=== PATIENT | female | born 1950 | race Caucasian/White ===

== ENCOUNTER 2017-05-19 05:49 | Inpatient (IN) ==
[2017-05-13 14:08] LABS: Basophils # 0.1 10*3/uL (0.0-0.2); Basophils % 0.6 % (0.0-0.8); Eosinophils % 0.3 % (0.00-10.9); Hematocrit 33.2 VOL% (35.7-47.0); Hemoglobin 11.3 GM/DL (12.0-16.0); Immature Granulocytes % 1.4 %; Immature Granulocytes Absolute 0.14 #; Lymphocytes # 1.4 10*3/uL (1.4-4.0); Lymphocytes % 14.1 % (21.3-54.2); Mean Corpuscular Hemoglobin 32 PG (27-34); Mean Corpuscular Volume 93.5 FL (87-102); Mean Platelet Volume 10.7 FL (9.6-12.0); Monocytes % 9.4 % (1.7-12.7); Neutrophils # 7.6 10*3/uL (1.4-7.4); Neutrophils % 74.2 % (38.7-73.9); Platelet Count 357 T/CUMM (130-400); Red Blood Count 3.55 MC/CUMM (3.8-5.5); Red Cell Distribution Width 13.3 % (9.3-17.3); White Blood Count 10.2 T/CUMM (4-12)
--- NOTE | 2017-05-13 14:16 | EKG Report ---
Stationary ECG Study [facility] Test Date: 05/13/2017 2:17:10 PM Pat Name: MARLENY ZUNIGA Department: Room: Gender: F Manager Clinical Informatics: ROCKY CRUZ : 1950 Requested by: Jorge Luis Cruz Order Number: [id number] Reading MD: UCHE JAIME Intervals [place] Rate: 73 P: 48 NC: 163 QRS: 17 QRSD: 94 T: 69 QT: 380 QTc: 405 Interpretive Statements SINUS RHYTHM Electronically Signed On 05-13-17 18:26:05 CDT by UCHE JAIME [email or web address]
[2017-05-13 14:31] LABS: Calcium 9.1 MG/DL (8.5-10.1); Potassium 4.6 MMOL/L (3.5-5.1)
[~2017-05-19 05:49] MED LIST: ceFAZolin 1,000 MG VIAL ONE
[2017-05-19] MEDS ORDERED: BUPIVACAINE MPF 0.25% /EPI 30 ML VIAL ONE (06:25)
[2017-05-19] MEDS ORDERED: LIDOCAINE 1%/EPI INJ 20 ML VIAL ONE (06:25)
[2017-05-19] MEDS ORDERED: TISSUE ADHESIVE 1 EACH APPLICATOR TOP ONE (06:25)
[2017-05-19] MEDS: SODIUM CHLORIDE 0.9% 250 ML IV SCH ×2 (06:40→19:04)
[2017-05-19] MEDS ORDERED: FAMOTIDINE 20 MG/2 ML VIAL IV STA (06:46)
[2017-05-19] MEDS ORDERED: FAMOTIDINE 20 MG/2 ML VIAL IV ONE (06:49)
[2017-05-19] MEDS ORDERED: PANTOPRAZOLE 40 MG VIAL IV STA (06:50)
[2017-05-19] MEDS ORDERED: ONDANSETRON 4 MG/2 ML VIAL IV STA (06:50)
[2017-05-19] MEDS ORDERED: ONDANSETRON 4 MG/2 ML VIAL ONE ×2 (06:56→07:23)
[2017-05-19] MEDS ORDERED: PANTOPRAZOLE 40 MG VIAL IV ONE (06:56)
--- NOTE | 2017-05-19 07:10 | History and Physical Update ---
History and Physical Update - History and Physical H&P was reviewed, the patient examined and there: are no changes in the patients condition since last H&P was completed.
--- NOTE | 2017-05-19 07:21 | XRay Report ---
XR chest 1V Indication: Preop respiratory evaluation. Comparison: Chest x-ray February 02, 2016 Technique: Portable AP chest was performed. Findings: Heart size is normal. Pulmonary vasculature appears within normal limits. No significant abnormality of the mediastinal contours demonstrated. Lungs are clear. Bones and soft tissues demonstrate no significant abnormalities. Impression: 1. No evidence of acute pathology. 05/19/2017 7:17 AM PROCEDURE INTERPRETED AT [facility] DEPARTMENT OF RADIOLOGY Final Report Signed by: Dr. Reynold Castellanos
[2017-05-19] MEDS: SODIUM CHLORIDE 0.9% 1,000 ML IV SCH ×2 (07:23→08:46)
[2017-05-19] MEDS ORDERED: PHENYLEPHRINE 50 MG/5 ML VIAL ONE (07:23)
[2017-05-19] MEDS ORDERED: ROCURONIUM 100 MG/10 ML VIAL IV ONE (07:23)
[2017-05-19] MEDS ORDERED: GLYCOPYRROLATE 0.4 MG/2 ML VIAL ONE (07:23)
[2017-05-19] MEDS ORDERED: NEOSTIGMINE 10 MG/10 ML VIAL ONE (07:23)
[2017-05-19] MEDS ORDERED: LIDOCAINE 100 MG/5 ML SYRINGE ONE (07:23)
[2017-05-19] MEDS ORDERED: PHENYLEPHRINE 1 MG/10 ML SYRINGE IV ONE (07:23)
[2017-05-19] MEDS ORDERED: PROPOFOL 200 MG/20 ML VIAL IV ONE (07:23)
[2017-05-19] MEDS ORDERED: SUCCINYLCHOLINE 200 MG/10 ML VIAL ONE (07:23)
[2017-05-19] MEDS ORDERED: BISACODYL 5 MG TABLET PO PRN (10:10)
[2017-05-19] MEDS ORDERED: SUGAMMADEX 200 MG/2 ML VIAL IV ONE (10:10)
[2017-05-19] MEDS ORDERED: ACETAMINOPHEN 325 MG TABLET PO PRN (10:10)
[2017-05-19] MEDS ORDERED: HYDROmorphone 2 MG/1 ML VIAL IV PRN (10:10)
[2017-05-19] MEDS ORDERED: DEXTROSE 50% 25 GM/50 ML VIAL IV PRN (10:17)
[2017-05-19] MEDS ORDERED: GLUCAGON 1 MG VIAL IM PRN (10:17)
[2017-05-19] MEDS ORDERED: hydrALAZINE 20 MG/1 ML VIAL ONE (10:26)
[2017-05-19] MEDS ORDERED: hydrALAZINE 20 MG/1 ML VIAL IV ONE (10:27)
[2017-05-19] MEDS: HYDROmorphone 2 MG/1 ML VIAL IV PRN ×5 (10:30→18:20)
[2017-05-19] MEDS ORDERED: SEVOFLURANE 1 UNIT/15 MINUTE INH ONE (10:35)
[2017-05-19] MEDS ORDERED: MIDAZOLAM 2 MG/2 ML VIAL ONE (10:35)
[2017-05-19] MEDS ORDERED: ACETAMINOPHEN 1,000 MG/100 ML VIAL IV ONE (10:35)
[2017-05-19] MEDS ORDERED: fentaNYL 100 MCG/2 ML VIAL ONE (10:35)
[2017-05-19] MEDS ORDERED: MINERAL OIL/PETROLATUM OPH OINT 3.5 GM TUBE ONE (10:35)
[2017-05-19] MEDS ORDERED: SODIUM CHLORIDE 0.9% 1,000 ML IV ONE (10:36)
[2017-05-19] MEDS ORDERED: HYDROmorphone 2 MG/1 ML VIAL ONE (10:37)
--- NOTE | 2017-05-19 13:02 | Nephrology Consult Note ---
History of Present Illness Chief complaint: CRF History of present illness: Ms. Pedersen is a 67 year old female who is just undergone gastric pacer placement for gastroparesis. She is alert. She denies pain or shortness of breath. I have followed her for diabetic nephropathy. Her baseline creatinine in January of this year was 2.6. Home Medications Medication Instructions Recorded Confirmed Type Aspirin Tab 325 mg PO DAILY 05/13/17 05/19/17 History Atorvastatin [Lipitor] 20 mg PO DAILY 05/13/17 05/19/17 History Cholecalciferol (Vitamin D3) 2,000 unit PO DAILY 05/13/17 05/19/17 History [Vitamin D3] Colchicine 0.6 mg PO DAILY 05/13/17 05/19/17 History Insulin Aspart [NovoLOG FlexPen] 20 unit SUBCUT TID 05/13/17 05/19/17 History Insulin Glargine,Hum.rec.anlog 60 unit SUBCUT DAILY 05/13/17 05/19/17 History [Lantus SoloStar] Metoprolol Succinate Xl [Toprol Xl] 100 mg PO BID 05/13/17 05/19/17 History Nitroglycerin 0.4 mg/Hr Patch 1 patch TRANSDERM DAILY 05/13/17 05/19/17 History [Nitro-Dur 0.4 mg/hr Patch] Omeprazole 20 mg PO DAILY 05/13/17 05/19/17 History Ondansetron HCl 4 mg PO QID PRN 05/13/17 05/19/17 History Ranolazine [Ranexa] 500 mg PO BID 05/13/17 05/19/17 History amLODIPine [Norvasc] 2.5 mg PO DAILY 05/13/17 05/19/17 History buPROPion HCl [Bupropion Xl] 300 mg PO BID 05/13/17 05/19/17 History Allergies Allergy/AdvReac Type Severity Reaction Status Date / Time Penicillins Allergy Intermediate RASH Verified 05/19/17 06:12 sulfamethoxazole Allergy Mild RASH Verified 05/13/17 11:41 [From Bactrim] trimethoprim [From Bactrim] Allergy Mild RASH Verified 05/13/17 11:41 Medical,Surgical,& Family Hx - Medical History Cardio: History of: Hypertension Psychological: History of: Depression Neurology: History of: Migraine (PAST HX.) No history of: Seizures HEENT: History of: Eye Problem (GLASSES) Endocrine: History of: Diabetes Mellitus (IDDM), Dyslipidemia Respiratory: History of: Bronchitis (PAST HX.) No history of: Respiratory Problems (FLU VAC-YES; PNEU VAC- YES.) Renal: History of: Renal Failure (DR LAU) Gastrointestinal: History of: GERD, GI Problems (NAUSEA AND VOMITING. GASTROINTERITIS) Musculoskeletal: History of: Back/Neck Problems (LOWER BACK PAIN AND SHOULDERS) Hematology: History of: Anemia Reproductive: History of: Reproductive Problems (UTERINE CANCER) Other: History of: Anesthesia Reactions (VOMITING WITH ANESTHESIA), Cancer ( UTERINE CANCER.), MRSA (RT SHOULDER 2006) - Surgical History Abdominal Surgeries: Surgical HX of: Abdominal Surgery (gastric stimulator), Cholecystectomy, EGD (?) Reproductive Surgeries: Surgical HX of;: Breast Surgery (RT BREAST LUMPECTOMY), Gynecologic Surgery, Hysterectomy - Family History Family History: Reports;: Family Diabetes, Family Hypertension - Social History Smoking Status: Never smoker Frequency of Alcohol Use: None Type of Drug Use: None Review of Systems 12 point system: reviewed and no additional remarkable complaints except as stated Exam - Vital Signs Vital signs: Period Temp Pulse Resp BP Sys/Veliz Pulse Ox Last 24 Hr 97 F-97.6 F 59-66 16-20 118-218/56-86 95-100 Exam: Gen.: Alert and oriented x3. ENT: Pupils equal round reactive to light. EOMs intact. Mucous membranes moist. Neck: Supple. No JVD or bruit. Cardiovascular: Regular rate and rhythm. No murmur rub or gallop Lungs: Clear Abdomen: Soft. Nontender. Positive bowel sounds. No organomegaly Extremities: No edema Results - Labs CBC & BMP: 05/13/17 14:01 05/13/17 14:01 Assessment and Plan (1) Chronic kidney disease, stage III (moderate) Status: Acute Assessment and plan: 67-year-old woman admitted with: * Gastroparesis. Status post gastric pacer * Diabetes mellitus * CRF stage III. Baseline creatinine 2.6 in January 2017. Renal panel pending * Hypertension. Controlled * Osteoarthritis Current Visit: Yes (2) Diabetes mellitus Status: Acute Current Visit: Yes (3) Hypertension Status: Acute Current Visit: Yes (4) Gastroparesis Status: Acute Current Visit: Yes (5) Osteoarthritis Status: Acute Current Visit: Yes
[2017-05-19] MEDS: PANTOPRAZOLE 40 MG VIAL IV SCH (13:07)
[2017-05-19] MEDS: RANOLAZINE 500 MG TABLET PO SCH ×2 (13:10→20:53)
[2017-05-19] MEDS: amLODIPine 2.5 MG TABLET PO SCH (13:10)
[2017-05-19] MEDS: CHOLECALCIFEROL 1,000 UNIT TABLET PO SCH (13:11)
[2017-05-19] MEDS: COLCHICINE 0.6 MG TABLET PO SCH (13:11)
[2017-05-19] MEDS: ASPIRIN 325 MG TABLET PO SCH (13:11)
[2017-05-19] MEDS: LACTATED RINGERS 1,000 ML IV SCH ×2 (13:11→19:37)
[2017-05-19] MEDS: ATORVASTATIN 20 MG TABLET PO SCH (13:11)
[2017-05-19] MEDS: NITROGLYCERIN 0.4 MG/HR PATCH TRANSDERM SCH (13:12)
[2017-05-19] MEDS: METOPROLOL SUCCINATE XL 100 MG TABLET PO SCH ×2 (13:12→20:53)
--- NOTE | 2017-05-19 14:02 | Operative Note ---
Date of procedure: 05/19/17 Pre-op diagnosis: Diabetic gastroparesis refractory to medical management Post-op diagnosis: same Procedure: Procedure performed: #1 robotically assisted laparoscopic placement of gastric stimulator leads #2 implantation of gastric stimulator #3 EGD #4 interrogation and programming of gastric stimulator Procedure in detail: After informed consent was obtained, patient was taken operating suite placed upon the operating table. After general anesthesia was induced abdomen was prepped and draped in usual sterile fashion using Ioban drape. After procedural pause local anesthetic infiltrated in the skin and subcutaneous tissue to the right of the umbilicus. Incision was made and dissection carried down through skin and soft tissue. The anterior and posterior fascia was divided and the abdominal cavity was then entered bluntly. Finger sweep revealed no adjacent adhesions. Stimulator leads were inserted along with the Galindo trocar under direct visualization. Pneumoperitoneum achieved. The camera inserted. Bowel mesentery inspected found to be free of any violation. Next the patient was placed in slight reverse Trendelenburg position and 8 mm trochars were placed in the left upper quadrant as well as a 5 mm licensed physical therapy assistant port all under visualization. The robotic arms were docked not to control to consult. There is some adhesions in the right upper quadrant which were taken down to allow visualization of the pylorus. Then identified a 0.10 cm from the pylorus along the greater curvature of the stomach. The skin needles were placed in the blue Prolene dragged into the stomach submucosa. EGD performed. I was able to identify blue Prolene suture in the lumen of the stomach. The stomach was desufflated and the needles were removed. I then reinserted the skin needles and re-perform the EGD and they were in good position with no Prolene intraluminally. There was no trauma to the mucosa. The leads were pulled into the stomach wall and impedance was checked and was adequate. Next the discs were inserted in the blue Prolene sutures placed through the discs allowing for a snug fit of the leads in the stomach. Clips were applied and the excess Prolene sutures and skin needles were removed. The trumpets and disc were then secured using interrupted 2-0 Ethibond suture. The robotic arms were undocked and the abdomen desufflated. The fascia was closed using running 0 Prolene suture. Subcutaneous pocket was created inferior to the incision and the stimulator was placed in the pocket with the excess lead wrapped behind the stimulator. Stimulator was secured to the fascia using 2-0 Prolene suture. The impedance was rechecked and was 391. Stimulator was then interrogated and placed in the on position. Nominal settings were placed giving a voltage of 2.0 with a current of 5.0. Pulse width was 330 with a rate of 14 Hz. Cycling was on 0.1 seconds off 5 seconds. The wounds and pocket were thoroughly irrigated and suctioned. Soft tissue over the stimulator was reapproximated with 3-0 Vicryl suture. Deep dermal layer was closed with 3-0 Vicryl suture. Incisions were closed with 4-0 Monocryl. Sterile dressings applied. The patient was extubated and taken recovery room in stable condition. All lap and needle counts were correct at the end of the case. Anesthesia: BISIA Surgeon / Physician: Jorge Luis Cruz Estimated blood loss: other (Less than 10 cc) Specimens: none sent Condition: stable Disposition: PACU Results - Labs CBC & BMP: 05/13/17 14:01 05/13/17 14:01 Discharge Plan - Discharge Medications No Action Ranolazine [Ranexa] 500 mg PO BID Ondansetron HCl 4 mg PO QID PRN PRN Reason: Nausea Insulin Aspart [NovoLOG FlexPen] 20 unit SUBCUT TID amLODIPine [Norvasc] 2.5 mg PO DAILY Nitroglycerin 0.4 mg/Hr Patch [Nitro-Dur 0.4 mg/hr Patch] 1 patch TRANSDERM DAILY Insulin Glargine,Hum.rec.anlog [Lantus SoloStar] 60 unit SUBCUT DAILY Colchicine 0.6 mg PO DAILY Cholecalciferol (Vitamin D3) [Vitamin D3] 2,000 unit PO DAILY Atorvastatin [Lipitor] 20 mg PO DAILY Aspirin Tab 325 mg PO DAILY Metoprolol Succinate Xl [Toprol Xl] 100 mg PO BID Omeprazole 20 mg PO DAILY buPROPion HCl [Bupropion Xl] 300 mg PO BID - Follow Up or Referral - Forms/Instructions
[2017-05-19] MEDS: ONDANSETRON 4 MG/2 ML VIAL IV PRN (18:28)
[2017-05-19] MEDS: INSULIN LISPRO 100 UNIT/ML SUBCUT SCH (18:29)
[2017-05-20] MEDS: LACTATED RINGERS 1,000 ML IV SCH ×3 (00:20→11:51)
[2017-05-20 06:53] LABS: Basophils # 0.1 10*3/uL (0.0-0.2); Basophils % 0.4 % (0.0-0.8); Eosinophils # 0.1 10*3/uL (0.0-0.87); Eosinophils % 0.4 % (0.00-10.9); Hematocrit 28.7 VOL% (35.7-47.0); Hemoglobin 9.1 GM/DL (12.0-16.0); Immature Granulocytes Absolute 0.23 #; Lymphocytes # 2.2 10*3/uL (1.4-4.0); Lymphocytes % 19.4 % (21.3-54.2); Mean Corpuscular HGB Conc 31.7 GM/DL (32-36); Mean Corpuscular Hemoglobin 32 PG (27-34); Mean Corpuscular Volume 99.7 FL (87-102); Monocytes % 8.5 % (1.7-12.7); Neutrophils # 7.8 10*3/uL (1.4-7.4); Neutrophils % 69.3 % (38.7-73.9); Platelet Count 309 T/CUMM (130-400); Red Blood Count 2.88 MC/CUMM (3.8-5.5); Red Cell Distribution Width 13.3 % (9.3-17.3); White Blood Count 11.2 T/CUMM (4-12)
[2017-05-20 07:17] LABS: Calcium 8.1 MG/DL (8.5-10.1); Osmolality,Calculated 279.5 MOS/KG (273-304); Potassium 4.6 MMOL/L (3.5-5.1)
[2017-05-20] MEDS: SODIUM CHLORIDE 0.9% 250 ML IV SCH (08:33)
[2017-05-20] MEDS: INSULIN LISPRO 100 UNIT/ML SUBCUT SCH ×2 (08:34→17:20)
[2017-05-20] MEDS: CHOLECALCIFEROL 1,000 UNIT TABLET PO SCH (08:42)
[2017-05-20] MEDS: ATORVASTATIN 20 MG TABLET PO SCH (08:42)
[2017-05-20] MEDS: PANTOPRAZOLE 40 MG VIAL IV SCH (08:42)
[2017-05-20] MEDS: ASPIRIN 325 MG TABLET PO SCH (08:42)
[2017-05-20] MEDS: METOPROLOL SUCCINATE XL 100 MG TABLET PO SCH ×2 (08:43→21:12)
[2017-05-20] MEDS: COLCHICINE 0.6 MG TABLET PO SCH (08:43)
[2017-05-20] MEDS: RANOLAZINE 500 MG TABLET PO SCH ×2 (08:43→21:12)
[2017-05-20] MEDS: amLODIPine 2.5 MG TABLET PO SCH (08:43)
[2017-05-20] MEDS: SODIUM CHLORIDE 0.9% 1,000 ML IV SCH (08:46)
--- NOTE | 2017-05-20 11:13 | Event Note ---
67-year-old white female with history of hypertension, gout, diabetes, depression, and CKD admitted by Dr. Cruz on 05/19/2017 with a 2 year history of abdominal pain, nausea, vomiting, regurgitation and constipation due to gastroparesis. She was taken to the operating room for robotically assisted laparoscopic placement of gastric stimulator leads, implantation of gastric stimulator, EGD, interrogation and programming of gastric stimulator on [address] Jean-Baptiste is following her for her chronic kidney disease which is stable. 05/20/2017 patient is requiring assistance to get up to the bathroom. She states she has had no nausea or vomiting since surgery. She drank all of her liquid tray this morning and is tolerating water between meals. Her only complaints are postop pain which she is taking IV and p.o. meds for. She is afebrile and vital signs are stable. She did have a blood sugar drop to 50 last night that was symptomatic. Her home meds are being held and she is on sliding scale insulin. We will go ahead and decrease her IV fluids to 75 and switch her over to D5 and half-normal saline. Her white count is normal, H&H stable, creatinine is 2.7 which is her baseline. Her abdomen is soft and appropriately tender, her incisions look good. Continue on clear liquid diet for now and consult physical therapy to evaluate and treat. Dr. Cruz will see and examine patient and further recommendations to follow.
--- NOTE | 2017-05-20 11:35 | Physician Query Form ---
CLICK EDIT DOCUMENT TO SELECT QUERY ANSWER --> OK --> SIGN Ana Garcia RN Clinical Sql Report Writer W) [phone] (f) [phone] [email or web address] PROVIDERS: Make your selection(s) from the choices in EACH section by typing an "x" and enter comments in the comment section. Please use your independent medical judgment in providing your response. This request does not imply that any particular answer is desired or expected. CLINICAL INDICATORS: (Providers should not edit this section) Based on documentation of "Acute CKD stage 3" Creatinine from 4.10 to 2.70. GFR form 11 to 19. Treated with NS bolus, followed by and LR infusion. Clarify which of the following most accurately represents the patient's renal status: ( ) Acute kidney injury (non-traumatic) ( ) Acute renal failure ( ) Acute renal failure with underlying Chronic Kidney Disease (CKD) - please provide stage below ( ) Acute renal failure with pathological renal lesion ( ) Acute renal failure with necrosis ( ) tubular ( ) medullary ( ) cortical (x ) CKD - please provide stage below ( ) End Stage Renal Disease ( ) Acute interstitial nephritis ( ) Hepatorenal syndrome ( ) Other, please specify: ( ) Clinically unable to determine Chronic Kidney Disease Stages Source: National Kidney Disease Foundation ( ) Stage I (eGFR > or = 90) ( ) Stage II (eGFR 60 - 89) ( ) Stage III (eGFR 30 - 59) ( ) Stage IV (eGFR 15 - 29) ( ) Stage V (eGFR < 15 or dialysis) COMMENTS: 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 PLEASE ALSO DOCUMENT RESPONSE IN PROGRESS NOTES AND/OR DISCHARGE SUMMARY Use of terms such as suspected, likely, or probable (associated with a specific diagnosis that is being evaluated, monitored, or treated as if it exists) are acceptable and can be restated in the discharge summary if not ruled out. MTDD
[2017-05-20] MEDS: NITROGLYCERIN 0.4 MG/HR PATCH TRANSDERM SCH (11:46)
[2017-05-20] MEDS: DEXTROSE 5% NACL 0.45% 1,000 ML IV SCH (11:50)
--- NOTE | 2017-05-20 12:01 | Anesthesia Post-Op ---
Anesthesia Post OP - Post Ansesthetic Evaluation Patient seen in post op: Yes Resp: within normal limits CV: within normal limits Mental: within normal limits Temp: within normal limits Flrd-Dx-[place]: within normal limits Nausea and Vomiting: within normal limits Pain: within normal limits
--- NOTE | 2017-05-20 12:53 | Nephrology Progress Note ---
Nephrology - PN: Subj Interval history: She complains of soreness at her surgical site. She reports generalized weakness. No nausea Exam (PN)-Nephrology - Vital Signs Vital signs: Period Temp Pulse Resp BP Sys/Veliz Pulse Ox Last 24 Hr 96.1 F-97.6 F 57-69 16-20 147-199/70-94 94-100 Exam: ENT: Normal Cardiovascular: Regular rate and rhythm. No murmur rub or gallop Lungs: Clear Extremities: No edema - Lab 05/20/17 06:11 05/20/17 06:11 Most recent lab results Calcium 8.1 MG/DL (8.5-10.1) L 05/20/17 06:11 Assessment and Plan (1) Chronic kidney disease, stage III (moderate) Status: Acute Assessment and plan: 67-year-old woman admitted with: * Gastroparesis. Status post gastric stimulator. * Diabetes mellitus * CRF stage III. Renal function is at her baseline. * Hypertension. Controlled * Osteoarthritis Current Visit: Yes (2) Diabetes mellitus Status: Acute Current Visit: Yes (3) Hypertension Status: Acute Current Visit: Yes (4) Gastroparesis Status: Acute Current Visit: Yes (5) Osteoarthritis Status: Acute Current Visit: Yes
[2017-05-20] MEDS: HYDROmorphone 2 MG/1 ML VIAL IV PRN (21:13)
[2017-05-20] MEDS: ONDANSETRON 4 MG/2 ML VIAL IV PRN (21:40)
--- NOTE | 2017-05-21 09:52 | Nephrology Progress Note ---
Nephrology - PN: Subj Interval history: Patient complains of abdominal pain around her surgical site. Review of systems pulmonary she denies shortness of breath Physical exam general the patient is in no acute distress she has no pitting edema Assessment/plan 1. Chronic kidney disease stage III-patient's creatinine is 2.7 mg/dL 2. Gastroparesis-patient status post gastric pacemaker placement 3. Anemia 4. Hypertension we will continue present antihypertensives 5. Metabolic acidosis-I will add some sodium bicarbonate to her IV fluids. Exam (PN)-Nephrology - Vital Signs Vital signs: Period Temp Pulse Resp BP Sys/Veliz Pulse Ox Last 24 Hr 97.1 F-98.0 F 64-73 16-20 148-199/76-94 97-100 - Lab 05/20/17 06:11 05/20/17 06:11 Most recent lab results Calcium 8.1 MG/DL (8.5-10.1) L 05/20/17 06:11
[2017-05-21] MEDS: INSULIN LISPRO 100 UNIT/ML SUBCUT SCH ×2 (10:36→18:04)
[2017-05-21] MEDS: PANTOPRAZOLE 40 MG VIAL IV SCH (10:36)
[2017-05-21] MEDS: CHOLECALCIFEROL 1,000 UNIT TABLET PO SCH (10:36)
[2017-05-21] MEDS: COLCHICINE 0.6 MG TABLET PO SCH (10:36)
[2017-05-21] MEDS: ASPIRIN 325 MG TABLET PO SCH (10:36)
[2017-05-21] MEDS: amLODIPine 2.5 MG TABLET PO SCH (10:37)
[2017-05-21] MEDS: ATORVASTATIN 20 MG TABLET PO SCH (10:37)
[2017-05-21] MEDS: RANOLAZINE 500 MG TABLET PO SCH ×2 (10:37→20:51)
[2017-05-21] MEDS: METOPROLOL SUCCINATE XL 100 MG TABLET PO SCH ×2 (10:37→20:51)
--- NOTE | 2017-05-21 11:09 | Event Note ---
General Surgery Progress Note Chief complaint This patient is a 67-year-old woman who underwent robotic assisted laparoscopic gastric stimulator replacement on 05/19/2017 Interval history The patient had developed some renal issues with acidosis that is currently being treated by nephrology and and he has seen her today and added some bicarbonate to her IV fluids. She has some nausea and vomiting with supper last night. She has not tried anything yet today when I saw her. She is complaining of some right-sided abdominal pain but is slowly improving. Physical exam Afebrile with normal vital signs Abdominal exam is benign with expected tenderness. Normal bowel sounds. Labs None new today Imaging None Assessment and plan The patient's low bicarbonate levels being treated by nephrology with IV fluid bicarbonate and we will repeat her labs tomorrow. In addition, she had some nausea vomiting last night as we will watch this today and hopefully she will be ready for discharge in the morning.
[2017-05-21] MEDS: SODIUM ACETATE 100 MEQ in DEXTROSE 5% 1,000 ML IV SCH (11:36)
[2017-05-21] MEDS: NITROGLYCERIN 0.4 MG/HR PATCH TRANSDERM SCH (12:19)
[2017-05-21] MEDS: SODIUM CHLORIDE 0.9% 1,000 ML IV SCH (18:54)
[2017-05-21] MEDS: DEXTROSE 5% NACL 0.45% 1,000 ML IV SCH (18:54)
[2017-05-21] MEDS: SODIUM CHLORIDE 0.9% 250 ML IV SCH (18:54)
[2017-05-22] MEDS: SODIUM ACETATE 100 MEQ in DEXTROSE 5% 1,000 ML IV SCH (00:09)
[2017-05-22 06:11] LABS: Calcium 7.7 MG/DL (8.5-10.1); Magnesium 1.3 MG/DL (1.8-2.4); Osmolality,Calculated 287.7 MOS/KG (273-304); Potassium 3.7 MMOL/L (3.5-5.1)
[2017-05-22 08:22] VITALS: BP 156/77
[2017-05-22] MEDS: PANTOPRAZOLE 40 MG VIAL IV SCH (09:20)
[2017-05-22] MEDS: COLCHICINE 0.6 MG TABLET PO SCH (09:21)
[2017-05-22] MEDS: RANOLAZINE 500 MG TABLET PO SCH (09:21)
[2017-05-22] MEDS: INSULIN LISPRO 100 UNIT/ML SUBCUT SCH (09:21)
[2017-05-22] MEDS: CHOLECALCIFEROL 1,000 UNIT TABLET PO SCH (09:21)
[2017-05-22] MEDS: NITROGLYCERIN 0.4 MG/HR PATCH TRANSDERM SCH (09:21)
[2017-05-22] MEDS: METOPROLOL SUCCINATE XL 100 MG TABLET PO SCH (09:21)
--- NOTE | 2017-05-22 09:21 | Discharge Summary ---
Hospital Course - Hospital Course Hospital Course: This patient was admitted following robotic assisted laparoscopic gastric pacemaker placement. She had some nausea one night after surgery but this resolved on its own. She does have chronic renal failure and was followed by nephrology and her baseline creatinine in January of this year was reported to be 2.6 but was actually up to 4.1 before surgery. It fluctuated postoperatively and was up to about 3.4. Nephrology was following and was aware of this on discharge. Patient will be discharged home with follow-up with Dr. Cruz and Dr. Jean-Baptiste. She was tolerating liquids with no difficulty and she will be allowed to start regular feedback tomorrow. Discharge Plan - Discharge Data Disposition: Disch To Home/Self Care Condition at Discharge: Stable Discharge Diet: other (Continue liquids until tomorrow. Start reintroducing regular food tomorrow.) Activity: no lifting Hygiene: may shower, keep area(s) dry Weight Bearing at Discharge: weight bear as tolerated Driving: other (Do not drive or operate heavy machinery for at least 24 hours and after you are off of narcotic pain medications.) Contact your physician if you experience:: fever over 101, Difficulty voiding, Redness or swelling, Nausea/Vomiting, Shortness of breath, Bleeding, pain uncontrolled by pain medications Wound / Dressing Care Instructions: It is okay to shower. Do not scrub the incision aggressively or submerge it under water. - Discharge Medications New HYDROcodone/ACETAMIN 7.5-325 [[place] 7.5-325] 1 tablet PO Q4H PRN #30 tablet PRN Reason: Pain Moderate (4-7) Continue Ranolazine [Ranexa] 500 mg PO BID Ondansetron HCl 4 mg PO QID PRN PRN Reason: Nausea Insulin Aspart [NovoLOG FlexPen] 20 unit SUBCUT TID amLODIPine [Norvasc] 2.5 mg PO DAILY Nitroglycerin 0.4 mg/Hr Patch [Nitro-Dur 0.4 mg/hr Patch] 1 patch TRANSDERM DAILY Insulin Glargine,Hum.rec.anlog [Lantus SoloStar] 60 unit SUBCUT DAILY Colchicine 0.6 mg PO DAILY Cholecalciferol (Vitamin D3) [Vitamin D3] 2,000 unit PO DAILY Atorvastatin [Lipitor] 20 mg PO DAILY Aspirin Tab 325 mg PO DAILY Metoprolol Succinate Xl [Toprol Xl] 100 mg PO BID Omeprazole 20 mg PO DAILY buPROPion HCl [Bupropion Xl] 300 mg PO BID - Follow Up or Referral Follow Up: Michael Jean-Baptiste MD [Physician] - Jorge Luis Cruz MD [Physician] - 1 Week - Forms/Instructions Exam - Constitutional Vitals: Period Temp Pulse Resp BP Sys/Veliz Pulse Ox Last 24 Hr 96.9 F-98.0 F 62-67 18-20 156-186/74-84 96-100 General appearance: no acute distress, over weight - Head Head exam: Present: normal inspection, normocephalic - Eye Eye exam: Present: EOMI Pupils: Present: JOSH - ENT ENT exam: Present: normal exam - Neck Neck exam: Present: normal inspection - Respiratory Respiratory exam: Present: clear to auscultation bilaterally. Absent: accessory muscle use, chest wall tenderness - Cardiovascular Cardiovascular exam: Present: regular rate and rhythm. Absent: systolic murmur , tachycardia - GI/Abdominal GI/Abdominal exam: Present: normal bowel sounds, tenderness (Expected postoperative tenderness), soft - Extremities Exam Extremities exam: Present: normal inspection, normal capillary refill - Back Exam Back exam: Present: normal inspection - Neurological Exam Neurological exam: Present: alert, oriented X3 - Psychiatric Psychiatric exam: Present: normal affect, normal mood - Skin Skin exam: Present: normal color, warm Discharge Results Labs on day of discharge: Labs from last 24 hours 05/22/17 05/22/17 05/21/17 07:46 04:33 19:48 Sodium 138 Potassium 3.7 Chloride 103 Carbon Dioxide 23 Anion Gap 15.7 H BUN 28 H Creatinine 3.40 H GFR Calculation 14 BUN/Creatinine Ratio 8.00 Glucose 217 H POC Glucose 244 H 187 H Calculated Osmolality 287.7 Calcium 7.7 L Magnesium 1.3 L 05/21/17 15:58 Sodium Potassium Chloride Carbon Dioxide Anion Gap BUN Creatinine GFR Calculation BUN/Creatinine Ratio Glucose POC Glucose 147 H Calculated Osmolality Calcium Magnesium DS: Provider Date of admission: 05/19/17 10:10 Primary care physician: Juan Brennan DO Attending physician on admission: Jorge Luis Cruz MD Consults: 05/19/17 10:10 Consult to Physician [CONS] Routine Comment: pt of yours postop gastric stim, cri Consulting Provider: Michael Jean-Baptiste When should Consulting Provider be notified: Now Person Notified: [place] Date Notified: 05/19/17 Time Notified: 11:30 05/20/17 09:37 Consult to Case Mgmt/Social Srvs [CONS] Routine Reason for Case Mgmt/Social Srvs: Home Health Rehab Consult Comment: Set PT/OT Rehab at home 05/20/17 10:24 PT [Consult to Physical Therapy] [CONS] Routine Reason for Physical Therapy: Evaluate and Treat Consult Comment: please see this weekend Discharging clinician: Tano Menjivar MD Expected date of discharge: 05/22/17
[2017-05-22] MEDS: ATORVASTATIN 20 MG TABLET PO SCH (09:22)
[2017-05-22] MEDS: amLODIPine 2.5 MG TABLET PO SCH (09:22)
[2017-05-22] MEDS: ASPIRIN 325 MG TABLET PO SCH (09:22)
--- NOTE | 2017-05-22 09:57 | Nephrology Progress Note ---
Nephrology - PN: Subj Interval history: Patient complains of poor breath when she moves around. Review of systems GI she denies nausea or vomiting, she states her pain is improved Physical exam general the patient is in no acute distress Assessment/plan 1. Chronic kidney disease stage III-patient's creatinine is overall stable 2. Gastroparesis-patient status post gastric pacemaker 3. Hypertension this control Patient is okay for discharge from my standpoint. Exam (PN)-Nephrology - Vital Signs Vital signs: Period Temp Pulse Resp BP Sys/Veliz Pulse Ox Last 24 Hr 96.9 F-98.0 F 62-67 18-20 156-186/74-84 96-100 - Lab 05/20/17 06:11 05/22/17 04:33 Most recent lab results Calcium 7.7 MG/DL (8.5-10.1) L 05/22/17 04:33 Magnesium 1.3 MG/DL (1.8-2.4) L 05/22/17 04:33 Specialty Discharge - Follow Up or Referrals Follow up with: Jorge Luis Cruz MD [Physician] - 1 Week Michael Jean-Baptiste MD [Physician] -
--- NOTE | 2017-06-01 16:38 | Physician Query Form ---
CLICK EDIT DOCUMENT TO SELECT QUERY ANSWER --> OK --> SIGN Ana Garcia RN Clinical Ammonium Hydroxide Operator W) [phone] (f) [phone] [email or web address]: Make your selection(s) from the choices in EACH section by typing an "x" and enter comments in the comment section. Please use your independent medical judgment in providing your response. This request does not imply that any particular answer is desired or expected. CLINICAL INDICATORS: (Providers should not edit this section) Based on documentation of "Diabetic Gastroparesis" "Procedure performed: #1 robotically assisted laparoscopic placement of gastric stimulator leads #2 implantation of gastric stimulator #3 EGD #4 interrogation and programming of gastric stimulator" Please clarify all of the following concerning Implanted Gastric Stimulator in order to bill procedure Based on the above, could you clarify the appropriate diagnosis, if significant , that supports the above abnormalities and additional evaluation, monitoring, and/or treatment rendered: ( ) Single Array Device (x ) Multiple Array Device ( ) Other, please specify: ( ) Clinically unable to determine ( ) Rechargeable Device ( x) NON -Rechargeable Device ( ) Other, please specify: ( ) Clinically unable to determine COMMENTS: PLEASE ALSO DOCUMENT RESPONSE IN PROGRESS NOTES AND/OR DISCHARGE SUMMARY Use of terms such as suspected, likely, or probable (associated with a specific diagnosis that is being evaluated, monitored, or treated as if it exists) are acceptable and can be restated in the discharge summary if not ruled out. MTDD
== END 2017-05-22 12:50 | disposition home health service (06) | DRG 41 ==
LOC: N.OR 05:49 → N.SDSINP 05:51 → N.TELES 11:19 → N.3E 14:06
PROVIDERS: ADMIT Surgery; ATTEND Surgery

== ENCOUNTER 2017-06-16 09:26 | Inpatient (IN) ==
[2017-06-16] MEDS ORDERED: ASPIRIN 325 MG TABLET PO STA (09:57)
[2017-06-16] MEDS ORDERED: ONDANSETRON 4 MG/2 ML VIAL IV STA (09:57)
--- NOTE | 2017-06-16 10:02 | Emergency Department Note ---
Arrival - Arrival Chief Complaint: Non-Specific Stated Complaint: low blood sugar ED Nursing Triage Note: Brought in by EMS c/o low glucose, EMS reports accucheck was 37mg/dl upon their arrival. Accucheck 161mg/dl after D50 1amp IV. AOX4 now. Mode of Arrival: Stretcher Limitations: No Limitations Source: Patient Time Seen by Provider: 06/16/17 09:57 - History of Present Illness HPI Narrative: This 67-year-old white female presents approximately 1 hour post feeling extremely weak and near syncopal for which EMS was called and the patient was found to have a blood sugar of 37 in the field. She was given an amp of D50 and by arrival here, she had an Accu-Chek of 161. The patient states she did not eat her snack last night nor her breakfast this morning but had taken her normal nighttime Lantus dose yesterday evening. She states she has not had significant problems with hypoglycemia or labile sugars in recent times. The patient does state she has not been feeling well the last several weeks with marked upswing in dyspnea on exertion as well as intermittent central chest pain that is fleeting. The patient is followed by Dr. Collado at [facility] for cardiology problems but has never had any significant procedures because of significant chronic renal failure with a creatinine of around 4.[address] Jean-Baptiste. Most recently in the last month she has had a gastric pacemaker placed per Dr. Gibbs without difficulty. She likewise complains of chronic cold hands with intermittent blue nailbeds but has never been diagnosed with Reynaud's syndrome. Notable throughout the interview was a bizarre affect with responses to questioning again very slow and deliberate. In this regard the patient denies slurred speech, lily vomiting, recent headaches, or focal deficits. Currently she feels weak and nauseated but is otherwise in no acute medical distress. Onset (ago): hour(s) (Patient presents 1 hour post onset of symptoms) Date of Last Menstrual Period: hysterectomy Allergies/Adverse Reactions: Allergies Allergy/AdvReac Type Severity Reaction Status Date / Time Penicillins Allergy Intermediate RASH Verified 05/19/17 06:12 sulfamethoxazole Allergy Mild RASH Verified 05/13/17 11:41 [From Bactrim] trimethoprim [From Bactrim] Allergy Mild RASH Verified 05/13/17 11:41 Home Medications: Home Medications Medication Instructions Recorded Confirmed Type Aspirin Tab 325 mg PO DAILY 05/13/17 05/19/17 History Atorvastatin [Lipitor] 20 mg PO DAILY 05/13/17 05/19/17 History Cholecalciferol (Vitamin D3) 2,000 unit PO DAILY 05/13/17 05/19/17 History [Vitamin D3] Colchicine 0.6 mg PO DAILY 05/13/17 05/19/17 History Insulin Aspart [NovoLOG FlexPen] 20 unit SUBCUT TID 05/13/17 05/19/17 History Insulin Glargine,Hum.rec.anlog 60 unit SUBCUT DAILY 05/13/17 05/19/17 History [Lantus SoloStar] Metoprolol Succinate Xl [Toprol Xl] 100 mg PO BID 05/13/17 05/19/17 History Nitroglycerin 0.4 mg/Hr Patch 1 patch TRANSDERM DAILY 05/13/17 05/19/17 History [Nitro-Dur 0.4 mg/hr Patch] Omeprazole 20 mg PO DAILY 05/13/17 05/19/17 History Ondansetron HCl 4 mg PO QID PRN 05/13/17 05/19/17 History Ranolazine [Ranexa] 500 mg PO BID 05/13/17 05/19/17 History amLODIPine [Norvasc] 2.5 mg PO DAILY 05/13/17 05/19/17 History buPROPion HCl [Bupropion Xl] 300 mg PO BID 05/13/17 05/19/17 History HYDROcodone/ACETAMIN 7.5-325 1 tablet PO Q4H PRN #30 tablet 05/22/17 Rx [[place] 7.5-325] Review of System - Review of System 12 point system: reviewed and no additional remarkable complaints except as stated - Review of System Constitutional: Present: as per HPI Respiratory: Present: as per HPI Cardiovascular: Present: as per HPI Gastrointestinal: Present: as per HPI Endocrine: Present: as per HPI Medical,Surgical,& Family Hx - Medical History Cardio: History of: Hypertension Psychological: History of: Depression Neurology: History of: Migraine No history of: Seizures HEENT: History of: Eye Problem (GLASSES) Endocrine: History of: Diabetes Mellitus (IDDM), Dyslipidemia Respiratory: History of: Bronchitis No history of: Respiratory Problems (FLU VAC-YES; PNEU VAC- YES.) Renal: History of: Renal Failure Gastrointestinal: History of: GERD, GI Problems Musculoskeletal: History of: Back/Neck Problems (LOWER BACK PAIN AND SHOULDERS) Hematology: History of: Anemia Reproductive: History of: Reproductive Problems (UTERINE CANCER) Other: History of: Anesthesia Reactions (VOMITING WITH ANESTHESIA), Cancer ( UTERINE CANCER.), MRSA (RT SHOULDER 2007) - Surgical History Abdominal Surgeries: Surgical HX of: Abdominal Surgery (gastric stimulator), Cholecystectomy, EGD (?) Reproductive Surgeries: Surgical HX of;: Breast Surgery (RT BREAST LUMPECTOMY), Gynecologic Surgery, Hysterectomy - Family History Family History: Reports;: Family Diabetes, Family Hypertension - Social History Smoking Status: Never smoker Frequency of Alcohol Use: None Type of Drug Use: None Exam Physical Examination: GENERAL: Chronically ill-appearing white female with joshua pallor. HEENT: Normocephalic. No trauma. Moist mucous membranes. EOMI. PERRLA. ENT NML NECK: Supple. No adenopathy. CARDIAC: Regular. No murmurs. Heart rate 43 CHEST: Clear to auscultation. No respiratory distress. O2 sat 100% ABDOMEN: Soft. Nontender. Active bowel sounds. EXTREMITIES: No trauma. Normal ROM. No pedal edema. Cold hands with blue nail beds SKIN: No diaphoresis. No rash. NEURO: Alert. Oriented 3 but somewhat slow to respond although she does have a severe hearing deficit. Motor, sensory, vibratory intact. No focal deficits. Vital Signs: Vital Signs Temperature 96.9 F L 06/16/17 09:36 Pulse Rate 48 L 06/16/17 11:00 Respiratory Rate 14 06/16/17 11:00 Blood Pressure 194/67 06/16/17 11:00 O2 Sat by Pulse Oximetry 100 06/16/17 11:00 Course - Reevaluation(s) Reevaluation #1: Advised patient of need for hospitalization with her multiple medical anomalies. - Consultations Consultation #1: Discussed with hospitalist service who will admit for further evaluation treatment peer Results - Labs CBC & BMP: 06/16/17 09:55 06/16/17 09:55 Labs: I have reviewed the laboratory and noted the anemia, renal azotemia, elevated BMP, and infected urine. - Impressions EKG: Sinus bradycardia at 43 with normal AL interval and QRS duration. Diffuse nonspecific ST changes with no acute injury pattern noted. - Diagnostic Findings Procedure: Chest x-ray: image reviewed by me, report reviewed by me (No acute pathology), CT: image reviewed by me, report reviewed by me (Head: Microvascular ischemia with old lacunar infarcts noted no acute injury noted) Disposition Clinical Impression: Hypoglycemia, Renal azotemia, Congestive failure, Cystitis Time of Disposition: 11:39
[2017-06-16 10:05] LABS: Basophils # 0.1 10*3/uL (0.0-0.2); Basophils % 0.5 % (0.0-0.8); Eosinophils # 0.1 10*3/uL (0.0-0.87); Eosinophils % 1.1 % (0.00-10.9); Hematocrit 33.8 VOL% (35.7-47.0); Hemoglobin 11.3 GM/DL (12.0-16.0); Immature Granulocytes % 1.6 %; Immature Granulocytes Absolute 0.17 #; Lymphocytes # 1.8 10*3/uL (1.4-4.0); Lymphocytes % 16.5 % (21.3-54.2); Mean Corpuscular HGB Conc 33.4 GM/DL (32-36); Mean Corpuscular Hemoglobin 32 PG (27-34); Mean Corpuscular Volume 96.6 FL (87-102); Mean Platelet Volume 11.1 FL (9.6-12.0); Monocytes # 0.5 10*3/uL (0.11-0.8); Neutrophils # 8.1 10*3/uL (1.4-7.4); Neutrophils % 75.3 % (38.7-73.9); Platelet Count 322 T/CUMM (130-400); Red Cell Distribution Width 13.8 % (9.3-17.3); White Blood Count 10.8 T/CUMM (4-12)
[2017-06-16] MEDS ORDERED: ONDANSETRON 4 MG/2 ML VIAL ONE (10:05)
[2017-06-16] MEDS ORDERED: ASPIRIN 325 MG TABLET ONE (10:05)
--- NOTE | 2017-06-16 10:15 | XRay Report ---
XR chest 1V portable Indication: Chest pain Comparison: Chest x-ray dated May 19, 2017 Technique: Single frontal view of the chest. Findings: The cardiomediastinal silhouette is stable in configuration. Chronic change of the lungs without focal consolidation, pleural effusion, or pneumothorax. Visualized osseous and surrounding soft tissue structures appear grossly unchanged. IMPRESSION: Stable chest x-ray without acute cardiopulmonary process demonstrated. PROCEDURE INTERPRETED AT [facility] DEPARTMENT OF RADIOLOGY Final Report Signed by: Dr Jeancarlos Crane
[2017-06-16 10:32] LABS: Apearance,Urine Slightly Hazy (Clear); Bacteria,Urine Moderate /HPF (Few); Bilirubin,Urine Negative (Negative); Blood, Urine Small mg/dL (Negative); Glucose,Urine (UA) 50 mg/dL (Negative); Ketones,Urine Negative (Negative); Nitrite,Urine Negative (Negative); Protein,Urine 30 MG/DL; RBC,Urine 3 /HPF (0-4); Squamous Epithelial Cell,Urine Occasional /HPF (0-10); Urine Color Yellow (Yellow); Urine Specific Gravity 1.008 (1.001-1.035); Urine Urobilinogen < 2.0 EU/DL (0.2-1.0); WBC,Urine 47 /HPF (0-6)
[2017-06-16 10:35] LABS: Alanine Aminotransferase 17 U/L (13-56); Albumin 2.9 G/DL (3.4-5.0); Alkaline Phosphatase 179 U/L (45-117); Aspartate Amino Transferase 14 U/L (0-37); Blood Urea Nitrogen 50 MG/DL (7-18); Calcium 8.7 MG/DL (8.5-10.1); Glucose 122 MG/DL (74-106); Osmolality,Calculated 288.7 MOS/KG (273-304); Potassium 4.3 MMOL/L (3.5-5.1); Sodium 138 MMOL/L (136-145); Total Protein 6.7 G/DL (6.4-8.3); Troponin I Only 0.015 NG/ML (0.00-0.045)
--- NOTE | 2017-06-16 10:37 | CT Report ---
CT head/brain wo con Indication: Altered mental status Comparison: None Technique: Multiple axial tomographic images of the brain were obtained without the use of intravenous contrast. Findings: Midline structures are nondisplaced. There is no convincing evidence of acute intracranial hemorrhage . Mild periventricular and subcortical hypoattenuation noted which is nonspecific but consistent with chronic microvascular ischemic change. Demyelinating process and vasculitis less likely considerations. Mild global volume loss present. Old lacunar infarct of right basal ganglia. Atherosclerotic calcifications demonstrated. The visualized paranasal sinuses and bilateral mastoid air cells are essentially clear. IMPRESSION: No convincing CT evidence of acute intracranial abnormality. If clinically indicated, MRI may be beneficial for further evaluation. Probable chronic microvascular ischemic change, volume loss, and old lacunar infarct of right basal ganglia. The CT exam was performed using one or more of the following dose reduction techniques: Automated exposure control, adjustment of the mA and/or kV according to patient size, or use of iterative reconstruction technique. PROCEDURE INTERPRETED AT [facility] DEPARTMENT OF RADIOLOGY Final Report Signed by: Dr Jeancarlos Crane
[2017-06-16] MEDS: DEXTROSE 5% 250 ML IV SCH ×8 (10:39→17:55)
[2017-06-16] MEDS ORDERED: hydrALAZINE 20 MG/1 ML VIAL ONE (10:49)
[2017-06-16] MEDS ORDERED: hydrALAZINE 20 MG/1 ML VIAL IV STA (10:53)
[2017-06-16] MEDS ORDERED: LEVOFLOXACIN INJ 750 MG in PREMIX 1 EACH IV STA (11:09)
[2017-06-16] MEDS ORDERED: LEVOFLOXACIN INJ 150 ML IV ONE (11:14)
--- NOTE | 2017-06-16 13:48 | Hospitalist History & Physical ---
<Ayden Hdz - Last Filed: 06/16/17 13:31> Assessment and Plan - Time spent with patient Time spent with patient: Greater than 30 minutes (1) Diabetes mellitus Status: Acute Assessment and plan: Monitor blood sugars closely. Accu-Cheks every 4 hours. Sliding scale insulin as needed. Current Visit: No (2) Chronic kidney disease, stage III (moderate) Status: Acute Assessment and plan: Patient does have chronic kidney disease. She is followed by Dr. Jean-Baptiste. Creatinine today is 4.90. We will hydrate with gentle IV fluids. Consider consultation with Dr. Jean-Baptiste. Current Visit: No (3) Hypertension Status: Acute Assessment and plan: Continue home medications. And IV labetalol and hydralazine as needed. Current Visit: No (4) Gastroparesis Status: Acute Assessment and plan: Patient has a history of gastroparesis. She had a robotic gastric stimulator placed by Dr. Cruz on 05/19/2017. Patient reports no new issues with gastroparesis or the device. Current Visit: No (5) Urinary tract infection Status: Acute Assessment and plan: Continue empiric IV Levaquin. Current Visit: Yes History of Present Illness Chief complaint: hypoglycemia History of present illness: Ms. Pedersen is a 67 year old white female with a past medical history significant for chronic kidney disease, hypertension, insulin-dependent diabetes mellitus who presents to the ED today via EMS with complaints of hypoglycemia having onset this morning. The patient arrived to the hospital without any family present. She states that her son and grandchildren, who live with her, could not awaken her this morning and called EMS. The patient states that when she came to she was still lying in her bed with the paramedics standing around her. In the field, the patient's blood glucose was documented at 37. Have on arrival Accu-Chek 161. She was then transferred to the hospital for further evaluation. She reports that she is followed by Dr. Brennan at [facility] and has had some difficulty maintaining her blood glucose levels often having bouts of hypoglycemia with frequent falls. The patient could not tell me what type of insulin she takes nor the dosage. However she does remember taking insulin last night just before the unit. Consistent with her history of falls, the patient does have several bruises to her upper and lower extremities as well as her head including the eyebrow and forehead. On exam, the patient denies headache, blurry vision, slurred speech, chest pain or pressure, abdominal pain or change in appetite, numbness or tingling, focal deficits, edema. She does confirm weakness and nausea. Lab work on admission is remarkable for: Hemoglobin 11.3, hematocrit 33.8, BUN 50, creatinine 4.9, serum glucose 122, POC glucose 75. Urinalysis does show large leukocytes with moderate clumps and bacteria. Urine culture to follow. Case discussed with both Dr. Rivera, ER physician, and Dr. Bennett, admitting physician, and patient will be admitted to the hospital medicine service for further evaluation and treatment. Patient is a full code. Home meds have been reviewed and reconciled. Home Medications Medication Instructions Recorded Confirmed Type Aspirin Tab 325 mg PO QAM 05/13/17 06/16/17 History Atorvastatin [Lipitor] 20 mg PO QPM 05/13/17 06/16/17 History Colchicine 0.6 mg PO QAM 05/13/17 06/16/17 History Insulin Aspart [NovoLOG FlexPen] 20 unit SUBCUT TID 05/13/17 06/16/17 History Insulin Glargine,Hum.rec.anlog 60 unit SUBCUT BEDTIME 05/13/17 06/16/17 History [Lantus SoloStar] Metoprolol Succinate Xl [Toprol Xl] 100 mg PO QAM 05/13/17 06/16/17 History Nitroglycerin 0.4 mg/Hr Patch 1 patch TRANSDERM DAILY 05/13/17 06/16/17 History [Nitro-Dur 0.4 mg/hr Patch] Omeprazole 20 mg PO DAILY 05/13/17 06/16/17 History Ondansetron HCl 4 mg PO QID PRN 05/13/17 06/16/17 History Ranolazine [Ranexa] 500 mg PO BID 05/13/17 06/16/17 History amLODIPine [Norvasc] 2.5 mg PO QAM 05/13/17 06/16/17 History buPROPion HCl [Bupropion Xl] 300 mg PO BID 05/13/17 06/16/17 History HYDROcodone/ACETAMIN 7.5-325 1 tablet PO Q4H PRN #30 tablet 05/22/17 06/16/17 Rx [[place] 7.5-325] Benzonatate 200 mg PO DAILY PRN 06/16/17 06/16/17 History Cholecalciferol (Vitamin D3) 5,000 unit PO QPM 06/16/17 06/16/17 History [Vitamin D3] Erythromycin Base [Erythromycin DR 250 mg PO TID 06/16/17 06/16/17 History Cap] Loratadine Tab [Claritin Tab] 10 mg PO DAILY PRN 06/16/17 06/16/17 History Meloxicam [Mobic] 7.5 mg PO QOTHER DAY 06/16/17 06/16/17 History Metoprolol Succinate Xl [Toprol Xl] 50 mg PO QPM 06/16/17 06/16/17 History Allergies Allergy/AdvReac Type Severity Reaction Status Date / Time Penicillins Allergy Intermediate RASH Verified 05/19/17 06:12 sulfamethoxazole Allergy Mild RASH Verified 05/13/17 11:41 [From Bactrim] trimethoprim [From Bactrim] Allergy Mild RASH Verified 05/13/17 11:41 Medical,Surgical,& Family Hx - Medical History Cardio: History of: Hypertension Psychological: History of: Depression Neurology: History of: Migraine No history of: Seizures HEENT: History of: Eye Problem (GLASSES) Endocrine: History of: Diabetes Mellitus (IDDM), Dyslipidemia Respiratory: History of: Bronchitis No history of: Respiratory Problems (FLU VAC-YES; PNEU VAC- YES.) Renal: History of: Renal Failure Gastrointestinal: History of: GERD, GI Problems Musculoskeletal: History of: Back/Neck Problems (LOWER BACK PAIN AND SHOULDERS) Hematology: History of: Anemia Reproductive: History of: Reproductive Problems (UTERINE CANCER) Other: History of: Anesthesia Reactions (VOMITING WITH ANESTHESIA), Cancer ( UTERINE CANCER.), MRSA (RT SHOULDER 2006) - Surgical History Abdominal Surgeries: Surgical HX of: Abdominal Surgery (gastric stimulator), Cholecystectomy, EGD (?) Reproductive Surgeries: Surgical HX of;: Breast Surgery (RT BREAST LUMPECTOMY), Gynecologic Surgery, Hysterectomy - Family History Family History: Reports;: Family Diabetes, Family Hypertension - Social History Smoking Status: Never smoker Frequency of Alcohol Use: None Type of Drug Use: None Marital Status: Single Lives With:: Children Functional capacity: independent ambulation 12 point system: reviewed and no additional remarkable complaints except as stated Exam - Constitutional Vitals: Period Temp Pulse Resp BP Sys/Veliz Pulse Ox Last 24 Hr 96.8 F-96.9 F 43-48 14-19 192-240/67-90 100-100 Exam: General appearance: normal weight, no acute distress - Head Head exam: Present: normocephalic, recent laceration to the right eyebrow, ecchymosis to forehead - Eye Eye exam: Present: EOMI. Absent: conjunctival injection, nystagmus Pupils: Present: JOSH, normal accommodation - ENT ENT exam: Present: normal exam, normal external ear exam - Neck Neck exam: Present: normal inspection. Absent: lymphadenopathy, tenderness, thyromegaly - Respiratory Respiratory exam: Present: clear to auscultation bilaterally. Absent: rales, rhonchi, wheezes - Cardiovascular Cardiovascular exam: Present: regular rate and rhythm. Absent: carotid bruit, gallop, rubs - GI/Abdominal GI/Abdominal exam: Present: normal bowel sounds. Absent: ascites, distended, mass - Extremities Exam Extremities exam: Present: normal inspection, normal capillary refill. Absent: edema - Back Exam Back exam: Absent: CVA tenderness (L), CVA tenderness (R) - Neurological Exam Neurological exam: Present: alert, oriented X3, CN II-XII intact, reflexes normal - Psychiatric Psychiatric exam: Present: normal affect, normal mood - Skin Skin exam: Present: normal color, warm, dry Results - Labs CBC & BMP: 06/16/17 09:55 06/16/17 09:55 Lab Results: I have reviewed the past 24 hour labs - EKG EKG results: interpreted by ERMD - Diagnostic Findings Procedure: Chest x-ray: image reviewed by me, report reviewed by me ( Unremarkable), CT: image reviewed by me, report reviewed by me (Unremarkable) <Dilcia Bennett - Last Filed: 06/17/17 07:55> History of Present Illness History of present illness: Ms. Pedersen is a 67 year old female with multiple medical issues who was most likely hypoglycemic due to combination of having gastritis resulting to excessive nausea and vomiting, worsening renal status and then patient taking her lantus the night prior to symptom. patient was seen, examined and discussed with the STAFFING ASSOCIATE. I agree with the current management.I will reconcile home meds and hold home insulin for now. We will also control blood pressure. Exam - Constitutional Vitals: Period Temp Pulse Resp BP Sys/Veliz Pulse Ox Last 24 Hr 96.7 F-96.9 F 43-52 14-19 144-240/67-90 100-100 Results - Labs CBC & BMP: 06/17/17 05:41 06/17/17 05:41
[2017-06-16] MEDS ORDERED: DEXTROSE 50% 25 GM/50 ML SYRINGE IV PRN (13:59)
[2017-06-16] MEDS ORDERED: GLUCAGON 1 MG VIAL IM PRN (13:59)
[2017-06-16] MEDS ORDERED: BENZONATATE 100 MG CAPSULE PO PRN (15:00)
[2017-06-16] MEDS: SODIUM CHLORIDE 0.9% 1,000 ML IV SCH (15:04)
[2017-06-16] MEDS: ERYTHROMYCIN BASE 250 MG TABLET PO SCH ×2 (15:31→21:57)
[2017-06-16 15:36] LABS: Free T4 (Free Thyroxine) 1.52 NG/DL (0.76-1.46); Risk Ratio 4.2; Thyroid Stimulating Hormone 2.53 uIU/ml (0.358-3.74); VLDL CHOLESTEROL 19.8 MG/DL
[2017-06-16] MEDS: NITROGLYCERIN 0.4 MG/HR PATCH TRANSDERM SCH ×2 (16:56→18:03)
[2017-06-16] MEDS: ATORVASTATIN 20 MG TABLET PO SCH (20:18)
[2017-06-16] MEDS: METOPROLOL SUCCINATE XL 50 MG TABLET PO SCH (20:18)
[2017-06-16] MEDS: RANOLAZINE 500 MG TABLET PO SCH (21:57)
[2017-06-16] MEDS: CHOLECALCIFEROL 1,000 UNIT TABLET PO SCH (21:57)
[2017-06-17] MEDS: SODIUM CHLORIDE 0.9% 1,000 ML IV SCH ×2 (04:31→17:58)
--- NOTE | 2017-06-17 06:00 | EKG Report ---
Stationary ECG Study [facility] ER Test Date: 06/16/2017 10:12:54 AM Pat Name: MARLENY ZUNIGA Department: Room: 224 Gender: F Instructor Nurse: : 1950 Requested by: Austin Sebastian Order Number: [id number] Vladimir MD: JULIANNE ROTHMAN Intervals [place] Rate: 43 P: 93 PA: 204 QRS: 61 QRSD: 91 T: 61 QT: 481 QTc: 426 Interpretive Statements SINUS BRADYCARDIA MODERATE ST DEPRESSION Electronically Signed On 06-19-17 18:32:53 CDT by JULIANNE ROTHMAN [email or web address]
[2017-06-17 06:30] LABS: Basophils # 0.1 10*3/uL (0.0-0.2); Basophils % 0.5 % (0.0-0.8); Eosinophils # 0.3 10*3/uL (0.0-0.87); Eosinophils % 2.5 % (0.00-10.9); Hematocrit 30.2 VOL% (35.7-47.0); Hemoglobin 10.1 GM/DL (12.0-16.0); Immature Granulocytes % 1.3 %; Immature Granulocytes Absolute 0.18 #; Lymphocytes # 3.9 10*3/uL (1.4-4.0); Mean Corpuscular HGB Conc 33.4 GM/DL (32-36); Mean Corpuscular Hemoglobin 33 PG (27-34); Mean Corpuscular Volume 97.7 FL (87-102); Mean Platelet Volume 11.4 FL (9.6-12.0); Monocytes # 1.2 10*3/uL (0.11-0.8); Monocytes % 9.2 % (1.7-12.7); Neutrophils # 7.8 10*3/uL (1.4-7.4); Neutrophils % 57.5 % (38.7-73.9); Platelet Count 326 T/CUMM (130-400); Red Blood Count 3.09 MC/CUMM (3.8-5.5); Red Cell Distribution Width 14.2 % (9.3-17.3); White Blood Count 13.5 T/CUMM (4-12)
[2017-06-17] MEDS: ONDANSETRON 4 MG/2 ML VIAL IV PRN ×2 (06:47→17:55)
[2017-06-17 07:04] LABS: Calcium 8.2 MG/DL (8.5-10.1); Osmolality,Calculated 294.3 MOS/KG (273-304); Potassium 4.4 MMOL/L (3.5-5.1)
[2017-06-17] MEDS: amLODIPine 2.5 MG TABLET PO SCH (08:48)
[2017-06-17] MEDS: ACETAMINOPHEN 325 MG TABLET PO PRN (08:48)
[2017-06-17] MEDS: COLCHICINE 0.6 MG TABLET PO SCH (08:49)
[2017-06-17] MEDS: ERYTHROMYCIN BASE 250 MG TABLET PO SCH ×3 (08:50→21:23)
[2017-06-17] MEDS: PANTOPRAZOLE 40 MG TABLET PO SCH (08:50)
[2017-06-17] MEDS: RANOLAZINE 500 MG TABLET PO SCH ×2 (08:50→21:22)
[2017-06-17] MEDS: ASPIRIN 325 MG TABLET PO SCH (08:50)
[2017-06-17] MEDS: NITROGLYCERIN 0.4 MG/HR PATCH TRANSDERM SCH ×2 (08:52→18:47)
[2017-06-17] MEDS ORDERED: NON-FORMULARY MEDICATION (Omeprazole [Omeprazole] 20 MG) PO SCH (09:00)
--- NOTE | 2017-06-17 12:04 | Hospitalist Progress Note ---
Assessment and Plan (1) Chronic kidney disease, stage III (moderate) Status: Acute Assessment and plan: renal status is not improving on IVF Plan Nephrology consult Current Visit: No (2) Diabetes mellitus Status: Acute Assessment and plan: with Hypoglycemic episodes. Continue close monitoring [id number] Current Visit: No (3) Hypertension Status: Acute Assessment and plan: stable Current Visit: No (4) Urinary tract infection Status: Acute Assessment and plan: UC grew gram negative rods Plan continue IV Levaquin BC Current Visit: Yes (5) Gastroparesis Status: Acute Assessment and plan: Patient has a history of gastroparesis. She had a robotic gastric stimulator placed by Dr. Cruz on 05/19/2017. Patient reports no new issues with gastroparesis or the device. Current Visit: No (6) Osteoarthritis Status: Acute Assessment and plan: stable Current Visit: No (7) Dyslipidemia Status: Acute Assessment and plan: on Lipitor Current Visit: Yes Hospitalist: Subjective Interval history: Patient seen. Her blood sugar dropped to the 40s this am.Her renal status is not improving. Exam - Constitutional Vitals: Period Temp Pulse Resp BP Sys/Veliz Pulse Ox Last 24 Hr 96.7 F-98.5 F 52-75 18-22 121-160/58-82 97-100 General appearance: no acute distress - Head Head exam: Present: normal inspection - Respiratory Respiratory exam: Present: clear to auscultation bilaterally - Cardiovascular Cardiovascular exam: Present: regular rate and rhythm - GI/Abdominal GI/Abdominal exam: Present: normal bowel sounds - Extremities Exam Extremities exam: Present: normal inspection - Neurological Exam Neurological exam: Present: alert, oriented X3 Results - Labs CBC & BMP: 06/17/17 05:41 06/17/17 05:41 Lab Results: I have reviewed the past 24 hour labs
--- NOTE | 2017-06-17 13:45 | Physician Query Form ---
CLICK EDIT DOCUMENT TO SELECT QUERY ANSWER --> OK --> SIGN Velia Denney RN Clinical Balancing Machine Operator W) [phone] (f) [phone] [email or web address] PROVIDERS: Make your selection(s) from the choices in EACH section by typing an "x" and enter comments in the comment section. Please use your independent medical judgment in providing your response. This request does not imply that any particular answer is desired or expected. CLINICAL INDICATORS: (Providers should not edit this section) Based on lab results of creatinine on admission of 4.90 and increased to 5.30 with a GFR of 8. Pt. treated with IV fluids of Normal Saline. Pt. has chronic kidney disease stage 3. Clarify which of the following most accurately represents the patient's renal status: ( ) Acute kidney injury (non-traumatic) ( ) Acute renal failure (x ) Acute renal failure with underlying Chronic Kidney Disease (CKD) - please provide stage below ( ) CKD - please provide stage below ( ) Other, please specify: ( ) Clinically unable to determine Chronic Kidney Disease Stages Source: National Kidney Disease Foundation ( ) Stage I (eGFR > or = 90) ( ) Stage II (eGFR 60 - 89) ( ) Stage III (eGFR 30 - 59) ( ) Stage IV (eGFR 15 - 29) ( x) Stage V (eGFR < 15 or dialysis) COMMENTS: PLEASE ALSO DOCUMENT RESPONSE IN PROGRESS NOTES AND/OR DISCHARGE SUMMARY Use of terms such as suspected, likely, or probable (associated with a specific diagnosis that is being evaluated, monitored, or treated as if it exists) are acceptable and can be restated in the discharge summary if not ruled out. MTDD
--- NOTE | 2017-06-17 13:45 | Nephrology Consult Note ---
History of Present Illness Chief complaint: Renal failure History of present illness: Ms. Pedersen is a 67 year old female admitted with severe hypoglycemia. Shubham was in the 30s on admission. It dropped again last night. She has long-standing diabetes with gastroparesis and chronic renal failure. She had a gastric stimulator placed 1 month ago. Her nausea has improved since then but is still occasionally present. Home Medications Medication Instructions Recorded Confirmed Type Aspirin Tab 325 mg PO QAM 05/13/17 06/16/17 History Atorvastatin [Lipitor] 20 mg PO QPM 05/13/17 06/16/17 History Colchicine 0.6 mg PO QAM 05/13/17 06/16/17 History Insulin Aspart [NovoLOG FlexPen] 20 unit SUBCUT TID 05/13/17 06/16/17 History Insulin Glargine,Hum.rec.anlog 60 unit SUBCUT BEDTIME 05/13/17 06/16/17 History [Lantus SoloStar] Metoprolol Succinate Xl [Toprol Xl] 100 mg PO QAM 05/13/17 06/16/17 History Nitroglycerin 0.4 mg/Hr Patch 1 patch TRANSDERM DAILY 05/13/17 06/16/17 History [Nitro-Dur 0.4 mg/hr Patch] Omeprazole 20 mg PO DAILY 05/13/17 06/16/17 History Ondansetron HCl 4 mg PO QID PRN 05/13/17 06/16/17 History Ranolazine [Ranexa] 500 mg PO BID 05/13/17 06/16/17 History amLODIPine [Norvasc] 2.5 mg PO QAM 05/13/17 06/16/17 History buPROPion HCl [Bupropion Xl] 300 mg PO BID 05/13/17 06/16/17 History HYDROcodone/ACETAMIN 7.5-325 1 tablet PO Q4H PRN #30 tablet 05/22/17 06/16/17 Rx [[place] 7.5-325] Benzonatate 200 mg PO DAILY PRN 06/16/17 06/16/17 History Cholecalciferol (Vitamin D3) 5,000 unit PO QPM 06/16/17 06/16/17 History [Vitamin D3] Erythromycin Base [Erythromycin DR 250 mg PO TID 06/16/17 06/16/17 History Cap] Loratadine Tab [Claritin Tab] 10 mg PO DAILY PRN 06/16/17 06/16/17 History Meloxicam [Mobic] 7.5 mg PO QOTHER DAY 06/16/17 06/16/17 History Metoprolol Succinate Xl [Toprol Xl] 50 mg PO QPM 06/16/17 06/16/17 History Allergies Allergy/AdvReac Type Severity Reaction Status Date / Time Penicillins Allergy Intermediate RASH Verified 05/19/17 06:12 sulfamethoxazole Allergy Mild RASH Verified 05/13/17 11:41 [From Bactrim] trimethoprim [From Bactrim] Allergy Mild RASH Verified 05/13/17 11:41 Medical,Surgical,& Family Hx - Medical History Cardio: History of: Hypertension Psychological: History of: Depression Neurology: History of: Migraine No history of: Seizures HEENT: History of: Eye Problem (GLASSES) Endocrine: History of: Diabetes Mellitus (IDDM), Dyslipidemia Respiratory: History of: Bronchitis No history of: Respiratory Problems (FLU VAC-YES; PNEU VAC- YES.) Renal: History of: Renal Failure Gastrointestinal: History of: GERD, GI Problems Musculoskeletal: History of: Back/Neck Problems (LOWER BACK PAIN AND SHOULDERS) Hematology: History of: Anemia Reproductive: History of: Reproductive Problems (UTERINE CANCER) Other: History of: Anesthesia Reactions (VOMITING WITH ANESTHESIA), Cancer ( UTERINE CANCER.), MRSA (RT SHOULDER 2006) - Surgical History Abdominal Surgeries: Surgical HX of: Abdominal Surgery (gastric stimulator), Cholecystectomy, EGD (?) Reproductive Surgeries: Surgical HX of;: Breast Surgery (RT BREAST LUMPECTOMY), Gynecologic Surgery, Hysterectomy - Family History Family History: Reports;: Family Diabetes, Family Hypertension - Social History Smoking Status: Never smoker Frequency of Alcohol Use: None Type of Drug Use: None Review of Systems 12 point system: reviewed and no additional remarkable complaints except as stated Exam - Vital Signs Vital signs: Period Temp Pulse Resp BP Sys/Veliz Pulse Ox Last 24 Hr 96.7 F-98.5 F 52-76 18-22 121-221/58-102 97-100 Exam: Gen.: Alert and oriented x3. ENT: Pupils equal round reactive to light. EOMs intact. Mucous membranes moist. Neck: Supple. No JVD or bruit. Cardiovascular: Regular rate and rhythm. No murmur rub or gallop Lungs: Clear Abdomen: Soft. Nontender. Positive bowel sounds. No organomegaly Extremities: No edema Results - Labs CBC & BMP: 06/17/17 05:41 06/17/17 05:41 Assessment and Plan (1) Chronic kidney disease, stage IV (severe) Status: Acute Assessment and plan: 67-year-old woman admitted with: * Diabetes mellitus * Symptomatic hypoglycemia. Insulin is being held. Gastroparesis and worsened renal function are contributing factors * CRF stage IV. Baseline creatinine approximately 3. Agree with IV fluid. Mobic discontinued. * UTI * Hypertension * Gastroparesis. Recent gastric stimulator placement Current Visit: Yes (2) Hypoglycemia Status: Acute Current Visit: Yes (3) Urinary tract infection Status: Acute Current Visit: Yes (4) Diabetes mellitus Status: Acute Current Visit: No (5) Gastroparesis Status: Acute Current Visit: No (6) Hypertension Status: Acute Current Visit: No (7) Acute on chronic renal failure Status: Acute Current Visit: Yes
[2017-06-17] MEDS: LEVOFLOXACIN INJ 250 MG in PREMIX 1 EACH IV SCH (14:16)
[2017-06-17] MEDS: METOPROLOL SUCCINATE XL 50 MG TABLET PO SCH (18:47)
[2017-06-17] MEDS: ATORVASTATIN 20 MG TABLET PO SCH (18:47)
[2017-06-17] MEDS: CHOLECALCIFEROL 1,000 UNIT TABLET PO SCH (21:22)
[2017-06-18] MEDS: ONDANSETRON 4 MG/2 ML VIAL IV PRN ×2 (02:55→18:19)
[2017-06-18 04:08] LABS: Basophils % 0.4 % (0.0-0.8); Eosinophils # 0.3 10*3/uL (0.0-0.87); Eosinophils % 3.1 % (0.00-10.9); Hematocrit 26.8 VOL% (35.7-47.0); Hemoglobin 8.8 GM/DL (12.0-16.0); Immature Granulocytes % 1.4 %; Immature Granulocytes Absolute 0.13 #; Lymphocytes # 2.8 10*3/uL (1.4-4.0); Lymphocytes % 29.7 % (21.3-54.2); Mean Corpuscular HGB Conc 32.8 GM/DL (32-36); Mean Corpuscular Hemoglobin 32 PG (27-34); Mean Corpuscular Volume 97.1 FL (87-102); Mean Platelet Volume 11.2 FL (9.6-12.0); Neutrophils % 54.4 % (38.7-73.9); Platelet Count 236 T/CUMM (130-400); Red Blood Count 2.76 MC/CUMM (3.8-5.5); White Blood Count 9.3 T/CUMM (4-12)
[2017-06-18 04:38] LABS: Osmolality,Calculated 298.3 MOS/KG (273-304); Potassium 4.2 MMOL/L (3.5-5.1)
[2017-06-18] MEDS ORDERED: hydrALAZINE 25 MG TABLET PO ONE (05:16)
--- NOTE | 2017-06-18 06:03 | Event Note ---
Reported by the staff noted that patient's blood pressure is elevated with systolic blood pressure readings in 200. Patient is admitted with hypoglycemia and history of diabetes mellitus, gastroparesis chronic kidney disease and hypertension. Reported no symptoms except nausea vomiting from gastroparesis. I have reviewed the antihypertensive regimen and see still some room for adjustment which I will defer to his primary hospitalist in the morning he is also followed by nephrology and may assist with the blood pressure management. I had ordered a dose of hydralazine as last blood pressure was reported to be 208/93.
[2017-06-18] MEDS: RANOLAZINE 500 MG TABLET PO SCH ×2 (08:31→21:29)
[2017-06-18] MEDS: ASPIRIN 325 MG TABLET PO SCH (08:31)
[2017-06-18] MEDS: ACETAMINOPHEN 325 MG TABLET PO PRN ×2 (08:32→12:13)
[2017-06-18] MEDS: COLCHICINE 0.6 MG TABLET PO SCH (08:32)
[2017-06-18] MEDS: ONDANSETRON 4 MG TABLET PO PRN ×3 (08:32→21:30)
[2017-06-18] MEDS: amLODIPine 2.5 MG TABLET PO SCH ×3 (08:32→21:29)
[2017-06-18] MEDS: ERYTHROMYCIN BASE 250 MG TABLET PO SCH ×3 (08:32→21:35)
[2017-06-18] MEDS: PANTOPRAZOLE 40 MG TABLET PO SCH (08:32)
[2017-06-18] MEDS ORDERED: MELOXICAM 7.5 MG TABLET PO SCH (09:00)
--- NOTE | 2017-06-18 10:17 | Hospitalist Progress Note ---
Assessment and Plan (1) Chronic kidney disease, stage III (moderate) Status: Acute Assessment and plan: continue with IVF. Appreciates Nephrology's input Plan Agree to hold Mobic, continue current care BMP in am Current Visit: No (2) Diabetes mellitus Status: Acute Assessment and plan: with Hypoglycemic episodes and gastroparesis s/p recent gastric stimulator placement Continue close monitoring [id number] Current Visit: No (3) Hypertension Status: Acute Assessment and plan: will increase Norvasc to 2.5mg bid, follow response. Current Visit: No (4) Urinary tract infection Status: Acute Assessment and plan: UC grew E.Coli Plan continue IV Levaquin Follow BC Current Visit: Yes (5) Gastroparesis Status: Acute Assessment and plan: Patient has a history of gastroparesis. She had a robotic gastric stimulator placed by Dr. Cruz on 05/19/2017. Patient had an episode of nausea, vomiting overnight but feels better this am Plan Continue IVF, antiemetics Current Visit: No (6) Osteoarthritis Status: Acute Assessment and plan: stable Current Visit: No (7) Dyslipidemia Status: Acute Assessment and plan: on Lipitor Current Visit: Yes Hospitalist: Subjective Interval history: Patient had an episode of nausea and vomiting overnight but she tolerated her breakfast this am. Her blood pressure is also trending upwards. Exam - Constitutional Vitals: Period Temp Pulse Resp BP Sys/Veliz Pulse Ox Last 24 Hr 96.7 F-98.3 F 71-80 16-24 152-228/80-105 97-100 General appearance: no acute distress - Head Head exam: Present: normal inspection - Respiratory Respiratory exam: Present: clear to auscultation bilaterally - Cardiovascular Cardiovascular exam: Present: regular rate and rhythm - GI/Abdominal GI/Abdominal exam: Present: normal bowel sounds - Extremities Exam Extremities exam: Present: normal inspection - Neurological Exam Neurological exam: Present: alert, oriented X3 Results - Labs CBC & BMP: 06/18/17 03:29 06/18/17 03:29 Lab Results: I have reviewed the past 24 hour labs
--- NOTE | 2017-06-18 10:28 | Nephrology Progress Note ---
Nephrology - PN: Subj Interval history: Pt denies SOB/pain. Creatinine 5, eGFR 8cc/min. Exam (PN)-Nephrology - Vital Signs Vital signs: Period Temp Pulse Resp BP Sys/Veliz Pulse Ox Last 24 Hr 96.7 F-98.3 F 71-80 16-24 152-228/80-105 97-100 - General Appearance General appearance: well-developed, chronically ill EENT: ATNC, PERRL Neck: no JVD, no thyromegaly Respiratory: no kyphosis, clear Cardiology: no murmurs, no rub Gastrointestinal: normoactive bowel sounds, no tenderness Integumentary: no rash, warm and dry Neurologic: no focal deficit, no asterixis Musculoskeletal: no deformities, no cyanosis Psychiatric: mood/affect appropriate, cooperative - Lab 06/18/17 03:29 06/18/17 03:29 Most recent lab results Calcium 8.0 MG/DL (8.5-10.1) L 06/18/17 03:29 Assessment and Plan (1) CKD (chronic kidney disease) stage 5, GFR less than 15 ml/min Problem details: No indication for renal replacement therapy at this time. Status: Acute Current Visit: Yes
[2017-06-18] MEDS: LEVOFLOXACIN INJ 250 MG in PREMIX 1 EACH IV SCH (12:09)
[2017-06-18] MEDS: INSULIN LISPRO 100 UNIT/ML SUBCUT PRN (13:24)
[2017-06-18] MEDS: SODIUM CHLORIDE 0.9% 1,000 ML IV SCH (16:48)
[2017-06-18] MEDS: NITROGLYCERIN 0.4 MG/HR PATCH TRANSDERM SCH (17:32)
[2017-06-18] MEDS: ATORVASTATIN 20 MG TABLET PO SCH (18:01)
[2017-06-18] MEDS: METOPROLOL SUCCINATE XL 50 MG TABLET PO SCH (18:01)
[2017-06-18] MEDS: CHOLECALCIFEROL 1,000 UNIT TABLET PO SCH (21:29)
[2017-06-19] MEDS: ONDANSETRON 4 MG/2 ML VIAL IV PRN (04:38)
[2017-06-19 04:49] LABS: Basophils % 0.5 % (0.0-0.8); Eosinophils # 0.3 10*3/uL (0.0-0.87); Hematocrit 26.9 VOL% (35.7-47.0); Hemoglobin 8.8 GM/DL (12.0-16.0); Immature Granulocytes % 1.3 %; Lymphocytes % 25.7 % (21.3-54.2); Mean Corpuscular HGB Conc 32.7 GM/DL (32-36); Mean Corpuscular Hemoglobin 32 PG (27-34); Mean Corpuscular Volume 97.8 FL (87-102); Monocytes # 0.8 10*3/uL (0.11-0.8); Monocytes % 10.7 % (1.7-12.7); Neutrophils # 4.4 10*3/uL (1.4-7.4); Neutrophils % 57.8 % (38.7-73.9); Platelet Count 220 T/CUMM (130-400); Red Blood Count 2.75 MC/CUMM (3.8-5.5); Red Cell Distribution Width 14.3 % (9.3-17.3); White Blood Count 7.7 T/CUMM (4-12)
[2017-06-19 05:19] LABS: Calcium 7.9 MG/DL (8.5-10.1); Osmolality,Calculated 298.3 MOS/KG (273-304); Potassium 4.4 MMOL/L (3.5-5.1)
[2017-06-19] MEDS: SODIUM CHLORIDE 0.9% 1,000 ML IV SCH ×2 (05:48→21:21)
[2017-06-19] MEDS: LORATADINE 10 MG TABLET PO PRN (06:08)
[2017-06-19] MEDS: ONDANSETRON 4 MG TABLET PO PRN (07:33)
[2017-06-19] MEDS: PROMETHAZINE 25 MG/1 ML VIAL IM PRN (07:53)
[2017-06-19] MEDS: PANTOPRAZOLE 40 MG TABLET PO SCH (09:37)
[2017-06-19] MEDS: RANOLAZINE 500 MG TABLET PO SCH ×2 (09:37→21:22)
[2017-06-19] MEDS: COLCHICINE 0.6 MG TABLET PO SCH (09:37)
[2017-06-19] MEDS: ERYTHROMYCIN BASE 250 MG TABLET PO SCH ×3 (09:37→21:21)
[2017-06-19] MEDS: ASPIRIN 325 MG TABLET PO SCH (09:39)
[2017-06-19] MEDS: amLODIPine 2.5 MG TABLET PO SCH (09:39)
[2017-06-19] MEDS: ACETAMINOPHEN 325 MG TABLET PO PRN ×2 (09:40→18:34)
--- NOTE | 2017-06-19 10:47 | Hospitalist Progress Note ---
Assessment and Plan (1) Chronic kidney disease, stage III (moderate) Status: Acute Assessment and plan: continue with IVF. Appreciates Nephrology's input Plan Agree to hold Mobic, continue current care BMP in am Current Visit: No (2) Diabetes mellitus Status: Acute Assessment and plan: no longer having Hypoglycemic episodes but having symtoms of gastroparesis s/ p recent gastric stimulator placement Continue close monitoring of blood sugars [id number] Current Visit: No (3) Hypertension Status: Acute Assessment and plan: will increase Norvasc to 5mg bid, follow response. Current Visit: No (4) Urinary tract infection Status: Acute Assessment and plan: UC grew E.Coli.BC-negative Plan continue IV Levaquin Current Visit: Yes (5) Gastroparesis Status: Acute Assessment and plan: s/p robotic gastric stimulator placed by Dr. Cruz on 05/19/2017. Patient continue to have repeated nausea and vomiting Plan Continue IVF, antiemetics GI consult Current Visit: No (6) Osteoarthritis Status: Acute Assessment and plan: stable Current Visit: No (7) Dyslipidemia Status: Acute Assessment and plan: on Lipitor Current Visit: Yes Hospitalist: Subjective Interval history: Patient had multiple bouts of nausea and vomiting overnight. She seemed relieved with Phenergan. Exam - Constitutional Vitals: Period Temp Pulse Resp BP Sys/Veliz Pulse Ox Last 24 Hr 96.4 F-97.6 F 70-79 20-24 172-191/84-90 96-100 General appearance: no acute distress - Head Head exam: Present: normal inspection - Respiratory Respiratory exam: Present: clear to auscultation bilaterally - Cardiovascular Cardiovascular exam: Present: regular rate and rhythm - GI/Abdominal GI/Abdominal exam: Present: normal bowel sounds - Extremities Exam Extremities exam: Present: normal inspection - Neurological Exam Neurological exam: Present: alert, oriented X3 Results - Labs CBC & BMP: 06/19/17 04:11 06/19/17 04:11 Lab Results: I have reviewed the past 24 hour labs
[2017-06-19] MEDS: amLODIPine 5 MG TABLET PO SCH ×2 (11:57→21:22)
[2017-06-19] MEDS: LEVOFLOXACIN INJ 250 MG in PREMIX 1 EACH IV SCH (11:58)
[2017-06-19] MEDS: INSULIN LISPRO 100 UNIT/ML SUBCUT PRN (12:15)
--- NOTE | 2017-06-19 12:23 | Nephrology Progress Note ---
Nephrology - PN: Subj Interval history: PT states her breathing is about the same. Denies pain. Exam (PN)-Nephrology - Vital Signs Vital signs: Period Temp Pulse Resp BP Sys/Veliz Pulse Ox Last 24 Hr 96.4 F-97.6 F 73-79 20-24 175-191/84-90 96-100 - General Appearance General appearance: well-developed, chronically ill EENT: ATNC, PERRL Neck: no JVD, no thyromegaly Respiratory: no kyphosis, rales Cardiology: no murmurs, no rub Gastrointestinal: normoactive bowel sounds, no tenderness Integumentary: no rash, warm and dry Neurologic: no focal deficit, no asterixis Musculoskeletal: no deformities, no erythema Psychiatric: depressed, cooperative - Lab 06/19/17 04:11 06/19/17 04:11 Most recent lab results Calcium 7.9 MG/DL (8.5-10.1) L 06/19/17 04:11 Assessment and Plan (1) CKD (chronic kidney disease) stage 5, GFR less than 15 ml/min Problem details: No indication for renal replacement therapy at this time. Status: Acute Current Visit: Yes
[2017-06-19] MEDS: NITROGLYCERIN 0.4 MG/HR PATCH TRANSDERM SCH (14:50)
--- NOTE | 2017-06-19 14:51 | Gastrointestinal Consult Note ---
Assessment and Plan - Time spent with patient Time spent with patient: Greater than 30 minutes (1) Emesis Status: Acute Current Visit: Yes (2) Anemia Status: Acute Current Visit: Yes (3) Gastroparesis Status: Acute Current Visit: No (4) Urinary tract infection Status: Acute Current Visit: Yes (5) Hypoglycemia Status: Acute Assessment and plan: PLEASE NOTE -- automatic citation of patient information is unavoidable in this electronic note. I have made a reasonable effort to review the information cited , but it is not a part of my evaluation, impression, or recommendation unless specifically discussed in the dictated text that follows. As well, voice recognition software was used in the creation of this clinical note. Reasonable effort was made to identify and correct gross errors. Despite proofreading, errors in core dropper may be present, including nonsense verbiage at times. If you encounter such an error, please contact me at for discussion and correction. -- Dr. Quezada Chief complaint/Consult Question: Nausea and vomiting in the setting recently placed gastric pacemaker Consult requested by: Sabrina History of present illness: This is a new patient, a 67-year-old woman who was admitted for severe hypoglycemia with nausea and nonbloody emesis. She had a gastric pacemaker placed on May 19, [address] Gibbs. States since that time her overall nausea and vomiting from gastroparesis had improved, had and even gone 2 or 3 days at a stretch without emesis. Then starting 5 days ago she had worsened nausea, diaphoresis, chills, resulting in repeated emesis. Also had associated pain in the left lower abdomen, and since arrival to the hospital this radiated to the right abdomen and across the upper mid abdomen, worse even with pressure from her pants pressing on the area. She states this abdominal pain is now resolved. Gastric pacemaker implant is in the right side of the abdomen. States she has had some urinary frequency, but otherwise UTI symptoms were not presents like her last urinary tract infection which involved dysuria, painful pelvis. Patient states that her severe nausea and vomiting initially started 2 years ago, was found to have gastroparesis on nuclear medicine study. Thinks she has had 2 EGDs in the past, but that they were both prior to symptom onset. Last attempted colonoscopy was in 2011, at which time she said she had too much scar tissue unable to complete colonoscopy , had some sort of enema study. Also reports associated significant sinus drainage which she thinks may have led to her emesis, as now that she has been given a sinus medicine the nausea and emesis have resolved. She denies chest pain or difficulty breathing. Chest x-ray is without acute abnormality, pneumothorax or air under the hemidiaphragms bilaterally. She has lost a total of 100 pounds over the last 2 years. GI review of systems included: heartburn, regurgitation, early satiety, dysphagia, odynophagia, abdominal pain, nausea, vomiting, hematemesis, weight loss, weight gain, fever, chills, fatigue, decreased appetite, diarrhea, constipation, hematochezia, melena, bloating, malodorous flatus, anal pain, or NSAID use, and was negative except as noted above. REVIEW OF SYSTEMS: Complete other review of systems negative except as noted in the HPI: Significant history of multiple falls, reporting 12-20 falls in the last few months, including impact to the head, arms, legs. Also with significant memory changes, and tremor in the right arm. Outpatient medications: Personally reviewed Erythromycin 250 mg p.o. 3 times daily Meloxicam Aspirin 325 mg p.o. every morning -Omeprazole 20 mg daily -Zofran as needed -NovoLog 20 units 3 times daily, patient states she uses almost no NovoLog any longer because her blood sugars are running well with current dose of Lantus Lantus 60 units at bedtime Benzonatate, Claritin, colchicine, Lipitor, bupropion, Ranexa, Toprol-XL, nitro patch daily Inpatient medications: Personally reviewed GI meds significant for erythromycin 250 mg p.o. 3 times daily Aspirin 325 mg daily Tylenol as needed Holding Mobic Past Medical History: Personally reviewed Social history: Negative tobacco. No alcohol at all, no history of heavy drinking Family history: Patient with personal history of uterine cancer, status post complete hysterectomy 1978 Niece age 55, recent diagnosis of advanced rectal cancer Mother with breast cancer 7 siblings with no cancer PHYSICAL EXAMINATION: CONSTITUTIONAL: Vital signs reviewed as documented above. In no acute distress. Nontoxic-appearing. EYES: Anicteric conjunctiva. Extra-ocular movements are intact and symmetric. Previously well-healed trauma over the right eyebrowwith recent stitches removed per patient EARS: Able to hear speech at conversational volume level, no external trauma/ masses. MOUTH: No oral/mouth lesions or ulcers. NECK: No masses or crepitus. Thyroid is of normal size and symmetric. HEART: Regular rate, regular rhythm LUNGS: Clear to auscultation bilaterally. No increased work of breathing or accessory muscle use. GI/ABDOMEN: Previously obese abdomen with significant loose skin from significant weight loss, soft, nontender to palpation, no rebound tenderness, nondistended, no rigidity. No palpable mass. No appreciable hepatosplenomegaly. SKIN: Fresh and old skin wounds and bruises on bilateral arms, patient states is from falling MUSCULOSKELETAL: Patient lying in bed comfortably, right arm with persistent tremor at rest, not a pill-rolling tremor. PSYCH: Slightly flat affect. Alert and oriented to person, place, and time. Neuro. Patient clearly with some short and long-term memory deficits Laboratory: Personally reviewed Hemoglobin dropped from 11.3-8.8 since admission Normal platelets, normal WBC, normal liver associated enzymes except for mild elevation in alk phos Creatinine 4.5 Radiology: Personally reviewed reports and images Chest x-ray without acute findings, no pneumothorax, no gastric pacemaker lead seen, no air under the bilateral hemidiaphragms Head CT, chronic ischemic changes seen, prior lacunar infarct Assessments: #Nausea and vomiting: Resolved since this morning. Differential diagnosis includes severe hypoglycemia, urinary tract infection, malfunctioning gastric pacemaker, need to turn up the settings on the gastric pacemaker, other underlying GI disease that was not previously identified, such as celiac. #Gastroparesis status post gastric pacemaker by Dr. Gibbs. Appears improved and stable this afternoon. No clear postprocedural complications at this time, with other likely exacerbating factors of persistent nausea and vomiting, now improved with treatment of hypoglycemia, urinary tract infection, sinus drainage. #Anemia #Unintentional weight loss #Personal history of endometrial cancer with significant family history of colon cancer as well. Patient individually at risk for potential Edmondson syndrome with endometrial cancer. Prior colonoscopy limited by scar tissue per patient, barium study done approximately 5 years ago per patient. #Other specified counseling -- The patient was seen for greater than 30 minutes. The patient was counseled for greater than 50% of this time regarding differential diagnosis, likely diagnosis, diagnostic and therapeutic alternatives, risks/ benefits/alternatives of medications and procedures, and plan of care generally. The patient expressed understanding and wishes to proceed. #abnormal memory associated with significant falls and tremor. Movement disorder versus dementia versus significant nutritional deficiency Recommendations: -Upright abdominal x-ray to ensure gastric pacemaker leads do not appear misplaced or perforation -Team to check with Dr. Gibbs tomorrow morning regarding patient follow-up, consider device rep versus Dr. Cruz interrogation of gastric pacemaker -Celiac testing, as this could contribute to nutritional deficiencies, as well as multiple vitamin studies (A, E, D, copper, zinc, thiamine, B12, folate, B7, B6, iron, ferritin)-ordered -EGD: if patient continues with resolved symptoms, can be done as an outpatient , recommend including small bowel biopsies in setting of dramatic weight loss. -Recommend outpatient genetic testing for Edmondson syndrome as well as repeat colonoscopy -Recommend primary care follow-up for potential movement disorder or dementia -please follow-up vitamin and mineral studies and replace in my absence (as I am tier and detonator coverage only) Marisol Quezada MD, MPH STAFF PROCESS CONTROL OPERATOR Current Visit: Yes History of Present Illness History of present illness: Ms. Pedersen is a 67 year old female Home Medications Medication Instructions Recorded Confirmed Type Aspirin Tab 325 mg PO QAM 05/13/17 06/16/17 History Atorvastatin [Lipitor] 20 mg PO QPM 05/13/17 06/16/17 History Colchicine 0.6 mg PO QAM 05/13/17 06/16/17 History Insulin Aspart [NovoLOG FlexPen] 20 unit SUBCUT TID 05/13/17 06/16/17 History Insulin Glargine,Hum.rec.anlog 60 unit SUBCUT BEDTIME 05/13/17 06/16/17 History [Lantus SoloStar] Metoprolol Succinate Xl [Toprol Xl] 100 mg PO QAM 05/13/17 06/16/17 History Nitroglycerin 0.4 mg/Hr Patch 1 patch TRANSDERM DAILY 05/13/17 06/16/17 History [Nitro-Dur 0.4 mg/hr Patch] Omeprazole 20 mg PO DAILY 05/13/17 06/16/17 History Ondansetron HCl 4 mg PO QID PRN 05/13/17 06/16/17 History Ranolazine [Ranexa] 500 mg PO BID 05/13/17 06/16/17 History amLODIPine [Norvasc] 2.5 mg PO QAM 05/13/17 06/16/17 History buPROPion HCl [Bupropion Xl] 300 mg PO BID 05/13/17 06/16/17 History HYDROcodone/ACETAMIN 7.5-325 1 tablet PO Q4H PRN #30 tablet 05/22/17 06/16/17 Rx [[place] 7.5-325] Benzonatate 200 mg PO DAILY PRN 06/16/17 06/16/17 History Cholecalciferol (Vitamin D3) 5,000 unit PO QPM 06/16/17 06/16/17 History [Vitamin D3] Erythromycin Base [Erythromycin DR 250 mg PO TID 06/16/17 06/16/17 History Cap] Loratadine Tab [Claritin Tab] 10 mg PO DAILY PRN 06/16/17 06/16/17 History Meloxicam [Mobic] 7.5 mg PO QOTHER DAY 06/16/17 06/16/17 History Metoprolol Succinate Xl [Toprol Xl] 50 mg PO QPM 06/16/17 06/16/17 History Allergies Allergy/AdvReac Type Severity Reaction Status Date / Time Penicillins Allergy Intermediate RASH Verified 05/19/17 06:12 sulfamethoxazole Allergy Mild RASH Verified 05/13/17 11:41 [From Bactrim] trimethoprim [From Bactrim] Allergy Mild RASH Verified 05/13/17 11:41 Medical,Surgical,& Family Hx - Medical History Cardio: History of: Hypertension Psychological: History of: Depression Neurology: History of: Migraine No history of: Seizures HEENT: History of: Eye Problem (GLASSES) Endocrine: History of: Diabetes Mellitus (IDDM), Dyslipidemia Respiratory: History of: Bronchitis No history of: Respiratory Problems (FLU VAC-YES; PNEU VAC- YES.) Renal: History of: Renal Failure Gastrointestinal: History of: GERD, GI Problems Musculoskeletal: History of: Back/Neck Problems (LOWER BACK PAIN AND SHOULDERS) Hematology: History of: Anemia Reproductive: History of: Reproductive Problems (UTERINE CANCER) Other: History of: Anesthesia Reactions (VOMITING WITH ANESTHESIA), Cancer ( UTERINE CANCER.), MRSA (RT SHOULDER 2006) - Surgical History Abdominal Surgeries: Surgical HX of: Abdominal Surgery (gastric stimulator), Cholecystectomy, EGD (?) Reproductive Surgeries: Surgical HX of;: Breast Surgery (RT BREAST LUMPECTOMY), Gynecologic Surgery, Hysterectomy - Family History Family History: Reports;: Family Diabetes, Family Hypertension - Social History Smoking Status: Never smoker Frequency of Alcohol Use: None Type of Drug Use: None Exam - Constitutional Vitals: Period Temp Pulse Resp BP Sys/Veliz Pulse Ox Last 24 Hr 96.4 F-97.6 F 73-79 20-24 129-191/84-93 96-100 Results - Labs CBC & BMP: 06/19/17 04:11 06/19/17 04:11
[2017-06-19 16:06] LABS: 25 Hydroxy Vitamin D Total 40.7 NG/ML; Folate 13.1 NG/ML (5.4-24.0)
--- NOTE | 2017-06-19 16:25 | XRay Report ---
History: Postop gastric pacemaker placement Date: 06/19/2017 Study: Flat and erect abdomen Comparison exam: No previous similar There is no evidence of pneumoperitoneum. Gastric pacemaker device overlies the abdomen with the power pack over the right lower quadrant and neurostimulator leads overlying the mid to upper central abdomen. There is a moderate amount of retained stool in the colon. There is no lily bowel obstruction or gross mass lesion. There is moderate lumbar spondylosis. Phleboliths overlie the pelvis. Impression: No evidence of pneumoperitoneum. Gastric pacemaker is generally intact PROCEDURE INTERPRETED AT [facility] DEPARTMENT OF RADIOLOGY Final Report Signed by: Dr. Flavia Hameed
[2017-06-19] MEDS: METOPROLOL SUCCINATE XL 50 MG TABLET PO SCH (18:24)
[2017-06-19] MEDS: ATORVASTATIN 20 MG TABLET PO SCH (18:24)
[2017-06-19] MEDS: CHOLECALCIFEROL 1,000 UNIT TABLET PO SCH (21:21)
[2017-06-20 05:33] LABS: Basophils % 0.4 % (0.0-0.8); Eosinophils # 0.3 10*3/uL (0.0-0.87); Eosinophils % 4.7 % (0.00-10.9); Hematocrit 25.7 VOL% (35.7-47.0); Hemoglobin 8.4 GM/DL (12.0-16.0); Immature Granulocytes % 1.5 %; Immature Granulocytes Absolute 0.11 #; Lymphocytes # 2.1 10*3/uL (1.4-4.0); Lymphocytes % 28.7 % (21.3-54.2); Mean Corpuscular HGB Conc 32.7 GM/DL (32-36); Mean Corpuscular Hemoglobin 32 PG (27-34); Mean Corpuscular Volume 99.2 FL (87-102); Monocytes # 0.9 10*3/uL (0.11-0.8); Monocytes % 11.8 % (1.7-12.7); Neutrophils # 3.8 10*3/uL (1.4-7.4); Neutrophils % 52.9 % (38.7-73.9); Platelet Count 192 T/CUMM (130-400); Red Blood Count 2.59 MC/CUMM (3.8-5.5); Red Cell Distribution Width 14.3 % (9.3-17.3); White Blood Count 7.3 T/CUMM (4-12)
[2017-06-20 05:56] LABS: Calcium 7.9 MG/DL (8.5-10.1); Potassium 4.4 MMOL/L (3.5-5.1)
[2017-06-20 05:59] LABS: Ferritin 122.5 ng/ml (8-252)
--- NOTE | 2017-06-20 10:19 | Hospitalist Progress Note ---
Assessment and Plan (1) Chronic kidney disease, stage III (moderate) Status: Acute Assessment and plan: continue with IVF. Appreciates Nephrology's input Plan Continue to hold Mobic, continue current care BMP in am Current Visit: No (2) Diabetes mellitus Status: Acute Assessment and plan: no longer having Hypoglycemic episodes and gastroparesis symptom is slowly improving.She is s/p recent gastric stimulator placement Continue close monitoring of blood sugars [id number] Current Visit: No (3) Hypertension Status: Acute Assessment and plan: add hydralazine 10mg bid, follow response. Current Visit: No (4) Urinary tract infection Status: Acute Assessment and plan: UC grew E.Coli.BC-negative Plan continue IV Levaquin Current Visit: Yes (5) Gastroparesis Status: Acute Assessment and plan: s/p robotic gastric stimulator placed by Dr. Cruz on 05/19/2017. Patient's symptoms are slowly improving with phernegan.KUB showed No evidence of pneumoperitoneum. Gastric pacemaker is generally intact Plan Continue IVF, antiemetics Dr Gibbs to evaluate the gastric device Current Visit: No (6) Osteoarthritis Status: Acute Assessment and plan: stable Current Visit: No (7) Dyslipidemia Status: Acute Assessment and plan: on Lipitor Current Visit: Yes Hospitalist: Subjective Interval history: Patient's nausea and vomiting have improved with Phenergan. We appreciate GI's input and Dr Gibbs will re-evaluate the gastric device. Exam - Constitutional Vitals: Period Temp Pulse Resp BP Sys/Veliz Pulse Ox Last 24 Hr 96.9 F-98.7 F 66-83 18-20 129-193/74-93 90-100 General appearance: no acute distress - Head Head exam: Present: normal inspection - Respiratory Respiratory exam: Present: clear to auscultation bilaterally - Cardiovascular Cardiovascular exam: Present: regular rate and rhythm - GI/Abdominal GI/Abdominal exam: Present: normal bowel sounds - Extremities Exam Extremities exam: Present: normal inspection - Neurological Exam Neurological exam: Present: alert, oriented X3 Results - Labs CBC & BMP: 06/20/17 04:58 06/20/17 04:58 Lab Results: I have reviewed the past 24 hour labs
[2017-06-20] MEDS: SODIUM CHLORIDE 0.9% 1,000 ML IV SCH (10:41)
--- NOTE | 2017-06-20 11:13 | Gastrointestinal Progress Note ---
<CharlesjosepMegan Maye - Last Filed: 06/20/17 11:10> Assessment and Plan (1) Gastroparesis Status: Acute Assessment and plan: 06/20-history of gastroparesis with 100 pound weight loss over the past 2 years, with gastric pacemaker [address] Gibbs with improvements in symptoms. Abdominal x-ray with no acute findings. Currently on oral erythromycin and IV Levaquin (UTI). Continue to monitor at this time. Further plan an addendum to follow Dr. De León. Current Visit: No Gastroenterology - PN: Subj Interval history: CC: Gastroparesis Patient is seen awake and alert lying in bed. States she is feeling better today than on admission. She denies any episodes of nausea vomiting at present time. Patient is noted to have had a gastric pacemaker placed approximately [address] Gibbs and states that this did improve her his gastroparesis symptoms she was actually able to go 2-3 days without these episodes. She states that the original abdominal pain that started in her left lower abdomen and radiated up into her right and mid abdomen has improved since admission. She is noted to have been prescribed oral erythromycin for her routine medications and states that she took this for several months however she stopped this on her own and he is not taking it and several months. She states that she is just managed her symptoms the best she could prior to admission. She has noted to have a reported significant weight loss of 100 pounds over the last 2 years. X-ray results noted to show no acute findings. Patient was noted to also be taking Mobic which is currently on hold. She denies any hematemesis with her vomiting episodes. Denies any prior known history of peptic ulcer disease in the past. ROS: Denies shortness of breath or chest pain Exam (Progress Note) - Constitutional Vitals: Period Temp Pulse Resp BP Sys/Veliz Pulse Ox Last 24 Hr 96.9 F-98.7 F 66-83 18-20 129-193/74-93 90-100 General appearance: normal weight, no acute distress - Head Head exam: Present: normal inspection, normocephalic - Eye Eye exam: Present: other (Lids and conjunctive are unremarkable). Absent: scleral icterus - ENT ENT exam: Present: normal exam, normal oropharynx - Neck Neck exam: Present: normal inspection - Respiratory Respiratory exam: Present: clear to auscultation bilaterally. Absent: rales, rhonchi, wheezes - Cardiovascular Cardiovascular exam: Present: regular rate and rhythm. Absent: diastolic murmur , JVD, systolic murmur - GI/Abdominal GI/Abdominal exam: Present: normal bowel sounds, soft. Absent: ascites, distended, mass, organomegaly, tenderness - Extremities Exam Extremities exam: Present: normal inspection, full ROM - Back Exam Back exam: Present: normal inspection - Neurological Exam Neurological exam: Present: alert, oriented X3 - Psychiatric Psychiatric exam: Present: normal affect, normal mood - Skin Skin exam: Present: normal color, warm, dry Results - Labs CBC & BMP: 06/20/17 04:58 06/20/17 04:58 Lab Results: I have reviewed the past 24 hour labs <Mp De León - Last Filed: 06/20/17 21:43> Exam (Progress Note) - Constitutional Vitals: Period Temp Pulse Resp BP Sys/Veliz Pulse Ox Last 24 Hr 96.5 F-98.7 F 66-80 18-20 155-196/74-87 93-98 Results - Labs CBC & BMP: 06/20/17 04:58 06/20/17 04:58
[2017-06-20] MEDS: RANOLAZINE 500 MG TABLET PO SCH ×2 (11:15→23:20)
[2017-06-20] MEDS: amLODIPine 5 MG TABLET PO SCH ×2 (11:15→23:19)
[2017-06-20] MEDS: ERYTHROMYCIN BASE 250 MG TABLET PO SCH ×3 (11:15→23:20)
[2017-06-20] MEDS: PANTOPRAZOLE 40 MG TABLET PO SCH (11:15)
[2017-06-20] MEDS: COLCHICINE 0.6 MG TABLET PO SCH (11:16)
[2017-06-20] MEDS: LEVOFLOXACIN INJ 250 MG in PREMIX 1 EACH IV SCH (11:16)
[2017-06-20] MEDS: ASPIRIN 325 MG TABLET PO SCH (11:16)
[2017-06-20] MEDS: hydrALAZINE 10 MG TABLET PO SCH ×2 (11:28→23:20)
--- NOTE | 2017-06-20 12:13 | Nephrology Progress Note ---
Nephrology - PN: Subj Interval history: She had more nausea with vomiting yesterday. She has had some left upper quadrant discomfort. She denies shortness of breath. No dysuria Exam (PN)-Nephrology - Vital Signs Vital signs: Period Temp Pulse Resp BP Sys/Veliz Pulse Ox Last 24 Hr 96.5 F-98.7 F 66-83 18-20 155-193/74-87 90-98 Exam: ENT: Normal Cardiovascular: Regular rate and rhythm. No murmur rub or gallop Lungs: Clear Extremities: No edema - Lab 06/20/17 04:58 06/20/17 04:58 Most recent lab results Calcium 7.9 MG/DL (8.5-10.1) L 06/20/17 04:58 Assessment and Plan (1) Chronic kidney disease, stage IV (severe) Status: Acute Assessment and plan: 67-year-old woman admitted with: * Diabetes mellitus * Hypoglycemia. Resolved * CRF stage IV. Renal function stable * UTI * Hypertension * Gastroparesis. Recent gastric stimulator placement. Evaluated by GI Current Visit: Yes (2) Hypoglycemia Status: Acute Current Visit: Yes (3) Urinary tract infection Status: Acute Current Visit: Yes (4) Diabetes mellitus Status: Acute Current Visit: No (5) Gastroparesis Status: Acute Current Visit: No (6) Hypertension Status: Acute Current Visit: No (7) Acute on chronic renal failure Status: Acute Current Visit: Yes
--- NOTE | 2017-06-20 13:07 | Event Note ---
Patient seen and examined. She was admitted for hypoglycemia and found to have urinary tract infection. She is also had some nausea and vomiting. She says she is feeling a little bit better since her stimulator was placed. She has missed a couple of postoperative appointments because her truck broke down. It has now been approximately a month since the stimulator was placed. She says she still having some symptoms a are improved but she would like to increase the stimulator. On exam her abdomen is soft nontender the incisions of all healed well there is no sign of erythema fluctuance fluid or any concern for infection. The stimulator was interrogated the settings were in the nominal position with an amplitude of 4. I increased the amplitude to 5.5. Remaining settings were left unchanged. Instructed the patient to follow-up with me in 6 weeks.
[2017-06-20] MEDS: NITROGLYCERIN 0.4 MG/HR PATCH TRANSDERM SCH (14:06)
[2017-06-20] MEDS: LORATADINE 10 MG TABLET PO PRN (14:27)
[2017-06-20] MEDS: ONDANSETRON 4 MG TABLET PO PRN ×2 (18:07→23:19)
[2017-06-20] MEDS: ATORVASTATIN 20 MG TABLET PO SCH (18:07)
[2017-06-20] MEDS: METOPROLOL SUCCINATE XL 50 MG TABLET PO SCH (18:07)
[2017-06-20] MEDS: CHOLECALCIFEROL 1,000 UNIT TABLET PO SCH (23:19)
[2017-06-21] MEDS: SODIUM CHLORIDE 0.9% 1,000 ML IV SCH ×2 (01:28→14:51)
[2017-06-21 07:24] LABS: Calcium 7.7 MG/DL (8.5-10.1); Magnesium 1.4 MG/DL (1.8-2.4); Potassium 4.6 MMOL/L (3.5-5.1)
[2017-06-21] MEDS: LEVOFLOXACIN INJ 250 MG in PREMIX 1 EACH IV SCH (08:10)
[2017-06-21] MEDS: PANTOPRAZOLE 40 MG TABLET PO SCH (08:11)
[2017-06-21] MEDS: hydrALAZINE 10 MG TABLET PO SCH ×2 (08:11→20:16)
[2017-06-21] MEDS: RANOLAZINE 500 MG TABLET PO SCH ×2 (08:11→20:15)
[2017-06-21] MEDS: ASPIRIN 325 MG TABLET PO SCH (08:11)
[2017-06-21] MEDS: COLCHICINE 0.6 MG TABLET PO SCH (08:11)
[2017-06-21] MEDS: ERYTHROMYCIN BASE 250 MG TABLET PO SCH ×3 (08:11→20:15)
[2017-06-21] MEDS: amLODIPine 5 MG TABLET PO SCH ×2 (08:11→20:15)
--- NOTE | 2017-06-21 08:25 | Discharge Summary ---
<Bri Finney - Last Filed: 06/21/17 08:16> Hospital Course - Hospital Course Hospital Course: This is a chronically ill 67-year-old female that presented to the ED at [facility] on the afternoon of June 16, 2017 for the evaluation of hypoglycemia. The patient has a medical history significant for chronic kidney disease, chronic falls, hypertension, insulin-dependent diabetes mellitus, gastroparesis, depression, migraine headaches, dyslipidemia, bronchitis, gastroesophageal reflux disease, chronic lower back and shoulder pain, anemia, uterine cancer, and methicillin-resistant Staphylococcus aureus. Patient has surgical history of right breast lumpectomy, hysterectomy, cholecystectomy, and gastric stimulator placement. The patient reported the onset of symptoms on the morning of presentation. Apparently, the patient was found by her family and was unable to be awoken. EMS was notified and the patient's blood glucose was noted at 37 at the time of EMS arrival. Hypoglycemic treatment measures were rendered by EMS in the field and at the time of presentation at the ED at [facility] the patient' s glucose was noted at 161. The patient was assessed and labs were obtained. Admission lab work was remarkable for hemoglobin of 11.3, hematocrit 33.8, BUN 50, creatinine 4.9, serum glucose 122. Urinalysis was significant for large amount of leukocytes with moderate clumps and bacteria. The patient was subsequently admitted to the hospitalist service for continuation of care. Empiric antibiotic coverage and gentle rehydration was initiated. Due to the severity of the patient's renal function, a nephrology consultation was requested. The patient was seen and evaluated by nephrology recommendations were given. A gastroenterology consultation was requested; the patient was seen and recommendations were given. A surgical consultation was requested to evaluate the patient's gastric stimulator function. The patient was assessed by surgery and interrogation was performed. During the interrogation, the amplitude was increased to 5.5. The patient was then instructed to follow-up with general surgery in 6 weeks for further evaluation. The patient's condition slowly improved. The patient's condition is stable. She has not experienced any significant overnight events. Today, we feel that she is indeed appropriate for discharge to follow-up with her primary care physician as indicated. Patient has been instructed to follow-up with Dr. Gibbs in 6 weeks to reevaluate gastric stimulator function. I will hold dc for now because I feel patient will benefit from a swing bed for her unsteady gait and her history of falls. manager program is working on it, we will consult PT/OT in the mean time. Specialty Discharge - Follow Up or Referrals Follow up with: Michael Jean-Baptiste MD [Physician] - 01/17/18 1:30 pm Discharge Plan - Discharge Medications No Action Ranolazine [Ranexa] 500 mg PO BID Ondansetron HCl 4 mg PO QID PRN PRN Reason: Nausea Insulin Aspart [NovoLOG FlexPen] 20 unit SUBCUT TID amLODIPine [Norvasc] 2.5 mg PO QAM Nitroglycerin 0.4 mg/Hr Patch [Nitro-Dur 0.4 mg/hr Patch] 1 patch TRANSDERM DAILY Insulin Glargine,Hum.rec.anlog [Lantus SoloStar] 60 unit SUBCUT BEDTIME Colchicine 0.6 mg PO QAM Atorvastatin [Lipitor] 20 mg PO QPM Aspirin Tab 325 mg PO QAM Loratadine Tab [Claritin Tab] 10 mg PO DAILY PRN PRN Reason: Allergy Symptoms Cholecalciferol (Vitamin D3) [Vitamin D3] 5,000 unit PO QPM Metoprolol Succinate Xl [Toprol Xl] 50 mg PO QPM Meloxicam [Mobic] 7.5 mg PO QOTHER DAY Erythromycin Base [Erythromycin DR Cap] 250 mg PO TID Metoprolol Succinate Xl [Toprol Xl] 100 mg PO QAM Omeprazole 20 mg PO DAILY buPROPion HCl [Bupropion Xl] 300 mg PO BID HYDROcodone/ACETAMIN 7.5-325 [[place] 7.5-325] 1 tablet PO Q4H PRN #30 tablet PRN Reason: Pain Moderate (4-7) Benzonatate 200 mg PO DAILY PRN PRN Reason: Cough - Follow Up or Referral Follow Up: Michael Jean-Baptiste MD [Physician] - 01/17/18 1:30 pm - Forms/Instructions Exam - Constitutional Vitals: Period Temp Pulse Resp BP Sys/Veliz Pulse Ox Last 24 Hr 96.8 F-97.9 F 68-77 18-20 154-196/73-95 95-99 Discharge Results Procedures and tests throughout hospitalization: Pending Orders 06/17/17 12:25 Blood Culture Routine 06/19/17 15:21 Biotin (Vitamin B7) Routine Celiac Disease Serology [place] Routine Copper, Serum Routine Thiamin (Vitamin B1), WB Routine Vitamin A and Vitamin E, S Routine Vitamin B6 Profile (PLP/PA), P Routine Zinc, S Routine Labs on day of discharge: Labs from last 24 hours 06/21/17 06/21/17 06/21/17 11:30 07:26 06:26 Sodium 143 Potassium 4.6 Chloride 116 H Carbon Dioxide 18 L Anion Gap 13.6 BUN 49 H Creatinine 4.40 H GFR Calculation 10 BUN/Creatinine Ratio 11.00 Glucose 118 H POC Glucose 166 H 125 H Calculated Osmolality 298.0 Calcium 7.7 L Magnesium 1.4 L 06/21/17 06/20/17 06/20/17 05:14 20:43 15:08 Sodium Potassium Chloride Carbon Dioxide Anion Gap BUN Creatinine GFR Calculation BUN/Creatinine Ratio Glucose POC Glucose 144 H 187 H 189 H Calculated Osmolality Calcium Magnesium Preliminary micro results at discharge 06/17/17 12:25 Blood Culture - Preliminary Blood No growth at 3 days 06/17/17 12:25 Blood Culture - Preliminary Blood No growth at 3 days DS: Provider Date of admission: 06/16/17 11:47 Primary care physician: Juan Brennan DO Attending physician on admission: Dilcia Bennett MD Consults: 06/17/17 10:40 Consult to Physician [CONS] Routine Comment: Consulting Provider: Michael Jean-Baptiste Person Notified: Judith Gunderson Date Notified: 06/17/17 Time Notified: 10:41 Consult Notification Comment: Spoke with Judith Gunderson 06/19/17 08:43 Consult to Physician [CONS] Routine Comment: consult GI today Consulting Provider: Marisol Quezada Person Notified: Dr Ta Date Notified: 06/19/17 Time Notified: 10:30 Consult Notification Comment: will see pt today 06/20/17 08:39 Consult to Physician [CONS] Routine Comment: gastric pacer lead placement Consulting Provider: Jorge Luis Cruz Person Notified: gabino Date Notified: 06/20/17 Time Notified: 09:52 06/21/17 09:50 Consult to Occupational Therapy [CONS] Routine Reason for Occupational Therapy: Evaluate and Treat Consult to Physical Therapy [CONS] Routine Reason for Physical Therapy: Evaluate and Treat 06/21/17 09:52 Consult to Case Mgmt/Social Srvs [CONS] Routine Reason for Case Mgmt/Social Srvs: Swingbed/SNF/Snf 06/21/17 10:15 Consult to Physical Therapy [CONS] Routine Reason for Physical Therapy: Ambulation Discharging clinician: Bri Finney CNP <Dilcia Bennett - Last Filed: 06/21/17 12:25> Diagnosis - Discharge Diagnosis (1) Chronic kidney disease, stage III (moderate) Status: Acute (2) Diabetes mellitus Status: Acute (3) Hypertension Status: Acute (4) Urinary tract infection Status: Acute (5) Gastroparesis Status: Acute (6) Osteoarthritis Status: Acute (7) Dyslipidemia Status: Acute Exam - Constitutional General appearance: no acute distress - Head Head exam: Present: normal inspection - Eye Eye exam: Present: EOMI - Respiratory Respiratory exam: Present: clear to auscultation bilaterally - Cardiovascular Cardiovascular exam: Present: regular rate and rhythm - GI/Abdominal GI/Abdominal exam: Present: normal bowel sounds - Extremities Exam Extremities exam: Present: normal inspection
[2017-06-21] MEDS: NITROGLYCERIN 0.4 MG/HR PATCH TRANSDERM SCH (11:34)
[2017-06-21] MEDS: ATORVASTATIN 20 MG TABLET PO SCH ×2 (17:54→19:03)
[2017-06-21] MEDS: METOPROLOL SUCCINATE XL 50 MG TABLET PO SCH ×2 (17:54→19:03)
[2017-06-21] MEDS: ONDANSETRON 4 MG/2 ML VIAL IV PRN (20:12)
[2017-06-21] MEDS: CHOLECALCIFEROL 1,000 UNIT TABLET PO SCH (20:15)
[2017-06-22] MEDS: SODIUM CHLORIDE 0.9% 1,000 ML IV SCH (05:17)
[2017-06-22] MEDS: PROMETHAZINE 25 MG/1 ML VIAL IM PRN (08:38)
[2017-06-22] MEDS: ERYTHROMYCIN BASE 250 MG TABLET PO SCH ×2 (08:39→14:50)
[2017-06-22] MEDS: PANTOPRAZOLE 40 MG TABLET PO SCH (08:39)
[2017-06-22] MEDS: ASPIRIN 325 MG TABLET PO SCH (08:39)
[2017-06-22] MEDS: hydrALAZINE 10 MG TABLET PO SCH (08:39)
[2017-06-22] MEDS: RANOLAZINE 500 MG TABLET PO SCH (08:39)
[2017-06-22] MEDS: COLCHICINE 0.6 MG TABLET PO SCH (08:39)
[2017-06-22] MEDS: LEVOFLOXACIN INJ 250 MG in PREMIX 1 EACH IV SCH (08:40)
[2017-06-22] MEDS: amLODIPine 5 MG TABLET PO SCH (08:40)
[2017-06-22] MEDS: NITROGLYCERIN 0.4 MG/HR PATCH TRANSDERM SCH (08:45)
[2017-06-22] MEDS: ACETAMINOPHEN 325 MG TABLET PO PRN (08:48)
--- NOTE | 2017-06-22 12:42 | Hospitalist Progress Note ---
Assessment and Plan (1) Chronic kidney disease, stage III (moderate) Status: Acute Assessment and plan: stable Plan Continue to hold Mobic, continue current care BMP in am Current Visit: No (2) Diabetes mellitus Status: Acute Assessment and plan: no longer having Hypoglycemic episodes and gastroparesis symptom is slowly improving.She is s/p recent gastric stimulator placement Continue close monitoring of blood sugars [id number] Current Visit: No (3) Hypertension Status: Acute Assessment and plan: increase hydralazine 10mg tid, follow response. Current Visit: No (4) Urinary tract infection Status: Acute Assessment and plan: UC grew E.Coli.BC-negative Plan continue IV Levaquin Current Visit: Yes (5) Gastroparesis Status: Acute Assessment and plan: s/p robotic gastric stimulator placed by Dr. Cruz on 05/19/2017. Patient's symptoms are slowly improving with phernegan.KUB showed No evidence of pneumoperitoneum. Gastric pacemaker is generally intact Plan Continue, antiemetics Dr Gibbs to evaluate the gastric device Current Visit: No (6) Osteoarthritis Status: Acute Assessment and plan: stable Current Visit: No (7) Dyslipidemia Status: Acute Assessment and plan: on Lipitor Current Visit: Yes (8) Unsteady gait Status: Acute Assessment and plan: CT head showed no acute changes Will get an MRI Continue with PT For a swing bed disposition Current Visit: Yes Hospitalist: Subjective Interval history: We decided to keep patient because of unsteady gait and will need to go to a swing bed. PT is working on, she is still have some nausea on and off. Exam - Constitutional Vitals: Period Temp Pulse Resp BP Sys/Veliz Pulse Ox Last 24 Hr 96.3 F-98.7 F 67-98 18-22 156-194/81-95 95-98 General appearance: no acute distress - Head Head exam: Present: normal inspection - Eye Eye exam: Present: EOMI - Respiratory Respiratory exam: Present: clear to auscultation bilaterally - Cardiovascular Cardiovascular exam: Present: regular rate and rhythm - GI/Abdominal GI/Abdominal exam: Present: normal bowel sounds - Extremities Exam Extremities exam: Present: normal inspection - Neurological Exam Neurological exam: Present: alert, oriented X3 Results - Labs CBC & BMP: 06/20/17 04:58 06/21/17 06:26 Lab Results: I have reviewed the past 24 hour labs Specialty Discharge - Follow Up or Referrals Follow up with: Michael Jean-Baptiste MD [Physician] - 01/17/18 1:30 pm
[2017-06-22] MEDS ORDERED: hydrALAZINE 10 MG TABLET PO SCH (15:00)
[2017-06-22 15:53] VITALS: BP 160/96
[2017-06-22 18:46] LABS: Copper, Serum 1.35 mcg/mL (0.75-1.45); Zinc, S 0.73 mcg/mL (0.66-1.10)
[2017-06-23 22:06] LABS: IgA Serum (MAYO) 160 mg/dL (61 - 356)
[2017-06-24 19:36] LABS: Pyridoxal 5-Phosphate (PLP), P < 2 mcg/L (5-50)
[2017-06-29 08:27] LABS: Tissue Transglutaminase IgA Ab < 1.2 U/mL
== END 2017-06-22 15:35 | disposition swing bed (61) | DRG 638 ==
LOC: EDBD → EDUNIT# → N.ED 09:26 → N.EDINP 11:47 → N.2E 13:19
PROVIDERS: ADMIT Internal Medicine; ATTEND Internal Medicine

== ENCOUNTER 2017-06-23 06:19 | Inpatient (IN) ==
[2017-06-23] MEDS ORDERED: LORazepam 2 MG/1 ML VIAL ONE (06:55)
[2017-06-23] MEDS ORDERED: PHENYTOIN INJ 1,000 MG in SODIUM CHLORIDE 0.9% 100 ML IV STA (06:59)
[2017-06-23] MEDS ORDERED: LORazepam 2 MG/1 ML VIAL IV STA (06:59)
[2017-06-23] MEDS ORDERED: PHENYTOIN 100 MG/2 ML VIAL IV ONE (07:05)
[2017-06-23] MEDS: PHENYTOIN INJ 1,000 MG in SODIUM CHLORIDE 0.9% 100 ML IV STA ×2 (07:15→07:16)
[2017-06-23 07:18] LABS: Basophils # 0.1 10*3/uL (0.0-0.2); Basophils % 0.5 % (0.0-0.8); Eosinophils # 0.2 10*3/uL (0.0-0.87); Eosinophils % 1.6 % (0.00-10.9); Hemoglobin 9.6 GM/DL (12.0-16.0); Immature Granulocytes % 1.1 %; Immature Granulocytes Absolute 0.12 #; Lymphocytes # 1.2 10*3/uL (1.4-4.0); Lymphocytes % 11.1 % (21.3-54.2); Mean Corpuscular Hemoglobin 32 PG (27-34); Mean Corpuscular Volume 100.3 FL (87-102); Mean Platelet Volume 11.5 FL (9.6-12.0); Monocytes # 0.6 10*3/uL (0.11-0.8); Monocytes % 5.7 % (1.7-12.7); Neutrophils # 8.8 10*3/uL (1.4-7.4); Platelet Count 236 T/CUMM (130-400); Red Blood Count 2.99 MC/CUMM (3.8-5.5); Red Cell Distribution Width 14.3 % (9.3-17.3)
--- NOTE | 2017-06-23 07:19 | CT Report ---
CT brain Indication: Seizure Comparison: 16 June 2017 Technique: Axial CT imaging of the brain is performed without contrast with 3 mm increments. Findings: No evidence of hemorrhage, mass mass effect midline shift or acute infarct seen. There is mild diffuse cerebral atrophy. Otherwise the brain parenchyma attenuation and differentiation appears within normal limits. The ventricles and cisterns are normal in caliber. No cranial or skull base abnormality is identified. Impression: No evidence of acute process or interval change. This CT exam was performed using one or more the following dose reduction techniques: Automated exposure control, adjustment of the MA and/or KV according to patient size, or use of iterative reconstruction technique. PROCEDURE INTERPRETED AT [facility] DEPARTMENT OF RADIOLOGY Final Report Signed by: Dr. Guanakito Sidhu
[2017-06-23 07:26] LABS: Albumin 2.7 G/DL (3.4-5.0); Bilirubin,Total 0.4 MG/DL (0.2-1.0); Calcium 8.3 MG/DL (8.5-10.1); Magnesium 1.4 MG/DL (1.8-2.4); Osmolality,Calculated 300.1 MOS/KG (273-304); Potassium 5.1 MMOL/L (3.5-5.1)
[2017-06-23] MEDS ORDERED: ONDANSETRON 4 MG/2 ML VIAL ONE (07:37)
[2017-06-23] MEDS ORDERED: ATROPINE 1 MG/1 ML VIAL ONE (07:51)
--- NOTE | 2017-06-23 07:53 | EKG Report ---
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
[2017-06-23] MEDS ORDERED: NOREPINEPHRINE 4 MG/4 ML VIAL IV ONE (08:03)
[2017-06-23] MEDS ORDERED: ETOMIDATE 20 MG/10 ML VIAL IV ONE ×2 (08:08→08:27)
[2017-06-23] MEDS ORDERED: SUCCINYLCHOLINE 200 MG/10 ML VIAL IV ONE (08:09)
[2017-06-23] MEDS ORDERED: NOREPINEPHRINE 4 MG in SODIUM CHLORIDE 0.9% 246 ML IV SCH (08:11)
[2017-06-23 08:13] LABS: Troponin I Only 0.016 NG/ML (0.00-0.045)
[2017-06-23] MEDS ORDERED: LIDOCAINE 1% 20 ML VIAL ONE (08:14)
--- NOTE | 2017-06-23 08:17 | Emergency Department Note ---
Edmar Paez Manpreet, am scribing for, and in the presence of, Jose Escamilla MD 07:11. Francine Paez Phillip K, MD, personally performed the services described in this documentation, ascribed by Sang Hyatt in my presence, and it is both accurate and complete 817 . Arrival - Arrival Chief Complaint: Non-Specific ED Nursing Triage Note: Pt arrives via ems with complaints per nursing staff of seeing blood in pts mouth. Pt noted to have what appears to be where she may have bitten her lip. Pt unable to answer at time of triage. History of neurological disorder according to report. Pt is at baseline according to swing bed nurses. No bleeding noted at time of triage. Mode of Arrival: Stretcher Limitations: Altered Mental Status Source: EMS Time Seen by Provider: 06/23/17 06:53 - History of Present Illness HPI Narrative: Pt is a 67 y/o female who is brought to the ED via EMS for possible seizure activity at [facility]. Pt appeared to have bitten her lip this AM and is unable to respond or follow commands during physical exam. Pt was initially responsive but then RN witnessed her having 2 episodes of Sz in a 20 minute time period. Pt has notable blood in her mouth. 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) Consistency: intermittent Severity: moderate Severity scale (1-10): 4 Date of Last Menstrual Period: pm Allergies/Adverse Reactions: Allergies Allergy/AdvReac Type Severity Reaction Status Date / Time Penicillins Allergy Intermediate RASH Verified 05/19/17 06:12 sulfamethoxazole Allergy Mild RASH Verified 05/13/17 11:41 [From Bactrim] trimethoprim [From Bactrim] Allergy Mild RASH Verified 05/13/17 11:41 Home Medications: Home Medications Medication Instructions Recorded Confirmed Type Aspirin Tab 325 mg PO QAM 05/13/17 06/23/17 History Atorvastatin [Lipitor] 20 mg PO QPM 05/13/17 06/23/17 History Colchicine 0.6 mg PO QAM 05/13/17 06/23/17 History Nitroglycerin 0.4 mg/Hr Patch 1 patch TRANSDERM DAILY 05/13/17 06/23/17 History [Nitro-Dur 0.4 mg/hr Patch] Ondansetron HCl 4 mg PO QID PRN 05/13/17 06/23/17 History Ranolazine [Ranexa] 500 mg PO BID 05/13/17 06/23/17 History buPROPion HCl [Bupropion Xl] 300 mg PO BID 05/13/17 06/23/17 History Benzonatate 200 mg PO DAILY PRN 06/16/17 06/23/17 History Cholecalciferol (Vitamin D3) 5,000 unit PO QPM 06/16/17 06/23/17 History [Vitamin D3] Erythromycin Base [Erythromycin DR 250 mg PO TID 06/16/17 06/23/17 History Cap] Loratadine Tab [Claritin Tab] 10 mg PO DAILY PRN 06/16/17 06/23/17 History Metoprolol Succinate Xl [Toprol Xl] 50 mg PO QPM 06/16/17 06/23/17 History Acetaminophen Tab [Tylenol Tab] 325 mg PO Q4H PRN tablet 06/22/17 06/23/17 Rx HYDROcodone/ACETAMIN 7.5-325 1 tablet PO Q4H PRN #20 tablet 06/22/17 06/23/17 Rx [[place] 7.5-325] Levofloxacin Tab [Levaquin Tab] 500 mg PO DAILY #7 tablet 06/22/17 06/23/17 Rx Pantoprazole Tab [Protonix Tab] 40 mg PO DAILY tablet 06/22/17 06/23/17 Rx amLODIPine [Norvasc] 5 mg PO BID tablet 06/22/17 06/23/17 Rx hydrALAZINE TAB [Apresoline Tab] 10 mg PO TID tablet 06/22/17 06/23/17 Rx Review of System - Review of System ROS unobtainable: due to mental status - Review of System Neurological: Present: other (Seizure) Medical,Surgical,& Family Hx - Medical History Cardio: History of: Hypertension Psychological: History of: Depression Neurology: History of: Migraine (PAST HX.) No history of: Seizures HEENT: History of: Eye Problem (GLASSES) Endocrine: History of: Diabetes Mellitus (IDDM), Dyslipidemia Respiratory: History of: Bronchitis (PAST HX.) No history of: Respiratory Problems (FLU VAC-YES; PNEU VAC- YES.) Renal: History of: Renal Failure (DR LAU) Gastrointestinal: History of: GERD, GI Problems (NAUSEA AND VOMITING. GASTROINTERITIS) Musculoskeletal: History of: Back/Neck Problems (LOWER BACK PAIN AND SHOULDERS) No history of: Amputation Hematology: History of: Anemia Reproductive: History of: Reproductive Problems (UTERINE CANCER) Other: History of: Anesthesia Reactions (VOMITING WITH ANESTHESIA), Cancer ( UTERINE CANCER.), MRSA (RT SHOULDER 2007) - Surgical History Neurologic Surgeries: Patient denies: Neurologic Surgery Abdominal Surgeries: Surgical HX of: Abdominal Surgery (gastric stimulator), Cholecystectomy, EGD (?) Reproductive Surgeries: Surgical HX of;: Breast Surgery (RT BREAST LUMPECTOMY), Gynecologic Surgery, Hysterectomy Orthopedic Surgeries: Patient denies;: Implanted Devices, Orthopedic Surgery, Spinal Surgery, Total Hip Replacement, Total Knee Replacement - Family History Family History: Reports;: Family Diabetes, Family Hypertension - Social History Smoking Status: Never smoker Frequency of Alcohol Use: None Type of Drug Use: None Exam Vital Signs: Vital Signs Temperature 98.4 F 06/23/17 06:19 Pulse Rate 87 06/23/17 06:19 Respiratory Rate 20 06/23/17 06:19 Blood Pressure 172/72 06/23/17 06:19 O2 Sat by Pulse Oximetry 98 06/23/17 06:19 - General Exam limited due to: ALOC - Head Head exam: Present: atraumatic, normocephalic, normal inspection - Eye Eye exam: Present: normal appearance, PERRL, EOMI - ENT ENT exam: Present: mucous membranes dry. Absent: normal oropharynx (Dry blood present in mouth) - Neck Neck exam: Present: normal inspection, full ROM, trachea midline. Absent: tenderness, thyromegaly - Chest Chest inspection: Present: normal inspection, symmetric chest wall rise - Respiratory Respiratory exam: Present: normal lung sounds bilaterally. Absent: accessory muscle use, rales, respiratory distress - Cardiovascular Cardiovascular exam: Present: regular rate, normal rhythm, murmur (2/6 Systolic murmur). Absent: normal heart sounds - Abdominal Exam Abdominal exam: Present: soft, normal bowel sounds. Absent: distention, tenderness, guarding, rebound, rigidity - Extremities Exam Extremities exam: Present: normal inspection - Back Exam Back exam: Present: normal inspection - Neurological Exam Neurological exam: Absent: alert, oriented X3 - Skin Skin exam: Present: warm, dry, intact, normal color. Absent: pallor Course Course Narrative: Patient had episode of bradycardia while in the ED and widened her QRS out. The initial EKG showed a narrow QRS. Dr. Madrid was consulted and saw the patient in the ED. Patient will not answer questions or respond to commands the entire ED visit. Patient also became hypotensive and she was given IV fluids and was started on Levophed infusion. Patient did have a seizure in the ED which responded to Ativan IV. Patient bradycardia was treated with atropine 0.5 mg IV. 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 Madrid. Procedures - Intubation sedative: Etomidate Mg Given: 20 paralytic: Succinylcholine Mg Given: 100 Laryngoscope: fiber optic video scope ET Tube Size: 7.5 ET Tube Uncuffed: No Tube Placement Confirmation: visualized tube passing through cords, equal breath sounds bilaterally, confirmation detector color change Patient Tolerated Procedure: well Intubation Complications: none Results - Labs CBC & BMP: 06/23/17 06:37 06/23/17 06:37 Lab Results: I have reviewed the patients labs Labs: Laboratory Tests 06/23/17 06/23/17 06:37 06:37 WBC 11.0 D RBC 2.99 L Hgb 9.6 L Hct 30.0 L MCV 100.3 MCH 32 MCHC 32.0 Plt Count 236 D MPV 11.5 Neut % (Auto) 80.0 H Lymph % (Auto) 11.1 L Neut # (Auto) 8.8 H Lymph # (Auto) 1.2 L Sodium 142 Potassium 5.1 Chloride 111 H Carbon Dioxide 15 L Anion Gap 21.1 H BUN 49 H Creatinine 4.40 H Glucose 188 H Calcium 8.3 L Magnesium 1.4 L Alkaline Phosphatase 150 H Total Protein 6.0 L Albumin 2.7 L Albumin/Globulin Ratio 0.8 L Laboratory Tests 06/23/17 06:37 Total Creatine Kinase 59 D CK-MB (CK-2) 2.0 Troponin I 0.016 - EKG EKG results: interpreted by ANNALISE (Sinus bradycardia nonspecific ST-T changes) - Diagnostic Findings Procedure: CT: report reviewed by me (CT Head/Brain w/o con: No evidence of acute process or interval change.) Critical Care Time Critical Care Time: Yes Total Critical Care Time: 30 Disposition Clinical Impression: Respiratory distress, Seizure, Possible myocardial infarction Disposition: Still a Patient Condition: Critical
[2017-06-23] MEDS ORDERED: SUCCINYLCHOLINE 200 MG/10 ML VIAL ONE (08:27)
--- NOTE | 2017-06-23 08:29 | Event Note ---
67-year-old female, history of diabetes gastroparesis, was regarding the 2 main after recent hospitalization. She had episode of seizure, may have bitten her tongue and had blood in her mouth. On admission to the ER, she was profoundly bradycardic with a wide QRS escape rhythm, then became hypotensive and was intubated for respiratory insufficiency. The blood pressure improved, her rhythm is currently a slow junctional escape rhythm, narrow QRS, without ST elevation. Head CT did not show intracranial bleed. Mild hyperkalemia, severe chronic CKD. The differential is wide at this point. CVA, pulmonary embolism, seizure, metabolic issues, sepsis. Doubt STEMI. She remains significantly bradycardic. She is critically ill. -We will proceed with temporary pacer implant for heart rate support, and given the urgency of the situation, femoral arterial line and a triple-lumen placement. No family available for consent, we will proceed on an emergent basis. -Given the severity of her chronic kidney disease and absence of DERICK, I will defer LHC at this point. Obtain stat echo. Continue to monitor hemodynamics and cardiac enzymes. If clinical course suggestive of ACS, we may need to proceed. -I recommend full anticoagulation at this point, until etiology is established. If echo is suggestive, will need to rule out pulm emb, VQ scan may be enough
--- NOTE | 2017-06-23 08:31 | EKG Report ---
Stationary ECG Study [facility] ER Test Date: 06/23/2017 8:14:27 AM Pat Name: MARLENY ZUNIGA Department: Room: 128 Gender: F Lodge Attendant: : 1950 Requested by: Jose Mcknight Order Number: [id number] Reading MD: STAR SANDERSON Intervals [place] Rate: 42 P: 999 [place]: 0 QRS: 76 QRSD: 104 T: 13 QT: 492 QTc: 431 Interpretive Statements Junctional escape rhythm Electronically Signed On 06-23-17 12:33:53 CDT by STAR SANDERSON [email or web address]
[2017-06-23] MEDS ORDERED: MIDAZOLAM 2 MG/2 ML VIAL ONE (08:46)
--- NOTE | 2017-06-23 08:46 | Cardiology History & Physical ---
History of Present Illness Chief complaint: severe bradycardia, respiratory arrest, hypotension History of present illness: Ms. Pedersen is a 67 year old female Home Medications Medication Instructions Recorded Confirmed Type Aspirin Tab 325 mg PO QAM 05/13/17 06/23/17 History Atorvastatin [Lipitor] 20 mg PO QPM 05/13/17 06/23/17 History Colchicine 0.6 mg PO QAM 05/13/17 06/23/17 History Nitroglycerin 0.4 mg/Hr Patch 1 patch TRANSDERM DAILY 05/13/17 06/23/17 History [Nitro-Dur 0.4 mg/hr Patch] Ondansetron HCl 4 mg PO QID PRN 05/13/17 06/23/17 History Ranolazine [Ranexa] 500 mg PO BID 05/13/17 06/23/17 History buPROPion HCl [Bupropion Xl] 300 mg PO BID 05/13/17 06/23/17 History Benzonatate 200 mg PO DAILY PRN 06/16/17 06/23/17 History Cholecalciferol (Vitamin D3) 5,000 unit PO QPM 06/16/17 06/23/17 History [Vitamin D3] Erythromycin Base [Erythromycin DR 250 mg PO TID 06/16/17 06/23/17 History Cap] Loratadine Tab [Claritin Tab] 10 mg PO DAILY PRN 06/16/17 06/23/17 History Metoprolol Succinate Xl [Toprol Xl] 50 mg PO QPM 06/16/17 06/23/17 History Acetaminophen Tab [Tylenol Tab] 325 mg PO Q4H PRN tablet 06/22/17 06/23/17 Rx HYDROcodone/ACETAMIN 7.5-325 1 tablet PO Q4H PRN #20 tablet 06/22/17 06/23/17 Rx [[place] 7.5-325] Levofloxacin Tab [Levaquin Tab] 500 mg PO DAILY #7 tablet 06/22/17 06/23/17 Rx Pantoprazole Tab [Protonix Tab] 40 mg PO DAILY tablet 06/22/17 06/23/17 Rx amLODIPine [Norvasc] 5 mg PO BID tablet 06/22/17 06/23/17 Rx hydrALAZINE TAB [Apresoline Tab] 10 mg PO TID tablet 06/22/17 06/23/17 Rx Allergies Allergy/AdvReac Type Severity Reaction Status Date / Time Penicillins Allergy Intermediate RASH Verified 05/19/17 06:12 sulfamethoxazole Allergy Mild RASH Verified 05/13/17 11:41 [From Bactrim] trimethoprim [From Bactrim] Allergy Mild RASH Verified 05/13/17 11:41 Medical,Surgical,& Family Hx - Medical History Cardio: History of: Hypertension Psychological: History of: Depression Neurology: History of: Migraine (PAST HX.) No history of: Seizures HEENT: History of: Eye Problem (GLASSES) Endocrine: History of: Diabetes Mellitus (IDDM), Dyslipidemia Respiratory: History of: Bronchitis (PAST HX.) No history of: Respiratory Problems (FLU VAC-YES; PNEU VAC- YES.) Renal: History of: Renal Failure (DR LAU) Gastrointestinal: History of: GERD, GI Problems (NAUSEA AND VOMITING. GASTROINTERITIS) Musculoskeletal: History of: Back/Neck Problems (LOWER BACK PAIN AND SHOULDERS) No history of: Amputation Hematology: History of: Anemia Reproductive: History of: Reproductive Problems (UTERINE CANCER) Other: History of: Anesthesia Reactions (VOMITING WITH ANESTHESIA), Cancer ( UTERINE CANCER.), MRSA (RT SHOULDER 2006) - Surgical History Neurologic Surgeries: Patient denies: Neurologic Surgery Abdominal Surgeries: Surgical HX of: Abdominal Surgery (gastric stimulator), Cholecystectomy, EGD (?) Reproductive Surgeries: Surgical HX of;: Breast Surgery (RT BREAST LUMPECTOMY), Gynecologic Surgery, Hysterectomy Orthopedic Surgeries: Patient denies;: Implanted Devices, Orthopedic Surgery, Spinal Surgery, Total Hip Replacement, Total Knee Replacement - Family History Family History: Reports;: Family Diabetes, Family Hypertension - Social History Smoking Status: Never smoker Frequency of Alcohol Use: None Type of Drug Use: None Cardiology Physical Exam - Constitutional Vitals: Vital Signs Temp Pulse Resp BP Pulse Ox 98.4 F 87 20 172/72 98 06/23/17 06:19 06/23/17 06:19 06/23/17 06:19 06/23/17 06:19 06/23/17 06:19 Intake and Output 06/22/17 06/23/17 06/23/17 23:59 07:59 15:59 Other: Weight 81.647 kg Patient Weight 06/23/17 23:59 Weight 81.647 kg Result/EKG - Labs CBC & BMP: 06/23/17 06:37 06/23/17 06:37 Labs: Laboratory Results - last 24 hr 06/23/17 06/23/17 06/23/17 06:37 06:37 06:37 WBC 11.0 D RBC 2.99 L Hgb 9.6 L Hct 30.0 L MCV 100.3 MCH 32 MCHC 32.0 RDW 14.3 Plt Count 236 D MPV 11.5 Neut % (Auto) 80.0 H Lymph % (Auto) 11.1 L [place] % (Auto) 5.7 Eos % (Auto) 1.6 Baso % (Auto) 0.5 Neut # (Auto) 8.8 H Lymph # (Auto) 1.2 L [place] # (Auto) 0.6 Eos # (Auto) 0.2 Baso # (Auto) 0.1 Immature Gran % 1.1 Nucleated RBC % 0.0 Immature Gran # 0.12 Nucleated RBCs # 0.00 Immature Plt Fraction 0.0 Sodium 142 Potassium 5.1 Chloride 111 H Carbon Dioxide 15 L Anion Gap 21.1 H BUN 49 H Creatinine 4.40 H GFR Calculation 11 BUN/Creatinine Ratio 11.00 Glucose 188 H Calculated Osmolality 300.1 Calcium 8.3 L Magnesium 1.4 L Total Bilirubin 0.40 AST 24 ALT 19 Alkaline Phosphatase 150 H Total Creatine Kinase 59 D CK-MB (CK-2) 2.0 Troponin I 0.016 Total Protein 6.0 L Albumin 2.7 L Globulin 3.3 Albumin/Globulin Ratio 0.8 L
--- NOTE | 2017-06-23 08:56 | Cardiology Consult Note ---
Assessment and Plan - Time spent with patient Time spent with patient: Less than 30 minutes (1) Hypotension Status: Acute Assessment and plan: SEE PLAN OF CARE LISTED BELOW Current Visit: Yes (2) Bradycardia Status: Acute Assessment and plan: SEE PLAN OF CARE LISTED BELOW Current Visit: Yes (3) Altered mental status Status: Acute Assessment and plan: SEE PLAN OF CARE LISTED BELOW Current Visit: Yes (4) Hyperkalemia Status: Acute Assessment and plan: SEE PLAN OF CARE LISTED BELOW Current Visit: Yes (5) Respiratory distress Status: Acute Assessment and plan: SEE PLAN OF CARE LISTED BELOW Current Visit: Yes (6) Seizure Status: Acute Assessment and plan: SEE PLAN OF CARE LISTED BELOW Current Visit: Yes (7) Anemia Status: Chronic Assessment and plan: SEE PLAN OF CARE LISTED BELOW Current Visit: No (8) CKD (chronic kidney disease) stage 5, GFR less than 15 ml/min Problem details: No indication for renal replacement therapy at this time. 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 SANDERSON PCP: DR. JUAN BRENNAN Patient is intubated, being seen in the emergency department. There is no family present. The majority of this information is taken from medical records and staff. Ms. Pedersen, 67WF, without a prior known history of coronary artery disease but risk factors significant for: hypertension, dyslipidemia, diabetes, obesity , sedentary lifestyle. History of chronic renal failure followed by Dr. Lau ( baseline creatinine 2.6). Possible history of neurological disordersShe was recently hospitalized for laparoscopic gastric pacemaker placement (diabetic gastroparesis) performed by Dr. Gibbs 05/22/2017. She was discharged to [facility]. Apparently, early this morning, patient was noted to have blood on her mouth, unresponsive. She was transferred to the ED of [facility] weight is reported that she has had seizure activity. On admission, she was profoundly bradycardic with a wide QRS escape rhythm, she then became hypotensive and was intubated for respiratory insufficiency. Her blood pressure improved though her rhythm remained a slow rhythm without ST elevation. Rhythm currently a slow junctional escape rhythm, narrow QRS, without ST elevation. CT head did not reveal an acute event. Potassium 5.1. Troponin negative. Patient has received Dilantin, succinylcholine in the ED. Patient had Ranexa last evening. She did not require, nor did she receive, aspirin in the ED as this was not considered MS. Patient is being emergently transferred to cardiac catheterization lab for temporary pacemaker, arterial line, central line insertion and possible cardiac catheterization. ASSESSMENT/PLAN: 1. BRADYCARDIA - emergent temporary pacemaker. 2. HYPOTENSION - differentials include: CVA, pulmonary embolism, seizure, metabolic issues, sepsis. Stat echo has been ordered however we are transitioning patient to the Senior Private Client Advisor now. We will get an echo immediately after pacemaker has been secured 3. RESPIRATORY FAILURE - she is now intubated. 4. SEIZURE - I suspect this is new onset of seizures. She has received Dilantin and succinylcholine. 5. DYSLIPIDEMIA - continue lipid-lowering agent when I 6. CKD, STAGE IV - avoiding RAEANN inhibitors for fear of worsening renal insufficiency. 7. DIABETES - adjust medications accordingly during hospital stay. 8. HYPERKALEMIA - K+ 5.1. Follow closely CC: Ainsley Sullivan MD - Home Medications and Allergies Home Medications: Home Medications Medication Instructions Recorded Confirmed Type Aspirin Tab 325 mg PO QAM 05/13/17 06/23/17 History Atorvastatin [Lipitor] 20 mg PO QPM 05/13/17 06/23/17 History Colchicine 0.6 mg PO QAM 05/13/17 06/23/17 History Nitroglycerin 0.4 mg/Hr Patch 1 patch TRANSDERM DAILY 05/13/17 06/23/17 History [Nitro-Dur 0.4 mg/hr Patch] Ondansetron HCl 4 mg PO QID PRN 05/13/17 06/23/17 History Ranolazine [Ranexa] 500 mg PO BID 05/13/17 06/23/17 History buPROPion HCl [Bupropion Xl] 300 mg PO BID 05/13/17 06/23/17 History Benzonatate 200 mg PO DAILY PRN 06/16/17 06/23/17 History Cholecalciferol (Vitamin D3) 5,000 unit PO QPM 06/16/17 06/23/17 History [Vitamin D3] Erythromycin Base [Erythromycin DR 250 mg PO TID 06/16/17 06/23/17 History Cap] Loratadine Tab [Claritin Tab] 10 mg PO DAILY PRN 06/16/17 06/23/17 History Metoprolol Succinate Xl [Toprol Xl] 50 mg PO QPM 06/16/17 06/23/17 History Acetaminophen Tab [Tylenol Tab] 325 mg PO Q4H PRN tablet 06/22/17 06/23/17 Rx HYDROcodone/ACETAMIN 7.5-325 1 tablet PO Q4H PRN #20 tablet 06/22/17 06/23/17 Rx [[place] 7.5-325] Levofloxacin Tab [Levaquin Tab] 500 mg PO DAILY #7 tablet 06/22/17 06/23/17 Rx Pantoprazole Tab [Protonix Tab] 40 mg PO DAILY tablet 06/22/17 06/23/17 Rx amLODIPine [Norvasc] 5 mg PO BID tablet 06/22/17 06/23/17 Rx hydrALAZINE TAB [Apresoline Tab] 10 mg PO TID tablet 06/22/17 06/23/17 Rx Allergies/Adverse Reactions: Allergies Allergy/AdvReac Type Severity Reaction Status Date / Time Penicillins Allergy Intermediate RASH Verified 05/19/17 06:12 sulfamethoxazole Allergy Mild RASH Verified 05/13/17 11:41 [From Bactrim] trimethoprim [From Bactrim] Allergy Mild RASH Verified 05/13/17 11:41 ROS unobtainable: due to endotracheal tube, due to mental status Medical,Surgical,& Family Hx - Medical History Cardio: History of: Hypertension No history of: CAD Psychological: History of: Depression Neurology: History of: Migraine (PAST HX.) No history of: Seizures HEENT: History of: Eye Problem (GLASSES) Endocrine: History of: Diabetes Mellitus (IDDM), Dyslipidemia Respiratory: History of: Bronchitis (PAST HX.) No history of: Respiratory Problems (FLU VAC-YES; PNEU VAC- YES.) Renal: History of: Renal Failure (DR LAU) Gastrointestinal: History of: GERD, GI Problems (NAUSEA AND VOMITING. GASTROINTERITIS) Musculoskeletal: History of: Back/Neck Problems (LOWER BACK PAIN AND SHOULDERS) No history of: Amputation Hematology: History of: Anemia Reproductive: History of: Reproductive Problems (UTERINE CANCER) Other: History of: Anesthesia Reactions (VOMITING WITH ANESTHESIA), Cancer ( UTERINE CANCER.), MRSA (RT SHOULDER 2007) - Surgical History Neurologic Surgeries: Patient denies: Neurologic Surgery Abdominal Surgeries: Surgical HX of: Abdominal Surgery (gastric stimulator), Cholecystectomy, EGD (?) Reproductive Surgeries: Surgical HX of;: Breast Surgery (RT BREAST LUMPECTOMY), Gynecologic Surgery, Hysterectomy Orthopedic Surgeries: Patient denies;: Implanted Devices, Orthopedic Surgery, Spinal Surgery, Total Hip Replacement, Total Knee Replacement - Family History Family History: Reports;: Family Diabetes, Family Hypertension - Social History Smoking Status: Never smoker Frequency of Alcohol Use: None Type of Drug Use: None Physical Examination Vital Signs Temp Pulse Resp BP Pulse Ox 98.4 F 81 18 172/72 98 06/23/17 06:19 06/23/17 06:19 06/23/17 06:19 06/23/17 06:19 06/23/17 06:19 Exam: General: [Appears critically ill. Unresponsive. ] HEENT: [Normocephalic. Mucous membranes moist. No jaundice noted. Conjunctiva moist and clear, sclerae anicteric] Neck: No obvious JVD/HJR, no thyromegaly or lymphadenopathy noted. No carotid bruit appreciated Cardiac: [Slow rate and rhythm. No obvious murmur rub or gallop. Lungs: [Coarse sounds throughout. Intubated with symmetrical chest wall movements. Abdomen: Soft, bowel sounds normoactive. Nontender and nondistended. No abdominal bruit or thrill noted. No masses noted. Musculoskeletal: No fluid collection. Decreased range of motion is noted. Extremities: No clubbing, cyanosis noted. [Trace bilateral lower edema noted.] Upper extremity pulses 2+. Lower extremity pulses 2+. Capillary refill less than 3 seconds. Skin: No unusual lesions or rashes. No skin breakdown appreciated. Neuro: Unresponsive. No essential tremor is appreciated. Result/EKG - Labs CBC & BMP: 06/23/17 06:37 06/23/17 06:37 Lab Results: I have reviewed the past 24 hour labs Labs: Laboratory Results - last 24 hr 06/23/17 06/23/17 06/23/17 06:37 06:37 06:37 WBC 11.0 D RBC 2.99 L Hgb 9.6 L Hct 30.0 L MCV 100.3 MCH 32 MCHC 32.0 RDW 14.3 Plt Count 236 D MPV 11.5 Neut % (Auto) 80.0 H Lymph % (Auto) 11.1 L [place] % (Auto) 5.7 Eos % (Auto) 1.6 Baso % (Auto) 0.5 Neut # (Auto) 8.8 H Lymph # (Auto) 1.2 L [place] # (Auto) 0.6 Eos # (Auto) 0.2 Baso # (Auto) 0.1 Immature Gran % 1.1 Nucleated RBC % 0.0 Immature Gran # 0.12 Nucleated RBCs # 0.00 Immature Plt Fraction 0.0 Sodium 142 Potassium 5.1 Chloride 111 H Carbon Dioxide 15 L Anion Gap 21.1 H BUN 49 H Creatinine 4.40 H GFR Calculation 11 BUN/Creatinine Ratio 11.00 Glucose 188 H Calculated Osmolality 300.1 Calcium 8.3 L Magnesium 1.4 L Total Bilirubin 0.40 AST 24 ALT 19 Alkaline Phosphatase 150 H Total Creatine Kinase 59 D CK-MB (CK-2) 2.0 Troponin I 0.016 Total Protein 6.0 L Albumin 2.7 L Globulin 3.3 Albumin/Globulin Ratio 0.8 L - Diagnostic Findings Procedure: CT: report reviewed by me - EKG EKG results: interpreted by me EKG shows: bradycardia
[2017-06-23] MEDS ORDERED: PROPOFOL 1,000 MG/100 ML BOTTLE IV ONE (09:10)
--- NOTE | 2017-06-23 09:11 | Operative Note ---
Date of procedure: 06/23/17 Pre-op diagnosis: Bradycardia Post-op diagnosis: same Procedure: History: 67-year-old female who apparently had seizure and has a history of hyperglycemia. She apparently was rehab and brought him because of being somewhat unresponsive. Anyway here she was bradycardic her heart rate improved with atropine. Heart rate went back down. She was brought catheterization at work for temporary pacemaker. Dr. Madrid initially saw the patient and asked me to carry out the procedure. She apparently was at some point hypotensive was placed on levophed. At the time of the procedure the patient's blood pressures actually hypertensive on the levophed and this was stopped. Patient was a ventilator at the time of the procedure. Preoperative diagnosis: Bradycardia. Hypotension pre-arrival to the catheterization laboratory. Postop diagnosis: Bradycardic the time is resolved. Patient is actually hypotensive on pressor agent. Procedures: 1. Right common femoral artery central line. 2. Right common femoral vein central line placement. 3. Temporary pacemaker lead placed to the right common femoral vein sheath. This was carried out under fluoroscopy. Medications: Versed 2 g IV push. Description of procedure: Patient brought catheterization laboratory emergently. The patient's right groin is prepped draped fashion. Lidocaine used local anesthesia right common femoral vein. The right common femoral vein was cannulated without difficulty and 6 [place] sheath was placed. The right common femoral artery was cannulated and a 4 [place] sheath placed. Through the venous sheath the temporary pacemaker was advanced with the balloon inflated. We placed this in the right ventricle in the apical region. The patient's thresholds at this position was 0.4 mA. Device is programmed at 5 mA and rate of 40. The patient presently sinus rhythm heart rate of 60+. The sheath and pacemaker lead and was sutured in position with 2-0 silk. Wound was then covered sterilely. Patient will be sent to the ICU. Patient will be placed on propofol to help with sedation. We will have to monitor the blood pressure. Implants: See above Anesthesia: local, conscious sedation Surgeon / Physician: Dmitri Rdoriguez Managing Partner [employer] [place]: Tigist Botello Estimated blood loss: minimal Specimens: none sent Condition: other (Guarded) Disposition: ICU Results - Labs CBC & BMP: 06/23/17 06:37 06/23/17 06:37 Discharge Plan - Discharge Medications No Action Ranolazine [Ranexa] 500 mg PO BID Ondansetron HCl 4 mg PO QID PRN PRN Reason: Nausea Nitroglycerin 0.4 mg/Hr Patch [Nitro-Dur 0.4 mg/hr Patch] 1 patch TRANSDERM DAILY Colchicine 0.6 mg PO QAM Atorvastatin [Lipitor] 20 mg PO QPM Aspirin Tab 325 mg PO QAM Loratadine Tab [Claritin Tab] 10 mg PO DAILY PRN PRN Reason: Allergy Symptoms Cholecalciferol (Vitamin D3) [Vitamin D3] 5,000 unit PO QPM Metoprolol Succinate Xl [Toprol Xl] 50 mg PO QPM Erythromycin Base [Erythromycin DR Cap] 250 mg PO TID hydrALAZINE TAB [Apresoline Tab] 10 mg PO TID tablet Pantoprazole Tab [Protonix Tab] 40 mg PO DAILY tablet HYDROcodone/ACETAMIN 7.5-325 [[place] 7.5-325] 1 tablet PO Q4H PRN #20 tablet PRN Reason: Pain Moderate (4-7) Levofloxacin Tab [Levaquin Tab] 500 mg PO DAILY #7 tablet buPROPion HCl [Bupropion Xl] 300 mg PO BID Benzonatate 200 mg PO DAILY PRN PRN Reason: Cough Acetaminophen Tab [Tylenol Tab] 325 mg PO Q4H PRN tablet PRN Reason: fever, headache/body aches amLODIPine [Norvasc] 5 mg PO BID tablet - Follow Up or Referral - Forms/Instructions
[2017-06-23] MEDS: PROPOFOL 1,000 MG/100 ML BOTTLE IV SCH ×3 (09:13→21:41)
[2017-06-23 09:27] LABS: Free T4 (Free Thyroxine) 1.51 NG/DL (0.76-1.46); Thyroid Stimulating Hormone 15.4 uIU/ml (0.358-3.74)
--- NOTE | 2017-06-23 10:01 | Cardiology History & Physical ---
Assessment and Plan - Time spent with patient Time spent with patient: Less than 30 minutes (1) Hypotension Status: Acute Assessment and plan: SEE PLAN OF CARE LISTED BELOW Current Visit: Yes (2) Bradycardia Status: Acute Assessment and plan: SEE PLAN OF CARE LISTED BELOW Current Visit: Yes (3) Altered mental status Status: Acute Assessment and plan: SEE PLAN OF CARE LISTED BELOW Current Visit: Yes (4) Hyperkalemia Status: Acute Assessment and plan: SEE PLAN OF CARE LISTED BELOW Current Visit: Yes (5) Respiratory distress Status: Acute Assessment and plan: SEE PLAN OF CARE LISTED BELOW Current Visit: Yes (6) Seizure Status: Acute Assessment and plan: SEE PLAN OF CARE LISTED BELOW Current Visit: Yes (7) Anemia Status: Chronic Assessment and plan: SEE PLAN OF CARE LISTED BELOW Current Visit: No (8) CKD (chronic kidney disease) stage 5, GFR less than 15 ml/min Problem details: No indication for renal replacement therapy at this time. 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 SANDERSON PCP: DR. HUNTER RODAS Patient is intubated, being seen in the emergency department. There is no family present. The majority of this information is taken from medical records and staff. Ms. Pedersen, 67WF, without a prior known history of coronary artery disease but risk factors significant for: hypertension, dyslipidemia, diabetes, obesity , sedentary lifestyle. History of chronic renal failure followed by Dr. Lau ( baseline creatinine 2.6). Possible history of neurological disordersShe was recently hospitalized for laparoscopic gastric pacemaker placement (diabetic gastroparesis) performed by Dr. Gibbs 05/22/2017. She was discharged to [facility] [place]. Apparently, early this morning, patient was noted to have blood on her mouth, unresponsive. She was transferred to the ED of [facility] weight is reported that she has had seizure activity. On admission, she was profoundly bradycardic with a wide QRS escape rhythm, she then became hypotensive and was intubated for respiratory insufficiency. Her blood pressure improved though her rhythm remained a slow rhythm without ST elevation. Rhythm currently a slow junctional escape rhythm, narrow QRS, without ST elevation. CT head did not reveal an acute event. Potassium 5.1. Troponin negative. Patient has received Dilantin, succinylcholine in the ED. Patient had Ranexa last evening. She did not require, nor did she receive, aspirin in the ED as this was not considered PR. Patient is being emergently transferred to cardiac catheterization lab for temporary pacemaker, arterial line, central line insertion and possible cardiac catheterization. ASSESSMENT/PLAN: 1. BRADYCARDIA - emergent temporary pacemaker. 2. HYPOTENSION - differentials include: CVA, pulmonary embolism, seizure, metabolic issues, sepsis. Stat echo has been ordered however we are transitioning patient to the Student Education Specialist now. We will get an echo immediately after pacemaker has been secured 3. RESPIRATORY FAILURE - she is now intubated. 4. SEIZURE - I suspect this is new onset of seizures. She has received Dilantin and succinylcholine. 5. DYSLIPIDEMIA - continue lipid-lowering agent when I 6. CKD, STAGE IV - avoiding RAEANN inhibitors for fear of worsening renal insufficiency. 7. DIABETES - adjust medications accordingly during hospital stay. 8. HYPERKALEMIA - K+ 5.1. Follow closely Home Medications Medication Instructions Recorded Confirmed Type Aspirin Tab 325 mg PO QAM 05/13/17 06/23/17 History Atorvastatin [Lipitor] 20 mg PO QPM 05/13/17 06/23/17 History Colchicine 0.6 mg PO QAM 05/13/17 06/23/17 History Nitroglycerin 0.4 mg/Hr Patch 1 patch TRANSDERM DAILY 05/13/17 06/23/17 History [Nitro-Dur 0.4 mg/hr Patch] Ondansetron HCl 4 mg PO QID PRN 05/13/17 06/23/17 History Ranolazine [Ranexa] 500 mg PO BID 05/13/17 06/23/17 History buPROPion HCl [Bupropion Xl] 300 mg PO BID 05/13/17 06/23/17 History Benzonatate 200 mg PO DAILY PRN 06/16/17 06/23/17 History Cholecalciferol (Vitamin D3) 5,000 unit PO QPM 06/16/17 06/23/17 History [Vitamin D3] Erythromycin Base [Erythromycin DR 250 mg PO TID 06/16/17 06/23/17 History Cap] Loratadine Tab [Claritin Tab] 10 mg PO DAILY PRN 06/16/17 06/23/17 History Metoprolol Succinate Xl [Toprol Xl] 50 mg PO QPM 06/16/17 06/23/17 History Acetaminophen Tab [Tylenol Tab] 325 mg PO Q4H PRN tablet 06/22/17 06/23/17 Rx HYDROcodone/ACETAMIN 7.5-325 1 tablet PO Q4H PRN #20 tablet 06/22/17 06/23/17 Rx [[place] 7.5-325] Levofloxacin Tab [Levaquin Tab] 500 mg PO DAILY #7 tablet 06/22/17 06/23/17 Rx Pantoprazole Tab [Protonix Tab] 40 mg PO DAILY tablet 06/22/17 06/23/17 Rx amLODIPine [Norvasc] 5 mg PO BID tablet 06/22/17 06/23/17 Rx hydrALAZINE TAB [Apresoline Tab] 10 mg PO TID tablet 06/22/17 06/23/17 Rx Allergies Allergy/AdvReac Type Severity Reaction Status Date / Time Penicillins Allergy Intermediate RASH Verified 05/19/17 06:12 sulfamethoxazole Allergy Mild RASH Verified 05/13/17 11:41 [From Bactrim] trimethoprim [From Bactrim] Allergy Mild RASH Verified 05/13/17 11:41 ROS unobtainable: due to endotracheal tube, due to mental status Medical,Surgical,& Family Hx - Medical History Cardio: History of: Hypertension No history of: CAD, PR Psychological: History of: Depression Neurology: History of: Migraine (PAST HX.) No history of: Seizures HEENT: History of: Eye Problem (GLASSES) Endocrine: History of: Diabetes Mellitus (IDDM), Dyslipidemia Respiratory: History of: Bronchitis (PAST HX.) No history of: Respiratory Problems (FLU VAC-YES; PNEU VAC- YES.) Renal: History of: Renal Failure (DR LAU) Gastrointestinal: History of: GERD, GI Problems (NAUSEA AND VOMITING. GASTROINTERITIS) Musculoskeletal: History of: Back/Neck Problems (LOWER BACK PAIN AND SHOULDERS) No history of: Amputation Hematology: History of: Anemia Reproductive: History of: Reproductive Problems (UTERINE CANCER) Other: History of: Anesthesia Reactions (VOMITING WITH ANESTHESIA), Cancer ( UTERINE CANCER.), MRSA (RT SHOULDER 2007) - Surgical History Neurologic Surgeries: Patient denies: Neurologic Surgery Abdominal Surgeries: Surgical HX of: Abdominal Surgery (gastric stimulator), Cholecystectomy, EGD (?) Reproductive Surgeries: Surgical HX of;: Breast Surgery (RT BREAST LUMPECTOMY), Gynecologic Surgery, Hysterectomy Orthopedic Surgeries: Patient denies;: Implanted Devices, Orthopedic Surgery, Spinal Surgery, Total Hip Replacement, Total Knee Replacement - Family History Family History: Reports;: Family Diabetes, Family Hypertension - Social History Smoking Status: Never smoker Frequency of Alcohol Use: None Type of Drug Use: None Cardiology Physical Exam - Constitutional Vitals: Vital Signs Temp Pulse Resp BP Pulse Ox 98.4 F 41 L 15 90/40 100 06/23/17 06:19 06/23/17 08:16 06/23/17 09:48 06/23/17 08:16 06/23/17 08:16 Intake and Output 06/22/17 06/23/17 06/23/17 23:59 07:59 15:59 Other: Weight 81.647 kg Patient Weight 06/23/17 23:59 Weight 81.647 kg Exam: Exam: General: [Appears critically ill. Unresponsive. ] HEENT: [Normocephalic. Mucous membranes moist. No jaundice noted. Conjunctiva moist and clear, sclerae anicteric] Neck: No obvious JVD/HJR, no thyromegaly or lymphadenopathy noted. No carotid bruit appreciated Cardiac: [Slow rate and rhythm. No obvious murmur rub or gallop. Lungs: [Coarse sounds throughout. Intubated with symmetrical chest wall movements. Abdomen: Soft, bowel sounds normoactive. Nontender and nondistended. No abdominal bruit or thrill noted. No masses noted. Musculoskeletal: No fluid collection. Decreased range of motion is noted. Extremities: No clubbing, cyanosis noted. [Trace bilateral lower edema noted.] Upper extremity pulses 2+. Lower extremity pulses 2+. Capillary refill less than 3 seconds. Skin: No unusual lesions or rashes. No skin breakdown appreciated. Neuro: Unresponsive. No essential tremor is appreciated. Result/EKG - Labs CBC & BMP: 06/23/17 06:37 06/23/17 06:37 Lab Results: I have reviewed the past 24 hour labs Labs: Laboratory Results - last 24 hr 06/23/17 06/23/17 06/23/17 06:37 06:37 06:37 WBC 11.0 D RBC 2.99 L Hgb 9.6 L Hct 30.0 L MCV 100.3 MCH 32 MCHC 32.0 RDW 14.3 Plt Count 236 D MPV 11.5 Neut % (Auto) 80.0 H Lymph % (Auto) 11.1 L [place] % (Auto) 5.7 Eos % (Auto) 1.6 Baso % (Auto) 0.5 Neut # (Auto) 8.8 H Lymph # (Auto) 1.2 L [place] # (Auto) 0.6 Eos # (Auto) 0.2 Baso # (Auto) 0.1 Immature Gran % 1.1 Nucleated RBC % 0.0 Immature Gran # 0.12 Nucleated RBCs # 0.00 Immature Plt Fraction 0.0 Sodium 142 Potassium 5.1 Chloride 111 H Carbon Dioxide 15 L Anion Gap 21.1 H BUN 49 H Creatinine 4.40 H GFR Calculation 11 BUN/Creatinine Ratio 11.00 Glucose 188 H Calculated Osmolality 300.1 Calcium 8.3 L Magnesium 1.4 L Total Bilirubin 0.40 AST 24 ALT 19 Alkaline Phosphatase 150 H Total Creatine Kinase 59 D CK-MB (CK-2) 2.0 Troponin I 0.016 Total Protein 6.0 L Albumin 2.7 L Globulin 3.3 Albumin/Globulin Ratio 0.8 L Free T4 TSH 3rd Generation 06/23/17 06:37 WBC RBC Hgb Hct MCV MCH MCHC RDW Plt Count MPV Neut % (Auto) Lymph % (Auto) [place] % (Auto) Eos % (Auto) Baso % (Auto) Neut # (Auto) Lymph # (Auto) [place] # (Auto) Eos # (Auto) Baso # (Auto) Immature Gran % Nucleated RBC % Immature Gran # Nucleated RBCs # Immature Plt Fraction Sodium Potassium Chloride Carbon Dioxide Anion Gap BUN Creatinine GFR Calculation BUN/Creatinine Ratio Glucose Calculated Osmolality Calcium Magnesium Total Bilirubin AST ALT Alkaline Phosphatase Total Creatine Kinase CK-MB (CK-2) Troponin I Total Protein Albumin Globulin Albumin/Globulin Ratio Free T4 1.51 H TSH 3rd Generation 15.400 H - Diagnostic Findings Procedure: Chest x-ray: pending, CT: report reviewed by me - EKG EKG results: interpreted by me EKG shows: bradycardia
[2017-06-23] MEDS ORDERED: MAGNESIUM SULF RIDER 4 GM in PREMIX 1 EACH IV PRN (10:06)
[2017-06-23] MEDS ORDERED: MAGNESIUM SULF RIDER 2 GM in PREMIX 1 EACH IV PRN (10:06)
[2017-06-23] MEDS ORDERED: LEVOFLOXACIN INJ 500 MG in PREMIX 1 EACH IV ONE (10:30)
[2017-06-23] MEDS ORDERED: SODIUM CHLORIDE 0.9% 1,000 ML IV SCH (10:30)
[2017-06-23] MEDS ORDERED: LORazepam 2 MG/1 ML VIAL IV PRN (10:31)
--- NOTE | 2017-06-23 10:53 | XRay Report ---
XR chest 1V portable Indication: Intubation Comparison: 16 June 2017 Findings: The heart and mediastinum are stable in size and configuration. Endotracheal tube tip is at the clavicle level. The pulmonary vascularity is normal in caliber. No lung infiltrates, effusions, pneumothorax or other abnormality is demonstrated. Impression: Endotracheal tube tip the clavicle level. No other acute findings. PROCEDURE INTERPRETED AT [facility] DEPARTMENT OF RADIOLOGY Final Report Signed by: Dr. Guanakito Sidhu
--- NOTE | 2017-06-23 10:56 | Ultrasound Report ---
Venous Doppler ultrasound bilateral lower extremities Indication: Shortness of breath Comparison: None available Findings: No evidence of echogenic, noncompressible thrombus seen in the visualized veins of the extremities. Color Doppler venous waveform pattern is within normal limits. Impression: No evidence of deep venous thrombosis. Ultrasound images stored and captured. PROCEDURE INTERPRETED AT [facility] DEPARTMENT OF RADIOLOGY Final Report Signed by: Dr. Guanakito Sidhu
[2017-06-23 10:57] LABS: ABG Base Excess -10.7 MMOL/L (-2.5-2.5); ABG HCO3 15.9 MMOL/L (20-26); ABG Oxygen Saturation 99.6 % (95-100); ABG PCO2 27.6 MM HG (35-48); ABG PH 7.324 (7.35-7.45); ABG TCO2 13.5 MMOL/L (23-27); Allen Test Positive; Pt O2 Delivery Device Ventilator
--- NOTE | 2017-06-23 10:59 | Hospitalist Consult Note ---
<Rhina Magallon - Last Filed: 06/23/17 11:31> Assessment and Plan - Time spent with patient Time spent with patient: Greater than 30 minutes History of Present Illness - Consult Narrative Reason for consult: new onset seizures History of present illness: Ms. Jones is a 67 year old white female w/ PMHx HTN, Depression, migraines, diabetes, dyslipidemia, renal failure (dr Lau), GERD, chronic back and neck pain, anemia, uterine cancer; presented to the ED this a.m. transferred from [facility] after patient was found in her room with blood in her mouth and appeared to have had a seizure and had bitten her lip and was unable to follow commands. Patient does not have a know history of seizures. It was reported by nursing staff, upon arrival to the ED patient was initially responsive but shortly after arrival patient had 2 episodes of seizure activity in about a 20 minute time frame. IN ED: CT HEAD: no evidence of acute process or interval change. LABS: H&H 9.6 &30.0; PLT 236; BUN 49 & Creatinine 4.40 (Chronic); Troponin 0.016 ; Mag 1.4; Ca 8.3; Glucose 188; TSH 15.40; T4 1.51. Hospital medicine was consulted for new onset seizure activity, upon entering the room, patient was noted 100% saturation on nonrebreather facemask at 10 L. Blood pressure was 135 /59, heart rate 48 on the monitor. She was sedate and unable to answer any questions, there was no family in the room, she would only move her feet with my touch to her legs. Went to nurse to discuss/ask if patient's HR and her BP had dropped to 95/49, as well. Nurse confirmed that her pressure had been higher (162/76) and her heart rate (70-80s) when she arrived, and the patient has only received dilantin since her arrival. We Ordered a repeat EKG and informed Dr. Escamilla of the changes. Patient had easily palpable pulse femorally, repeated EKG showed changes. Atropine was given, heart rate improved brief to 50s and 60s then trended down to 39-43s. I then notified Dr. Sullivan of patient's condition change since arrival to the ED and she came over. We started normal saline bolus. Dr. Escamilla talked with Dr. Madrid. Dr. Madrid came in and decided: patient needed to go to the heart mine laborer for temporary pacemaker r/t severe bradycardia and wide QRS, the [facility] staff was notified. Respiratory was notified for a ventilator; Due to patient's change in condition, bradycardia, insufficient oxygenation, Dr. Escamilla proceeded with intubation of patient. Dr Madrid and his team took over care at that time. Patient will be admitted to Dr Madrid. CC: Ainsley Sullivan MD - Home Medications and Allergies Home Medications: Home Medications Medication Instructions Recorded Confirmed Type Aspirin Tab 325 mg PO QAM 05/13/17 06/23/17 History Atorvastatin [Lipitor] 20 mg PO QPM 05/13/17 06/23/17 History Colchicine 0.6 mg PO QAM 05/13/17 06/23/17 History Nitroglycerin 0.4 mg/Hr Patch 1 patch TRANSDERM DAILY 05/13/17 06/23/17 History [Nitro-Dur 0.4 mg/hr Patch] Ondansetron HCl 4 mg PO QID PRN 05/13/17 06/23/17 History Ranolazine [Ranexa] 500 mg PO BID 05/13/17 06/23/17 History buPROPion HCl [Bupropion Xl] 300 mg PO BID 05/13/17 06/23/17 History Benzonatate 200 mg PO DAILY PRN 06/16/17 06/23/17 History Cholecalciferol (Vitamin D3) 5,000 unit PO QPM 06/16/17 06/23/17 History [Vitamin D3] Erythromycin Base [Erythromycin DR 250 mg PO TID 06/16/17 06/23/17 History Cap] Loratadine Tab [Claritin Tab] 10 mg PO DAILY PRN 06/16/17 06/23/17 History Metoprolol Succinate Xl [Toprol Xl] 50 mg PO QPM 06/16/17 06/23/17 History Acetaminophen Tab [Tylenol Tab] 325 mg PO Q4H PRN tablet 06/22/17 06/23/17 Rx HYDROcodone/ACETAMIN 7.5-325 1 tablet PO Q4H PRN #20 tablet 06/22/17 06/23/17 Rx [[place] 7.5-325] Levofloxacin Tab [Levaquin Tab] 500 mg PO DAILY #7 tablet 06/22/17 06/23/17 Rx Pantoprazole Tab [Protonix Tab] 40 mg PO DAILY tablet 06/22/17 06/23/17 Rx amLODIPine [Norvasc] 5 mg PO BID tablet 06/22/17 06/23/17 Rx hydrALAZINE TAB [Apresoline Tab] 10 mg PO TID tablet 06/22/17 06/23/17 Rx Allergies/Adverse Reactions: Allergies Allergy/AdvReac Type Severity Reaction Status Date / Time Penicillins Allergy Intermediate RASH Verified 05/19/17 06:12 sulfamethoxazole Allergy Mild RASH Verified 05/13/17 11:41 [From Bactrim] trimethoprim [From Bactrim] Allergy Mild RASH Verified 05/13/17 11:41 Medical,Surgical,& Family Hx - Medical History Cardio: History of: Hypertension No history of: CAD, [place] Psychological: History of: Depression Neurology: History of: Migraine (PAST HX.) No history of: Seizures HEENT: History of: Eye Problem (GLASSES) Endocrine: History of: Diabetes Mellitus (IDDM), Dyslipidemia Respiratory: History of: Bronchitis (PAST HX.) No history of: Respiratory Problems (FLU VAC-YES; PNEU VAC- YES.) Renal: History of: Renal Failure (DR LAU) Gastrointestinal: History of: GERD, GI Problems (NAUSEA AND VOMITING. GASTROINTERITIS) Musculoskeletal: History of: Back/Neck Problems (LOWER BACK PAIN AND SHOULDERS) No history of: Amputation Hematology: History of: Anemia Reproductive: History of: Reproductive Problems (UTERINE CANCER) Other: History of: Anesthesia Reactions (VOMITING WITH ANESTHESIA), Cancer ( UTERINE CANCER.), MRSA (RT SHOULDER 2006) - Surgical History Neurologic Surgeries: Patient denies: Neurologic Surgery Abdominal Surgeries: Surgical HX of: Abdominal Surgery (gastric stimulator), Cholecystectomy, EGD (?) Reproductive Surgeries: Surgical HX of;: Breast Surgery (RT BREAST LUMPECTOMY), Gynecologic Surgery, Hysterectomy Orthopedic Surgeries: Patient denies;: Implanted Devices, Orthopedic Surgery, Spinal Surgery, Total Hip Replacement, Total Knee Replacement - Family History Family History: Reports;: Family Diabetes, Family Hypertension - Social History Smoking Status: Never smoker Frequency of Alcohol Use: None Type of Drug Use: None Review of systems: Unable to ROS due to altered mental status/postical state. Exam - Constitutional Vitals: Period Temp Pulse Resp BP Sys/Veliz Pulse Ox Last 24 Hr 98.4 F-98.4 F 41-87 15-27 52-172/36-76 98-100 General appearance: over weight - Head Head exam: Present: normal inspection - Eye Eye exam: Present: EOMI Pupils: Present: JOSH - Neck Neck exam: Present: normal inspection. Absent: thyromegaly - Respiratory Respiratory exam: Present: clear to auscultation bilaterally. Absent: rhonchi, stridor, wheezes - Cardiovascular Cardiovascular exam: Present: bradycardia - GI/Abdominal GI/Abdominal exam: Present: normal bowel sounds, soft. Absent: tenderness, rebound - Extremities Exam Extremities exam: Present: normal inspection. Absent: edema - Neurological Exam Neurological exam: Present: altered (would only move feet and toes with touch to her legs or abdomen) - Psychiatric Psychiatric exam: Absent: agitated, anxious - Skin Skin exam: Present: normal color, warm, dry Results - Labs CBC & BMP: 06/23/17 06:37 06/23/17 06:37 Lab Results: I have reviewed the past 24 hour labs - EKG EKG results: interpreted by ERMD - Impressions after intubation: CXR: Endotracheal tube to the clavicle level, no other acute finding - Diagnostic Findings Procedure: CT: report reviewed by me (Head: no evidence of acute process or interval change) <Ainsley Sullivan - Last Filed: 06/23/17 16:46> Assessment and Plan (1) Respiratory failure Status: Acute Assessment and plan: 1)resp failure- pulmonary consulted. intubated for unresponsiveness in ER. 2)Seizure- on Keppra 3)CKD- renal consulted. 4)bradycardia and hypotension- resolved with pacemaker. troponins negative. 5)recent UTI- covering for potential infection with broad spectrum antibiotics. avoid levaquin because she has been on it and has seized. Current Visit: Yes (2) Diabetes mellitus Status: Chronic Current Visit: No (3) Hypertension Status: Acute Current Visit: No (4) Gastroparesis Status: Acute Current Visit: No (5) Osteoarthritis Status: Acute Current Visit: No (6) Chronic kidney disease, stage IV (severe) Status: Acute Current Visit: No (7) Seizure Status: Acute Current Visit: Yes (8) Hypotension Status: Acute Current Visit: Yes (9) Bradycardia Status: Acute Current Visit: Yes (10) Altered mental status Status: Acute Current Visit: Yes (11) Hyperkalemia Status: Acute Current Visit: Yes History of Present Illness - Consult Narrative History of present illness: Ms. Jones is a 67 year old female I have seen Ms Jones in consultation for seizure, respiratory failure. She has not seized since the 2 witnessed seizures in the ER. At this time it may be that her junctional escape rhythm and hypotension followed the dilantin but she was bradycardic before that. She had heart rates in the 40-50 in ER last week. When EMS picked her up at [facility] today her heart rate was 80 and she was in NSR by their documentation. But our EKG in ER was slower and her rhythm quickly worsened leading to her trip to mine laborer for pacemaker. Her BP has been stable since. Cultures were drawn and broad spectrum antibiotics were started- she has recently been treated with levaquin for UTI and also had a gastric stimulator placed. On Vanc and Merrem at this time. Her hypotension was cardiogenic and resolved when her pacemaker was placed. I discussed her seizure treatment with Dr Pierce by phone- he will see her today- and he recommended Keppra so I have started it. Pulmonary consulted for vent management also. CC: Ainsley Sullivan MD Exam - Constitutional Vitals: Period Temp Pulse Resp BP Sys/Veliz Pulse Ox Last 24 Hr 97.9 F-98.4 F 41-87 15-27 52-172/36-76 98-100 Results - Labs CBC & BMP: 06/23/17 06:37 06/23/17 06:37
[2017-06-23 11:13] LABS: PT Patient Result 10.8 SECS
--- NOTE | 2017-06-23 11:32 | Pulmonology Consult Note ---
History of Present Illness Chief complaint: Vent management. Seizure. Bradycardia. History of present illness: Jac Cary, [facility], acting as scribe for Dr. Rian Rosales Mrs. Pedresen is a 67 year old white female who we have been asked to see in pulmonary consultation for evaluation and treatment. The request for consultation was made by Dr. Sullivan. Patient was apparently inpatient 06/16/2017 through 06/22/2017 at [facility] under care of the hospitalists for hypoglycemia. Urinalysis during that admission ultimately grew E. coli and she was treated with antibiotics. She reportedly had an unsteady gait with recent falls and felt that she would be an appropriate swing bed candidate. She was transferred on 06/22/2017 to [facility] swing bed. She apparently was there for only a very short period of time when she experienced possible seizure activity. Patient appeared a bit her lip that morning during physical exam. The patient was initially responsive within the nurse witnessed her having to possible episodes of seizures in a 20 minute time. And she was subsequently transferred back to [facility] emergency room for evaluation. [facility] emergency room the patient was noted to have blood in her mouth. There was no reported history of seizure. Reportedly she became unresponsive and was found to be profoundly bradycardic with a wide QRS escape rhythm. She became hypotensive and was intubated for respiratory insufficiency. Her blood pressure reportedly improved that her rhythm remained slow rhythm without ST elevation. She was emergently taken to the [facility] where she had a temporary pacemaker, arterial line, central line insertion, and cardiac cath. She remained intubated and has been transferred back to cardiac care. We have been asked to see the patient for pulmonary consultation and ventilator management. There is no family present, therefore, her history is taken from the nursing staff and chart. There was no reported increased shortness of breath or dyspnea on exertion. No reported cardiac angina or palpitations. No bleeding from any site other than as noted above. The patient does have gastroparesis and gastric stimulator. No change in bowel or bladder habits. No dysphasia or reflux. All other systems are reviewed and were negative. Allergies: Penicillins. Bactrim DS. Home medications: See list Hospital medications: See list Past medical history: [place] hospitalization 06/16/2017 3 06/22/2017 as above. Past medical history is also notable for hypertension, dyslipidemia, diabetes, obesity, sedentary lifestyle, chronic renal failure followed by Dr. Lau with a baseline creatinine of 2.6, possible history of neurological disorder, gastric pacemaker, diabetic gastroparesis, anemia, recent UTI secondary to E. coli, migraine headaches, depression, gastroesophageal reflux, lumbago, uterine cancer, and MRSA of the right shoulder in 2006. Surgical history: Positive for gastric stimulator placed by Dr. Cruz 05/19/2017 , cholecystectomy, right breast lumpectomy, and hysterectomy Family history: Positive for diabetes and hypertension Social history: Patient is a lifetime non-smoker. She does not use alcohol. She is not . She lives with her children. Her primary care provider is Dr. Juan Brennan. CT of the head done 06/23/2017. No evidence of acute process or interval change when compared to CT 06/16/2017. Chest x-ray done 06/23/2017. No acute findings. Doppler venograms done 06/23/2017. No evidence of deep venous thrombophlebitis within either lower extremity. Laboratory: White count is 11,000 with 80.0% segs, 11.1% lymphs, and 5.7% monos ; H&H 9.6/30.0 with normal indices and normal red blood cell distribution with; platelet count 236,000; INR 1.0; creatinine 4.40, BUN 49, sodium 142, potassium 5.1, magnesium 1.4 (hypomagnesemia), calcium is low at 8.3 point reflected in the low albumin of 2.7, total protein 6.0; liver function tests within normal limits with an exception of an elevated alkaline phosphatase; TSH is elevated at 15.400 and free T4 is elevated at 1.51 ABGs on mechanical ventilation and an FiO2 of 100% show pH 7.324, PCO2 27.6, PO2 475.0, bicarb 15.9, oxygen saturation 99.6%. Home Medications Medication Instructions Recorded Confirmed Type Aspirin Tab 325 mg PO QAM 05/13/17 06/23/17 History Atorvastatin [Lipitor] 20 mg PO QPM 05/13/17 06/23/17 History Colchicine 0.6 mg PO QAM 05/13/17 06/23/17 History Nitroglycerin 0.4 mg/Hr Patch 1 patch TRANSDERM DAILY 05/13/17 06/23/17 History [Nitro-Dur 0.4 mg/hr Patch] Ondansetron HCl 4 mg PO QID PRN 05/13/17 06/23/17 History Ranolazine [Ranexa] 500 mg PO BID 05/13/17 06/23/17 History buPROPion HCl [Bupropion Xl] 300 mg PO BID 05/13/17 06/23/17 History Benzonatate 200 mg PO DAILY PRN 06/16/17 06/23/17 History Cholecalciferol (Vitamin D3) 5,000 unit PO QPM 06/16/17 06/23/17 History [Vitamin D3] Erythromycin Base [Erythromycin DR 250 mg PO TID 06/16/17 06/23/17 History Cap] Loratadine Tab [Claritin Tab] 10 mg PO DAILY PRN 06/16/17 06/23/17 History Metoprolol Succinate Xl [Toprol Xl] 50 mg PO QPM 06/16/17 06/23/17 History Acetaminophen Tab [Tylenol Tab] 325 mg PO Q4H PRN tablet 06/22/17 06/23/17 Rx HYDROcodone/ACETAMIN 7.5-325 1 tablet PO Q4H PRN #20 tablet 06/22/17 06/23/17 Rx [[place] 7.5-325] Levofloxacin Tab [Levaquin Tab] 500 mg PO DAILY #7 tablet 06/22/17 06/23/17 Rx Pantoprazole Tab [Protonix Tab] 40 mg PO DAILY tablet 06/22/17 06/23/17 Rx amLODIPine [Norvasc] 5 mg PO BID tablet 06/22/17 06/23/17 Rx hydrALAZINE TAB [Apresoline Tab] 10 mg PO TID tablet 06/22/17 06/23/17 Rx Allergies Allergy/AdvReac Type Severity Reaction Status Date / Time Penicillins Allergy Intermediate RASH Verified 05/19/17 06:12 sulfamethoxazole Allergy Mild RASH Verified 05/13/17 11:41 [From Bactrim] trimethoprim [From Bactrim] Allergy Mild RASH Verified 05/13/17 11:41 Exam (Pulmonay) H&P - Constitutional Vitals: Period Temp Pulse Resp BP Sys/Veliz Pulse Ox Last 24 Hr 98.4 F-98.4 F 41-87 15-27 52-172/36-76 98-100 Exam: Psych: Unable to be determined at this time secondary to sedation and mechanical ventilation. HEENT: Pupils, irises, sclera, conjunctiva, and eyelids are normal. The face is symmetrical without rash or masses. Lips and tongue appear normal. Neck: Symmetrical. Thyroid was not palpated. Lymphatics: No submandibular, cervical, or supraclavicular adenopathy Chest: Symmetrical and fairly clear with loose large airway congestion bilaterally Breasts: Deferred CV: Regular and bradycardic; no gallop Arterial: Carotids with a fair upstroke. There is no bruit. Upper extremity pulses are palpable. Lower extremity pulses are non-palpable, but I see no evidence of ischemia. Venous: Exam of the neck, upper, and lower extremities is normal Abd: No appreciable organomegaly, masses, tenderness, or bruit; Bowel sounds are hypoactive x 4; The aorta was not palpated /Rectal: Deferred Extremities: No clubbing, cyanosis, edema, or obvious DVT; note, Doppler venograms were negative Skin: No cancerous or infectious lesions of the exposed, examined skin; the perineal area was not examined M/S: Age appropriate loss of the normal curvature of the cervical, thoracic, and lumbar spine Neurological: Unable to be determined at this time secondary to sedation and mechanical ventilation The remainder of the exam was noncontributory. Impression: #1: Acute respiratory insufficiency with metabolic acidosis requiring intubation and mechanical ventilation #2: Acute seizure #3: Acute bradycardia requiring temporary pacemaker #4: Diabetic gastroparesis. Note, the patient has a gastric stimulator that was placed in May [address] Cruz. #5: Anemia #6: Acute on chronic renal failure. Note, this is followed by Dr. Michael Lau. #7: Recent UTI secondary to E. coli #8: Hypertension #9: Hypomagnesemia #10: Elevated TSH and free T4. I am unsure of the significance of this at this time. #11: See past history Plan: #1: For going to hyperventilate her presently to try to correct her metabolic acidosis. We will decrease her FiO2 to 70% and repeat ABGs at 2 PM. #2: Start weaning protocol #3: Physical therapy protocol #4: Plan for fiberoptic bronchoscopy in the morning. High likelihood of aspiration in face of seizure activity. #5: Daily chest x-ray and ABGs while on the ventilator. #6: See orders We appreciate this consult and will follow along with you. Medical,Surgical,& Family Hx - Medical History Cardio: History of: Hypertension No history of: CAD, [place] Psychological: History of: Depression Neurology: History of: Migraine (PAST HX.) No history of: Seizures HEENT: History of: Eye Problem (GLASSES) Endocrine: History of: Diabetes Mellitus (IDDM), Dyslipidemia Respiratory: History of: Bronchitis (PAST HX.) No history of: Respiratory Problems (FLU VAC-YES; PNEU VAC- YES.) Renal: History of: Renal Failure (DR LAU) Gastrointestinal: History of: GERD, GI Problems (NAUSEA AND VOMITING. GASTROINTERITIS) Musculoskeletal: History of: Back/Neck Problems (LOWER BACK PAIN AND SHOULDERS) No history of: Amputation Hematology: History of: Anemia Reproductive: History of: Reproductive Problems (UTERINE CANCER) Other: History of: Anesthesia Reactions (VOMITING WITH ANESTHESIA), Cancer ( UTERINE CANCER.), MRSA (RT SHOULDER 2006) - Surgical History Neurologic Surgeries: Patient denies: Neurologic Surgery Abdominal Surgeries: Surgical HX of: Abdominal Surgery (gastric stimulator), Cholecystectomy, EGD (?) Reproductive Surgeries: Surgical HX of;: Breast Surgery (RT BREAST LUMPECTOMY), Gynecologic Surgery, Hysterectomy Orthopedic Surgeries: Patient denies;: Implanted Devices, Orthopedic Surgery, Spinal Surgery, Total Hip Replacement, Total Knee Replacement - Family History Family History: Reports;: Family Diabetes, Family Hypertension - Social History Smoking Status: Never smoker Frequency of Alcohol Use: None Type of Drug Use: None Results - Labs CBC & BMP: 06/23/17 06:37 06/23/17 06:37
[2017-06-23] MEDS ORDERED: VANCOMYCIN INJ 1,500 MG in SODIUM CHLORIDE 0.9% 500 ML IV ONE (12:00)
--- NOTE | 2017-06-23 12:43 | ECHO Report ---
Nadja Pedersen Exam Date: 06/23/2017 09:49 Referring Physician: Technologist: Reva Emanuel RDCS Age: 67 Ht (in): 65 Wt (lb): 150 Gender: F Exam Location: [facility] Echo Indications: BP: / HR: Rhythm: Sinus Technical Quality: IMPRESSIONS Normal left ventricular size, with mild concentric hypertrophy, with normal systolic function. Estimated left ventricle ejection fraction 60%. Grade 2 diastolic dysfunction. The left atrium is mildly dilated. Aortic valve sclerosis, without stenosis, without insufficiency. MEASUREMENTS (Male / Female) Normal Values 2D ECHO LV Diastolic Diameter PLAX 4.0 cm 4.2 - 5.9 / 3.9 - 5.3 cm LV Systolic Diameter PLAX 2.9 cm LV Fractional Shortening PLAX 25.5 % IVS Diastolic Thickness 1.2 cm 0.6 - 1.0 / 0.6 - 0.9 cm LVPW Diastolic Thickness 1.2 cm 0.6 - 1.0 / 0.6 - 0.9 cm RV Internal Dim ED PLAX 3.0 cm Aortic Root Diameter 3.1 cm LA Systolic Diameter LX 3.4 cm 3.0 - 4.0 / 2.7 - 3.8 cm DOPPLER TR Peak Velocity 307.0 cm/s TR Peak Gradient 37.7 mmHg FINDINGS Left Ventricle Normal left ventricular size, with mild concentric hypertrophy, with normal systolic function. Estimated left ventricle ejection fraction 60%. Grade 2 diastolic dysfunction. Right Ventricle The right ventricle is normal in size, with normal systolic function. Right Atrium Normal right atrial size. Left Atrium The left atrium is mildly dilated. Mitral Valve Structurally normal mitral valve, with trace insufficiency, without stenosis Aortic Valve Aortic valve sclerosis, without stenosis, without insufficiency Tricuspid Valve Structurally normal tricuspid valve, with trace regurgitation. Estimated pulmonary artery systolic pressure 38 mmHg plus right atrial pressure Pulmonic Valve The pulmonic valve is not well visualized. Pericardium No pericardial effusion Aorta The aortic root is of normal size. Carlos Madrid (Electronically Signed) Final Date: 23 June 2017 12:42
--- NOTE | 2017-06-23 13:33 | Nuclear Medicine Report ---
NM lung scan vent and per Indication: Shortness of breath. Comparison: Chest x-ray 06/23/2017 Technique: Ventilation scan of the lungs was performed. 40 mCi of technetium 99m labeled DTPA was administered in aerosolized form, following which planar imaging in the anterior, JULES, and RIVERA projections was accomplished. Following this, 5 mCi technetium 99m labeled MAA was injected intravenously and perfusion scanning of the chest was performed in the anterior, JULES, and RIVERA projections. Findings: No perfusion defects are demonstrated on the 3 images provided. Endotracheal tube is present and clumping of DTPA is noted throughout the endotracheal tube. Impression: 1. The lack of perfusion defect in essence excludes pulmonary artery embolus. 06/23/2017 1:29 PM PROCEDURE INTERPRETED AT [facility] DEPARTMENT OF RADIOLOGY Final Report Signed by: Dr. Reynold Castellanos
[2017-06-23] MEDS ORDERED: VANCOMYCIN INJ 1,250 MG in SODIUM CHLORIDE 0.9% 250 ML IV PRN (14:15)
[2017-06-23] MEDS ORDERED: BENZONATATE 100 MG CAPSULE PO PRN (14:30)
[2017-06-23] MEDS: PANTOPRAZOLE 40 MG VIAL IV SCH (16:00)
[2017-06-23 16:18] LABS: ABG Base Excess -8.5 MMOL/L (-2.5-2.5); ABG HCO3 15.4 MMOL/L (20-26); ABG Oxygen Saturation 99.1 % (95-100); ABG PH 7.389 (7.35-7.45); ABG PO2 366.8 MM HG (80-95); ABG TCO2 16.1 MMOL/L (23-27); Allen Test Positive; Pt O2 Delivery Device Ventilator
--- NOTE | 2017-06-23 17:16 | Neurology Consult Note ---
History of Present Illness History of present illness: 67 year old right-handed white lady with past medical history significant for HTN, Depression, migraines,diabetes, dyslipidemia, renal failure, GERD, chronic back and neck pain, anemia, uterine cancer; who was at swing bed and got transferred to emergency room this morning after patient was found in her room with blood in her mouth and appeared to have had a seizure and had bitten her lip and was unable to follow commands. Patient does not have a know history of seizures. It was reported by nursing staff, upon arrival to the ED patient was initially responsive but shortly after arrival patient had 2 episodes of seizure activity in about a [address] HEAD showed no evidence of acute process or interval change. Patient was found to be in severe bradycardia with a heart rate in 30s and 40s. She was taken to cardiac labor custodian for temporary pacemaker placement. Due to change in mental status and poor responsiveness she was intubated at that time too. Patient is currently on to prevent. Keppra was started. She is not following any commands. However she is withdrawing on painful stimuli. Home Medications Medication Instructions Recorded Confirmed Type Aspirin Tab 325 mg PO QAM 05/13/17 06/23/17 History Atorvastatin [Lipitor] 20 mg PO QPM 05/13/17 06/23/17 History Colchicine 0.6 mg PO QAM 05/13/17 06/23/17 History Nitroglycerin 0.4 mg/Hr Patch 1 patch TRANSDERM DAILY 05/13/17 06/23/17 History [Nitro-Dur 0.4 mg/hr Patch] Ondansetron HCl 4 mg PO QID PRN 05/13/17 06/23/17 History Ranolazine [Ranexa] 500 mg PO BID 05/13/17 06/23/17 History buPROPion HCl [Bupropion Xl] 300 mg PO BID 05/13/17 06/23/17 History Benzonatate 200 mg PO DAILY PRN 06/16/17 06/23/17 History Cholecalciferol (Vitamin D3) 5,000 unit PO QPM 06/16/17 06/23/17 History [Vitamin D3] Erythromycin Base [Erythromycin DR 250 mg PO TID 06/16/17 06/23/17 History Cap] Loratadine Tab [Claritin Tab] 10 mg PO DAILY PRN 06/16/17 06/23/17 History Metoprolol Succinate Xl [Toprol Xl] 50 mg PO QPM 06/16/17 06/23/17 History Acetaminophen Tab [Tylenol Tab] 325 mg PO Q4H PRN tablet 06/22/17 06/23/17 Rx HYDROcodone/ACETAMIN 7.5-325 1 tablet PO Q4H PRN #20 tablet 06/22/17 06/23/17 Rx [[place] 7.5-325] Levofloxacin Tab [Levaquin Tab] 500 mg PO DAILY #7 tablet 06/22/17 06/23/17 Rx Pantoprazole Tab [Protonix Tab] 40 mg PO DAILY tablet 06/22/17 06/23/17 Rx amLODIPine [Norvasc] 5 mg PO BID tablet 06/22/17 06/23/17 Rx hydrALAZINE TAB [Apresoline Tab] 10 mg PO TID tablet 06/22/17 06/23/17 Rx Allergies Allergy/AdvReac Type Severity Reaction Status Date / Time Penicillins Allergy Intermediate RASH Verified 05/19/17 06:12 sulfamethoxazole Allergy Mild RASH Verified 05/13/17 11:41 [From Bactrim] trimethoprim [From Bactrim] Allergy Mild RASH Verified 05/13/17 11:41 ROS unobtainable: due to endotracheal tube Medical,Surgical,& Family Hx - Medical History Cardio: History of: Hypertension No history of: CAD, [place] Psychological: History of: Depression Neurology: History of: Migraine (PAST HX.) No history of: Seizures HEENT: History of: Eye Problem (GLASSES) Endocrine: History of: Diabetes Mellitus (IDDM), Dyslipidemia Respiratory: History of: Bronchitis (PAST HX.) No history of: Respiratory Problems (FLU VAC-YES; PNEU VAC- YES.) Renal: History of: Renal Failure (DR LAU) Gastrointestinal: History of: GERD, GI Problems (NAUSEA AND VOMITING. GASTROINTERITIS) Musculoskeletal: History of: Back/Neck Problems (LOWER BACK PAIN AND SHOULDERS) No history of: Amputation Hematology: History of: Anemia Reproductive: History of: Reproductive Problems (UTERINE CANCER) Other: History of: Anesthesia Reactions (VOMITING WITH ANESTHESIA), Cancer ( UTERINE CANCER.), MRSA (RT SHOULDER 2006) - Surgical History Neurologic Surgeries: Patient denies: Neurologic Surgery Abdominal Surgeries: Surgical HX of: Abdominal Surgery (gastric stimulator), Cholecystectomy, EGD (?) Reproductive Surgeries: Surgical HX of;: Breast Surgery (RT BREAST LUMPECTOMY), Gynecologic Surgery, Hysterectomy Orthopedic Surgeries: Patient denies;: Implanted Devices, Orthopedic Surgery, Spinal Surgery, Total Hip Replacement, Total Knee Replacement - Family History Family History: Reports;: Family Diabetes, Family Hypertension - Social History Smoking Status: Never smoker Frequency of Alcohol Use: None Type of Drug Use: None Exam - Constitutional Vitals: Period Temp Pulse Resp BP Sys/Veliz Pulse Ox Last 24 Hr 97.9 F-98.4 F 41-87 15-27 52-172/36-76 98-100 Exam: GENERAL: Patient is in no acute distress. NECK: Neck is supple. There is no JVD. No carotid bruits present. No thyroid masses. CVS: First and second heart sounds are normal. There is no S3 present. Regular rate and rhythm. RESPIRATORY: Lungs are clear to auscultation without any rales or rhonchi. ABDOMEN: Soft and non-tender. Bowel sounds are present. There is no hepatosplenomegaly. EXT: There is no palpable edema. Peripheral pulses are present. Skin: No rashes Central Nervous system: General: Sedated on vent Speech: None Comprehension: None Facial expressions: Normal Cranial Nerves: Pupils are 3-4 mm minimally reactive to light. Doll's head eye movements are positive. No facial asymmetry seen Motor: Bulk and Tone is normal. Strength not be assessed Sensory: Cannot be assessed however withdrawing on pain. Reflexes: 1+ and symmetrical Cerebellar function: Cannot be assessed Toes: Equivocal Gait: Cannot be assessed Results - Labs CBC & BMP: 06/23/17 06:37 06/23/17 06:37 Assessment and Plan (1) New onset seizure Status: Acute Assessment and plan: Patient has never had seizures before. She was found to have significant bradycardia, question she had a embolic stroke which has ultimately caused seizures? She will require MRI once extubated. Continue Keppra for now EEG if one not done Patient is critically ill at this time. Thank you for the consult We will follow her along with you Current Visit: Yes
[2017-06-23] MEDS: hydrALAZINE 10 MG TABLET PO SCH ×2 (17:27→22:57)
[2017-06-23] MEDS: ERYTHROMYCIN BASE 250 MG TABLET PO SCH ×2 (17:27→22:57)
[2017-06-23] MEDS: MEROPENEM 500 MG in SODIUM CHLORIDE 0.9% 100 ML IV SCH (17:27)
[2017-06-23 17:31] LABS: Calcium 7.9 MG/DL (8.5-10.1); Magnesium 1.4 MG/DL (1.8-2.4); Osmolality,Calculated 298.1 MOS/KG (273-304); Potassium 4.4 MMOL/L (3.5-5.1)
[2017-06-23] MEDS: CHOLECALCIFEROL 1,000 UNIT TABLET PO SCH (18:32)
[2017-06-23] MEDS: METOPROLOL SUCCINATE XL 50 MG TABLET PO SCH (18:32)
[2017-06-23] MEDS: ATORVASTATIN 20 MG TABLET PO SCH (18:32)
[2017-06-23] MEDS: SODIUM CHLORIDE 0.9% 1,000 ML IV SCH (19:05)
--- NOTE | 2017-06-23 21:33 | Nephrology Consult Note ---
History of Present Illness Chief complaint: CRF History of present illness: Ms. Pedersen is a 67 year old female whom I have seen in the past for diabetic nephropathy. She was recently hospitalized at [facility] for symptomatic hypoglycemia. He was transferred to rehab yesterday. She is readmitted here after having a seizure. She was noted to have significant bradycardia and hypotension on presentation. She required intubation. Temporary pacemaker was placed. Home Medications Medication Instructions Recorded Confirmed Type Aspirin Tab 325 mg PO QAM 05/13/17 06/23/17 History Atorvastatin [Lipitor] 20 mg PO QPM 05/13/17 06/23/17 History Colchicine 0.6 mg PO QAM 05/13/17 06/23/17 History Nitroglycerin 0.4 mg/Hr Patch 1 patch TRANSDERM DAILY 05/13/17 06/23/17 History [Nitro-Dur 0.4 mg/hr Patch] Ondansetron HCl 4 mg PO QID PRN 05/13/17 06/23/17 History Ranolazine [Ranexa] 500 mg PO BID 05/13/17 06/23/17 History buPROPion HCl [Bupropion Xl] 300 mg PO BID 05/13/17 06/23/17 History Benzonatate 200 mg PO DAILY PRN 06/16/17 06/23/17 History Cholecalciferol (Vitamin D3) 5,000 unit PO QPM 06/16/17 06/23/17 History [Vitamin D3] Erythromycin Base [Erythromycin DR 250 mg PO TID 06/16/17 06/23/17 History Cap] Loratadine Tab [Claritin Tab] 10 mg PO DAILY PRN 06/16/17 06/23/17 History Metoprolol Succinate Xl [Toprol Xl] 50 mg PO QPM 06/16/17 06/23/17 History Acetaminophen Tab [Tylenol Tab] 325 mg PO Q4H PRN tablet 06/22/17 06/23/17 Rx HYDROcodone/ACETAMIN 7.5-325 1 tablet PO Q4H PRN #20 tablet 06/22/17 06/23/17 Rx [[place] 7.5-325] Levofloxacin Tab [Levaquin Tab] 500 mg PO DAILY #7 tablet 06/22/17 06/23/17 Rx Pantoprazole Tab [Protonix Tab] 40 mg PO DAILY tablet 06/22/17 06/23/17 Rx amLODIPine [Norvasc] 5 mg PO BID tablet 06/22/17 06/23/17 Rx hydrALAZINE TAB [Apresoline Tab] 10 mg PO TID tablet 06/22/17 06/23/17 Rx Allergies Allergy/AdvReac Type Severity Reaction Status Date / Time Penicillins Allergy Intermediate RASH Verified 05/19/17 06:12 sulfamethoxazole Allergy Mild RASH Verified 05/13/17 11:41 [From Bactrim] trimethoprim [From Bactrim] Allergy Mild RASH Verified 05/13/17 11:41 Medical,Surgical,& Family Hx - Medical History Cardio: History of: Hypertension No history of: CAD, [place] Psychological: History of: Depression Neurology: History of: Migraine (PAST HX.) No history of: Seizures HEENT: History of: Eye Problem (GLASSES) Endocrine: History of: Diabetes Mellitus (IDDM), Dyslipidemia Respiratory: History of: Bronchitis (PAST HX.) No history of: Respiratory Problems (FLU VAC-YES; PNEU VAC- YES.) Renal: History of: Renal Failure (DR LAU) Gastrointestinal: History of: GERD, GI Problems (NAUSEA AND VOMITING. GASTROINTERITIS) Musculoskeletal: History of: Back/Neck Problems (LOWER BACK PAIN AND SHOULDERS) No history of: Amputation Hematology: History of: Anemia Reproductive: History of: Reproductive Problems (UTERINE CANCER) Other: History of: Anesthesia Reactions (VOMITING WITH ANESTHESIA), Cancer ( UTERINE CANCER.), MRSA (RT SHOULDER 2006) - Surgical History Neurologic Surgeries: Patient denies: Neurologic Surgery Abdominal Surgeries: Surgical HX of: Abdominal Surgery (gastric stimulator), Cholecystectomy, EGD (?) Reproductive Surgeries: Surgical HX of;: Breast Surgery (RT BREAST LUMPECTOMY), Gynecologic Surgery, Hysterectomy Orthopedic Surgeries: Patient denies;: Implanted Devices, Orthopedic Surgery, Spinal Surgery, Total Hip Replacement, Total Knee Replacement - Family History Family History: Reports;: Family Diabetes, Family Hypertension - Social History Smoking Status: Never smoker Frequency of Alcohol Use: None Type of Drug Use: None Review of Systems ROS unobtainable: due to endotracheal tube Exam - Vital Signs Vital signs: Period Temp Pulse Resp BP Sys/Veliz Pulse Ox Last 24 Hr 97.6 F-98.4 F 41-87 15-27 52-193/36-81 98-100 Exam: Gen.: On ventilator. Withdraws to pain ENT: Pupils equal round reactive to light. Neck: Supple. No JVD or bruit. Cardiovascular: Regular rate and rhythm. No murmur rub or gallop Lungs: Clear Abdomen: Soft. Nontender. Positive bowel sounds. No organomegaly Extremities: 1-2+ edema Results - Labs CBC & BMP: 06/23/17 06:37 06/23/17 16:43 Assessment and Plan (1) Chronic kidney disease, stage IV (severe) Status: Acute Assessment and plan: 67-year-old woman admitted with: * Bradycardia. Temporary pacer placed * hypotension. Much improved after pacer * CRF stage IV. Renal function stable compared to last week * Diabetes mellitus * New onset seizure. This may have been precipitated by hypotension * Ventilatory failure * Gastroparesis Current Visit: No (2) Bradycardia Status: Acute Current Visit: Yes (3) Hypotension Status: Acute Current Visit: Yes (4) New onset seizure Status: Acute Current Visit: Yes (5) Respiratory failure Status: Acute Current Visit: Yes (6) Gastroparesis Status: Acute Current Visit: No (7) Diabetes mellitus Status: Chronic Current Visit: No
[2017-06-24 03:44] LABS: ABG Base Excess -8.7 MMOL/L (-2.5-2.5); ABG HCO3 17.4 MMOL/L (20-26); ABG PCO2 25.4 MM HG (35-48); ABG PH 7.386 (7.35-7.45); ABG TCO2 14.1 MMOL/L (23-27); Allen Test Positive; Pt O2 Delivery Device Ventilator
[2017-06-24] MEDS: PROPOFOL 1,000 MG/100 ML BOTTLE IV SCH ×3 (03:50→19:56)
[2017-06-24] MEDS: MEROPENEM 500 MG in SODIUM CHLORIDE 0.9% 100 ML IV SCH ×2 (03:59→14:59)
[2017-06-24 04:06] LABS: Basophils % 0.4 % (0.0-0.8); Eosinophils # 0.2 10*3/uL (0.0-0.87); Eosinophils % 1.7 % (0.00-10.9); Hematocrit 27.3 VOL% (35.7-47.0); Hemoglobin 8.9 GM/DL (12.0-16.0); Immature Granulocytes % 0.9 %; Immature Granulocytes Absolute 0.09 #; Lymphocytes # 1.7 10*3/uL (1.4-4.0); Lymphocytes % 17.5 % (21.3-54.2); Mean Corpuscular HGB Conc 32.6 GM/DL (32-36); Mean Corpuscular Hemoglobin 32 PG (27-34); Mean Corpuscular Volume 98.9 FL (87-102); Monocytes # 1.1 10*3/uL (0.11-0.8); Monocytes % 11.5 % (1.7-12.7); Neutrophils # 6.8 10*3/uL (1.4-7.4); Platelet Count 182 T/CUMM (130-400); Red Blood Count 2.76 MC/CUMM (3.8-5.5); Red Cell Distribution Width 14.3 % (9.3-17.3); White Blood Count 9.9 T/CUMM (4-12)
[2017-06-24 04:22] LABS: PT Patient Result 10.8 SECS; Partial Thromboplastin Time 31.1 SECS (0-40)
[2017-06-24 04:41] LABS: Calcium 8.4 MG/DL (8.5-10.1); Magnesium 1.5 MG/DL (1.8-2.4); Potassium 4.2 MMOL/L (3.5-5.1); Risk Ratio 3.59; VLDL CHOLESTEROL 30.2 MG/DL
[2017-06-24 04:58] LABS: Albumin 2.5 G/DL (3.4-5.0); Bilirubin,Total 0.8 MG/DL (0.2-1.0); Calcium 8.4 MG/DL (8.5-10.1); Potassium 4.2 MMOL/L (3.5-5.1); Total Protein 5.4 G/DL (6.4-8.3)
--- NOTE | 2017-06-24 07:16 | EKG Report ---
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
--- NOTE | 2017-06-24 07:57 | XRay Report ---
XR chest 1V portable Indication: Ventilator patient Comparison: 23 June 2017 Findings: The heart and mediastinum are normal in size and configuration. Endotracheal tube is unchanged in position. NG tube is been added and tip lies off the edge of the film in the left upper abdomen . The pulmonary vascularity is normal in caliber. No lung infiltrates, effusions, pneumothorax or other abnormality is demonstrated. Impression: NG tube added, appears within normal limits. No other significant changes. PROCEDURE INTERPRETED AT [facility] DEPARTMENT OF RADIOLOGY Final Report Signed by: Dr. Guanakito Sidhu
--- NOTE | 2017-06-24 08:02 | EKG Report ---
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
[2017-06-24] MEDS: hydrALAZINE 25 MG TABLET PO SCH ×5 (08:16→22:17)
[2017-06-24] MEDS: ASPIRIN 325 MG TABLET PO SCH (08:16)
[2017-06-24] MEDS: ERYTHROMYCIN BASE 250 MG TABLET PO SCH ×3 (08:16→22:17)
[2017-06-24] MEDS: PANTOPRAZOLE 40 MG VIAL IV SCH (08:21)
[2017-06-24] MEDS ORDERED: amLODIPine 5 MG TABLET PO SCH (09:00)
[2017-06-24] MEDS ORDERED: PANTOPRAZOLE 40 MG TABLET PO SCH (09:00)
[2017-06-24] MEDS ORDERED: COLCHICINE 0.6 MG TABLET PO SCH (09:00)
[2017-06-24] MEDS ORDERED: GLUCAGON 1 MG VIAL IM PRN (09:34)
[2017-06-24] MEDS ORDERED: DEXTROSE 50% 25 GM/50 ML SYRINGE IV PRN (09:34)
--- NOTE | 2017-06-24 09:43 | Cardiology Progress Note ---
Assessment and Plan - Time spent with patient Time spent with patient: Greater than 30 minutes (1) Hypotension Status: Resolved Assessment and plan: SEE PLAN OF CARE LISTED BELOW Current Visit: Yes (2) Bradycardia Status: Resolved Assessment and plan: SEE PLAN OF CARE LISTED BELOW Current Visit: Yes (3) Altered mental status Status: Acute Assessment and plan: SEE PLAN OF CARE LISTED BELOW Current Visit: Yes (4) Hyperkalemia Status: Resolved Assessment and plan: SEE PLAN OF CARE LISTED BELOW Current Visit: Yes (5) Respiratory distress Status: Acute Assessment and plan: SEE PLAN OF CARE LISTED BELOW Current Visit: Yes (6) Seizure Status: Acute Assessment and plan: SEE PLAN OF CARE LISTED BELOW Current Visit: Yes (7) Anemia Status: Chronic Assessment and plan: SEE PLAN OF CARE LISTED BELOW Current Visit: No (8) CKD (chronic kidney disease) stage 5, GFR less than 15 ml/min Problem details: No indication for renal replacement therapy at this time. Status: Chronic Assessment and plan: SEE PLAN OF CARE LISTED BELOW Current Visit: No (9) Diabetes mellitus Status: Chronic Assessment and plan: SEE PLAN OF CARE LISTED BELOW Current Visit: No (10) Dyslipidemia Status: Chronic Assessment and plan: SEE PLAN OF CARE LISTED BELOW Current Visit: No (11) Hypomagnesemia Status: Acute Assessment and plan: SEE PLAN OF CARE LISTED BELOW Current Visit: Yes (12) Chronic kidney disease, stage IV (severe) Status: Chronic Assessment and plan: SEE PLAN OF CARE LISTED BELOW Current Visit: No (13) Abnormal thyroid blood test Status: Acute Assessment and plan: SEE PLAN OF CARE LISTED BELOW Current Visit: Yes Cardiology - PN: Subj Interval history: ASSISTANT FINANCE DIRECTOR: (NEW) DR. MADRID PCP: DR. HUNTER RODAS Patient is intubated, being seen in the CCU. There is no family present. The majority of this information is taken from medical records and staff. SUMMARY: Ms. Pedersen, 67WF, without a prior known history of coronary artery disease but risk factors significant for: hypertension, dyslipidemia, diabetes, obesity, sedentary lifestyle. History of chronic renal failure followed by Dr. Jean-Baptiste. Possible history of neurological disorders. Recently hospitalized for laparoscopic gastric pacemaker placement (diabetic gastroparesis) performed by Dr. Gibbs 05/22/2017. Tolerated the procedure well and without complication and was discharged to [facility]. Patient was admitted June 23, 2017 after being found to have a bloody mouth, unresponsive. She was transferred to the ED of [facility]. Patient was found to be bradycardic on admission then experienced seizures. She profoundly bradycardic with a wide QRS escape rhythm , she then became hypotensive and was intubated for respiratory insufficiency. Her blood pressure improved though her rhythm remained a slow rhythm without ST elevation. CT head did not reveal an acute event. Potassium 5.1 on admission. Troponin negative. She was taken emergently to cardiac catheterization lab for temporary pacemaker, arterial line, central line insertion. She tolerated these procedures well. She did not undergo cardiac catheterization as PA was not suggested. Echo: EF 60%, grade 2 diastolic dysfunction, PAP 38 mmHg + RAP. Venous ultrasound revealed no evidence of DVT. VQ lung scan reveals no PE. JUNE 24, 2017: Pulmonary has been consulted and patient is currently scheduled to undergo bronchoscopy this morning. Dr. Pierce, neurologist, has seen patient. Keppra has been initiated. No additional seizure activity. She will undergo MRI once extubated. EEG. Patient has not required use of temporary pacemaker and this will be removed this morning. Labs are stable, basically unchanged. TSH and free T4 are both elevated. Magnesium is low and we will replace this morning. Hypotension has resolved and she is in fact experiencing systolic blood pressure in the 200s range. Adjusting meds this morning for better control etiology of bradycardia is unknown. Possibly she could have had seizure type activity and hypoxia causing bradycardia. Could have aspirated at some point. She has been treated for possible sepsis. Will further discuss with Dr. Madrid and await additional recommendations. ASSESSMENT/PLAN: 1. BRADYCARDIA - emergent temporary pacemaker. Stable. She has not required use of pacemaker and we will discontinue the device this morning 2. HYPOTENSION -resolved. Differentials include: CVA, pulmonary embolism, seizure, metabolic issues, sepsis. Echo revealed no significant abnormality to account for hypotension 3. RESPIRATORY FAILURE - she is now intubated. Pulmonary on board. Undergoing bronchoscopy this morning 4. SEIZURE - I suspect this is new onset of seizures. She has received Dilantin and succinylcholine initially in the ER. Now on Keppra. No additional seizure activity. MRI when extubated, EEG. 5. DYSLIPIDEMIA - continue lipid-lowering agent. LDL 56. 6. CKD, STAGE IV - avoiding RAEANN inhibitors for fear of worsening renal insufficiency. Creatinine 4.1 this morning. 7. DIABETES - adjust medications accordingly during hospital stay. 8. HYPERKALEMIA -resolved. K+ 4.2 this morning. 9. ABNORMAL THYROID STUDIES - will defer to Hospitalist for further management. Will reorder just to verify authenticity. 10. HYPOMAGNESEMIA - replace this morning. 11. HYPERTENSION - Starting Hydralazine 25mg orally TID, starting NOW. Also adding Norvasc. Metoprolol was restarted last evening. She has had no additional bradycardia and will continue to monitor this closely. Exam (Progress Note) - Constitutional Vitals: Period Temp Pulse Resp BP Sys/Veliz Pulse Ox Last 24 Hr 97.6 F-97.9 F 55-93 14-19 127-233/62-126 76-100 Exam: Exam: General: [Appears critically ill. Unresponsive. ] HEENT: [Normocephalic. Mucous membranes moist. No jaundice noted. Conjunctiva moist and clear, sclerae anicteric] Neck: Unable to assess for JVD due to habitus. No lymphadenopathy noted. No carotid bruit appreciated Cardiac: [Regular rate and rhythm. No obvious murmur rub or gallop. Telemetry reveals regular sinus rhythm Lungs: [Coarse sounds throughout. Intubated with symmetrical chest wall movements. Abdomen: Soft, bowel sounds normoactive. Nontender and nondistended. No abdominal bruit or thrill noted. No masses noted. Musculoskeletal: No fluid collection. Decreased range of motion is noted. Extremities: No clubbing, cyanosis noted. [Trace bilateral lower edema noted.] Upper extremity pulses 2+. Lower extremity pulses 2+. Capillary refill less than 3 seconds. Skin: No unusual lesions or rashes. No skin breakdown appreciated. Neuro: Unresponsive. Sedated. No essential tremor is appreciated. Result/EKG - Labs CBC & BMP: 06/24/17 03:43 06/24/17 03:43 Lab Results: I have reviewed the past 24 hour labs Labs: Laboratory Results - last 24 hr 06/23/17 06/23/17 06/23/17 06:37 10:43 10:43 WBC RBC Hgb Hct MCV MCH MCHC RDW Plt Count MPV Neut % (Auto) Lymph % (Auto) Worth % (Auto) Eos % (Auto) Baso % (Auto) Neut # (Auto) Lymph # (Auto) Worth # (Auto) Eos # (Auto) Baso # (Auto) Immature Gran % Nucleated RBC % Immature Gran # Nucleated RBCs # Immature Plt Fraction INR 1.0 PT Patient/Control Mix 10.8 Circ Anticoag PTT ABG pH ABG pCO2 ABG pO2 ABG HCO3 ABG Total CO2 ABG O2 Saturation ABG Base Excess FiO2 Sodium Potassium Chloride Carbon Dioxide Anion Gap BUN Creatinine GFR Calculation BUN/Creatinine Ratio Glucose Calculated Osmolality Lactic Acid Calcium Magnesium Total Bilirubin AST ALT Alkaline Phosphatase Troponin I 0.030 Total Protein Albumin Globulin Albumin/Globulin Ratio Triglycerides Cholesterol LDL Cholesterol VLDL Cholesterol HDL Cholesterol Heart Disease Risk Ratio Free T4 1.51 H TSH 3rd Generation 15.400 H 06/23/17 06/23/17 06/23/17 10:50 12:11 16:13 WBC RBC Hgb Hct MCV MCH MCHC RDW Plt Count MPV Neut % (Auto) Lymph % (Auto) Worth % (Auto) Eos % (Auto) Baso % (Auto) Neut # (Auto) Lymph # (Auto) Worth # (Auto) Eos # (Auto) Baso # (Auto) Immature Gran % Nucleated RBC % Immature Gran # Nucleated RBCs # Immature Plt Fraction INR PT Patient/Control Mix Circ Anticoag PTT ABG pH 7.324 L 7.389 ABG pCO2 27.6 L 26.0 L ABG pO2 475.0 H 366.8 H ABG HCO3 15.9 L 15.4 L ABG Total CO2 13.5 L 16.1 L ABG O2 Saturation 99.6 99.1 ABG Base Excess -10.7 L -8.5 L FiO2 100.00 70.00 Sodium Potassium Chloride Carbon Dioxide Anion Gap BUN Creatinine GFR Calculation BUN/Creatinine Ratio Glucose Calculated Osmolality Lactic Acid 1.1 Calcium Magnesium Total Bilirubin AST ALT Alkaline Phosphatase Troponin I Total Protein Albumin Globulin Albumin/Globulin Ratio Triglycerides Cholesterol LDL Cholesterol VLDL Cholesterol HDL Cholesterol Heart Disease Risk Ratio Free T4 TSH 3rd Generation 06/23/17 06/23/17 06/23/17 16:43 16:43 22:40 WBC RBC Hgb Hct MCV MCH MCHC RDW Plt Count MPV Neut % (Auto) Lymph % (Auto) Worth % (Auto) Eos % (Auto) Baso % (Auto) Neut # (Auto) Lymph # (Auto) Worth # (Auto) Eos # (Auto) Baso # (Auto) Immature Gran % Nucleated RBC % Immature Gran # Nucleated RBCs # Immature Plt Fraction INR PT Patient/Control Mix Circ Anticoag PTT ABG pH ABG pCO2 ABG pO2 ABG HCO3 ABG Total CO2 ABG O2 Saturation ABG Base Excess FiO2 Sodium 142 Potassium 4.4 Chloride 115 H Carbon Dioxide 18 L Anion Gap 13.4 BUN 47 H Creatinine 4.20 H GFR Calculation 11 BUN/Creatinine Ratio 11.00 Glucose 162 H Calculated Osmolality 298.1 Lactic Acid Calcium 7.9 L Magnesium 1.4 L Total Bilirubin AST ALT Alkaline Phosphatase Troponin I 0.036 0.029 Total Protein Albumin Globulin Albumin/Globulin Ratio Triglycerides Cholesterol LDL Cholesterol VLDL Cholesterol HDL Cholesterol Heart Disease Risk Ratio Free T4 TSH 3rd Generation 06/24/17 06/24/17 06/24/17 03:35 03:43 03:43 WBC 9.9 RBC 2.76 L Hgb 8.9 L Hct 27.3 L MCV 98.9 MCH 32 MCHC 32.6 RDW 14.3 Plt Count 182 D MPV 11.0 Neut % (Auto) 68.0 Lymph % (Auto) 17.5 L Worth % (Auto) 11.5 Eos % (Auto) 1.7 Baso % (Auto) 0.4 Neut # (Auto) 6.8 Lymph # (Auto) 1.7 Worth # (Auto) 1.1 H Eos # (Auto) 0.2 Baso # (Auto) 0.0 Immature Gran % 0.9 Nucleated RBC % 0.0 Immature Gran # 0.09 Nucleated RBCs # 0.00 Immature Plt Fraction 0.0 INR PT Patient/Control Mix Circ Anticoag PTT ABG pH 7.386 ABG pCO2 25.4 L ABG pO2 333.0 H ABG HCO3 17.4 L ABG Total CO2 14.1 L ABG O2 Saturation 100.0 ABG Base Excess -8.7 L FiO2 70.00 Sodium 143 Potassium 4.2 Chloride 115 H Carbon Dioxide 16 L Anion Gap 16.2 H BUN 46 H Creatinine 4.20 H GFR Calculation 11 BUN/Creatinine Ratio 10.00 Glucose 93 Calculated Osmolality 296.0 Lactic Acid Calcium 8.4 L Magnesium 1.5 L Total Bilirubin AST ALT Alkaline Phosphatase Troponin I Total Protein Albumin Globulin Albumin/Globulin Ratio Triglycerides 151 H Cholesterol 97 LDL Cholesterol 56.0 VLDL Cholesterol 30.2 HDL Cholesterol 27 L Heart Disease Risk Ratio 3.59 Free T4 TSH 3rd Generation 06/24/17 06/24/17 03:43 03:43 WBC RBC Hgb Hct MCV MCH MCHC RDW Plt Count MPV Neut % (Auto) Lymph % (Auto) Worth % (Auto) Eos % (Auto) Baso % (Auto) Neut # (Auto) Lymph # (Auto) Worth # (Auto) Eos # (Auto) Baso # (Auto) Immature Gran % Nucleated RBC % Immature Gran # Nucleated RBCs # Immature Plt Fraction INR 1.0 PT Patient/Control Mix 10.8 Circ Anticoag PTT 31.1 ABG pH ABG pCO2 ABG pO2 ABG HCO3 ABG Total CO2 ABG O2 Saturation ABG Base Excess FiO2 Sodium 143 Potassium 4.2 Chloride 114 H Carbon Dioxide 16 L Anion Gap 17.2 H BUN 47 H Creatinine 4.10 H GFR Calculation 12 BUN/Creatinine Ratio 11.00 Glucose 95 Calculated Osmolality 296.0 Lactic Acid Calcium 8.4 L Magnesium Total Bilirubin 0.80 AST 15 ALT 19 Alkaline Phosphatase 131 H Troponin I Total Protein 5.4 L Albumin 2.5 L Globulin 2.9 Albumin/Globulin Ratio 0.8 L Triglycerides Cholesterol LDL Cholesterol VLDL Cholesterol HDL Cholesterol Heart Disease Risk Ratio Free T4 TSH 3rd Generation - Diagnostic Findings Procedure: Chest x-ray: report reviewed by me, CT: report reviewed by me, Ultrasound: report reviewed by me - EKG EKG results: interpreted by me EKG shows: sinus rhythm
[2017-06-24] MEDS ORDERED: MAGNESIUM SULF RIDER 4 GM in PREMIX 1 EACH IV PRN (09:52)
[2017-06-24] MEDS ORDERED: MAGNESIUM SULF RIDER 2 GM in PREMIX 1 EACH IV PRN (09:52)
--- NOTE | 2017-06-24 10:10 | Event Note ---
In-hospital diagnostic and therapeutic fiberoptic bronchoscopy. Bilateral bronchoalveolar lavage is sent for cytology, Gram stain, bacterial culture, fungal stains and cultures. This is a 67-year-old female with seizure. She has respiratory failure and required intubation mechanical ventilation. She is felt to have aspirated. She had a seizure. She has known gastroparesis. Her cough is ineffective. She is suspected of having retained secretions and gastric content. For this reason patient evaluated with fiberoptic bronchoscopy. The endotracheal tube was in good position. The distal trachea was slightly erythematous. The aramis was sharp. Right main stem bronchus and right upper lung were full of thick material that appeared to be gastric in etiology. This included the bronchoscope suction channel and required with movement and cleaning. There were additional secretions and liquid contents in the right lower lung. These areas were grossly friable and partially stenotic. All of these are hallmarks of aspiration injury. Bronchoalveolar lavage was taken from the right upper lung and right lower lung. Left mainstem bronchus contained a good bit of secretions which spared the left upper lung. There were a lot of thick tenacious secretions and possible gastric content in the left lower lung. This was removed with bronchoalveolar lavage. The underlying mucosa was erythematous and friable and partially stenotic. This appeared to be an acute aspiration injury. The patient tolerated the procedure well there were no complications. Impression. 1. Respiratory failure following a seizure and aspiration requiring intubation mechanical ventilation. 2. Retained secretions and gastric contents. 3. Ineffective cough 4. Bibasilar erosive friable partially stenotic aspiration injury. 5. Abnormal gastric emptying Plan. 1. Follow-up chest x-ray 2. Agree with antibiotics. 3. Solu-Medrol 40 IV push every 12 hours. 4. Check bronchoscopy specimens.
--- NOTE | 2017-06-24 10:11 | Pulmonology Progress Note ---
Pulmonary - PN: Subj Interval history: This is a 67-year-old female whom I saw on pulmonary consultation for evaluation and treatment on 06/23/2017. This patient had a seizure. She required intubation mechanical ventilation. She has abnormal gastric emptying she was suspected of having aspirated. My impressions were. #1: Acute respiratory insufficiency with metabolic acidosis requiring intubation and mechanical ventilation #2: Acute seizure #3: Acute bradycardia requiring temporary pacemaker #4: Diabetic gastroparesis. Note, the patient has a gastric stimulator that was placed in May [address] Cruz. #5: Anemia #6: Acute on chronic renal failure. Note, this is followed by Dr. Michael Jean-Baptiste. #7: Recent UTI secondary to E. coli #8: Hypertension #9: Hypomagnesemia #10: Elevated TSH and free T4. I am unsure of the significance of this at this time. #11: See past history 06/24/2017. This morning the patient was evaluated with fiberoptic bronchoscopy. She had a tremendous amount of retained secretions and there was some obvious gastric content. All of this was removed with bronchoalveolar lavage. Specimens were sent for cytology bacterial and fungal studies. She had bibasal erosive friable partially stenotic bronchitis. Although this had the appearance of acute gastric acid injury. The patient has not woken up. She is on a weaning protocol and physical therapy protocol has been requested. She has been seen in renal consultation and and neurology consultation. ABGs on mechanical ventilation and FiO2 of 70% show a pH of 7.386, PCO2 25.4, PO2 of 333 and a bicarb of 17.4. Ventilator adjustments have been made. H&H is 8.9/ 27.3. White count is 9900 with 68 segs. Creatinine is 4.10 with a BUN of 47. Electrolytes are normal. Magnesium is low at 1.5. Protein and albumin low at 5.4 and 2.5 respectively. Patient has a high TSH and a high free T4. There are no positive cultures. During this admission the patient had a cardiac catheterization and placement of a temporary pacemaker. 06/23/2017. Ventilation/perfusion lung scan shows no evidence of deep venous thrombophlebitis. See report 06/23/2017. Doppler venograms. No evidence of deep venous thrombophlebitis Physical exam. Vital signs. See below. Face. Symmetrical. No edema of the lips or tongue. Neck. No meningismus Lymphatics. No submandibular cervical supraclavicular or epitrochlear adenopathy. Neuro. Impossible. See neurology consultation. Chest loose large airway congestion Heart. Regular. Slightly lateral PMI. Abdomen. Nondistended. Rare bowel sounds. Extremities. Left and suggest deep venous thrombophlebitis. The remainder the physical exam is noncontributory Plan: 06/23/2017. #1: For going to hyperventilate her presently to try to correct her metabolic acidosis. We will decrease her FiO2 to 70% and repeat ABGs at 2 PM. #2: Start weaning protocol #3: Physical therapy protocol #4: Plan for fiberoptic bronchoscopy in the morning. High likelihood of aspiration in face of seizure activity. #5: Daily chest x-ray and ABGs while on the ventilator. #6: See orders 06/24/2017. 1. Fiberoptic bronchoscopy today. 5 days for aspiration injury. 2. Start Solu-Medrol 40 IV push every 12 hours 3. Daily chest x-ray and ABGs 4. Mechanical ventilation weaning protocol including physical therapy protocol 5. Check bronchoscopy specimen Exam (Progress Note) - Constitutional Vitals: Period Temp Pulse Resp BP Sys/Veliz Pulse Ox Last 24 Hr 97.6 F-97.9 F 55-93 14-19 127-233/63-126 76-100 Results - Labs CBC & BMP: 06/24/17 03:43 06/24/17 03:43
[2017-06-24 10:21] LABS: Free T4 (Free Thyroxine) 1.34 NG/DL (0.76-1.46); Thyroid Stimulating Hormone 3.45 uIU/ml (0.358-3.74)
--- NOTE | 2017-06-24 10:45 | Neurology Progress Note ---
Neurology - PN : Subjective Interval history: Stable neurologically. No new problems reported. No more seizures reported. Still on vent Exam (Progress Note) - Constitutional Vitals: Period Temp Pulse Resp BP Sys/Veliz Pulse Ox Last 24 Hr 97.6 F-97.9 F 55-93 14-19 127-233/63-126 76-100 Exam: GENERAL: Patient is in no acute distress. NECK: Neck is supple. There is no JVD. No carotid bruits present. No thyroid masses. CVS: First and second heart sounds are normal. There is no S3 present. Regular rate and rhythm. RESPIRATORY: Lungs are clear to auscultation without any rales or rhonchi. ABDOMEN: Soft and non-tender. Bowel sounds are present. There is no hepatosplenomegaly. EXT: There is no palpable edema. Peripheral pulses are present. Skin: No rashes Central Nervous system: General: Sedated on vent Speech: None Comprehension: None Facial expressions: Normal Cranial Nerves: Pupils are 3-4 mm minimally reactive to light. Doll's head eye movements are positive. No facial asymmetry seen Motor: Bulk and Tone is normal. Strength not be assessed however moving all 4 ext spontaneously Sensory: Cannot be assessed however withdrawing on pain. Reflexes: 1+ and symmetrical Cerebellar function: Cannot be assessed Toes: Equivocal Gait: Cannot be assessed Results - Labs CBC & BMP: 06/24/17 03:43 06/24/17 03:43 Assessment and Plan (1) New onset seizure Status: Acute Assessment and plan: Cont Keppra at the same dose No new recommendations at this time. Current Visit: Yes
[2017-06-24] MEDS: SODIUM CHLORIDE 0.9% 1,000 ML IV SCH ×2 (11:04→21:40)
[2017-06-24] MEDS: methylPREDNISolone SOD SUC 40 MG/1 ML VIAL IV SCH (11:14)
[2017-06-24] MEDS: INSULIN REGULAR 100 UNIT/ML SUBCUT SCH ×2 (12:11→18:41)
--- NOTE | 2017-06-24 14:03 | Hospitalist Progress Note ---
Assessment and Plan (1) Respiratory failure Status: Acute Assessment and plan: 1)resp failure- pulmonary consulted. intubated for unresponsiveness in ER. 2)Seizure- on Keppra. None since dilantin given in ER. 3)CKD- renal consulted. creatinine increased over the last couple of weeks. Mag low, replace. 4)bradycardia and hypotension- resolved with pacemaker. troponins negative. Now with distance and time between the events of yesterday and today, I think she has underlying bradycardia but after seizure +/- aspiration, and Dilantin she had arrhythmia and hypotension that has now resolved. I think the Dilantin caused the hypotension. 5)recent UTI- covering for potential infection with broad spectrum antibiotics. avoid levaquin because she has been on it and has seized. Tolerating Vanc and Merrem. BCx and UCx negative so far. Though she has aspiration pneumonia and sepsis, she did not have septic shock as her hypotension was cardiogenic. 6) hospitalists will take her on our service. 7)anemia- monitor- basically stable over last month. Current Visit: Yes (2) Diabetes mellitus Status: Chronic Current Visit: No (3) Hypertension Status: Acute Current Visit: No (4) Gastroparesis Status: Acute Current Visit: No (5) Osteoarthritis Status: Acute Current Visit: No (6) Chronic kidney disease, stage IV (severe) Status: Chronic Current Visit: No (7) Seizure Status: Acute Current Visit: Yes (8) Hypotension Status: Resolved Current Visit: Yes (9) Bradycardia Status: Resolved Current Visit: Yes (10) Altered mental status Status: Acute Current Visit: Yes (11) Hyperkalemia Status: Resolved Current Visit: Yes Hospitalist: Subjective Interval history: Mrs Pedersen has not had more seizures since admission. She is sedated this morning on vent. Reports from nurse that she is noted to move all 4 extremities , and I observed her moving her legs. No new events, tele stable since pacer which will be removed this morning. Exam - Constitutional Vitals: Period Temp Pulse Resp BP Sys/Veliz Pulse Ox Last 24 Hr 96.7 F-97.9 F 58-93 13-19 141-233/73-126 76-100 General appearance: no acute distress, over weight - Head Head exam: Present: normocephalic, atraumatic - Eye Eye exam: Present: EOMI. Absent: scleral icterus - Respiratory Respiratory exam: Present: clear to auscultation bilaterally - Cardiovascular Cardiovascular exam: Present: regular rate and rhythm - GI/Abdominal GI/Abdominal exam: Present: normal bowel sounds, soft. Absent: tenderness - Extremities Exam Extremities exam: Absent: edema Results - Labs CBC & BMP: 06/24/17 03:43 06/24/17 03:43 Lab Results: I have reviewed the past 24 hour labs
[2017-06-24] MEDS: METOPROLOL SUCCINATE XL 50 MG TABLET PO SCH (20:08)
--- NOTE | 2017-06-24 22:01 | Nephrology Progress Note ---
Nephrology - PN: Subj Interval history: Blood pressure is now normal. She is more alert and following commands. She is currently on CPAP Exam (PN)-Nephrology - Vital Signs Vital signs: Period Temp Pulse Resp BP Sys/Veliz Pulse Ox Last 24 Hr 96.7 F-98.8 F 68-90 12-18 138-233/71-118 88-100 Exam: Gen.: Intubated. Follows commands ENT: Pupils equal round reactive to light. Neck: Supple. No JVD or bruit. Cardiovascular: Regular rate and rhythm. No murmur rub or gallop Lungs: Few rhonchi Abdomen: Soft. Nontender. Positive bowel sounds. No organomegaly Extremities: 1+ edema - Lab 06/24/17 03:43 06/24/17 03:43 Most recent lab results ABG pH 7.386 (7.35-7.45) 06/24/17 03:35 ABG pCO2 25.4 MM HG (35-48) L 06/24/17 03:35 ABG pO2 333.0 MM HG (80-95) H 06/24/17 03:35 ABG HCO3 17.4 MMOL/L (20-26) L 06/24/17 03:35 ABG O2 Saturation 100.0 % (95-100) 06/24/17 03:35 Calcium 8.4 MG/DL (8.5-10.1) L 06/24/17 03:43 Magnesium 1.5 MG/DL (1.8-2.4) L 06/24/17 03:43 Assessment and Plan (1) Chronic kidney disease, stage IV (severe) Status: Chronic Assessment and plan: 67-year-old woman admitted with: * Bradycardia. Temporary pacer placed * hypotension. Resolved * CRF stage IV. Renal function stable compared to last week * Diabetes mellitus * New onset seizure. This may have been precipitated by hypotension * Ventilatory failure. Aspiration after seizure * Gastroparesis Current Visit: No (2) Bradycardia Status: Resolved Current Visit: Yes (3) Hypotension Status: Resolved Current Visit: Yes (4) New onset seizure Status: Acute Current Visit: Yes (5) Respiratory failure Status: Acute Current Visit: Yes (6) Gastroparesis Status: Acute Current Visit: No (7) Diabetes mellitus Status: Chronic Current Visit: No
[2017-06-24] MEDS: CHOLECALCIFEROL 1,000 UNIT TABLET PO SCH (22:17)
[2017-06-24] MEDS: ATORVASTATIN 20 MG TABLET PO SCH (22:17)
[2017-06-25] MEDS: INSULIN REGULAR 100 UNIT/ML SUBCUT SCH ×4 (00:50→18:36)
[2017-06-25] MEDS: methylPREDNISolone SOD SUC 40 MG/1 ML VIAL IV SCH ×2 (00:50→12:19)
[2017-06-25] MEDS: MEROPENEM 500 MG in SODIUM CHLORIDE 0.9% 100 ML IV SCH ×2 (03:12→14:45)
[2017-06-25 03:29] LABS: Allen Test Positive; Pt O2 Delivery Device Ventilator
[2017-06-25 03:31] LABS: ABG Base Excess -8.6 MMOL/L (-2.5-2.5); ABG HCO3 15.8 MMOL/L (20-26); ABG Oxygen Saturation 99.2 % (95-100); ABG PCO2 28.5 MM HG (35-48); ABG PH 7.362 (7.35-7.45); ABG TCO2 16.7 MMOL/L (23-27)
[2017-06-25] MEDS: PROPOFOL 1,000 MG/100 ML BOTTLE IV SCH ×3 (05:06→18:57)
[2017-06-25 05:16] LABS: Basophils % 0.2 % (0.0-0.8); Hematocrit 24.8 VOL% (35.7-47.0); Hemoglobin 8.2 GM/DL (12.0-16.0); Immature Granulocytes % 1.2 %; Immature Granulocytes Absolute 0.16 #; Lymphocytes # 0.4 10*3/uL (1.4-4.0); Lymphocytes % 2.8 % (21.3-54.2); Mean Corpuscular HGB Conc 33.1 GM/DL (32-36); Mean Corpuscular Hemoglobin 33 PG (27-34); Mean Corpuscular Volume 99.6 FL (87-102); Mean Platelet Volume 11.5 FL (9.6-12.0); Monocytes # 0.5 10*3/uL (0.11-0.8); Monocytes % 3.9 % (1.7-12.7); Neutrophils % 91.9 % (38.7-73.9); Platelet Count 170 T/CUMM (130-400); Red Blood Count 2.49 MC/CUMM (3.8-5.5); Red Cell Distribution Width 14.2 % (9.3-17.3)
[2017-06-25 05:49] LABS: Band Neutrophils 1 % (0-10); Giant Platelets Few; Hypochromasia 1+; Lymphocytes 2 % (20-55); Ovalocytes Slight; Platelet Estimate Normal; Segmented Neutrophils 93 % (50-85); Total Cells Counted 100
[2017-06-25 06:02] LABS: Calcium 8.4 MG/DL (8.5-10.1); Magnesium 2.4 MG/DL (1.8-2.4); Osmolality,Calculated 297.1 MOS/KG (273-304); Phosphorous 5.3 MG/DL (2.5-4.9); Potassium 4.4 MMOL/L (3.5-5.1)
--- NOTE | 2017-06-25 07:45 | Hospitalist Progress Note ---
Assessment and Plan - Time spent with patient Time spent with patient: Less than 30 minutes (1) Respiratory failure Status: Acute Assessment and plan: Patient had acute respiratory failure. She likely has aspiration as well. Continuing ventilatory support which pulmonary is managing. She continues to receive empiric IV antibiotics as well as IV corticosteroids and nebulizer therapy. Current Visit: Yes Qualifiers: Chronicity: acute (2) Hypertension Status: Acute Assessment and plan: Continues to be hypertensive. Cardiology is following. She continues to receive amlodipine, metoprolol and aspirin. Will continue to optimize therapy. Current Visit: No (3) Urinary tract infection Status: Resolved Assessment and plan: She was previously treated for urinary tract infection. This is been completed. However she continues on broad-spectrum antibiotic for possible aspiration. Current Visit: No (4) CKD (chronic kidney disease) stage 5, GFR less than 15 ml/min Problem details: No indication for renal replacement therapy at this time. Status: Chronic Assessment and plan: Trending slightly improved. Nephrology continuing to follow. Current Visit: No (5) Seizure Status: Acute Assessment and plan: Patient had new onset seizure. She has been seen by neurology. There is been no further seizures reported and she has been maintained on Keppra. Current Visit: Yes (6) Anemia Status: Chronic Assessment and plan: Stable without evidence of bleeding. Continuing to follow. Current Visit: No (7) Diabetes mellitus Status: Chronic Assessment and plan: Blood sugars are fairly well-controlled at this time. Continue current medical regimen. Current Visit: No (8) Gastroparesis Status: Chronic Assessment and plan: Stable at this time. Current Visit: No Hospitalist: Subjective Interval history: Chart is been reviewed and patient examined. She was at [facility] bed was only there for a short period of time when she experience seizure activity was transferred [place] where she became unresponsive and was found to be profoundly bradycardic with a wide QRS escape rhythm. She was intubated and taken emergently to the [facility] where she had a temporary pacemaker placed. She did undergo bronchoscopy which was consistent with aspiration of gastric contents. Temporary pacemaker, femoral arterial line have since been discontinued. She continues to be ventilated and sedated. She does open her eyes. She has a Lua catheter in place. She continues to have restraints to prevent her from pulling tubing and allowing for her medical care to continue safely. She is receiving enteral feedings per NG tube. She has consultants including nephrology, neurology, pulmonary, cardiology. Exam - Constitutional Vitals: Period Temp Pulse Resp BP Sys/Veliz Pulse Ox Last 24 Hr 97.9 F-98.8 F 71-93 12-18 138-219/71-134 99-100 General appearance: no acute distress - Head Head exam: Present: normocephalic, atraumatic - Eye Eye exam: Present: EOMI Pupils: Present: JOSH - ENT ENT exam: Present: other (ET tube in place) - Neck Neck exam: Absent: lymphadenopathy, meningismus, tenderness, thyromegaly - Respiratory Respiratory exam: Present: clear to auscultation bilaterally - Cardiovascular Cardiovascular exam: Present: regular rate and rhythm - GI/Abdominal GI/Abdominal exam: Present: normal bowel sounds, soft. Absent: mass, organomegaly, tenderness, rebound - Extremities Exam Extremities exam: Present: other (Bilateral lower extremity compression devices) . Absent: calf tenderness, edema - Neurological Exam Neurological exam: Present: other (Sedated on vent, opens eyes, withdraws extremities to tactile stimuli) - Psychiatric Psychiatric exam: Absent: agitated, anxious - Skin Skin exam: Present: warm, dry. Absent: rash Results - Labs CBC & BMP: 06/25/17 04:39 06/25/17 04:39 Lab Results: I have reviewed the past 24 hour labs - Diagnostic Findings Procedure: Chest x-ray: image reviewed by me
--- NOTE | 2017-06-25 07:52 | Pulmonology Progress Note ---
Pulmonary - PN: Subj Interval history: This 67-year-old lady had seizures and aspirated. She is on the ventilator. He was bronchoscoped by Dr. Ordaz with findings of erosive bronchitis due to aspiration. She is well oxygenated. I will reduce her FiO2 change to IMV and start weaning trials. She did do a brief weaning trial yesterday. Unable to get into the assessment and plan portion of chart. Will list problems here. 1. Acute respiratory failure 2. Aspiration syndrome. 3. Seizures. Plan will reduce FiO2 as her PO2 is in the 300s on 60%. With a clear chest x- ray at this point I think were likely to be able to wean her pretty quickly. She is on empiric antibiotics and steroids. Also on seizure medications. Levetiracetam. She is on Merrem and Solu-Medrol. Exam (Progress Note) - Constitutional Vitals: Period Temp Pulse Resp BP Sys/Veliz Pulse Ox Last 24 Hr 97.9 F-98.8 F 71-93 12-18 138-219/71-134 99-100 Exam: Patient is lightly sedated. She is arousable however. Vital signs normal. Pupils react to light. Orotracheal tube in place. Neck is supple. Chest shows a few rhonchi at the bases but mostly clear. Heart normal rate and rhythm no murmurs. Abdomen soft no masses. Extremities no clubbing cyanosis or edema. Calves nontender. Results - Labs CBC & BMP: 06/25/17 04:39 06/25/17 04:39 Lab Results: I have reviewed the past 24 hour labs - Diagnostic Findings Procedure: Chest x-ray: image reviewed by me (Chest x-ray is clear. ET tube just above aramis. Will adjust it.)
[2017-06-25] MEDS: amLODIPine 10 MG TABLET PO SCH (08:36)
[2017-06-25] MEDS: ERYTHROMYCIN BASE 250 MG TABLET PO SCH ×3 (08:36→21:50)
[2017-06-25] MEDS: ASPIRIN 325 MG TABLET PO SCH (08:36)
[2017-06-25] MEDS: hydrALAZINE 25 MG TABLET PO SCH (08:36)
[2017-06-25] MEDS: PANTOPRAZOLE 40 MG VIAL IV SCH (08:44)
--- NOTE | 2017-06-25 08:59 | XRay Report ---
Portable chest Date: 06/25/2017 Clinical history: Ventilator patient Comparison: 06/24/2017 Technique: Portable AP sitting chest Findings: The heart is normal in size with stable supportive devices. Artifactual densities limit the exam with no significant change in the appearance of the lungs, mediastinum, or osseous structures. Impression: No significant change in the appearance of the chest when compared to the previous exam. PROCEDURE INTERPRETED AT [facility] DEPARTMENT OF RADIOLOGY Final Report Signed by: Dr. Jalyn Perez
--- NOTE | 2017-06-25 09:18 | Cardiology Progress Note ---
Assessment and Plan (1) Diabetes mellitus Status: Chronic Assessment and plan: 67-year-old female, history of severe CKD, diabetic gastroparesis, status post recent gastric pacemaker placement. She was recovering at [facility]. She was suspected to have an seizure, and was transferred to the emergency room for evaluation. On presentation, she was profoundly hypotensive and bradycardic, with a white crest escape rhythm. A temporary pacemaker was emergently placed. She was also intubated emergently, which improved her blood pressure and heart rate. Echo shows no significant cardiomyopathy or pulmonary hypertension. A VQ scan is low prb. There was no ST elevation, when the QRS narrowed down, with junctional escape. Head CT shows no intracranial bleed. Blood pressure markedly elevated. -Hypertension. Increase metoprolol XL to 100 mg daily, hydralazine to 100 mg 3 times daily, continue amlodipine. Use labetalol IV as needed -Volume overload likely contributes to high BP. As soon as kidney function allows, initiate diuresis. Got hydrated yesterday. Will follow renal recommendations -The critical bradycardia and hypotension was likely related to severe respiratory insufficiency. Promptly improved after intubation, oxygenation. The primary event may have been aspiration, or seizure. Signs of aspiration on bronchial scope. No ACS -Continue aspirin Current Visit: No (2) Hypertension Status: Acute Current Visit: No (3) Gastroparesis Status: Chronic Current Visit: No (4) Chronic kidney disease, stage IV (severe) Status: Chronic Current Visit: No (5) Respiratory distress Status: Acute Current Visit: Yes (6) Seizure Status: Acute Current Visit: Yes Cardiology - PN: Subj Interval history: Blood pressure markedly elevated. Still on the vent. Creatinine trends in the 4s. Exam (Progress Note) - Constitutional Vitals: Period Temp Pulse Resp BP Sys/Veliz Pulse Ox Last 24 Hr 97.9 F-98.8 F 71-93 12-18 138-201/71-134 99-100 General appearance: no acute distress, over weight, other (Intubated, sedated) - Head Head exam: Present: normal inspection, normocephalic - Eye Eye exam: Absent: laceration to eyelids - ENT ENT exam: Present: normal external ear exam - Neck Neck exam: Present: normal inspection - Respiratory Respiratory exam: Present: clear to auscultation bilaterally - Cardiovascular Cardiovascular exam: Present: regular rate and rhythm, systolic murmur - GI/Abdominal GI/Abdominal exam: Present: hypoactive bowel sounds. Absent: distended - Extremities Exam Extremities exam: Present: normal inspection, normal capillary refill, edema (1+ ) - Neurological Exam Neurological exam: Present: altered - Skin Skin exam: Present: normal color, warm. Absent: cyanosis Result/EKG - Labs CBC & BMP: 06/25/17 04:39 06/25/17 04:39 Lab Results: I have reviewed the past 24 hour labs Labs: Laboratory Results - last 24 hr 06/24/17 06/24/17 06/24/17 03:43 11:59 17:42 WBC RBC Hgb Hct MCV MCH MCHC RDW Plt Count MPV Neut % (Auto) Lymph % (Auto) [place] % (Auto) Eos % (Auto) Baso % (Auto) Neut # (Auto) Lymph # (Auto) [place] # (Auto) Eos # (Auto) Baso # (Auto) Total Counted Immature Gran % Nucleated RBC % Immature Gran # Segmented Neutrophils Band Neutrophils Lymphocytes Monocytes Nucleated RBCs # Platelet Estimate Giant Platelets Immature Plt Fraction Hypochromasia Ovalocytes ABG pH ABG pCO2 ABG pO2 ABG HCO3 ABG Total CO2 ABG O2 Saturation ABG Base Excess FiO2 Sodium Potassium Chloride Carbon Dioxide Anion Gap BUN Creatinine GFR Calculation BUN/Creatinine Ratio Glucose POC Glucose 99 213 H Calculated Osmolality Calcium Phosphorus Magnesium Free T4 1.34 TSH 3rd Generation 3.450 06/25/17 06/25/17 06/25/17 00:36 03:11 04:39 WBC 13.0 H D RBC 2.49 L Hgb 8.2 L Hct 24.8 L MCV 99.6 MCH 33 MCHC 33.1 RDW 14.2 Plt Count 170 MPV 11.5 Neut % (Auto) 91.9 H Lymph % (Auto) 2.8 L [place] % (Auto) 3.9 Eos % (Auto) 0.0 Baso % (Auto) 0.2 Neut # (Auto) 12.0 H Lymph # (Auto) 0.4 L [place] # (Auto) 0.5 Eos # (Auto) 0.0 Baso # (Auto) 0.0 Total Counted 100 Immature Gran % 1.2 Nucleated RBC % 0.0 Immature Gran # 0.16 Segmented Neutrophils 93 H Band Neutrophils 1 Lymphocytes 2 L Monocytes 4 Nucleated RBCs # 0.00 Platelet Estimate Normal Giant Platelets Few Immature Plt Fraction 0.0 Hypochromasia 1+ Ovalocytes Slight ABG pH 7.362 ABG pCO2 28.5 L ABG pO2 326.0 H ABG HCO3 15.8 L ABG Total CO2 16.7 L ABG O2 Saturation 99.2 ABG Base Excess -8.6 L FiO2 60.00 Sodium Potassium Chloride Carbon Dioxide Anion Gap BUN Creatinine GFR Calculation BUN/Creatinine Ratio Glucose POC Glucose 161 H Calculated Osmolality Calcium Phosphorus Magnesium Free T4 TSH 3rd Generation 06/25/17 06/25/17 04:39 06:27 WBC RBC Hgb Hct MCV MCH MCHC RDW Plt Count MPV Neut % (Auto) Lymph % (Auto) [place] % (Auto) Eos % (Auto) Baso % (Auto) Neut # (Auto) Lymph # (Auto) [place] # (Auto) Eos # (Auto) Baso # (Auto) Total Counted Immature Gran % Nucleated RBC % Immature Gran # Segmented Neutrophils Band Neutrophils Lymphocytes Monocytes Nucleated RBCs # Platelet Estimate Giant Platelets Immature Plt Fraction Hypochromasia Ovalocytes ABG pH ABG pCO2 ABG pO2 ABG HCO3 ABG Total CO2 ABG O2 Saturation ABG Base Excess FiO2 Sodium 142 Potassium 4.4 Chloride 115 H Carbon Dioxide 15 L Anion Gap 16.4 H BUN 45 H Creatinine 4.00 H GFR Calculation 12 BUN/Creatinine Ratio 11.00 Glucose 161 H POC Glucose 175 H Calculated Osmolality 297.1 Calcium 8.4 L Phosphorus 5.3 H Magnesium 2.4 Free T4 TSH 3rd Generation - EKG EKG results: interpreted by me
[2017-06-25] MEDS ORDERED: LEVOFLOXACIN INJ 250 MG in PREMIX 1 EACH IV SCH (10:00)
--- NOTE | 2017-06-25 11:26 | Nephrology Progress Note ---
Nephrology - PN: Subj Interval history: Patient continues to have good urine output. Serum creatinine is now 4.0. She remains ventilated. No seizure activity. Exam (PN)-Nephrology - Vital Signs Vital signs: Period Temp Pulse Resp BP Sys/Veliz Pulse Ox Last 24 Hr 97.6 F-98.8 F 78-96 12-20 138-212/71-134 99-100 - General Appearance General appearance: intubated (Will open her eyes) EENT: ATNC Neck: supple Respiratory: clear Cardiology: regular rate, regular rhythm Gastrointestinal: normoactive bowel sounds, no tenderness Musculoskeletal: no clubbing - Lab 06/25/17 04:39 06/25/17 04:39 Most recent lab results ABG pH 7.362 (7.35-7.45) 06/25/17 03:11 ABG pCO2 28.5 MM HG (35-48) L 06/25/17 03:11 ABG pO2 326.0 MM HG (80-95) H 06/25/17 03:11 ABG HCO3 15.8 MMOL/L (20-26) L 06/25/17 03:11 ABG O2 Saturation 99.2 % (95-100) 06/25/17 03:11 Calcium 8.4 MG/DL (8.5-10.1) L 06/25/17 04:39 Phosphorus 5.3 MG/DL (2.5-4.9) H 06/25/17 04:39 Magnesium 2.4 MG/DL (1.8-2.4) 06/25/17 04:39 Assessment and Plan (1) Diabetes mellitus Status: Chronic Current Visit: No Qualifiers: Diabetes mellitus type: type 2 (2) Chronic kidney disease, stage IV (severe) Status: Chronic Assessment and plan: Avoid nephrotoxic agents. Continue strict I's and O's. Daily BMP. Current Visit: No (3) Respiratory failure Status: Acute Assessment and plan: Now ventilated. Current Visit: Yes Qualifiers: Chronicity: acute (4) Hypomagnesemia Status: Acute Current Visit: Yes
[2017-06-25] MEDS: LABETALOL 20 MG/4 ML SYRINGE IV PRN ×2 (12:16→21:50)
[2017-06-25] MEDS: SODIUM CHLORIDE 0.9% 1,000 ML IV SCH (12:39)
[2017-06-25] MEDS: METOPROLOL SUCCINATE XL 100 MG TABLET PO SCH (20:01)
[2017-06-25] MEDS ORDERED: VANCOMYCIN INJ 1,250 MG in SODIUM CHLORIDE 0.9% 250 ML IV ONE (21:00)
[2017-06-25] MEDS: CHOLECALCIFEROL 1,000 UNIT TABLET PO SCH (21:50)
[2017-06-25] MEDS: ATORVASTATIN 20 MG TABLET PO SCH (21:50)
[2017-06-26] MEDS: methylPREDNISolone SOD SUC 40 MG/1 ML VIAL IV SCH ×2 (00:08→11:28)
[2017-06-26] MEDS: INSULIN REGULAR 100 UNIT/ML SUBCUT SCH ×4 (00:11→18:17)
[2017-06-26] MEDS: PROPOFOL 1,000 MG/100 ML BOTTLE IV SCH ×2 (02:05→20:01)
[2017-06-26] MEDS: SODIUM CHLORIDE 0.9% 1,000 ML IV SCH ×2 (02:37→20:02)
[2017-06-26] MEDS: MEROPENEM 500 MG in SODIUM CHLORIDE 0.9% 100 ML IV SCH ×2 (03:28→15:28)
[2017-06-26 03:52] LABS: ABG HCO3 17.1 MMOL/L (20-26); ABG Oxygen Saturation 99.4 % (95-100); ABG PCO2 33.4 MM HG (35-48); ABG PH 7.302 (7.35-7.45); ABG TCO2 15.6 MMOL/L (23-27); Allen Test Positive; Pt O2 Delivery Device Ventilator
[2017-06-26 04:41] LABS: Basophils % 0.1 % (0.0-0.8); Hematocrit 25.7 VOL% (35.7-47.0); Hemoglobin 8.2 GM/DL (12.0-16.0); Immature Granulocytes Absolute 0.12 #; Lymphocytes # 0.5 10*3/uL (1.4-4.0); Lymphocytes % 4.2 % (21.3-54.2); Mean Corpuscular HGB Conc 31.9 GM/DL (32-36); Mean Corpuscular Hemoglobin 32 PG (27-34); Mean Corpuscular Volume 101.2 FL (87-102); Mean Platelet Volume 11.1 FL (9.6-12.0); Monocytes # 0.5 10*3/uL (0.11-0.8); Monocytes % 4.2 % (1.7-12.7); Neutrophils # 10.7 10*3/uL (1.4-7.4); Neutrophils % 90.5 % (38.7-73.9); Platelet Count 176 T/CUMM (130-400); Red Blood Count 2.54 MC/CUMM (3.8-5.5); Red Cell Distribution Width 14.3 % (9.3-17.3); White Blood Count 11.8 T/CUMM (4-12)
[2017-06-26 05:14] LABS: Lymphocytes 4 % (20-55); Segmented Neutrophils 93 % (50-85)
[2017-06-26 05:17] LABS: Anisocytosis Slight; Microcytosis Slight; Platelet Estimate Normal
[2017-06-26 05:18] LABS: Total Cells Counted 100
[2017-06-26 05:39] LABS: Calcium 8.5 MG/DL (8.5-10.1)
[2017-06-26 05:40] LABS: Magnesium 2.3 MG/DL (1.8-2.4); Osmolality,Calculated 300.8 MOS/KG (273-304); Potassium 4.7 MMOL/L (3.5-5.1)
--- NOTE | 2017-06-26 07:24 | Pulmonology Progress Note ---
Pulmonary - PN: Subj Interval history: This 67-year-old lady had seizures and aspirated. She is on the ventilator. He was bronchoscoped by Dr. Ordaz with findings of erosive bronchitis due to aspiration. She is well oxygenated. I will reduce her FiO2 change to IMV and start weaning trials. She did do a brief weaning trial yesterday. Unable to get into the assessment and plan portion of chart. Will list problems here. 1. Acute respiratory failure 2. Aspiration syndrome. 3. Seizures. Plan will reduce FiO2 as her PO2 is in the 300s on 60%. With a clear chest x- ray at this point I think were likely to be able to wean her pretty quickly. She is on empiric antibiotics and steroids. Also on seizure medications. Levetiracetam. She is on Merrem and Solu-Medrol. 06/26/2017 patient tolerated 6 hours of CPAP yesterday. Her chest x-ray is clear. She is alert and calm. Will check mechanics and ABGs on CPAP and hope to get her extubated. History of seizure with aspiration. Now on Keppra. No further seizure activity. History of gastroparesis. Intermittently have had to hold feedings due to increased residuals. Will put on low intermittent NG suction at time of extubation, then resume feedings either per feeding tube or p.o. after stable for couple of hours Exam (Progress Note) - Constitutional Vitals: Period Temp Pulse Resp BP Sys/Veliz Pulse Ox Last 24 Hr 97.6 F-98.4 F 73-96 13-20 126-212/64-133 97-100 Exam: Patient is lightly sedated. She is arousable however. Vital signs normal. Pupils react to light. Orotracheal tube in place. Neck is supple. Chest sounds clear. Heart normal rate and rhythm no murmurs. Abdomen soft no masses. Extremities no clubbing cyanosis or edema. Calves nontender. Results - Labs CBC & BMP: 06/26/17 04:36 06/26/17 04:36 Lab Results: I have reviewed the past 24 hour labs - Diagnostic Findings Procedure: Chest x-ray: image reviewed by me (Lungs are clear. ET tube good position.) Assessment and Plan (1) Aspiration into airway Status: Acute Assessment and plan: This apparently occurred following her seizure. She is alert and not having seizures. She is on Keppra. X-ray is clear. Current Visit: Yes (2) Chronic kidney disease, stage III (moderate) Status: Acute Assessment and plan: Creatinine down to 3.7. Current Visit: No (3) Respiratory failure Status: Acute Assessment and plan: ABGs look good. Chest x-ray clear. Tolerated 6 hours of CPAP yesterday. Should be ready for extubation Current Visit: Yes Qualifiers: Chronicity: acute (4) New onset seizure Status: Acute Assessment and plan: She is on Keppra. No further seizures. Current Visit: Yes
[2017-06-26 08:20] LABS: Pt O2 Delivery Device Ventilator
[2017-06-26 08:21] LABS: ABG Base Excess -9.8 MMOL/L (-2.5-2.5); ABG HCO3 16.5 MMOL/L (20-26); ABG Oxygen Saturation 99.5 % (95-100); ABG PCO2 31.4 MM HG (35-48); ABG PH 7.305 (7.35-7.45); ABG TCO2 14.7 MMOL/L (23-27)
--- NOTE | 2017-06-26 08:54 | XRay Report ---
Portable chest Date: 06/26/2017 Clinical history: Ventilator Comparison: 06/25/2017 Technique: Portable AP sitting chest Findings: The heart is normal in size with supportive devices remaining in satisfactory position. The lungs, mediastinum, and osseous structures are stable in appearance. Impression: No significant change in the appearance of the chest when compared to the previous exam. PROCEDURE INTERPRETED AT [facility] DEPARTMENT OF RADIOLOGY Final Report Signed by: Dr. Jalyn Perez
--- NOTE | 2017-06-26 09:14 | Hospitalist Progress Note ---
Assessment and Plan - Time spent with patient Time spent with patient: Less than 30 minutes (1) Respiratory failure Status: Acute Assessment and plan: Patient had acute respiratory failure. She likely has aspiration as well. Continuing ventilatory support which pulmonary is managing. She continues to receive empiric IV antibiotics as well as IV corticosteroids and nebulizer therapy. 06/26/17: Patient has acute respiratory failure secondary to aspiration. She continues to receive IV antibiotics and corticosteroids as well as nebulizer therapy. Pulmonary is managing her vent. Current Visit: Yes Qualifiers: Chronicity: acute (2) Hypertension Status: Acute Assessment and plan: Continues to be hypertensive. Cardiology is following. She continues to receive amlodipine, metoprolol and aspirin. Will continue to optimize therapy. 06/26/17: Blood pressures continue to improve. Continue current medical regimen. Cardiology is assisting. Current Visit: No (3) Urinary tract infection Status: Resolved Assessment and plan: She was previously treated for urinary tract infection. This is been completed. However she continues on broad-spectrum antibiotic for possible aspiration. Current Visit: No (4) CKD (chronic kidney disease) stage 5, GFR less than 15 ml/min Problem details: No indication for renal replacement therapy at this time. Status: Chronic Assessment and plan: Trending slightly improved. Nephrology continuing to follow. : Creatinine continuing to improve. Continue to follow. Current Visit: No (5) Seizure Status: Acute Assessment and plan: Patient had new onset seizure. She has been seen by neurology. There is been no further seizures reported and she has been maintained on Keppra. Current Visit: Yes (6) Anemia Status: Chronic Assessment and plan: Stable without evidence of bleeding. Continuing to follow. Current Visit: No (7) Diabetes mellitus Status: Chronic Assessment and plan: Blood sugars are fairly well-controlled at this time. Continue current medical regimen. Current Visit: No Qualifiers: Diabetes mellitus type: type 2 (8) Gastroparesis Status: Chronic Assessment and plan: Stable at this time. Tolerating enteral feedings however has to have intermittent hold secondary to increased residuals. Current Visit: No Hospitalist: Subjective Interval history: Patient remains on ventilator her route this time she is awake and she will obey simple commands. Exam - Constitutional Vitals: Period Temp Pulse Resp BP Sys/Veliz Pulse Ox Last 24 Hr 97.6 F-98.4 F 73-96 13-20 126-194/64-117 97-100 General appearance: no acute distress - Head Head exam: Present: normocephalic, atraumatic - Eye Eye exam: Present: EOMI Pupils: Present: JOSH - ENT ENT exam: Present: normal oropharynx, other (ET tube in place) - Respiratory Respiratory exam: Present: clear to auscultation bilaterally - Cardiovascular Cardiovascular exam: Present: regular rate and rhythm - GI/Abdominal GI/Abdominal exam: Present: normal bowel sounds, soft. Absent: tenderness - Extremities Exam Extremities exam: Present: edema. Absent: calf tenderness - Neurological Exam Neurological exam: Present: alert, other (On ventilator and obey simple commands ) - Skin Skin exam: Present: normal color, warm. Absent: rash Results - Labs CBC & BMP: 06/26/17 04:36 06/26/17 04:36 Lab Results: I have reviewed the past 24 hour labs - Diagnostic Findings Procedure: Chest x-ray: report reviewed by me
[2017-06-26] MEDS ORDERED: SODIUM BICARBONATE 50 MEQ/50 ML VIAL IV ONE ×2 (09:15→13:29)
--- NOTE | 2017-06-26 09:21 | Cardiology Progress Note ---
Assessment and Plan (1) Diabetes mellitus Status: Chronic Assessment and plan: 67-year-old female, history of severe CKD, diabetic gastroparesis, status post recent gastric pacemaker placement. She was recovering at [facility]. She was suspected to have an seizure, and was transferred to the emergency room for evaluation. On presentation, she was profoundly hypotensive and bradycardic, with a white crest escape rhythm. A temporary pacemaker was emergently placed. She was also intubated emergently, which improved her blood pressure and heart rate. Echo shows no significant cardiomyopathy or pulmonary hypertension. A VQ scan is low prb. There was no ST elevation, when the QRS narrowed down, with junctional escape. Head CT shows no intracranial bleed. Blood pressure markedly elevated. -Hypertension. Cont metoprolol XL to 100 mg daily, hydralazine to 100 mg 3 times daily, continue amlodipine. Use labetalol IV as needed. If blood pressure remains elevated, may transition metoprolol to labetalol. Severe CKD. -Volume overload likely contributes to high BP. As soon as kidney function allows, initiate diuresis. Got hydrated yesterday. Will follow renal recommendations -The critical bradycardia and hypotension was likely related to severe respiratory insufficiency. Promptly improved after intubation, oxygenation. The primary event may have been aspiration, or seizure. Signs of aspiration on bronchial scope. No ACS -Continue aspirin Current Visit: No Qualifiers: Diabetes mellitus type: type 2 (2) Hypertension Status: Acute Current Visit: No (3) Gastroparesis Status: Chronic Current Visit: No (4) Chronic kidney disease, stage IV (severe) Status: Chronic Current Visit: No (5) Respiratory distress Status: Acute Current Visit: Yes (6) Seizure Status: Acute Current Visit: Yes Cardiology - PN: Subj Interval history: She is stable on the ventilator. Alert, responsive. No recurrence of the bradycardia arrhythmia blood pressure is elevated Exam (Progress Note) - Constitutional Vitals: Period Temp Pulse Resp BP Sys/Veliz Pulse Ox Last 24 Hr 97.6 F-98.4 F 73-96 13-20 126-194/64-117 97-100 General appearance: normal weight, no acute distress - Head Head exam: Present: normal inspection. Absent: contusion - Eye Eye exam: Absent: conjunctival injection, scleral icterus Pupils: Absent: dilated - ENT ENT exam: Present: normal external ear exam - Neck Neck exam: Present: normal inspection - Respiratory Respiratory exam: Present: clear to auscultation bilaterally - Cardiovascular Cardiovascular exam: Present: regular rate and rhythm, systolic murmur. Absent : JVD - GI/Abdominal GI/Abdominal exam: Present: normal bowel sounds. Absent: distended - Extremities Exam Extremities exam: Present: normal inspection, normal capillary refill, edema (1+ ) - Neurological Exam Neurological exam: Present: alert - Psychiatric Psychiatric exam: Present: normal affect, normal mood - Skin Skin exam: Present: normal color, warm. Absent: cyanosis Result/EKG - Labs CBC & BMP: 06/26/17 04:36 06/26/17 04:36 Lab Results: I have reviewed the past 24 hour labs Labs: Laboratory Results - last 24 hr 06/25/17 06/25/17 06/25/17 11:38 12:18 18:25 WBC RBC Hgb Hct MCV MCH MCHC RDW Plt Count MPV Neut % (Auto) Lymph % (Auto) Park % (Auto) Eos % (Auto) Baso % (Auto) Neut # (Auto) Lymph # (Auto) Park # (Auto) Eos # (Auto) Baso # (Auto) Total Counted Immature Gran % Nucleated RBC % Immature Gran # Segmented Neutrophils Lymphocytes Monocytes Nucleated RBCs # Platelet Estimate Immature Plt Fraction Anisocytosis Microcytosis ABG pH ABG pCO2 ABG pO2 ABG HCO3 ABG Total CO2 ABG O2 Saturation ABG Base Excess FiO2 Sodium Potassium Chloride Carbon Dioxide Anion Gap BUN Creatinine GFR Calculation BUN/Creatinine Ratio Glucose POC Glucose 250 H 215 H Calculated Osmolality Calcium Magnesium Random Vancomycin 12.9 06/26/17 06/26/17 06/26/17 00:01 03:30 04:36 WBC 11.8 RBC 2.54 L Hgb 8.2 L Hct 25.7 L MCV 101.2 MCH 32 MCHC 31.9 L RDW 14.3 Plt Count 176 MPV 11.1 Neut % (Auto) 90.5 H Lymph % (Auto) 4.2 L Park % (Auto) 4.2 Eos % (Auto) 0.0 Baso % (Auto) 0.1 Neut # (Auto) 10.7 H Lymph # (Auto) 0.5 L Park # (Auto) 0.5 Eos # (Auto) 0.0 Baso # (Auto) 0.0 Total Counted 100 Immature Gran % 1.0 Nucleated RBC % 0.0 Immature Gran # 0.12 Segmented Neutrophils 93 H Lymphocytes 4 L Monocytes 3 Nucleated RBCs # 0.00 Platelet Estimate Normal Immature Plt Fraction 0.0 Anisocytosis Slight Microcytosis Slight ABG pH 7.302 L ABG pCO2 33.4 L ABG pO2 203.0 H ABG HCO3 17.1 L ABG Total CO2 15.6 L ABG O2 Saturation 99.4 ABG Base Excess -9.0 L FiO2 40.00 Sodium Potassium Chloride Carbon Dioxide Anion Gap BUN Creatinine GFR Calculation BUN/Creatinine Ratio Glucose POC Glucose 179 H Calculated Osmolality Calcium Magnesium Random Vancomycin 06/26/17 06/26/17 06/26/17 04:36 05:56 08:20 WBC RBC Hgb Hct MCV MCH MCHC RDW Plt Count MPV Neut % (Auto) Lymph % (Auto) Park % (Auto) Eos % (Auto) Baso % (Auto) Neut # (Auto) Lymph # (Auto) Park # (Auto) Eos # (Auto) Baso # (Auto) Total Counted Immature Gran % Nucleated RBC % Immature Gran # Segmented Neutrophils Lymphocytes Monocytes Nucleated RBCs # Platelet Estimate Immature Plt Fraction Anisocytosis Microcytosis ABG pH 7.305 L ABG pCO2 31.4 L ABG pO2 183.0 H ABG HCO3 16.5 L ABG Total CO2 14.7 L ABG O2 Saturation 99.5 ABG Base Excess -9.8 L FiO2 40.00 Sodium 144 Potassium 4.7 Chloride 117 H Carbon Dioxide 16 L Anion Gap 15.7 H BUN 49 H Creatinine 3.70 H GFR Calculation 13 BUN/Creatinine Ratio 13.00 Glucose 129 H POC Glucose 115 H Calculated Osmolality 300.8 Calcium 8.5 Magnesium 2.3 Random Vancomycin - EKG EKG results: interpreted by me
[2017-06-26] MEDS: LABETALOL 20 MG/4 ML SYRINGE IV PRN (09:26)
[2017-06-26] MEDS ORDERED: SODIUM ACETATE IV ONE (09:30)
[2017-06-26] MEDS ORDERED: SODIUM CHLORIDE 0.9% IV ONE (09:30)
[2017-06-26 11:07] LABS: ABG Base Excess -8.1 MMOL/L (-2.5-2.5); ABG HCO3 16.6 MMOL/L (20-26); ABG Oxygen Saturation 98.5 % (95-100); ABG PCO2 30.6 MM HG (35-48); ABG PH 7.352 (7.35-7.45); ABG PO2 143.7 MM HG (80-95); ABG TCO2 17.5 MMOL/L (23-27)
[2017-06-26] MEDS: ASPIRIN 325 MG TABLET PO SCH (11:21)
[2017-06-26] MEDS: ERYTHROMYCIN BASE 250 MG TABLET PO SCH ×3 (11:25→21:19)
[2017-06-26] MEDS: amLODIPine 10 MG TABLET PO SCH (11:26)
[2017-06-26] MEDS: PANTOPRAZOLE 40 MG VIAL IV SCH (11:30)
--- NOTE | 2017-06-26 13:52 | Nephrology Progress Note ---
Nephrology - PN: Subj Interval history: Patient continues to have good urine output. Serum creatinine is now 4.0. She remains ventilated. No seizure activity. 06/26/2017. The patient is now extubated. Continues to have good urine output. Serum creatinine trends down to 3.7. Metabolic acidosis noted. Changing to bicarb infusion at this time. We will monitor for the next 24 hours. Exam (PN)-Nephrology - Vital Signs Vital signs: Period Temp Pulse Resp BP Sys/Veliz Pulse Ox Last 24 Hr 97.0 F-98.4 F 73-100 12-20 126-194/64-106 97-100 - General Appearance General appearance: well-developed, well-nourished EENT: ATNC Neck: supple Respiratory: clear Cardiology: regular rate, regular rhythm Gastrointestinal: normoactive bowel sounds, no tenderness Integumentary: no rash Musculoskeletal: no deformities, no clubbing Psychiatric: cooperative - Lab 06/26/17 04:36 06/26/17 04:36 Most recent lab results ABG pH 7.352 (7.35-7.45) 06/26/17 11:03 ABG pCO2 30.6 MM HG (35-48) L 06/26/17 11:03 ABG pO2 143.7 MM HG (80-95) H 06/26/17 11:03 ABG HCO3 16.6 MMOL/L (20-26) L 06/26/17 11:03 ABG O2 Saturation 98.5 % (95-100) 06/26/17 11:03 Calcium 8.5 MG/DL (8.5-10.1) 06/26/17 04:36 Phosphorus 5.3 MG/DL (2.5-4.9) H 06/25/17 04:39 Magnesium 2.3 MG/DL (1.8-2.4) 06/26/17 04:36 Assessment and Plan (1) Diabetes mellitus Status: Chronic Current Visit: No Qualifiers: Diabetes mellitus type: type 2 (2) Chronic kidney disease, stage IV (severe) Status: Chronic Assessment and plan: Avoid nephrotoxic agents. Continue strict I's and O's We will add 2 A of sodium acetate to quarter normal saline infused at 75 cc an hour. Daily BMP. Current Visit: No (3) Respiratory failure Status: Resolved Assessment and plan: Now extubated. Current Visit: Yes Qualifiers: Chronicity: acute (4) Hypomagnesemia Status: Resolved Current Visit: Yes
[2017-06-26] MEDS ORDERED: SODIUM CHLORIDE 0.9% IV SCH (14:00)
[2017-06-26] MEDS ORDERED: SODIUM ACETATE IV SCH (14:00)
[2017-06-26] MEDS: SODIUM ACETATE 100 MEQ in SODIUM CHLORIDE 0.45% 1,000 ML IV SCH (15:30)
[2017-06-26] MEDS: ATORVASTATIN 20 MG TABLET PO SCH (21:18)
[2017-06-26] MEDS: METOPROLOL SUCCINATE XL 100 MG TABLET PO SCH (21:18)
[2017-06-26] MEDS: CHOLECALCIFEROL 1,000 UNIT TABLET PO SCH (21:20)
[2017-06-27] MEDS: methylPREDNISolone SOD SUC 40 MG/1 ML VIAL IV SCH ×3 (00:11→22:14)
[2017-06-27] MEDS: INSULIN REGULAR 100 UNIT/ML SUBCUT SCH ×5 (00:11→23:31)
[2017-06-27 03:38] LABS: ABG Base Excess -3.5 MMOL/L (-2.5-2.5); ABG HCO3 21.5 MMOL/L (20-26); ABG Oxygen Saturation 99.3 % (95-100); ABG PCO2 32.4 MM HG (35-48); ABG TCO2 19.3 MMOL/L (23-27)
[2017-06-27] MEDS: MEROPENEM 500 MG in SODIUM CHLORIDE 0.9% 100 ML IV SCH ×2 (04:05→15:28)
[2017-06-27 05:06] LABS: Basophils % 0.1 % (0.0-0.8); Hemoglobin 7.4 GM/DL (12.0-16.0); Immature Granulocytes % 1.3 %; Immature Granulocytes Absolute 0.14 #; Lymphocytes # 0.4 10*3/uL (1.4-4.0); Lymphocytes % 3.9 % (21.3-54.2); Mean Corpuscular HGB Conc 32.2 GM/DL (32-36); Mean Corpuscular Hemoglobin 33 PG (27-34); Mean Corpuscular Volume 100.9 FL (87-102); Mean Platelet Volume 11.2 FL (9.6-12.0); Monocytes # 0.4 10*3/uL (0.11-0.8); Monocytes % 3.6 % (1.7-12.7); Neutrophils # 9.6 10*3/uL (1.4-7.4); Neutrophils % 91.1 % (38.7-73.9); Platelet Count 157 T/CUMM (130-400); Red Blood Count 2.28 MC/CUMM (3.8-5.5); Red Cell Distribution Width 14.5 % (9.3-17.3); White Blood Count 10.5 T/CUMM (4-12)
[2017-06-27 05:37] LABS: Magnesium 2.1 MG/DL (1.8-2.4); Osmolality,Calculated 307.7 MOS/KG (273-304); Phosphorous 4.6 MG/DL (2.5-4.9); Potassium 4.4 MMOL/L (3.5-5.1); Prealbumin 22.9 MG/DL (20-40)
[2017-06-27 05:46] LABS: Band Neutrophils 1 % (0-10); Lymphocytes 4 % (20-55); Platelet Estimate Adequate; Segmented Neutrophils 92 % (50-85); Total Cells Counted 100
[2017-06-27] MEDS: SODIUM ACETATE 100 MEQ in SODIUM CHLORIDE 0.45% 1,000 ML IV SCH ×2 (06:30→20:12)
--- NOTE | 2017-06-27 06:55 | XRay Report ---
XR chest 1V portable Indication: "Ventilated" Chest one view: Patient has been extubated since yesterday and the NG tube removed. Lung volumes are decreased with progressive atelectasis. No new infiltrates are seen. Heart size remains normal. Impression: Progressive pulmonary hypoinflation after extubation. NG tube removal. PROCEDURE INTERPRETED AT [facility] DEPARTMENT OF RADIOLOGY Final Report Signed by: Dmitri Cintron M.D.
--- NOTE | 2017-06-27 07:53 | Cardiology Progress Note ---
Assessment and Plan - Time spent with patient Time spent with patient: Less than 30 minutes (1) Bradycardia Status: Resolved Assessment and plan: See plan of care listed below. Current Visit: Yes (2) Hypotension Status: Resolved Assessment and plan: See plan of care listed below. Current Visit: Yes (3) Respiratory failure Status: Resolved Assessment and plan: See plan of care listed below. Current Visit: Yes Qualifiers: Chronicity: acute (4) Seizure Status: Acute Assessment and plan: See plan of care listed below. Current Visit: Yes (5) Dyslipidemia Status: Chronic Assessment and plan: See plan of care listed below. Current Visit: No (6) Chronic kidney disease, stage IV (severe) Status: Chronic Assessment and plan: See plan of care listed below. Current Visit: No (7) Diabetes mellitus Status: Chronic Assessment and plan: See plan of care listed below. Current Visit: No Qualifiers: Diabetes mellitus type: type 2 (8) Hyperkalemia Status: Resolved Assessment and plan: See plan of care listed below. Current Visit: Yes (9) Hypertension Status: Acute Assessment and plan: See plan of care listed below. Current Visit: No Cardiology - PN: Subj Interval history: [facility]ER: (NEW) DR. SANDERSON, regularly seen by DR. TORRES at [facility] PCP: DR. HUNTER RODAS SUMMARY: Ms. Pedersen, 67WF, without a prior known history of coronary artery disease but risk factors significant for: hypertension, dyslipidemia, diabetes, obesity, sedentary lifestyle. History of chronic renal failure followed by Dr. Jean-Baptiste. Possible history of neurological disorders. Recently hospitalized for laparoscopic gastric pacemaker placement (diabetic gastroparesis) performed by Dr. Gibbs 05/22/2017. Tolerated the procedure well and without complication and was discharged to [facility]. Patient was admitted June 23, 2017 after being found to have a bloody mouth, unresponsive. She was transferred to the ED of [facility]. Patient was found to be bradycardic on admission then experienced seizures. She profoundly bradycardic with a wide QRS escape rhythm , she then became hypotensive and was intubated for respiratory insufficiency. Her blood pressure improved though her rhythm remained a slow rhythm without ST elevation. CT head did not reveal an acute event. Potassium 5.1 on admission. Troponin negative. She was taken emergently to cardiac catheterization lab for temporary pacemaker, arterial line, central line insertion. She tolerated these procedures well. She did not undergo cardiac catheterization as GA was not suggested. Echo: EF 60%, grade 2 diastolic dysfunction, PAP 38 mmHg + RAP. Venous ultrasound revealed no evidence of DVT. VQ lung scan reveals no PE. JUNE 27, 2017: Ms. Pedersen is doing well this morning. She is alert and oriented. She remains fairly weak. We will consult physical therapy to begin working with her now that she is off the ventilator. Blood pressure remains elevated. Will transition metoprolol to labetalol and monitor response. H&H 7.4 and 23.0 today. No signs of overt bleeding at this time. PLT count stable. Will further discuss with Dr. Lange and await additional recommendations. ASSESSMENT/PLAN: 1. BRADYCARDIA - Improved after intubation, oxygenation. Likely related to severe respiratory insufficiency. 2. HYPOTENSION -resolved. Likely related to her severe respiratory insufficiency. Echo revealed no significant abnormality to account for hypotension 3. RESPIRATORY FAILURE - Extubated 06/26/17. Pulmonology has been following. She underwent bronchoscopy with Dr. Rosales with findings of erosive bronchitis due to aspiration. 4. SEIZURE - New onset. She has been seen by neurology. She has been maintained on Keppra and has had no additional seizures reported. 5. DYSLIPIDEMIA - continue lipid-lowering agent. LDL 56. 6. CKD, STAGE IV - avoiding RAEANN inhibitors for fear of worsening renal insufficiency. Creatinine 3.6 this morning. 7. DIABETES - adjust medications accordingly during hospital stay. 8. HYPERKALEMIA -resolved. K+ 4.4 this morning. 9. HYPERTENSION - Continue present regimen including Norvasc, Hydralazine, Toprol XL, Labetalol PRN. She has had no additional bradycardia and will continue to monitor this closely. Exam (Progress Note) - Constitutional Vitals: Period Temp Pulse Resp BP Sys/Veliz Pulse Ox Last 24 Hr 97.8 F-99.8 F 89-112 12-23 144-190/62-106 92-100 Exam: General: Present: Appears Well, No Apparent Distress. Pleasant and cooperative. HEENT: Present: PERRL, Normocephaly, atraumatic. Mucus Membranes Moist. No jaundice noted. Conjunctiva moist and clear. Neck: Present: Supple Neck, Midline Trachea, No Masses, No Bruit, No tenderness Cardiac: Present: Regular Rate and Rhythm, No Murmur Lungs: Present: clear to auscultation bilaterally, no wheezes, rhonchi, rales. Neuro: Present: Awake, alert, and oriented x3. Moves all extremities well without hemiparesis or paralysis. Grossly Intact. Absent: Resting Tremor, Essential Tremor Abdomen: Present: Soft, Active Bowel Sounds, No Masses, Non-Tender, nondistended. No abdominal bruit or thrill noted. Skin: Present: Ecchymosis to BUE. Absent: Rash, No skin breakdown. Musculoskeletal: Present: No Fluid Collection, No Pain, Normal Range of Motion Extremities: Present: Normal Gait, No Clubbing, No Cyanosis, Upper Extr. Pulses 2+, Lower Extr. Pulses 2+, No edema. Capillary refill less than 3 seconds. Result/EKG - Labs CBC & BMP: 06/27/17 04:53 06/27/17 04:53 Lab Results: I have reviewed the past 24 hour labs Labs: Laboratory Results - last 24 hr 06/26/17 06/26/17 06/26/17 08:20 11:03 11:40 WBC RBC Hgb Hct MCV MCH MCHC RDW Plt Count MPV Neut % (Auto) Lymph % (Auto) Kings % (Auto) Eos % (Auto) Baso % (Auto) Neut # (Auto) Lymph # (Auto) Kings # (Auto) Eos # (Auto) Baso # (Auto) Total Counted Immature Gran % Nucleated RBC % Immature Gran # Segmented Neutrophils Band Neutrophils Lymphocytes Monocytes Nucleated RBCs # Platelet Estimate Immature Plt Fraction ABG pH 7.305 L 7.352 ABG pCO2 31.4 L 30.6 L ABG pO2 183.0 H 143.7 H ABG HCO3 16.5 L 16.6 L ABG Total CO2 14.7 L 17.5 L ABG O2 Saturation 99.5 98.5 ABG Base Excess -9.8 L -8.1 L FiO2 40.00 28.00 Sodium Potassium Chloride Carbon Dioxide Anion Gap BUN Creatinine GFR Calculation BUN/Creatinine Ratio Glucose POC Glucose 170 H Calculated Osmolality Calcium Phosphorus Magnesium Prealbumin 06/26/17 06/26/17 06/27/17 17:33 23:58 03:24 WBC RBC Hgb Hct MCV MCH MCHC RDW Plt Count MPV Neut % (Auto) Lymph % (Auto) Kings % (Auto) Eos % (Auto) Baso % (Auto) Neut # (Auto) Lymph # (Auto) Kings # (Auto) Eos # (Auto) Baso # (Auto) Total Counted Immature Gran % Nucleated RBC % Immature Gran # Segmented Neutrophils Band Neutrophils Lymphocytes Monocytes Nucleated RBCs # Platelet Estimate Immature Plt Fraction ABG pH 7.410 ABG pCO2 32.4 L ABG pO2 148.0 H ABG HCO3 21.5 ABG Total CO2 19.3 L ABG O2 Saturation 99.3 ABG Base Excess -3.5 L FiO2 Sodium Potassium Chloride Carbon Dioxide Anion Gap BUN Creatinine GFR Calculation BUN/Creatinine Ratio Glucose POC Glucose 259 H 124 H Calculated Osmolality Calcium Phosphorus Magnesium Prealbumin 06/27/17 06/27/17 06/27/17 04:53 04:53 05:52 WBC 10.5 RBC 2.28 L Hgb 7.4 L Hct 23.0 L MCV 100.9 MCH 33 MCHC 32.2 RDW 14.5 Plt Count 157 MPV 11.2 Neut % (Auto) 91.1 H Lymph % (Auto) 3.9 L Kings % (Auto) 3.6 Eos % (Auto) 0.0 Baso % (Auto) 0.1 Neut # (Auto) 9.6 H Lymph # (Auto) 0.4 L Kings # (Auto) 0.4 Eos # (Auto) 0.0 Baso # (Auto) 0.0 Total Counted 100 Immature Gran % 1.3 Nucleated RBC % 0.0 Immature Gran # 0.14 Segmented Neutrophils 92 H Band Neutrophils 1 Lymphocytes 4 L Monocytes 3 Nucleated RBCs # 0.00 Platelet Estimate Adequate Immature Plt Fraction 0.0 ABG pH ABG pCO2 ABG pO2 ABG HCO3 ABG Total CO2 ABG O2 Saturation ABG Base Excess FiO2 Sodium 145 Potassium 4.4 Chloride 114 H Carbon Dioxide 21 Anion Gap 14.4 BUN 53 H Creatinine 3.60 H GFR Calculation 13 BUN/Creatinine Ratio 14.00 Glucose 200 H POC Glucose 258 H Calculated Osmolality 307.7 H Calcium 8.0 L Phosphorus 4.6 Magnesium 2.1 Prealbumin 22.9 - EKG EKG results: interpreted by me, sinus rhythm
[2017-06-27] MEDS: PANTOPRAZOLE 40 MG VIAL IV SCH (08:01)
[2017-06-27] MEDS: amLODIPine 10 MG TABLET PO SCH (08:04)
[2017-06-27] MEDS: ASPIRIN 325 MG TABLET PO SCH (08:04)
[2017-06-27] MEDS: ERYTHROMYCIN BASE 250 MG TABLET PO SCH ×3 (08:05→20:11)
[2017-06-27] MEDS ORDERED: SODIUM CHLORIDE 0.9% 250 ML IV PRN (10:05)
--- NOTE | 2017-06-27 10:13 | Hospitalist Progress Note ---
Assessment and Plan (1) Chronic kidney disease, stage III (moderate) Status: Chronic Current Visit: No (2) Diabetes mellitus Status: Chronic Current Visit: No Qualifiers: Diabetes mellitus type: type 2 Diabetes mellitus complication status: with kidney complications Diabetes mellitus complication detail: with chronic kidney disease Chronic kidney disease stage: stage 3 (moderate) (3) Hypertension Status: Chronic Current Visit: Yes Qualifiers: Hypertension type: essential hypertension Qualified Code(s): I10 - Essential (primary) hypertension (4) Anemia Status: Chronic Current Visit: No (5) Unsteady gait Status: Acute Current Visit: Yes (6) Seizure Status: Acute Assessment and plan: On Keppra. Neurology following. No further activity. Current Visit: Yes (7) Bradycardia Status: Resolved Current Visit: Yes (8) Respiratory failure Status: Resolved Assessment and plan: Status post extubation over the weekend. Current Visit: Yes Qualifiers: Chronicity: acute Respiratory failure complication: hypoxia Qualified Code(s): J96.01 - Acute respiratory failure with hypoxia (9) Aspiration into airway Status: Acute Assessment and plan: Continue IV antibiotics. Pulmonary following. Current Visit: Yes Qualifiers: Encounter type: initial encounter Qualified Code(s): T17.908A - Unspecified foreign body in respiratory tract, part unspecified causing other injury, initial encounter Hospitalist: Subjective Interval history: Patient seen and examined. No acute events overnight. Case discussed with nursing staff. Labs reviewed. Status post extubation. She is doing well. Her hemoglobin has dropped and blood transfusion has been ordered. no further seizure activity Exam - Constitutional Vitals: Period Temp Pulse Resp BP Sys/Veliz Pulse Ox Last 24 Hr 97.8 F-99.8 F 89-112 12-23 144-189/62-106 92-100 Exam: Constitutional System: No distress. No tremulousness. Head: Normocephalic, atraumatic. Ears, Nose and Throat System: No pain or tenderness. No epistaxis or discharge Eyes System: Pupils equal, round, and reactive. Extraocular muscles intact. Neck: Supple, without adenopathy, No jugular venous distention. No thyromegaly, neck mass, or prior surgery apparent. Respiratory System: Chest clear to auscultation. Cardiovascular System: Heart with regular rate and rhythm. No murmur. GI System: Abdomen soft, nontender. Normo active bowel sounds present. Musculoskeletal System: limbs with no pedal edema. Full distal pulses. Neurological System: No discernable sensory deficit. No aphasia Psychiatric System: Conversation is rational Results - Labs CBC & BMP: 06/27/17 04:53 06/27/17 04:53 Lab Results: I have reviewed the past 24 hour labs
--- NOTE | 2017-06-27 10:35 | Pulmonology Progress Note ---
Pulmonary - PN: Subj Interval history: This is a 67-year-old female whom I saw on pulmonary consultation for evaluation and treatment on 06/23/2017. This patient had a seizure. She required intubation mechanical ventilation. She has abnormal gastric emptying she was suspected of having aspirated. My impressions were. #1: Acute respiratory insufficiency with metabolic acidosis requiring intubation and mechanical ventilation #2: Acute seizure #3: Acute bradycardia requiring temporary pacemaker #4: Diabetic gastroparesis. Note, the patient has a gastric stimulator that was placed in May [address] Cruz. #5: Anemia #6: Acute on chronic renal failure. Note, this is followed by Dr. Michael Jean-Baptiste. #7: Recent UTI secondary to E. coli #8: Hypertension #9: Hypomagnesemia #10: Elevated TSH and free T4. I am unsure of the significance of this at this time. #11: See past history 06/24/2017. This morning the patient was evaluated with fiberoptic bronchoscopy. She had a tremendous amount of retained secretions and there was some obvious gastric content. All of this was removed with bronchoalveolar lavage. Specimens were sent for cytology bacterial and fungal studies. She had bibasal erosive friable partially stenotic bronchitis. Although this had the appearance of acute gastric acid injury. The patient has not woken up. She is on a weaning protocol and physical therapy protocol has been requested. She has been seen in renal consultation and and neurology consultation. ABGs on mechanical ventilation and FiO2 of 70% show a pH of 7.386, PCO2 25.4, PO2 of 333 and a bicarb of 17.4. Ventilator adjustments have been made. H&H is 8.9/ 27.3. White count is 9900 with 68 segs. Creatinine is 4.10 with a BUN of 47. Electrolytes are normal. Magnesium is low at 1.5. Protein and albumin low at 5.4 and 2.5 respectively. Patient has a high TSH and a high free T4. There are no positive cultures. During this admission the patient had a cardiac catheterization and placement of a temporary pacemaker. 06/23/2017. Ventilation/perfusion lung scan shows no evidence of deep venous thrombophlebitis. See report 06/23/2017. Doppler venograms. No evidence of deep venous thrombophlebitis 06/27/2017. This patient was extubated 06/26/2017. Today's chest x-ray looks good. There is some increased perihilar markings bilaterally. No definite infiltrates and there is no congestive heart failure. ABGs on FiO2 28% shows a pH of 7.41, PCO2 32.4, PO2 of 148 and a bicarb of 21.5. Electrolytes normal. Creatinine is elevated 3.60 with a BUN of 53. White blood cell count is 10,500 with 91 segs. H&H is 7.4/23.0. Platelets are 157,000. Bronchoscopy specimen showed a few yeast. Patient's on meropenem and erythromycin. Erythromycin was given for her stomach. She is also on vancomycin. She is on the Solu-Medrol 40 IV push twice daily. This was given for the aspiration injury that appears to be working well. We can probably begin tapering this back by tomorrow if the patient remained stable. She is alert oriented cooperative and looks amazingly better. Tracheal and large airway wheeze. Start Singulair Physical exam. Vital signs. See below. Psychiatric. Oriented 3. Cooperative. General. Comfortable in no apparent distress Face. Symmetrical. No edema of the lips or tongue. Neck. No meningismus Lymphatics. No submandibular cervical supraclavicular or epitrochlear adenopathy. Neuro. Impossible. See neurology consultation. Chest. Slight loose large airway congestion. Mild tracheal and large airway wheeze. Heart. Regular. Slightly lateral PMI. Abdomen. Nondistended. Rare bowel sounds. Extremities. Left and suggest deep venous thrombophlebitis. The remainder the physical exam is noncontributory Plan: 06/23/2017. #1: For going to hyperventilate her presently to try to correct her metabolic acidosis. We will decrease her FiO2 to 70% and repeat ABGs at 2 PM. #2: Start weaning protocol #3: Physical therapy protocol #4: Plan for fiberoptic bronchoscopy in the morning. High likelihood of aspiration in face of seizure activity. #5: Daily chest x-ray and ABGs while on the ventilator. #6: See orders 06/24/2017. 1. Fiberoptic bronchoscopy today. 5 days for aspiration injury. 2. Start Solu-Medrol 40 IV push every 12 hours 3. Daily chest x-ray and ABGs 4. Mechanical ventilation weaning protocol including physical therapy protocol 5. Check bronchoscopy specimen 06/27/2017 1. Extubated 06/26/2017 2. Follow-up chest x-ray and ABGs. 3. Start Singulair 4. Can begin taper of steroids tomorrow. Exam (Progress Note) - Constitutional Vitals: Period Temp Pulse Resp BP Sys/Veliz Pulse Ox Last 24 Hr 97.8 F-99.8 F 89-112 12-23 144-189/62-106 92-100 Results - Labs CBC & BMP: 06/27/17 04:53 06/27/17 04:53
--- NOTE | 2017-06-27 11:25 | Nephrology Progress Note ---
Nephrology - PN: Subj Interval history: She has been extubated. She is awake and alert. She denies shortness of breath. Exam (PN)-Nephrology - Vital Signs Vital signs: Period Temp Pulse Resp BP Sys/Veliz Pulse Ox Last 24 Hr 97.1 F-99.8 F 85-112 12-23 144-189/62-105 92-100 Exam: ENT: Normal Cardiovascular: Regular rate and rhythm. No murmur rub or gallop Lungs: Minimal rhonchi Extremities: No edema - Lab 06/27/17 04:53 06/27/17 04:53 Most recent lab results ABG pH 7.410 (7.35-7.45) 06/27/17 03:24 ABG pCO2 32.4 MM HG (35-48) L 06/27/17 03:24 ABG pO2 148.0 MM HG (80-95) H 06/27/17 03:24 ABG HCO3 21.5 MMOL/L (20-26) 06/27/17 03:24 ABG O2 Saturation 99.3 % (95-100) 06/27/17 03:24 Calcium 8.0 MG/DL (8.5-10.1) L 06/27/17 04:53 Phosphorus 4.6 MG/DL (2.5-4.9) 06/27/17 04:53 Magnesium 2.1 MG/DL (1.8-2.4) 06/27/17 04:53 Assessment and Plan (1) Chronic kidney disease, stage IV (severe) Status: Chronic Assessment and plan: 67-year-old woman admitted with: * Bradycardia. Resolved * hypotension. Resolved * CRF stage IV. Renal function improved * Diabetes mellitus * New onset seizure. This may have been precipitated by hypotension * Aspiration pneumonitis * Gastroparesis Current Visit: No (2) Bradycardia Status: Resolved Current Visit: Yes (3) Hypotension Status: Resolved Current Visit: Yes (4) New onset seizure Status: Acute Current Visit: Yes (5) Respiratory failure Status: Resolved Current Visit: Yes Qualifiers: Chronicity: acute Respiratory failure complication: hypoxia Qualified Code(s): J96.01 - Acute respiratory failure with hypoxia (6) Gastroparesis Status: Chronic Current Visit: No (7) Diabetes mellitus Status: Chronic Current Visit: No Qualifiers: Diabetes mellitus type: type 2 Diabetes mellitus complication status: with kidney complications Diabetes mellitus complication detail: with chronic kidney disease Chronic kidney disease stage: stage 3 (moderate)
[2017-06-27] MEDS: MONTELUKAST 10 MG TABLET PO SCH (12:19)
[2017-06-27] MEDS: LABETALOL 100 MG TABLET PO SCH ×2 (12:19→20:11)
[2017-06-27] MEDS: DESITIN 4OZ/NYSTATIN 15 GRAM MIXTURE PASTE TOP SCH ×2 (12:19→20:11)
--- NOTE | 2017-06-27 13:19 | Pathology Report from [facility] ---
[facility] [place] [id number] PATIENT NAME : Nadja Zhou ORDERING DR : KAVITHA LEMONS MD CLINICAL HX: Aspiration, Respiratory Arrest POST-OP DX: Same SPECIMEN INFO: Washing,Bronchial,KWAKU - 20 mls milky yellow, cloudy CLASS: I CLASS COMMENTS: Marked suppurative inflammation with benign respiratory cells.CELL BLOCK: Same CLASS LEGEND: CLASS 0 Material inadequate for diagnosis because of (see comment) CLASS I Absence of atypical or abnormal cells CLASS II Atypical Cytology but no evidence of malignancy CLASS III Cytology suggestive of but not conclusive for malignancy CLASS IV Cytology strongly suggestive of malignancy CLASS V Cytology conclusive for malignancy COLLECTED DATE: 06/24/2017 [facility] REPORT DATE: 06/27/2017 ELECTRONICALLY SIGNED BY: Susie Green III, M.D. 06/27/2017 - 8:43:13 [email or web address]
--- NOTE | 2017-06-27 15:02 | Neurology Progress Note ---
Neurology - PN : Subjective Interval history: Patient has been extubated. Seems to be doing much better. Following commands and his speech is fluent. Moving all 4 extremities. Eating good. No more seizures reported Exam (Progress Note) - Constitutional Vitals: Period Temp Pulse Resp BP Sys/Veliz Pulse Ox Last 24 Hr 97.1 F-99.8 F 85-112 12-22 145-189/62-95 95-100 Exam: GENERAL: Patient is in no acute distress. NECK: Neck is supple. There is no JVD. No carotid bruits present. No thyroid masses. CVS: First and second heart sounds are normal. There is no S3 present. Regular rate and rhythm. RESPIRATORY: Lungs are clear to auscultation without any rales or rhonchi. ABDOMEN: Soft and non-tender. Bowel sounds are present. There is no hepatosplenomegaly. EXT: There is no palpable edema. Peripheral pulses are present. Skin: No rashes Central Nervous system: General: Alert, awake and Oriented x 3 Speech: Fluent Comprehension: Intact and normal Facial expressions: Normal Cranial Nerves: CN1/Olfactory: Normal CN II/ Optic: Normal, Visual Wagner unreliable CN III, and : JOSH & EOMI CN V: Normal & intact CN VII: face is symmetric CNVIII: Normal CN XI/X/XI/XII: Intact and Normal Motor: Bulk and Tone is normal. Strength in the right 4/5 Strength in the left 4/5 Sensory: Grossly intact for all the modalities of PP, LT and temp sense Reflexes: 1+ and symmetrical Cerebellar function: Normal finger to nose and heel to thomas testing. Toes: Equivocal Gait: Not tested at this time Results - Labs CBC & BMP: 06/27/17 04:53 06/27/17 04:53 Assessment and Plan (1) New onset seizure Status: Acute Assessment and plan: Change Keppra to 500 mg p.o. twice daily Okay to go back to swing bed Follow-up in 4-6 weeks Current Visit: Yes Specialty Discharge - Follow Up or Referrals Follow up with: Pavel Pierce MD [Physician] - 1 Month
[2017-06-27] MEDS: ATORVASTATIN 20 MG TABLET PO SCH (18:06)
[2017-06-27] MEDS: CHOLECALCIFEROL 1,000 UNIT TABLET PO SCH (18:06)
[2017-06-28] MEDS: MEROPENEM 500 MG in SODIUM CHLORIDE 0.9% 100 ML IV SCH ×2 (02:30→14:31)
[2017-06-28 05:32] LABS: Basophils % 0.1 % (0.0-0.8); Hematocrit 30.3 VOL% (35.7-47.0); Hemoglobin 9.9 GM/DL (12.0-16.0); Immature Granulocytes % 1.6 %; Immature Granulocytes Absolute 0.12 #; Lymphocytes # 0.6 10*3/uL (1.4-4.0); Lymphocytes % 7.8 % (21.3-54.2); Mean Corpuscular HGB Conc 32.7 GM/DL (32-36); Mean Corpuscular Hemoglobin 31 PG (27-34); Mean Corpuscular Volume 95.9 FL (87-102); Mean Platelet Volume 10.9 FL (9.6-12.0); Monocytes # 0.5 10*3/uL (0.11-0.8); Monocytes % 6.2 % (1.7-12.7); Neutrophils # 6.2 10*3/uL (1.4-7.4); Neutrophils % 84.3 % (38.7-73.9); Platelet Count 147 T/CUMM (130-400); Red Blood Count 3.16 MC/CUMM (3.8-5.5); Red Cell Distribution Width 15.3 % (9.3-17.3); White Blood Count 7.4 T/CUMM (4-12)
[2017-06-28 06:04] LABS: Calcium 8.2 MG/DL (8.5-10.1); Magnesium 2.2 MG/DL (1.8-2.4); Osmolality,Calculated 307.8 MOS/KG (273-304); Potassium 4.4 MMOL/L (3.5-5.1)
[2017-06-28] MEDS: INSULIN REGULAR 100 UNIT/ML SUBCUT SCH ×4 (06:15→23:16)
--- NOTE | 2017-06-28 08:17 | Cardiology Progress Note ---
Assessment and Plan - Time spent with patient Time spent with patient: Less than 30 minutes (1) Bradycardia Status: Resolved Assessment and plan: See plan of care listed below. Current Visit: Yes (2) Hypotension Status: Resolved Assessment and plan: See plan of care listed below. Current Visit: Yes (3) Respiratory failure Status: Resolved Assessment and plan: See plan of care listed below. Current Visit: Yes Qualifiers: Chronicity: acute Respiratory failure complication: hypoxia Qualified Code(s): J96.01 - Acute respiratory failure with hypoxia (4) Seizure Status: Acute Assessment and plan: See plan of care listed below. Current Visit: Yes (5) Dyslipidemia Status: Chronic Assessment and plan: See plan of care listed below. Current Visit: No (6) Chronic kidney disease, stage IV (severe) Status: Chronic Assessment and plan: See plan of care listed below. Current Visit: No (7) Diabetes mellitus Status: Chronic Assessment and plan: See plan of care listed below. Current Visit: No Qualifiers: Diabetes mellitus type: type 2 Diabetes mellitus complication status: with kidney complications Diabetes mellitus complication detail: with chronic kidney disease Chronic kidney disease stage: stage 3 (moderate) (8) Hyperkalemia Status: Resolved Assessment and plan: See plan of care listed below. Current Visit: Yes (9) Hypertension Status: Chronic Assessment and plan: See plan of care listed below. 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 SANDERSON, regularly seen by DR. TORRES at [place] PCP: DR. HUNTER RODAS SUMMARY: Ms. Pedersen, 67WF, without a prior known history of coronary artery disease but risk factors significant for: hypertension, dyslipidemia, diabetes, obesity, sedentary lifestyle. History of chronic renal failure followed by Dr. Jean-Baptiste. Possible history of neurological disorders. Recently hospitalized for laparoscopic gastric pacemaker placement (diabetic gastroparesis) performed by Dr. Gibbs 05/22/2017. Tolerated the procedure well and without complication and was discharged to [facility]. Patient was admitted June 23, 2017 after being found to have a bloody mouth, unresponsive. She was transferred to the ED of [facility]. Patient was found to be bradycardic on admission then experienced seizures. She profoundly bradycardic with a wide QRS escape rhythm , she then became hypotensive and was intubated for respiratory insufficiency. Her blood pressure improved though her rhythm remained a slow rhythm without ST elevation. CT head did not reveal an acute event. Potassium 5.1 on admission. Troponin negative. She was taken emergently to cardiac catheterization lab for temporary pacemaker, arterial line, central line insertion. She tolerated these procedures well. She did not undergo cardiac catheterization as IA was not suggested. Echo: EF 60%, grade 2 diastolic dysfunction, PAP 38 mmHg + RAP. Venous ultrasound revealed no evidence of DVT. VQ lung scan reveals no PE. JUNE 28, 2017: Ms. Pedersen is doing well this morning. She is alert and oriented. She remains fairly weak. Physical therapy was consulted to begin working with her. Blood counts dropped yesterday and she was given 2 units of PRBCs. H&H improved this morning. Her blood pressure remains elevated. I'll increase her labetalol dose this morning to see if it will help. We may wind up needing to start an additional blood pressure medication. Will further discuss with Dr. Lange and await additional recommendations. Hopefully, she will be able to go back [facility] in the next couple of days. ASSESSMENT/PLAN: 1. BRADYCARDIA - Improved after intubation, oxygenation. Likely related to severe respiratory insufficiency. 2. HYPOTENSION -resolved. Likely related to her severe respiratory insufficiency. Echo revealed no significant abnormality to account for hypotension 3. RESPIRATORY FAILURE - Extubated 06/26/17. Pulmonology has been following. She underwent bronchoscopy with Dr. Rosales with findings of erosive bronchitis due to aspiration. 4. SEIZURE - New onset. She has been seen by neurology. She has been maintained on Keppra and has had no additional seizures reported. 5. DYSLIPIDEMIA - continue lipid-lowering agent. LDL 56. 6. CKD, STAGE IV - avoiding RAEANN inhibitors for fear of worsening renal insufficiency. Creatinine 3.6 this morning. 7. DIABETES - adjust medications accordingly during hospital stay. 8. HYPERKALEMIA -resolved. K+ 4.4 this morning. 9. HYPERTENSION - Continue present regimen including Norvasc, Hydralazine. Her Toprol was changed to Labetalol and we are adjusting her doses for optimal blood pressure control. She has had no additional bradycardia and will continue to monitor this closely. Exam (Progress Note) - Constitutional Vitals: Period Temp Pulse Resp BP Sys/Veliz Pulse Ox Last 24 Hr 97.8 F-98.4 F 80-100 12-22 101-213/61-118 93-98 Exam: General: Present: Appears Well, No Apparent Distress. Pleasant and cooperative. HEENT: Present: PERRL, Normocephaly, atraumatic. Mucus Membranes Moist. No jaundice noted. Conjunctiva moist and clear. Neck: Present: Supple Neck, Midline Trachea, No Masses, No Bruit, No tenderness Cardiac: Present: Regular Rate and Rhythm, No Murmur Lungs: Present: clear to auscultation bilaterally, no wheezes, rhonchi, rales. Neuro: Present: Awake, alert, and oriented x3. Moves all extremities well without hemiparesis or paralysis. Grossly Intact. Absent: Resting Tremor, Essential Tremor Abdomen: Present: Soft, Active Bowel Sounds, No Masses, Non-Tender, nondistended. No abdominal bruit or thrill noted. Skin: Present: Ecchymosis to BUE. Absent: Rash, No skin breakdown. Musculoskeletal: Present: No Fluid Collection, No Pain, Normal Range of Motion Extremities: Present: Normal Gait, No Clubbing, No Cyanosis, Upper Extr. Pulses 2+, Lower Extr. Pulses 2+, No edema. Capillary refill less than 3 seconds. Result/EKG - Labs CBC & BMP: 06/28/17 05:20 06/28/17 05:20 Lab Results: I have reviewed the past 24 hour labs Labs: Laboratory Results - last 24 hr 06/27/17 06/27/17 06/27/17 09:32 09:35 11:06 WBC RBC Hgb Hct MCV MCH MCHC RDW Plt Count MPV Neut % (Auto) Lymph % (Auto) Day % (Auto) Eos % (Auto) Baso % (Auto) Neut # (Auto) Lymph # (Auto) Day # (Auto) Eos # (Auto) Baso # (Auto) Immature Gran % Nucleated RBC % Immature Gran # Nucleated RBCs # Immature Plt Fraction Sodium Potassium Chloride Carbon Dioxide Anion Gap BUN Creatinine GFR Calculation BUN/Creatinine Ratio Glucose POC Glucose 318 H Calculated Osmolality Calcium Magnesium Random Vancomycin 19.7 Blood Type O POSITIVE Antibody Screen Negative Crossmatch See Detail 06/27/17 06/27/17 06/27/17 16:52 23:25 Unknown WBC RBC Hgb Hct MCV MCH MCHC RDW Plt Count MPV Neut % (Auto) Lymph % (Auto) Day % (Auto) Eos % (Auto) Baso % (Auto) Neut # (Auto) Lymph # (Auto) Day # (Auto) Eos # (Auto) Baso # (Auto) Immature Gran % Nucleated RBC % Immature Gran # Nucleated RBCs # Immature Plt Fraction Sodium Potassium Chloride Carbon Dioxide Anion Gap BUN Creatinine GFR Calculation BUN/Creatinine Ratio Glucose POC Glucose 192 H 302 H Calculated Osmolality Calcium Magnesium Random Vancomycin Blood Type O POSITIVE Antibody Screen Crossmatch 06/28/17 06/28/17 06/28/17 05:20 05:20 05:45 WBC 7.4 RBC 3.16 L D Hgb 9.9 L D Hct 30.3 L MCV 95.9 MCH 31 MCHC 32.7 RDW 15.3 Plt Count 147 MPV 10.9 Neut % (Auto) 84.3 H Lymph % (Auto) 7.8 L Day % (Auto) 6.2 Eos % (Auto) 0.0 Baso % (Auto) 0.1 Neut # (Auto) 6.2 Lymph # (Auto) 0.6 L Day # (Auto) 0.5 Eos # (Auto) 0.0 Baso # (Auto) 0.0 Immature Gran % 1.6 Nucleated RBC % 0.0 Immature Gran # 0.12 Nucleated RBCs # 0.00 Immature Plt Fraction 0.0 Sodium 144 Potassium 4.4 Chloride 111 H Carbon Dioxide 26 Anion Gap 11.4 BUN 56 H Creatinine 3.60 H GFR Calculation 13 BUN/Creatinine Ratio 15.00 Glucose 203 H POC Glucose 218 H Calculated Osmolality 307.8 H Calcium 8.2 L Magnesium 2.2 Random Vancomycin Blood Type Antibody Screen Crossmatch - EKG EKG results: interpreted by me, sinus rhythm Specialty Discharge - Follow Up or Referrals Follow up with: Pavel Pierce MD [Physician] - 1 Month
[2017-06-28] MEDS ORDERED: FUROSEMIDE 40 MG/4 ML VIAL IV ONE (08:45)
[2017-06-28] MEDS ORDERED: NITROGLYCERIN 0.4 MG/HR PATCH TRANSDERM SCH (09:00)
[2017-06-28] MEDS: ERYTHROMYCIN BASE 250 MG TABLET PO SCH ×3 (09:11→20:10)
[2017-06-28] MEDS: LABETALOL 100 MG TABLET PO SCH ×2 (09:12→20:10)
[2017-06-28] MEDS: MONTELUKAST 10 MG TABLET PO SCH (09:12)
[2017-06-28] MEDS: ASPIRIN 325 MG TABLET PO SCH (09:12)
[2017-06-28] MEDS: amLODIPine 10 MG TABLET PO SCH (09:12)
[2017-06-28] MEDS: DESITIN 4OZ/NYSTATIN 15 GRAM MIXTURE PASTE TOP SCH ×2 (09:15→20:11)
[2017-06-28] MEDS: RANOLAZINE 500 MG TABLET PO SCH ×2 (09:15→20:10)
[2017-06-28] MEDS: levETIRAcetam 500 MG TABLET PO SCH ×2 (09:15→20:09)
[2017-06-28] MEDS: methylPREDNISolone SOD SUC 40 MG/1 ML VIAL IV SCH (10:29)
--- NOTE | 2017-06-28 11:17 | Pulmonology Progress Note ---
Pulmonary - PN: Subj Interval history: This is a 67-year-old female whom I saw on pulmonary consultation for evaluation and treatment on 06/23/2017. This patient had a seizure. She required intubation mechanical ventilation. She has abnormal gastric emptying she was suspected of having aspirated. My impressions were. #1: Acute respiratory insufficiency with metabolic acidosis requiring intubation and mechanical ventilation #2: Acute seizure #3: Acute bradycardia requiring temporary pacemaker #4: Diabetic gastroparesis. Note, the patient has a gastric stimulator that was placed in May [address] Cruz. #5: Anemia #6: Acute on chronic renal failure. Note, this is followed by Dr. Michael Jean-Baptiste. #7: Recent UTI secondary to E. coli #8: Hypertension #9: Hypomagnesemia #10: Elevated TSH and free T4. I am unsure of the significance of this at this time. #11: See past history 06/24/2017. This morning the patient was evaluated with fiberoptic bronchoscopy. She had a tremendous amount of retained secretions and there was some obvious gastric content. All of this was removed with bronchoalveolar lavage. Specimens were sent for cytology bacterial and fungal studies. She had bibasal erosive friable partially stenotic bronchitis. Although this had the appearance of acute gastric acid injury. The patient has not woken up. She is on a weaning protocol and physical therapy protocol has been requested. She has been seen in renal consultation and and neurology consultation. ABGs on mechanical ventilation and FiO2 of 70% show a pH of 7.386, PCO2 25.4, PO2 of 333 and a bicarb of 17.4. Ventilator adjustments have been made. H&H is 8.9/ 27.3. White count is 9900 with 68 segs. Creatinine is 4.10 with a BUN of 47. Electrolytes are normal. Magnesium is low at 1.5. Protein and albumin low at 5.4 and 2.5 respectively. Patient has a high TSH and a high free T4. There are no positive cultures. During this admission the patient had a cardiac catheterization and placement of a temporary pacemaker. 06/23/2017. Ventilation/perfusion lung scan shows no evidence of deep venous thrombophlebitis. See report 06/23/2017. Doppler venograms. No evidence of deep venous thrombophlebitis 06/27/2017. This patient was extubated 06/26/2017. Today's chest x-ray looks good. There is some increased perihilar markings bilaterally. No definite infiltrates and there is no congestive heart failure. ABGs on FiO2 28% shows a pH of 7.41, PCO2 32.4, PO2 of 148 and a bicarb of 21.5. Electrolytes normal. Creatinine is elevated 3.60 with a BUN of 53. White blood cell count is 10,500 with 91 segs. H&H is 7.4/23.0. Platelets are 157,000. Bronchoscopy specimen showed a few yeast. Patient's on meropenem and erythromycin. Erythromycin was given for her stomach. She is also on vancomycin. She is on the Solu-Medrol 40 IV push twice daily. This was given for the aspiration injury that appears to be working well. We can probably begin tapering this back by tomorrow if the patient remained stable. She is alert oriented cooperative and looks amazingly better. Tracheal and large airway wheeze. Start Singulair. 06/28/2017. Patient continues to improve rapidly. She was seen with 2 family members. Previously noted tracheal and large airway wheezes resolved in 1 day. There are no new cultures. ABGs and chest x-ray were not done today. Electrolytes normal. Creatinine is stable at 3.60 with a BUN of 56. H&H posttransfusion is 9.9/30.3. Platelets are 147,000 and white count is 7484% segs. Today I am decreasing the patient steroids to prednisone 20 mg daily. I suggested we give her 20 mg daily for 7 days then 10 mg for 7 days and then 10 mg every other day for 7 doses. We should keep her on Singulair for the present time as this helped her wheezes a good bit. Physical exam. Vital signs. See below. Psychiatric. Oriented 3. Cooperative. General. Comfortable in no apparent distress Face. Symmetrical. No edema of the lips or tongue. Neck. No meningismus Lymphatics. No submandibular cervical supraclavicular or epitrochlear adenopathy. Neuro. Impossible. See neurology consultation. Chest. Previously noted tracheal and large airway wheeze has resolved with Singulair. Wheeze free today and moving air well. Heart. Regular. Slightly lateral PMI. Abdomen. Nondistended. Rare bowel sounds. Extremities. Left and suggest deep venous thrombophlebitis. The remainder the physical exam is noncontributory Plan: 06/23/2017. #1: For going to hyperventilate her presently to try to correct her metabolic acidosis. We will decrease her FiO2 to 70% and repeat ABGs at 2 PM. #2: Start weaning protocol #3: Physical therapy protocol #4: Plan for fiberoptic bronchoscopy in the morning. High likelihood of aspiration in face of seizure activity. #5: Daily chest x-ray and ABGs while on the ventilator. #6: See orders 06/24/2017. 1. Fiberoptic bronchoscopy today. 5 days for aspiration injury. 2. Start Solu-Medrol 40 IV push every 12 hours 3. Daily chest x-ray and ABGs 4. Mechanical ventilation weaning protocol including physical therapy protocol 5. Check bronchoscopy specimen 06/27/2017 1. Extubated 06/26/2017 2. Follow-up chest x-ray and ABGs. 3. Start Singulair 4. Can begin taper of steroids tomorrow. 06/28/2017. 1. See today's note above. 2. Convert prednisone 20 mg daily. See today's note above concerning suggestions for tapering prednisone. 3. I agree with plans for moving the patient from CCU to cardiac stepdown. Exam (Progress Note) - Constitutional Vitals: Period Temp Pulse Resp BP Sys/Veliz Pulse Ox Last 24 Hr 97.8 F-98.4 F 80-100 12-22 101-213/61-118 92-97 Results - Labs CBC & BMP: 06/28/17 05:20 06/28/17 05:20 Specialty Discharge - Follow Up or Referrals Follow up with: Pavel Pierce MD [Physician] - 1 Month
[2017-06-28] MEDS: predniSONE 20 MG TABLET PO SCH (11:31)
--- NOTE | 2017-06-28 13:14 | Physician Query Form ---
CLICK EDIT DOCUMENT TO SELECT QUERY ANSWER --> OK --> SIGN Velia Denney RN Clinical Deputy Insurance Commissioner W) [phone] (f) [phone] [email or web address] PROVIDERS: Make your selection(s) from the choices in EACH section by typing an "x" and enter comments in the comment section. Please use your independent medical judgment in providing your response. This request does not imply that any particular answer is desired or expected. CLINICAL INDICATORS: (Providers should not edit this section) There is conflicting documentation of the stage of CKD in the record. On admission the creatinine was 4.40 with a GFR of 11. Dr. Jean-Baptiste consult note states "CRF stage IV. Renal function stable compared to last week". There is also documentation of CKD stage 3 and CKD stage 5 in the record. As the attending physician, please clarify the stage of the CKD. Clarify which of the following most accurately represents the patient's renal status: Chronic Kidney Disease Stages Source: National Kidney Disease Foundation ( ) Stage I (eGFR > or = 90) ( ) Stage II (eGFR 60 - 89) ( ) Stage III (eGFR 30 - 59) ( ) Stage IV (eGFR 15 - 29) ( X) Stage V (eGFR < 15 or dialysis) COMMENTS: PLEASE ALSO DOCUMENT RESPONSE IN PROGRESS NOTES AND/OR DISCHARGE SUMMARY Use of terms such as suspected, likely, or probable (associated with a specific diagnosis that is being evaluated, monitored, or treated as if it exists) are acceptable and can be restated in the discharge summary if not ruled out. MTDD
[2017-06-28] MEDS: ISOSORBIDE DINITRATE 20 MG TABLET PO SCH ×2 (16:00→20:10)
--- NOTE | 2017-06-28 17:41 | Hospitalist Progress Note ---
Assessment and Plan (1) Chronic kidney disease, stage III (moderate) Status: Chronic Current Visit: No (2) Diabetes mellitus Status: Chronic Current Visit: No Qualifiers: Diabetes mellitus type: type 2 Diabetes mellitus complication status: with kidney complications Diabetes mellitus complication detail: with chronic kidney disease Chronic kidney disease stage: stage 3 (moderate) (3) Hypertension Status: Chronic Current Visit: Yes Qualifiers: Hypertension type: essential hypertension Qualified Code(s): I10 - Essential (primary) hypertension (4) Anemia Status: Chronic Current Visit: No (5) Unsteady gait Status: Acute Current Visit: Yes (6) Seizure Status: Acute Assessment and plan: On Keppra. Neurology following. No further activity. Current Visit: Yes (7) Bradycardia Status: Resolved Current Visit: Yes (8) Respiratory failure Status: Resolved Assessment and plan: Status post extubation over the weekend. Current Visit: Yes Qualifiers: Chronicity: acute Respiratory failure complication: hypoxia Qualified Code(s): J96.01 - Acute respiratory failure with hypoxia (9) Aspiration into airway Status: Acute Assessment and plan: Continue IV antibiotics. Pulmonary following. Taper steroids Current Visit: Yes Qualifiers: Encounter type: initial encounter Qualified Code(s): T17.908A - Unspecified foreign body in respiratory tract, part unspecified causing other injury, initial encounter Hospitalist: Subjective Interval history: Patient seen and examined. No acute events overnight. Case discussed with nursing staff. Labs reviewed. She continues to do well and is ready for transfer to the floor. Dr. Rosales's note was reviewed. He recommends the following steroid taper: give her 20 mg daily for 7 days then 10 mg for 7 days and then 10 mg every other day for 7 doses. We should keep her on Singulair for the present time as this helped her wheezes a good bit. Exam - Constitutional Vitals: Period Temp Pulse Resp BP Sys/Veliz Pulse Ox Last 24 Hr 97.2 F-98.4 F 80-100 12-22 101-200/61-114 92-97 Exam: Constitutional System: No distress. No tremulousness. Head: Normocephalic, atraumatic. Ears, Nose and Throat System: No pain or tenderness. No epistaxis or discharge Eyes System: Pupils equal, round, and reactive. Extraocular muscles intact. Neck: Supple, without adenopathy, No jugular venous distention. Respiratory System: Chest clear to auscultation. Cardiovascular System: Heart with regular rate and rhythm. No murmur. GI System: Abdomen soft, nontender. Normo active bowel sounds present. Musculoskeletal System: limbs with no pedal edema. Full distal pulses. Neurological System: No discernable sensory deficit. No aphasia Psychiatric System: Conversation is rational Results - Labs CBC & BMP: 06/28/17 05:20 06/28/17 05:20 Lab Results: I have reviewed the past 24 hour labs Specialty Discharge - Follow Up or Referrals Follow up with: Pavel Pierce MD [Physician] - 1 Month
--- NOTE | 2017-06-28 18:22 | Nephrology Progress Note ---
Nephrology - PN: Subj Interval history: She is alert. She denies shortness of breath Exam (PN)-Nephrology - Vital Signs Vital signs: Period Temp Pulse Resp BP Sys/Veliz Pulse Ox Last 24 Hr 97.2 F-98.4 F 80-100 12- 145-200/61-114 92-97 Exam: Gen.: Alert and oriented x3. ENT: Pupils equal round reactive to light. EOMs intact. Mucous membranes moist. Neck: Supple. No JVD or bruit. Cardiovascular: Regular rate and rhythm. No murmur rub or gallop Lungs: Clear Abdomen: Soft. Nontender. Positive bowel sounds. No organomegaly Extremities: No edema - Lab 06/28/17 05:20 06/28/17 05:20 Most recent lab results ABG pH 7.410 (7.35-7.45) 06/27/17 03:24 ABG pCO2 32.4 MM HG (35-48) L 06/27/17 03:24 ABG pO2 148.0 MM HG (80-95) H 06/27/17 03:24 ABG HCO3 21.5 MMOL/L (20-26) 06/27/17 03:24 ABG O2 Saturation 99.3 % (95-100) 06/27/17 03:24 Calcium 8.2 MG/DL (8.5-10.1) L 06/28/17 05:20 Phosphorus 4.6 MG/DL (2.5-4.9) 06/27/17 04:53 Magnesium 2.2 MG/DL (1.8-2.4) 06/28/17 05:20 Assessment and Plan (1) Chronic kidney disease, stage IV (severe) Status: Chronic Assessment and plan: 67-year-old woman admitted with: * Bradycardia. Resolved * hypotension. Resolved * CRF stage IV. Renal function improved * Diabetes mellitus * New onset seizure. Delete * Aspiration pneumonitis. Improved * Gastroparesis. Gastric pacer Current Visit: No (2) Bradycardia Status: Resolved Current Visit: Yes (3) Hypotension Status: Resolved Current Visit: Yes (4) New onset seizure Status: Acute Current Visit: Yes (5) Respiratory failure Status: Resolved Current Visit: Yes Qualifiers: Chronicity: acute Respiratory failure complication: hypoxia Qualified Code(s): J96.01 - Acute respiratory failure with hypoxia (6) Gastroparesis Status: Chronic Current Visit: No (7) Diabetes mellitus Status: Chronic Current Visit: No Qualifiers: Diabetes mellitus type: type 2 Diabetes mellitus complication status: with kidney complications Diabetes mellitus complication detail: with chronic kidney disease Chronic kidney disease stage: stage 3 (moderate) Specialty Discharge - Follow Up or Referrals Follow up with: Pavel Pierce MD [Physician] - 1 Month
[2017-06-28] MEDS: ATORVASTATIN 20 MG TABLET PO SCH (18:33)
[2017-06-28] MEDS: CHOLECALCIFEROL 1,000 UNIT TABLET PO SCH (18:34)
[2017-06-28] MEDS ORDERED: PHENOL 1.4% THROAT SPRAY 177 ML BOTTLE PO PRN (22:59)
[2017-06-29] MEDS: MEROPENEM 500 MG in SODIUM CHLORIDE 0.9% 100 ML IV SCH ×2 (01:45→15:29)
[2017-06-29] MEDS: INSULIN REGULAR 100 UNIT/ML SUBCUT SCH ×2 (05:15→12:08)
[2017-06-29 05:36] LABS: Basophils % 0.2 % (0.0-0.8); Eosinophils # 0.1 10*3/uL (0.0-0.87); Eosinophils % 1.1 % (0.00-10.9); Hematocrit 28.3 VOL% (35.7-47.0); Hemoglobin 9.3 GM/DL (12.0-16.0); Immature Granulocytes % 1.5 %; Immature Granulocytes Absolute 0.14 #; Lymphocytes # 1.8 10*3/uL (1.4-4.0); Lymphocytes % 19.4 % (21.3-54.2); Mean Corpuscular HGB Conc 32.9 GM/DL (32-36); Mean Corpuscular Hemoglobin 32 PG (27-34); Mean Corpuscular Volume 96.9 FL (87-102); Mean Platelet Volume 11.1 FL (9.6-12.0); Monocytes # 1.1 10*3/uL (0.11-0.8); Monocytes % 11.8 % (1.7-12.7); Neutrophils # 6.2 10*3/uL (1.4-7.4); Platelet Count 157 T/CUMM (130-400); Red Blood Count 2.92 MC/CUMM (3.8-5.5); Red Cell Distribution Width 14.8 % (9.3-17.3); White Blood Count 9.4 T/CUMM (4-12)
[2017-06-29 06:12] LABS: Calcium 7.8 MG/DL (8.5-10.1); Magnesium 2.1 MG/DL (1.8-2.4); Potassium 4.1 MMOL/L (3.5-5.1)
[2017-06-29] MEDS: RANOLAZINE 500 MG TABLET PO SCH (09:42)
[2017-06-29] MEDS: amLODIPine 10 MG TABLET PO SCH (09:42)
[2017-06-29] MEDS: levETIRAcetam 500 MG TABLET PO SCH (09:43)
[2017-06-29] MEDS: ASPIRIN 325 MG TABLET PO SCH (09:43)
[2017-06-29] MEDS: ERYTHROMYCIN BASE 250 MG TABLET PO SCH ×2 (09:43→15:29)
[2017-06-29] MEDS: predniSONE 20 MG TABLET PO SCH (09:43)
[2017-06-29] MEDS: ISOSORBIDE DINITRATE 20 MG TABLET PO SCH ×2 (09:43→15:29)
[2017-06-29] MEDS: LABETALOL 100 MG TABLET PO SCH (09:43)
[2017-06-29] MEDS: MONTELUKAST 10 MG TABLET PO SCH (09:43)
--- NOTE | 2017-06-29 09:55 | Pulmonology Progress Note ---
Pulmonary - PN: Subj Interval history: Jac Raeann, [facility] acting as scribe for Dr. Rian Rosales This is a 67-year-old female who we saw in pulmonary consultation for evaluation and treatment on 06/23/2017. This patient had a seizure. She required intubation and mechanical ventilation. She has abnormal gastric emptying she was suspected of having aspirated. At the time of our initial consult, our impressions were: #1: Acute respiratory insufficiency with metabolic acidosis requiring intubation and mechanical ventilation #2: Acute seizure #3: Acute bradycardia requiring temporary pacemaker #4: Diabetic gastroparesis. Note, the patient has a gastric stimulator that was placed in May [address] Cruz. #5: Anemia #6: Acute on chronic renal failure. Note, this is followed by Dr. Michael Jean-Baptiste. #7: Recent UTI secondary to E. coli #8: Hypertension #9: Hypomagnesemia #10: Elevated TSH and free T4. I am unsure of the significance of this at this time. #11: See past history 06/24/2017. This morning the patient was evaluated with fiberoptic bronchoscopy. She had a tremendous amount of retained secretions and there was some obvious gastric content. All of this was removed with bronchoalveolar lavage. Specimens were sent for cytology bacterial and fungal studies. She had bibasal erosive friable partially stenotic bronchitis. Although this had the appearance of acute gastric acid injury. The patient has not woken up. She is on a weaning protocol and physical therapy protocol has been requested. She has been seen in renal consultation and and neurology consultation. ABGs on mechanical ventilation and FiO2 of 70% show a pH of 7.386, PCO2 25.4, PO2 of 333 and a bicarb of 17.4. Ventilator adjustments have been made. H&H is 8.9/ 27.3. White count is 9900 with 68 segs. Creatinine is 4.10 with a BUN of 47. Electrolytes are normal. Magnesium is low at 1.5. Protein and albumin low at 5.4 and 2.5 respectively. Patient has a high TSH and a high free T4. There are no positive cultures. During this admission the patient had a cardiac catheterization and placement of a temporary pacemaker. 06/23/2017. Ventilation/perfusion lung scan shows no evidence of deep venous thrombophlebitis. See report 06/23/2017. Doppler venograms. No evidence of deep venous thrombophlebitis 06/27/2017. This patient was extubated 06/26/2017. Today's chest x-ray looks good. There is some increased perihilar markings bilaterally. No definite infiltrates and there is no congestive heart failure. ABGs on FiO2 28% shows a pH of 7.41, PCO2 32.4, PO2 of 148 and a bicarb of 21.5. Electrolytes normal. Creatinine is elevated 3.60 with a BUN of 53. White blood cell count is 10,500 with 91 segs. H&H is 7.4/23.0. Platelets are 157,000. Bronchoscopy specimen showed a few yeast. Patient's on meropenem and erythromycin. Erythromycin was given for her stomach. She is also on vancomycin. She is on the Solu-Medrol 40 IV push twice daily. This was given for the aspiration injury that appears to be working well. We can probably begin tapering this back by tomorrow if the patient remained stable. She is alert oriented cooperative and looks amazingly better. Tracheal and large airway wheeze. Start Singulair. 06/28/2017. Patient continues to improve rapidly. She was seen with 2 family members. Previously noted tracheal and large airway wheezes resolved in 1 day. There are no new cultures. ABGs and chest x-ray were not done today. Electrolytes normal. Creatinine is stable at 3.60 with a BUN of 56. H&H posttransfusion is 9.9/30.3. Platelets are 147,000 and white count is 7484% segs. Today I am decreasing the patient steroids to prednisone 20 mg daily. We suggest we give her 20 mg daily for 7 days then 10 mg for 7 days and then 10 mg every other day for 7 doses. We should keep her on Singulair for the present time as this helped her wheezes a good bit. 06/29/17. Patient was seen today along with Argelia Oliver RN. Patient has now been moved to the medical floor from cardiac care. She continues to do well from a pulmonary standpoint since extubation. She is coughing up scant amount of thin clear sputum. On chest exam, she is wheeze free. Medications have been reviewed. We made no changes today. Please see her 2016 note for recommendations regarding prednisone taper and Singulair. Labs been reviewed. White count is 9400 with a normal differential; H&H 9.3/ 28.3; platelet count 157,000; creatinine 4.30, BUN 66, electrolytes are normal Exam (Progress Note) - Constitutional Vitals: Period Temp Pulse Resp BP Sys/Veliz Pulse Ox Last 24 Hr 97.1 F-98.1 F 81-96 16-20 133-178/66-94 93-100 Exam: Chest... See above Heart no gallop Abdomen is nontender and nondistended; bowel sounds positive 4 Lower extremities with nothing to suggest acute deep venous thrombophlebitis Psychiatric oriented 3, but somewhat slow to answer questions although when she does answer she answers appropriately Neurologic long tract motor function is intact Plan: Recommendations for pulmonary medications as above. She is stable from pulmonary standpoint so we will sign off. Please reconsult as needed. Results - Labs CBC & BMP: 06/29/17 04:46 06/29/17 04:46 Specialty Discharge - Follow Up or Referrals Follow up with: Pavel Pierce MD [Physician] - 1 Month
--- NOTE | 2017-06-29 11:08 | Discharge Summary ---
Hospital Course - Hospital Course Hospital Course: 67-year-old white female admitted to the hospital after a seizure episode with resulting bradycardia. The patient was transferred from [facility] after she suffered a seizure. The patient was taken to the [facility] for bradycardia and had a temporary pacemaker placed. Her bradycardia improved with improvement of her pain hypoxia and postictal state. The patient was initially intubated in the CCU. Since then she has improved dramatically and has been extubated. Her mental status has improved. She had evidence of aspiration pneumonia and underwent bronchoscopy by Dr. Rosales. She has reached maximal benefit from this inpatient hospitalization and is ready for discharge back to [facility] for continued rehab. She was started on Keppra 500 mg by mouth twice daily. The patient suffers from chronic kidney disease and has a baseline creatinine of approximately 4. This has been unchanged during the course of the hospitalization. She is not on any nephrotoxic medications. She finished a full course of Merrem during the course of the hospitalization. She has no fever but still has a bit of a nonproductive cough. She was given a new prescription for Singulair and a steroid taper of prednisone as recommended by pulmonary medicine. Her bradycardia has completely resolved and her home medications have been resumed. Her home meds were reviewed and reconciled. The patient is a full code. - Time spent with patient Time with patient DS: Greater than 30 minutes (Total discharge time for this patient, including [id number] time, clinical documentation, medication reconciliation, and discharge planning was 41 minutes.) Diagnosis - Discharge Diagnosis (1) Chronic kidney disease, stage III (moderate) Status: Chronic (2) Diabetes mellitus Status: Chronic (3) Hypertension Status: Chronic (4) Anemia Status: Chronic (5) Unsteady gait Status: Acute (6) Seizure Status: Acute (7) Bradycardia Status: Resolved (8) Respiratory failure Status: Resolved (9) Aspiration into airway Status: Acute Specialty Discharge - Follow Up or Referrals Follow up with: Pavel Pierce MD [Physician] - 1 Month Discharge Plan - Discharge Data Disposition: Swing Bed, [facility], [facility] Condition at Discharge: Stable Discharge Diet: advance to your usual diet Activity: resume usual activities as tolerated, as per physical therapy Hygiene: no restrictions Weight Bearing at Discharge: full weight bearing Contact your physician if you experience:: fever over 101, Nausea/Vomiting, Shortness of breath - Discharge Medications New Labetalol Tab [Trandate Tab] 200 mg PO BID tablet levETIRAcetam TAB [Keppra Tab] 500 mg PO BID tablet Montelukast Tab [Singulair Tab] 10 mg PO DAILY tablet Phenol 1.4% Throat [place] [Chloraseptic [place]] 5 spray PO Q2H PRN bottle PRN Reason: Sore Throat predniSONE TAB [PredniSONE] 20 mg PO DAILY tablet amLODIPine [Norvasc] 10 mg PO DAILY tablet hydrALAZINE TAB [Apresoline Tab] 100 mg PO TID tablet Continue Ranolazine [Ranexa] 500 mg PO BID Ondansetron HCl 4 mg PO QID PRN PRN Reason: Nausea Nitroglycerin 0.4 mg/Hr Patch [Nitro-Dur 0.4 mg/hr Patch] 1 patch TRANSDERM DAILY Atorvastatin [Lipitor] 20 mg PO QPM Aspirin Tab 325 mg PO QAM Cholecalciferol (Vitamin D3) [Vitamin D3] 5,000 unit PO QPM Erythromycin Base [Erythromycin DR Cap] 250 mg PO TID Pantoprazole Tab [Protonix Tab] 40 mg PO DAILY tablet HYDROcodone/ACETAMIN 7.5-325 [Poneto 7.5-325] 1 tablet PO Q4H PRN #20 tablet PRN Reason: Pain Moderate (4-7) buPROPion HCl [Bupropion Xl] 300 mg PO BID Benzonatate 200 mg PO DAILY PRN PRN Reason: Cough Acetaminophen Tab [Tylenol Tab] 325 mg PO Q4H PRN tablet PRN Reason: fever, headache/body aches Discontinued Colchicine 0.6 mg PO QAM Loratadine Tab [Claritin Tab] 10 mg PO DAILY PRN PRN Reason: Allergy Symptoms Metoprolol Succinate Xl [Toprol Xl] 50 mg PO QPM hydrALAZINE TAB [Apresoline Tab] 10 mg PO TID tablet Levofloxacin Tab [Levaquin Tab] 500 mg PO DAILY #7 tablet amLODIPine [Norvasc] 5 mg PO BID tablet - Follow Up or Referral Follow Up: Pavel Pierce MD [Physician] - 1 Month - Forms/Instructions Exam - Constitutional Vitals: Period Temp Pulse Resp BP Sys/Veliz Pulse Ox Last 24 Hr 97.1 F-98.1 F 81-96 16-20 133-164/66-88 93-100 Discharge Results Procedures and tests throughout hospitalization: Pending Orders 06/24/17 08:00 Fungal Culture w/ Prep Routine 06/27/17 Occult Blood, Stool Routine 06/30/17 04:00 BMP w/ Mg [Basic Metabolic Panel w/Mg] IN AM Comp Blood Count Auto Diff IN AM Labs on day of discharge: Labs from last 24 hours 06/29/17 06/29/17 06/29/17 05:13 04:46 04:46 WBC 9.4 RBC 2.92 L Hgb 9.3 L Hct 28.3 L MCV 96.9 MCH 32 MCHC 32.9 RDW 14.8 Plt Count 157 MPV 11.1 Neut % (Auto) 66.0 Lymph % (Auto) 19.4 L [place] % (Auto) 11.8 Eos % (Auto) 1.1 Baso % (Auto) 0.2 Neut # (Auto) 6.2 Lymph # (Auto) 1.8 [place] # (Auto) 1.1 H Eos # (Auto) 0.1 Baso # (Auto) 0.0 Immature Gran % 1.5 Nucleated RBC % 0.0 Immature Gran # 0.14 Nucleated RBCs # 0.00 Immature Plt Fraction 0.0 Sodium 143 Potassium 4.1 Chloride 109 H Carbon Dioxide 24 Anion Gap 14.1 BUN 66 H D Creatinine 4.30 H GFR Calculation 11 BUN/Creatinine Ratio 15.00 Glucose 131 H POC Glucose 150 H Calculated Osmolality 305.0 H Calcium 7.8 L Magnesium 2.1 06/28/17 06/28/17 06/28/17 23:10 19:20 18:21 WBC RBC Hgb Hct MCV MCH MCHC RDW Plt Count MPV Neut % (Auto) Lymph % (Auto) [place] % (Auto) Eos % (Auto) Baso % (Auto) Neut # (Auto) Lymph # (Auto) [place] # (Auto) Eos # (Auto) Baso # (Auto) Immature Gran % Nucleated RBC % Immature Gran # Nucleated RBCs # Immature Plt Fraction Sodium Potassium Chloride Carbon Dioxide Anion Gap BUN Creatinine GFR Calculation BUN/Creatinine Ratio Glucose POC Glucose 290 H 371 H 324 H Calculated Osmolality Calcium Magnesium 06/28/17 11:11 WBC RBC Hgb Hct MCV MCH MCHC RDW Plt Count MPV Neut % (Auto) Lymph % (Auto) [place] % (Auto) Eos % (Auto) Baso % (Auto) Neut # (Auto) Lymph # (Auto) [place] # (Auto) Eos # (Auto) Baso # (Auto) Immature Gran % Nucleated RBC % Immature Gran # Nucleated RBCs # Immature Plt Fraction Sodium Potassium Chloride Carbon Dioxide Anion Gap BUN Creatinine GFR Calculation BUN/Creatinine Ratio Glucose POC Glucose 217 H Calculated Osmolality Calcium Magnesium DS: Provider Date of admission: 06/23/17 07:29 Primary care physician: Juan Brennan DO Attending physician on admission: Ainsley Sullivan MD Consults: 06/23/17 10:22 Consult to Physician [CONS] Routine Comment: resp failure Consulting Provider: Consulting Provider Notified: Yes When should Consulting Provider be notified: Now Consult to Specialist Group: Pulmonology When should Consulting Provider be notified: Now Person Notified: HEATH SAWYER Date Notified: 06/23/17 Time Notified: 10:50 Consult Notification Comment: ALSO NOTIFIED FERNANDO AT THE OFFICE. 06/23/17 10:23 Consult to Physician [CONS] Routine Comment: new seizures, bradycrdia Consulting Provider: Pavel Pierce 06/23/17 10:26 Consult to Pharmacy [CONS] Routine Reason for Pharmacy Consult: Dose/Manage Antibiotics Dose/Manage Vancomycin Comment: please adjust antibiotic doses for renal disease 06/23/17 10:31 Consult to Physician [CONS] Routine Comment: renal failure Consulting Provider: Michael Jean-Baptiste Person Notified: Dr. Estiven Concepcion office and his Nurse Date Notified: 06/23/17 Time Notified: 10:50 06/23/17 10:59 Consult to Physician [CONS] Routine Comment: Consulting Provider: 06/23/17 17:37 Consult to Dietitian [CONS] Routine Reason for Dietitian: Diet Recommendations 06/24/17 08:35 Consult to Dietitian [CONS] Routine Reason for Dietitian: TF-Initiate/Manage 06/27/17 08:28 Consult to Physical Therapy [CONS] Routine Reason for Physical Therapy: Evaluate and Treat Weakness Discharging clinician: Alesia Morales MD Expected date of discharge: 06/29/17
--- NOTE | 2017-06-29 11:20 | Cardiology Progress Note ---
<Alexa Suarez E - Last Filed: 06/29/17 11:20> Assessment and Plan - Time spent with patient Time spent with patient: Less than 30 minutes (1) Bradycardia Status: Resolved Assessment and plan: See plan of care listed below. (2) Hypotension Status: Resolved Assessment and plan: See plan of care listed below. (3) Respiratory failure Status: Resolved Assessment and plan: See plan of care listed below. Qualifiers: Chronicity: acute Respiratory failure complication: hypoxia Qualified Code(s): J96.01 - Acute respiratory failure with hypoxia (4) Seizure Status: Acute Assessment and plan: See plan of care listed below. (5) Dyslipidemia Status: Chronic Assessment and plan: See plan of care listed below. (6) Chronic kidney disease, stage IV (severe) Status: Chronic Assessment and plan: See plan of care listed below. (7) Diabetes mellitus Status: Chronic Assessment and plan: See plan of care listed below. Qualifiers: Diabetes mellitus type: type 2 Diabetes mellitus complication status: with kidney complications Diabetes mellitus complication detail: with chronic kidney disease Chronic kidney disease stage: stage 3 (moderate) (8) Hyperkalemia Status: Resolved Assessment and plan: See plan of care listed below. (9) Hypertension Status: Chronic Assessment and plan: See plan of care listed below. 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 SANDERSON, regularly seen by DR. COLLADO at [facility] PCP: DR. JUAN BRENNAN SUMMARY: Ms. Pedersen, 67WF, without a prior known history of coronary artery disease but risk factors significant for: hypertension, dyslipidemia, diabetes, obesity, sedentary lifestyle. History of chronic renal failure followed by Dr. Jean-Baptiste. Possible history of neurological disorders. Recently hospitalized for laparoscopic gastric pacemaker placement (diabetic gastroparesis) performed by Dr. Gibbs 05/22/2017. Tolerated the procedure well and without complication and was discharged to [facility]. Patient was admitted June 23, 2017 after being found to have a bloody mouth, unresponsive. She was transferred to the ED of [facility]. Patient was found to be bradycardic on admission then experienced seizures. She profoundly bradycardic with a wide QRS escape rhythm , she then became hypotensive and was intubated for respiratory insufficiency. Her blood pressure improved though her rhythm remained a slow rhythm without ST elevation. CT head did not reveal an acute event. Potassium 5.1 on admission. Troponin negative. She was taken emergently to cardiac catheterization lab for temporary pacemaker, arterial line, central line insertion. She tolerated these procedures well. She did not undergo cardiac catheterization as SD was not suggested. Echo: EF 60%, grade 2 diastolic dysfunction, PAP 38 mmHg + RAP. Venous ultrasound revealed no evidence of DVT. VQ lung scan reveals no PE. JUNE 29, 2017: Ms. Pedersen is doing well this morning. She is alert and oriented. She remains fairly weak. Physical therapy has been working with her. Her blood pressure is better controlled on current therapy. She was started on Isordil in addition to her Labetalol, Norvasc, and Hydralazine. Will further discuss with Dr. Lange and await additional recommendations. She is going back to swingbed today and will need to follow up with Dr. Collado, Cardiology at [facility] in 3-4 weeks. ASSESSMENT/PLAN: 1. BRADYCARDIA - Improved after intubation, oxygenation. Likely related to severe respiratory insufficiency. 2. HYPOTENSION -resolved. Likely related to her severe respiratory insufficiency. Echo revealed no significant abnormality to account for hypotension 3. RESPIRATORY FAILURE - Extubated 06/26/17. Pulmonology has been following. She underwent bronchoscopy with Dr. Rosales with findings of erosive bronchitis due to aspiration. 4. SEIZURE - New onset. She has been seen by neurology. She has been maintained on Keppra and has had no additional seizures reported. 5. DYSLIPIDEMIA - continue lipid-lowering agent. LDL 56. 6. CKD, STAGE IV - avoiding RAEANN inhibitors for fear of worsening renal insufficiency. Creatinine 4.3 this morning. 7. DIABETES - adjust medications accordingly during hospital stay. 8. HYPERKALEMIA -resolved. K+ 4.1 this morning. 9. HYPERTENSION - Continue present regimen including Norvasc, Hydralazine. Her Toprol was changed to Labetalol and we are adjusting her doses for optimal blood pressure control. She has had no additional bradycardia and will continue to monitor this closely. Exam (Progress Note) - Constitutional Vitals: Period Temp Pulse Resp BP Sys/Veliz Pulse Ox Last 24 Hr 97.1 F-98.1 F 81-96 16-20 133-164/66-88 93-100 Exam: General: Present: Appears Well, No Apparent Distress. Pleasant and cooperative. HEENT: Present: PERRL, Normocephaly, atraumatic. Mucus Membranes Moist. No jaundice noted. Conjunctiva moist and clear. Neck: Present: Supple Neck, Midline Trachea, No Masses, No Bruit, No tenderness Cardiac: Present: Regular Rate and Rhythm, No Murmur Lungs: Present: clear to auscultation bilaterally, no wheezes, rhonchi, rales. Neuro: Present: Awake, alert, and oriented x3. Moves all extremities well without hemiparesis or paralysis. Grossly Intact. Absent: Resting Tremor, Essential Tremor Abdomen: Present: Soft, Active Bowel Sounds, No Masses, Non-Tender, nondistended. No abdominal bruit or thrill noted. Skin: Present: Ecchymosis to BUE. Absent: Rash, No skin breakdown. Musculoskeletal: Present: No Fluid Collection, No Pain, Normal Range of Motion Extremities: Present: Normal Gait, No Clubbing, No Cyanosis, Upper Extr. Pulses 2+, Lower Extr. Pulses 2+, No edema. Capillary refill less than 3 seconds. Result/EKG - Labs CBC & BMP: 06/29/17 04:46 06/29/17 04:46 Lab Results: I have reviewed the past 24 hour labs Labs: Laboratory Results - last 24 hr 06/28/17 06/28/17 06/28/17 11:11 18:21 19:20 WBC RBC Hgb Hct MCV MCH MCHC RDW Plt Count MPV Neut % (Auto) Lymph % (Auto) Miner % (Auto) Eos % (Auto) Baso % (Auto) Neut # (Auto) Lymph # (Auto) Miner # (Auto) Eos # (Auto) Baso # (Auto) Immature Gran % Nucleated RBC % Immature Gran # Nucleated RBCs # Immature Plt Fraction Sodium Potassium Chloride Carbon Dioxide Anion Gap BUN Creatinine GFR Calculation BUN/Creatinine Ratio Glucose POC Glucose 217 H 324 H 371 H Calculated Osmolality Calcium Magnesium 06/28/17 06/29/17 06/29/17 23:10 04:46 04:46 WBC 9.4 RBC 2.92 L Hgb 9.3 L Hct 28.3 L MCV 96.9 MCH 32 MCHC 32.9 RDW 14.8 Plt Count 157 MPV 11.1 Neut % (Auto) 66.0 Lymph % (Auto) 19.4 L Miner % (Auto) 11.8 Eos % (Auto) 1.1 Baso % (Auto) 0.2 Neut # (Auto) 6.2 Lymph # (Auto) 1.8 Miner # (Auto) 1.1 H Eos # (Auto) 0.1 Baso # (Auto) 0.0 Immature Gran % 1.5 Nucleated RBC % 0.0 Immature Gran # 0.14 Nucleated RBCs # 0.00 Immature Plt Fraction 0.0 Sodium 143 Potassium 4.1 Chloride 109 H Carbon Dioxide 24 Anion Gap 14.1 BUN 66 H D Creatinine 4.30 H GFR Calculation 11 BUN/Creatinine Ratio 15.00 Glucose 131 H POC Glucose 290 H Calculated Osmolality 305.0 H Calcium 7.8 L Magnesium 2.1 06/29/17 05:13 WBC RBC Hgb Hct MCV MCH MCHC RDW Plt Count MPV Neut % (Auto) Lymph % (Auto) Miner % (Auto) Eos % (Auto) Baso % (Auto) Neut # (Auto) Lymph # (Auto) Miner # (Auto) Eos # (Auto) Baso # (Auto) Immature Gran % Nucleated RBC % Immature Gran # Nucleated RBCs # Immature Plt Fraction Sodium Potassium Chloride Carbon Dioxide Anion Gap BUN Creatinine GFR Calculation BUN/Creatinine Ratio Glucose POC Glucose 150 H Calculated Osmolality Calcium Magnesium - EKG EKG results: interpreted by me, sinus rhythm Specialty Discharge - Follow Up or Referrals Follow up with: Pavel Pierce MD [Physician] - 08/02/17 9:30 am Rene Salinas [REFERRING DOCTOR/PRACTITIONER] - 1 Month (Follow up with Dr. Collado in 3-4 weeks. ) <Sam Lange - Last Filed: 06/29/17 21:15> Assessment and Plan (1) Bradycardia Status: Resolved Assessment and plan: Her bradycardia has resolved Her hypotension is resolved She now has hypertension. May need addition back of some of her medicines. Encouraged her to be very active in physical therapy /rehab She will return to swing bed As she is discharged she will follow-up with Dr. Collado as her grey percher and Dr. Juan Brennan as her PCP. (2) Debility Status: Acute (3) Unsteady gait Status: Acute (4) CKD (chronic kidney disease) stage 5, GFR less than 15 ml/min Problem details: No indication for renal replacement therapy at this time. Status: Chronic (5) Chronic kidney disease, stage IV (severe) Status: Chronic (6) Hypotension Status: Resolved Exam (Progress Note) - Constitutional Vitals: Period Temp Pulse Resp BP Sys/Veliz Pulse Ox Last 24 Hr 97.1 F-97.6 F 67-89 16-20 133-150/66-75 93-97 Result/EKG - Labs CBC & BMP: 06/29/17 04:46 06/29/17 04:46 Labs: Laboratory Results - last 24 hr 06/28/17 06/29/17 06/29/17 23:10 04:46 04:46 WBC 9.4 RBC 2.92 L Hgb 9.3 L Hct 28.3 L MCV 96.9 MCH 32 MCHC 32.9 RDW 14.8 Plt Count 157 MPV 11.1 Neut % (Auto) 66.0 Lymph % (Auto) 19.4 L Miner % (Auto) 11.8 Eos % (Auto) 1.1 Baso % (Auto) 0.2 Neut # (Auto) 6.2 Lymph # (Auto) 1.8 Miner # (Auto) 1.1 H Eos # (Auto) 0.1 Baso # (Auto) 0.0 Immature Gran % 1.5 Nucleated RBC % 0.0 Immature Gran # 0.14 Nucleated RBCs # 0.00 Immature Plt Fraction 0.0 Sodium 143 Potassium 4.1 Chloride 109 H Carbon Dioxide 24 Anion Gap 14.1 BUN 66 H D Creatinine 4.30 H GFR Calculation 11 BUN/Creatinine Ratio 15.00 Glucose 131 H POC Glucose 290 H Calculated Osmolality 305.0 H Calcium 7.8 L Magnesium 2.1 06/29/17 06/29/17 06/29/17 05:13 07:51 11:29 WBC RBC Hgb Hct MCV MCH MCHC RDW Plt Count MPV Neut % (Auto) Lymph % (Auto) Miner % (Auto) Eos % (Auto) Baso % (Auto) Neut # (Auto) Lymph # (Auto) Miner # (Auto) Eos # (Auto) Baso # (Auto) Immature Gran % Nucleated RBC % Immature Gran # Nucleated RBCs # Immature Plt Fraction Sodium Potassium Chloride Carbon Dioxide Anion Gap BUN Creatinine GFR Calculation BUN/Creatinine Ratio Glucose POC Glucose 150 H 133 H 188 H Calculated Osmolality Calcium Magnesium
[2017-06-29] MEDS: DESITIN 4OZ/NYSTATIN 15 GRAM MIXTURE PASTE TOP SCH (12:10)
[2017-06-29 14:17] VITALS: BP 145/72
--- NOTE | 2017-06-29 17:19 | Nephrology Progress Note ---
Nephrology - PN: Subj Interval history: She is awake and oriented. She denies shortness of breath or GI symptoms. Exam (PN)-Nephrology - Vital Signs Vital signs: Period Temp Pulse Resp BP Sys/Veliz Pulse Ox Last 24 Hr 97.1 F-97.6 F 67-96 16-20 133-164/66-88 93-100 Exam: Gen.: Alert and oriented x3. ENT: Pupils equal round reactive to light. EOMs intact. Mucous membranes moist. Neck: Supple. No JVD or bruit. Cardiovascular: Regular rate and rhythm. No murmur rub or gallop Lungs: Clear Abdomen: Soft. Nontender. Positive bowel sounds. No organomegaly Extremities: Trace edema - Lab 06/29/17 04:46 06/29/17 04:46 Most recent lab results ABG pH 7.410 (7.35-7.45) 06/27/17 03:24 ABG pCO2 32.4 MM HG (35-48) L 06/27/17 03:24 ABG pO2 148.0 MM HG (80-95) H 06/27/17 03:24 ABG HCO3 21.5 MMOL/L (20-26) 06/27/17 03:24 ABG O2 Saturation 99.3 % (95-100) 06/27/17 03:24 Calcium 7.8 MG/DL (8.5-10.1) L 06/29/17 04:46 Phosphorus 4.6 MG/DL (2.5-4.9) 06/27/17 04:53 Magnesium 2.1 MG/DL (1.8-2.4) 06/29/17 04:46 Assessment and Plan (1) Chronic kidney disease, stage IV (severe) Status: Chronic Assessment and plan: 67-year-old woman admitted with: * Bradycardia. Resolved * hypotension. Resolved * CRF stage IV. Renal function stable * Diabetes mellitus * New onset seizure. * Aspiration pneumonitis. Resolved * Gastroparesis. Gastric pacer (2) Bradycardia Status: Resolved (3) Hypotension Status: Resolved (4) New onset seizure Status: Acute (5) Respiratory failure Status: Resolved Qualifiers: Qualified Code(s): J96.01 - Acute respiratory failure with hypoxia (6) Gastroparesis Status: Chronic (7) Diabetes mellitus Status: Chronic Specialty Discharge - Follow Up or Referrals Follow up with: Pavel Pierce MD [Physician] - 08/02/17 9:30 am Rene Salinas [REFERRING DOCTOR/PRACTITIONER] - 1 Month (Follow up with Dr. Collado in 3-4 weeks. )
== END 2017-06-29 15:33 | disposition swing bed (61) | DRG 264 ==
LOC: EDBD → EDUNIT# → N.ED 06:19 → SUATTDRO 07:29 → N.EDINP 07:29 → N.CC 08:01 → N.5E 06-28 11:06
PROVIDERS: ADMIT Internal Medicine; ATTEND Family Medicine

== ENCOUNTER 2017-07-18 13:40 | Inpatient (IN) ==
[2017-07-18] MEDS ORDERED: FUROSEMIDE 100 MG/10 ML VIAL IV STA (14:21)
[2017-07-18] MEDS ORDERED: SODIUM CHLORIDE 0.9% 250 ML IV PRN ×2 (14:23→16:38)
[2017-07-18] MEDS ORDERED: FUROSEMIDE 20 MG/2 ML VIAL ONE (15:00)
[2017-07-18] MEDS ORDERED: FUROSEMIDE 40 MG/4 ML VIAL ONE (15:00)
--- NOTE | 2017-07-18 15:08 | XRay Report ---
Portable chest July 18, 2017 at 1436 hours Indication: Shortness of breath Comparison images dated June 27, 2017 Findings: Cardiomediastinal contours are stable with no significant cardiomegaly. Development of diffuse central interstitial and alveolar opacities throughout the upper and lower lobes. Suspect trace right pleural effusion. No acute osseous abnormalities. Impression: Development of diffuse central airspace consolidation. Differential considerations include central pulmonary edema versus infectious process. PROCEDURE INTERPRETED AT [facility] DEPARTMENT OF RADIOLOGY Final Report Signed by: Reynold Harvey
[2017-07-18 15:21] LABS: Basophils % 0.1 % (0.0-0.8); Eosinophils # 0.2 10*3/uL (0.0-0.87); Eosinophils % 2.3 % (0.00-10.9); Hematocrit 23.2 VOL% (35.7-47.0); Hemoglobin 7.5 GM/DL (12.0-16.0); Immature Granulocytes % 0.7 %; Immature Granulocytes Absolute 0.05 #; Lymphocytes # 0.3 10*3/uL (1.4-4.0); Lymphocytes % 4.6 % (21.3-54.2); Mean Corpuscular HGB Conc 32.3 GM/DL (32-36); Mean Corpuscular Hemoglobin 32 PG (27-34); Mean Corpuscular Volume 99.6 FL (87-102); Mean Platelet Volume 11.2 FL (9.6-12.0); Monocytes # 0.7 10*3/uL (0.11-0.8); Monocytes % 10.4 % (1.7-12.7); Neutrophils # 5.6 10*3/uL (1.4-7.4); Neutrophils % 81.9 % (38.7-73.9); Platelet Count 134 T/CUMM (130-400); Red Blood Count 2.33 MC/CUMM (3.8-5.5); Red Cell Distribution Width 14.1 % (9.3-17.3); White Blood Count 6.8 T/CUMM (4-12)
[2017-07-18 15:45] LABS: PT Patient Result 10.6 SECS
[2017-07-18 15:58] LABS: Alanine Aminotransferase 30 U/L (13-56); Albumin 2.6 G/DL (3.4-5.0); Alkaline Phosphatase 159 U/L (45-117); Aspartate Amino Transferase 17 U/L (0-37); Blood Urea Nitrogen 91 MG/DL (7-18); Calcium 8.3 MG/DL (8.5-10.1); Glucose 263 MG/DL (74-106); Magnesium 2.2 MG/DL (1.8-2.4); Osmolality,Calculated 304.2 MOS/KG (273-304); Potassium 5.8 MMOL/L (3.5-5.1); Sodium 134 MMOL/L (136-145); Total Protein 5.6 G/DL (6.4-8.3); Troponin I Only < 0.015 NG/ML (0.00-0.045)
--- NOTE | 2017-07-18 16:01 | Emergency Department Note ---
IAgata Emily, am scribing for, and in the presence of, Jose Escamilla MD 14:21. Francine Paez Phillip K, MD, personally performed the services described in this documentation, ascribed by María Elena Parmar in my presence, and it is both accurate and complete [id number] . Arrival - Arrival Chief Complaint: Shortness of Breath Stated Complaint: shortness of breath ED Nursing Triage Note: c/o shortness of breath that started this am. Patient is over at the [facility] in swing bed. Patient has had 20mg of lasix this am. Patient has low H&H and was to get two units of blood but due to the SOB patient was sent here to be seen by a doctor. Mode of Arrival: Stretcher Limitations: No Limitations Source: Patient Time Seen by Provider: 07/18/17 14:00 - History of Present Illness HPI Narrative: Pt is a 67 y/o female who came to ED with c/o SOB that started couple days ago but worsened this morning and got anxious which made it worse. Pt states has cough, but denies fever. Pt is at the [facility] in swing bed, in which had 20mg of Lasix this morning. Pt has low H&H and was to get two units of blood but due to the SOB patient was sent here to be seen by a doctor. Pt was originally in swing bed when transferred to ED on Jun 22, 2017 for blood in mouth due to seizure activity. Pt then was unresponsive the entire visit, with EKG showing narrow QRS, and becoming hypotensive and given IV fluids with Levophed infusion. Then another seizure happened in ED (with no hx of seizures ) but responded with Ativan IV but bradycardia and taken to [facility] medical lab technologist under Dr. Madrid supervision where they implanted a temporary pacemaker. Onset (ago): hour(s) Consistency: constant Severity: moderate Severity scale (1-10): 5 Quality: fullness Allergies/Adverse Reactions: Allergies Allergy/AdvReac Type Severity Reaction Status Date / Time Penicillins Allergy Intermediate RASH Verified 07/18/17 13:56 sulfamethoxazole Allergy Mild RASH Verified 07/18/17 13:56 [From Bactrim] trimethoprim [From Bactrim] Allergy Mild RASH Verified 07/18/17 13:56 Home Medications: Home Medications Medication Instructions Recorded Confirmed Type Aspirin Tab 325 mg PO QAM 05/13/17 06/29/17 History Atorvastatin [Lipitor] 20 mg PO QPM 05/13/17 06/29/17 History Nitroglycerin 0.4 mg/Hr Patch 1 patch TRANSDERM DAILY 05/13/17 06/29/17 History [Nitro-Dur 0.4 mg/hr Patch] Ondansetron HCl 4 mg PO QID PRN 05/13/17 06/29/17 History Ranolazine [Ranexa] 500 mg PO BID 05/13/17 06/29/17 History buPROPion HCl [Bupropion Xl] 300 mg PO BID 05/13/17 06/29/17 History Benzonatate 200 mg PO DAILY PRN 06/16/17 06/29/17 History Cholecalciferol (Vitamin D3) 5,000 unit PO QPM 06/16/17 06/29/17 History [Vitamin D3] Erythromycin Base [Erythromycin DR 250 mg PO TID 06/16/17 06/29/17 History Cap] Acetaminophen Tab [Tylenol Tab] 325 mg PO Q4H PRN tablet 06/22/17 06/29/17 Rx HYDROcodone/ACETAMIN 7.5-325 1 tablet PO Q4H PRN #20 tablet 06/22/17 06/29/17 Rx [[place] 7.5-325] Pantoprazole Tab [Protonix Tab] 40 mg PO DAILY tablet 06/22/17 06/29/17 Rx Labetalol Tab [Trandate Tab] 200 mg PO BID tablet 06/29/17 06/29/17 Rx Montelukast Tab [Singulair Tab] 10 mg PO DAILY tablet 06/29/17 06/29/17 Rx Phenol 1.4% Throat [place] 5 spray PO Q2H PRN bottle 06/29/17 06/29/17 Rx [Chloraseptic [place]] amLODIPine [Norvasc] 10 mg PO DAILY tablet 06/29/17 06/29/17 Rx hydrALAZINE TAB [Apresoline Tab] 100 mg PO TID tablet 06/29/17 06/29/17 Rx levETIRAcetam TAB [Keppra Tab] 500 mg PO BID tablet 06/29/17 06/29/17 Rx predniSONE TAB [PredniSONE] 20 mg PO DAILY tablet 06/29/17 06/29/17 Rx Review of System - Review of System 12 point system: reviewed and no additional remarkable complaints except as stated - Review of System Constitutional: Absent: fever Respiratory: Present: respiratory distress Cardiovascular: Absent: chest pain Gastrointestinal: Absent: abdominal pain, nausea, vomiting Musculoskeletal: Absent: arm pain Skin: Absent: rash Neurological: Absent: headache Psychiatric: Present: anxiety Medical,Surgical,& Family Hx - Medical History Cardio: History of: Hypertension No history of: CAD, [place] Psychological: History of: Depression Neurology: History of: Migraine (PAST HX.), Seizures (jun 2017) HEENT: History of: Eye Problem (GLASSES) Endocrine: History of: Diabetes Mellitus (IDDM), Dyslipidemia Respiratory: History of: Bronchitis (PAST HX.) No history of: Respiratory Problems (FLU VAC-YES; PNEU VAC- YES.) Renal: History of: Renal Failure (DR LAU) Gastrointestinal: History of: GERD, GI Problems (NAUSEA AND VOMITING. GASTROINTERITIS) Musculoskeletal: History of: Back/Neck Problems (LOWER BACK PAIN AND SHOULDERS) No history of: Amputation Hematology: History of: Anemia Reproductive: History of: Reproductive Problems (UTERINE CANCER) Other: History of: Anesthesia Reactions (VOMITING WITH ANESTHESIA), Cancer ( UTERINE CANCER.), MRSA (RT SHOULDER 2006) - Surgical History Cardiac Surgeries: Sugical HX of: Cardiac Surgery (temporar pace placed.) Neurologic Surgeries: Patient denies: Neurologic Surgery Abdominal Surgeries: Surgical HX of: Abdominal Surgery (gastric stimulator), Cholecystectomy, EGD (?) Reproductive Surgeries: Surgical HX of;: Breast Surgery (RT BREAST LUMPECTOMY), Gynecologic Surgery, Hysterectomy Orthopedic Surgeries: Patient denies;: Implanted Devices, Orthopedic Surgery, Spinal Surgery, Total Hip Replacement, Total Knee Replacement - Family History Family History: Reports;: Family Diabetes, Family Hypertension - Social History Smoking Status: Never smoker Frequency of Alcohol Use: None Type of Drug Use: None Exam Vital Signs: Vital Signs Temperature 97 F L 07/18/17 16:17 Pulse Rate 68 07/18/17 16:17 Respiratory Rate 18 07/18/17 16:17 Blood Pressure 138/90 07/18/17 16:17 O2 Sat by Pulse Oximetry 91 L 07/18/17 13:40 - General General appearance: alert, in distress (mild secondary to SOB) - Head Head exam: Present: atraumatic, normocephalic - Eye Eye exam: Present: PERRL, EOMI, other (conjunctiva pale) - Neck Neck exam: Present: full ROM, trachea midline - Chest Chest inspection: Present: symmetric chest wall rise - Respiratory Respiratory exam: Present: rales (bilateral rales localized). Absent: normal lung sounds bilaterally - Cardiovascular Cardiovascular exam: Present: regular rate, normal rhythm, normal heart sounds - Abdominal Exam Abdominal exam: Present: soft. Absent: tenderness - Extremities Exam Extremities exam: Present: pedal edema (+3 pitting edema bilaterally in lower extremities; edema to bilateral upper extremities). Absent: tenderness - Neurological Exam Neurological exam: Present: alert, oriented X3, CN II-XII intact. Absent: motor sensory deficit - Psychiatric Psychiatric exam: Present: normal affect, normal mood - Skin Skin exam: Present: warm, dry Course Course Narrative: Patient discussed with the hospitalist. Results - Labs CBC & BMP: 07/18/17 14:58 07/18/17 14:58 Lab Results: I have reviewed the patients labs Labs: Laboratory Tests 07/18/17 14:58 WBC 6.8 RBC 2.33 L Hgb 7.5 L Hct 23.2 L Plt Count 134 Neut % (Auto) 81.9 H Lymph % (Auto) 4.6 L Lymph # (Auto) 0.3 L Laboratory Tests 07/18/17 14:58 INR 1.0 PT Patient/Control Mix 10.6 Laboratory Tests 07/18/17 07/18/17 14:58 14:58 Sodium 134 L Potassium 5.8 H Chloride 103 Carbon Dioxide 20 L Anion Gap 16.8 H BUN 91 H Creatinine 6.00 H GFR Calculation 8 BUN/Creatinine Ratio 15.00 Glucose 263 H Calculated Osmolality 304.2 H Calcium 8.3 L Magnesium 2.2 Total Bilirubin 0.40 AST 17 ALT 30 Alkaline Phosphatase 159 H Troponin I < 0.015 B-Natriuretic Peptide 178 H Total Protein 5.6 L Albumin 2.6 L Globulin 3.0 Albumin/Globulin Ratio 0.8 L - EKG EKG results: interpreted by ANNALISE, WNL, sinus rhythm - Diagnostic Findings Procedure: Chest x-ray: report reviewed by me (Development of diffuse central airspace consolidation. Differential considerations include central pulmonary edema versus infectious process.) Disposition Clinical Impression: Acute renal failure, Anemia, Congestive heart failure Case discussed with: patient Disposition: Still a Patient Condition: Guarded Additional Instructions: Admit to the hospitalist.
[2017-07-18] MEDS ORDERED: PROMETHAZINE 25 MG/1 ML VIAL IM PRN (16:24)
[2017-07-18] MEDS ORDERED: ONDANSETRON 4 MG/2 ML VIAL IV PRN (16:24)
[2017-07-18] MEDS ORDERED: DOCUSATE SODIUM 100 MG CAPSULE PO PRN (16:24)
[2017-07-18] MEDS ORDERED: ACETAMINOPHEN 325 MG TABLET PO PRN (16:24)
[2017-07-18] MEDS ORDERED: GLUCAGON 1 MG VIAL IM PRN (16:24)
[2017-07-18] MEDS ORDERED: DEXTROSE 50% 25 GM/50 ML SYRINGE IV PRN (16:24)
[2017-07-18] MEDS ORDERED: SODIUM CHLORIDE 0.9% 1,000 ML IV SCH (16:30)
--- NOTE | 2017-07-18 16:42 | Hospitalist History & Physical ---
<Adrianna Anders - Last Filed: 07/18/17 16:47> Assessment and Plan - Time spent with patient Time spent with patient: Greater than 30 minutes (1) Diabetes mellitus Status: Chronic Assessment and plan: 67-year-old white female with history of diabetes with gastroparesis status post gastric pacemaker placement 2 months ago, hypertension, hyperlipidemia, seizures, admitted by the hospitalist service with shortness of breath due to fluid overload, hyperkalemia, and acute on chronic renal failure. Patient is being admitted to telemetry and will start Lasix. Consult Dr. Lau for acute on chronic renal failure. Go ahead and transfuse 2 units of blood and this should help with her shortness of breath. Once patient's medications have been entered into the system they will be reconciled. Patient has not had any vomiting in several days so we will let her have a diabetic diet to see if she tolerates. Dr. Perez will see and examine patient and further recommendations to follow. Current Visit: No Qualifiers: Diabetes mellitus type: type 2 Diabetes mellitus complication status: with kidney complications Diabetes mellitus complication detail: with chronic kidney disease Chronic kidney disease stage: stage 3 (moderate) (2) Hypertension Status: Chronic Current Visit: No Qualifiers: Hypertension type: essential hypertension Qualified Code(s): I10 - Essential (primary) hypertension (3) Gastroparesis Status: Chronic Current Visit: No (4) Acute on chronic renal failure Status: Acute Current Visit: No (5) Debility Status: Acute Current Visit: No (6) Hyperkalemia Status: Resolved Current Visit: No History of Present Illness Chief complaint: Shortness of breath History of present illness: Ms. Pedersen is a 67 year old white female with history of CKD, diabetes, hypertension, anemia, and gastroparesis presenting to the ED with a 2 day history of increasing shortness of breath. Patient was at [facility] for debility after prolonged hospitalization. Her last hospitalization she was discharged on 06/29/2017 where she was admitted with seizure episode resulting in bradycardia. She had a temporary pacemaker placed in the [place] [employer] and her bradycardia improved along with her pain, hypoxia, and postictal state. She also developed aspiration pneumonia at that time. She had been at [facility] for rehab when she was to receive 2 units of blood per Dr. Hannon's note this morning. Patient then became more acutely short of breath and was transferred to the emergency room for further evaluation. She is afebrile her vital signs are stable. Her H&H is 7.5/23.2, potassium is 5.8, creatinine is elevated at 6, BNP 178, and chest x-ray showing pulmonary edema. Upon exam patient has conversational dyspnea with crackles bilaterally. She has 3+ pitting edema of bilateral lower extremities and 2+ in her right upper extremity. After discussion with the ED physician Dr. Escamilla and Dr. Perez the hospitalist, it was agreed patient would be admitted for further evaluation and treatment. When patient's medications have been entered into the system they will be reconciled and patient is a full code. Home Medications Medication Instructions Recorded Confirmed Type Aspirin Tab 325 mg PO QAM 05/13/17 06/29/17 History Atorvastatin [Lipitor] 20 mg PO QPM 05/13/17 06/29/17 History Nitroglycerin 0.4 mg/Hr Patch 1 patch TRANSDERM DAILY 05/13/17 06/29/17 History [Nitro-Dur 0.4 mg/hr Patch] Ondansetron HCl 4 mg PO QID PRN 05/13/17 06/29/17 History Ranolazine [Ranexa] 500 mg PO BID 05/13/17 06/29/17 History buPROPion HCl [Bupropion Xl] 300 mg PO BID 05/13/17 06/29/17 History Benzonatate 200 mg PO DAILY PRN 06/16/17 06/29/17 History Cholecalciferol (Vitamin D3) 5,000 unit PO QPM 06/16/17 06/29/17 History [Vitamin D3] Erythromycin Base [Erythromycin DR 250 mg PO TID 06/16/17 06/29/17 History Cap] Acetaminophen Tab [Tylenol Tab] 325 mg PO Q4H PRN tablet 06/22/17 06/29/17 Rx HYDROcodone/ACETAMIN 7.5-325 1 tablet PO Q4H PRN #20 tablet 06/22/17 06/29/17 Rx [[place] 7.5-325] Pantoprazole Tab [Protonix Tab] 40 mg PO DAILY tablet 06/22/17 06/29/17 Rx Labetalol Tab [Trandate Tab] 200 mg PO BID tablet 06/29/17 06/29/17 Rx Montelukast Tab [Singulair Tab] 10 mg PO DAILY tablet 06/29/17 06/29/17 Rx Phenol 1.4% Throat [place] 5 spray PO Q2H PRN bottle 06/29/17 06/29/17 Rx [Chloraseptic [place]] amLODIPine [Norvasc] 10 mg PO DAILY tablet 06/29/17 06/29/17 Rx hydrALAZINE TAB [Apresoline Tab] 100 mg PO TID tablet 06/29/17 06/29/17 Rx levETIRAcetam TAB [Keppra Tab] 500 mg PO BID tablet 06/29/17 06/29/17 Rx predniSONE TAB [PredniSONE] 20 mg PO DAILY tablet 06/29/17 06/29/17 Rx Allergies Allergy/AdvReac Type Severity Reaction Status Date / Time Penicillins Allergy Intermediate RASH Verified 07/18/17 13:56 sulfamethoxazole Allergy Mild RASH Verified 07/18/17 13:56 [From Bactrim] trimethoprim [From Bactrim] Allergy Mild RASH Verified 07/18/17 13:56 Medical,Surgical,& Family Hx - Medical History Cardio: History of: Hypertension No history of: CAD, [place] Psychological: History of: Depression Neurology: History of: Migraine (PAST HX.), Seizures (jun 2017) HEENT: History of: Eye Problem (GLASSES) Endocrine: History of: Diabetes Mellitus (IDDM), Dyslipidemia Respiratory: History of: Bronchitis (PAST HX.) No history of: Respiratory Problems (FLU VAC-YES; PNEU VAC- YES.) Renal: History of: Renal Failure (DR LAU) Gastrointestinal: History of: GERD, GI Problems (NAUSEA AND VOMITING. GASTROINTERITIS) Musculoskeletal: History of: Back/Neck Problems (LOWER BACK PAIN AND SHOULDERS) No history of: Amputation Hematology: History of: Anemia Reproductive: History of: Reproductive Problems (UTERINE CANCER) Other: History of: Anesthesia Reactions (VOMITING WITH ANESTHESIA), Cancer ( UTERINE CANCER.), MRSA (RT SHOULDER 2006) - Surgical History Cardiac Surgeries: Sugical HX of: Cardiac Surgery (temporar pace placed.) Neurologic Surgeries: Patient denies: Neurologic Surgery Abdominal Surgeries: Surgical HX of: Abdominal Surgery (gastric stimulator), Cholecystectomy, EGD (?) Reproductive Surgeries: Surgical HX of;: Breast Surgery (RT BREAST LUMPECTOMY), Gynecologic Surgery, Hysterectomy Orthopedic Surgeries: Patient denies;: Implanted Devices, Orthopedic Surgery, Spinal Surgery, Total Hip Replacement, Total Knee Replacement - Family History Family History: Reports;: Family Diabetes, Family Hypertension - Social History Smoking Status: Never smoker Frequency of Alcohol Use: None Type of Drug Use: None Marital Status: Single Lives With:: Alone Functional capacity: uses cane/walker 12 point system: reviewed and no additional remarkable complaints except as stated Exam - Constitutional Vitals: Period Temp Pulse Resp BP Sys/Veliz Pulse Ox Last 24 Hr 97 F-97.0 F 68-68 18-24 138-138/90-90 91 Exam: Constitutional System: Mild distress. No tremulousness. Head: Normocephalic, atraumatic. Ears, Nose and Throat System: No evidence of Otitis or Mastoiditis. No epistaxis or discharge Eyes System: Pupils equal, round, and reactive. Extraocular muscles intact. Neck: Supple, without adenopathy, No jugular venous distention. No thyromegaly, neck mass, or prior surgery apparent. Respiratory System: Chest bilateral crackles to auscultation. Cardiovascular System: Heart with regular rate and rhythm. 1/6 murmur. GI System: Abdomen soft, nontender. Normo active bowel sounds present. Well- healed surgical incision Musculoskeletal System: limbs with 3+ pedal edema. No distal pulses due to edema, 2+ edema right upper extremity. Neurological System: No discernable sensory deficit. No aphasia Psychiatric System: Conversation is rational Results - Labs CBC & BMP: 07/18/17 14:58 07/18/17 14:58 Lab Results: I have reviewed the past 24 hour labs - Diagnostic Findings Procedure: Chest x-ray: report reviewed by me (Pulmonary edema) Quality Measures - VTE Contraindication to Mechanical VTE Prophylaxis: Local Inflammation <Kimberley Perez - Last Filed: 07/18/17 17:02> History of Present Illness History of present illness: Patient seen and examined independently of BOB Anders, agree with history, assessment and plan as documented. 67 y/o WF being admitted from swing bed with increasing sob. She also reports BUE and BLE edema. She has a history of CKD, followed by Dr. Lau. Echo 06/2017 with EF 60% and grade II diastolic dysfunction. Patient with noted anasarca. Patient given lasix 60 in the ED with very little response. Will increase dose to 80 BID. Obtain iron studies. Will transfuse 2 units PRBCs. Get VQ scan. Discussed patient with Dr. Lau. Exam - Constitutional Vitals: Period Temp Pulse Resp BP Sys/Veliz Pulse Ox Last 24 Hr 97 F-97.0 F 68-68 18-24 138-138/90-90 91 Results - Labs CBC & BMP: 07/18/17 14:58 07/18/17 14:58
[2017-07-18 17:30] LABS: % Iron Saturation 12.1 % (18-50); Ferritin 271.2 ng/ml (8-252)
[2017-07-18 19:05] LABS: ABG Base Excess -7.2 MMOL/L (-2.5-2.5); ABG HCO3 18.5 MMOL/L (20-26); ABG Oxygen Saturation 95.6 % (95-100); ABG PCO2 28.7 MM HG (35-48); ABG PH 7.382 (7.35-7.45); ABG PO2 80.9 MM HG (80-95); Allen Test Positive; Pt O2 Delivery Device Venturi Mask
[2017-07-18] MEDS: INSULIN LISPRO 100 UNIT/ML SUBCUT SCH (19:10)
[2017-07-18] MEDS ORDERED: FUROSEMIDE 40 MG/4 ML VIAL IV SCH (21:00)
[2017-07-18] MEDS: ENOXAPARIN 30 MG/0.3 ML SYRINGE SUBCUT SCH (21:40)
[2017-07-18 21:44] LABS: Platelet Estimate Adequate
[2017-07-18 21:45] LABS: Burr Cells Few; Poikilocytosis Slight; Tear Drop Cells Few
[2017-07-18] MEDS: FUROSEMIDE 100 MG/10 ML VIAL IV SCH (22:50)
[2017-07-19 05:48] LABS: Basophils % 0.2 % (0.0-0.8); Eosinophils # 0.2 10*3/uL (0.0-0.87); Eosinophils % 2.3 % (0.00-10.9); Hematocrit 29.3 VOL% (35.7-47.0); Immature Granulocytes % 0.9 %; Immature Granulocytes Absolute 0.06 #; Lymphocytes # 0.7 10*3/uL (1.4-4.0); Lymphocytes % 10.7 % (21.3-54.2); Mean Corpuscular HGB Conc 33.1 GM/DL (32-36); Mean Corpuscular Hemoglobin 31 PG (27-34); Mean Corpuscular Volume 94.2 FL (87-102); Mean Platelet Volume 11.7 FL (9.6-12.0); Monocytes # 0.8 10*3/uL (0.11-0.8); Monocytes % 12.8 % (1.7-12.7); Neutrophils # 4.7 10*3/uL (1.4-7.4); Neutrophils % 73.1 % (38.7-73.9); Platelet Count 153 T/CUMM (130-400); Red Cell Distribution Width 16.1 % (9.3-17.3); White Blood Count 6.4 T/CUMM (4-12)
[2017-07-19 06:03] LABS: Hemoglobin 9.7 GM/DL (12.0-16.0); Red Blood Count 3.11 MC/CUMM (3.8-5.5)
[2017-07-19 06:20] LABS: Calcium 8.3 MG/DL (8.5-10.1); Magnesium 2.2 MG/DL (1.8-2.4); Potassium 5.4 MMOL/L (3.5-5.1)
--- NOTE | 2017-07-19 08:06 | XRay Report ---
Exam: XR chest 1V portable Date: 07/19/2017 4:00 AM Indication: Shortness of breath Comparison: 07/18/2017 Technical: AP portable Findings: Cardiomegaly present. Diffuse infiltrates are present with interstitial alveolar density scattered in both lung cruz. Low volume effusion on the right. The mediastinum reveals no obvious acute findings. The trachea slightly deviated to right. External cardiac leads are present. No pneumothorax Impression: 1. Persistent bilateral pulmonary infiltrates diffusely present in both lungs with low volume effusions right greater than left 2. Persistent cardiomegaly PROCEDURE INTERPRETED AT [facility] DEPARTMENT OF RADIOLOGY Final Report Signed by: Dr. Rian Taylor
--- NOTE | 2017-07-19 08:27 | EKG Report ---
Stationary ECG Study [facility] ER Test Date: 07/18/2017 1:51:29 PM Pat Name: MARLENY ZUNIGA Department: Room: 283 Gender: F Inspector Finishing: : 1950 Requested by: Jose Mcknight Order Number: [id number] Reading MD: ASCENCION MORGAN Intervals [place] Rate: 67 P: 26 HI: 194 QRS: 29 QRSD: 99 T: 33 QT: 380 QTc: 396 Interpretive Statements SINUS RHYTHM Electronically Signed On 07-19-17 15:32:23 CDT by ASCENCION MORGAN [email or web address]
--- NOTE | 2017-07-19 08:45 | Nuclear Medicine Report ---
Exam: NM lung scan vent and per Date: 07/19/2017 6:45 PM Indication: Shortness of breath Comparison: 06/23/2017 and chest x-ray from 07/19/2017 Findings: The patient was given 40 mCi of technetium 9M DTPA and 5 mCi of Tc 99 MAA. There is trapping of the radioaerosol in the endobronchial regions. The examination reveals some areas of matched defect in the right lung towards the upper lobe and middle lobe regions. Some defects are also present in the left lung. Impression: 1. Matched defects associated with underlying infiltrates on routine chest radiograph these findings suggest low to intermediate probability of pulmonary thromboemboli PROCEDURE INTERPRETED AT [facility] DEPARTMENT OF RADIOLOGY Final Report Signed by: Dr. Rian Taylor
[2017-07-19] MEDS: ACETAMINOPHEN 325 MG TABLET PO PRN (09:02)
[2017-07-19] MEDS: PANTOPRAZOLE 40 MG TABLET PO SCH (09:02)
[2017-07-19] MEDS: FUROSEMIDE 100 MG/10 ML VIAL IV SCH ×2 (09:03→16:14)
[2017-07-19] MEDS: INSULIN LISPRO 100 UNIT/ML SUBCUT SCH ×2 (09:07→17:21)
--- NOTE | 2017-07-19 10:40 | Nephrology Consult Note ---
History of Present Illness Chief complaint: CRF History of present illness: Ms. Pedersen is a 67 year old female with several chronic medical problems including chronic renal failure late stage IV. She was transferred from swing bed for shortness of breath. Her renal function has worsened recently while there. Her baseline creatinine was between 4 and 4.5 but has risen to 6. She has developed more edema. She was also anemic. She was transfused yesterday and states her shortness of breath is slightly better. She has received IV diuretics and is responding. Home Medications Medication Instructions Recorded Confirmed Type Aspirin Tab 325 mg PO QAM 05/13/17 07/19/17 History Atorvastatin [Lipitor] 20 mg PO QPM 05/13/17 07/19/17 History Nitroglycerin 0.4 mg/Hr Patch 1 patch TRANSDERM DAILY 05/13/17 07/19/17 History [Nitro-Dur 0.4 mg/hr Patch] Ondansetron HCl 4 mg PO QID PRN 05/13/17 07/19/17 History Ranolazine [Ranexa] 500 mg PO BID 05/13/17 07/19/17 History buPROPion HCl [Bupropion Xl] 300 mg PO BID 05/13/17 07/19/17 History Benzonatate 200 mg PO TID PRN 06/16/17 07/19/17 History Cholecalciferol (Vitamin D3) 5,000 unit PO QPM 06/16/17 07/19/17 History [Vitamin D3] Erythromycin Base [Erythromycin DR 250 mg PO TID 06/16/17 07/19/17 History Cap] Acetaminophen Tab [Tylenol Tab] 325 mg PO Q4H PRN tablet 06/22/17 07/19/17 Rx HYDROcodone/ACETAMIN 7.5-325 1 tablet PO Q4H PRN #20 tablet 06/22/17 07/19/17 Rx [[place] 7.5-325] Pantoprazole Tab [Protonix Tab] 40 mg PO DAILY tablet 06/22/17 07/19/17 Rx Labetalol Tab [Trandate Tab] 200 mg PO BID tablet 06/29/17 07/19/17 Rx Montelukast Tab [Singulair Tab] 10 mg PO DAILY tablet 06/29/17 07/19/17 Rx Phenol 1.4% Throat [place] 5 spray PO Q2H PRN bottle 06/29/17 07/19/17 Rx [Chloraseptic [place]] amLODIPine [Norvasc] 10 mg PO DAILY tablet 06/29/17 07/19/17 Rx hydrALAZINE TAB [Apresoline Tab] 100 mg PO TID tablet 06/29/17 07/19/17 Rx levETIRAcetam TAB [Keppra Tab] 500 mg PO BID tablet 06/29/17 07/19/17 Rx predniSONE TAB [PredniSONE] 20 mg PO DAILY tablet 06/29/17 07/19/17 Rx Colchicine [Colcrys] 0.6 mg PO DAILY 07/19/17 07/19/17 History Duloxetine HCl [Cymbalta] 60 mg PO BEDTIME 07/19/17 07/19/17 History Loratadine Tab [Claritin Tab] 10 mg PO DAILY 07/19/17 07/19/17 History Meloxicam [Mobic] 7.5 mg PO MOWEFR 07/19/17 07/19/17 History Metoprolol Succinate 50 mg PO QPM 07/19/17 07/19/17 History Metoprolol Succinate 100 mg PO QAM 07/19/17 07/19/17 History Omeprazole [Prilosec] 20 mg PO DAILY 07/19/17 07/19/17 History Ranolazine [Ranexa] 500 mg PO BID 07/19/17 07/19/17 History Allergies Allergy/AdvReac Type Severity Reaction Status Date / Time Penicillins Allergy Intermediate RASH Verified 07/18/17 13:56 sulfamethoxazole Allergy Mild RASH Verified 07/18/17 13:56 [From Bactrim] trimethoprim [From Bactrim] Allergy Mild RASH Verified 07/18/17 13:56 Medical,Surgical,& Family Hx - Medical History Cardio: History of: Hypertension No history of: CAD, [place] Psychological: History of: Depression Neurology: History of: Migraine (PAST HX.), Seizures (jun 2017) HEENT: History of: Eye Problem (GLASSES) Endocrine: History of: Diabetes Mellitus (IDDM), Dyslipidemia Respiratory: History of: Bronchitis (PAST HX.) No history of: Respiratory Problems (FLU VAC-YES; PNEU VAC- YES.) Renal: History of: Renal Failure (DR LAU) Gastrointestinal: History of: GERD, GI Problems (NAUSEA AND VOMITING. GASTROINTERITIS) Musculoskeletal: History of: Back/Neck Problems (LOWER BACK PAIN AND SHOULDERS) No history of: Amputation Hematology: History of: Anemia Reproductive: History of: Reproductive Problems (UTERINE CANCER) Other: History of: Anesthesia Reactions (VOMITING WITH ANESTHESIA), Cancer ( UTERINE CANCER.), MRSA (RT SHOULDER 2007) - Surgical History Cardiac Surgeries: Sugical HX of: Cardiac Surgery (temporar pace placed.) Neurologic Surgeries: Patient denies: Neurologic Surgery Abdominal Surgeries: Surgical HX of: Abdominal Surgery (gastric stimulator), Cholecystectomy, EGD (?) Reproductive Surgeries: Surgical HX of;: Breast Surgery (RT BREAST LUMPECTOMY), Gynecologic Surgery, Hysterectomy Orthopedic Surgeries: Patient denies;: Implanted Devices, Orthopedic Surgery, Spinal Surgery, Total Hip Replacement, Total Knee Replacement - Family History Family History: Reports;: Family Diabetes, Family Hypertension - Social History Smoking Status: Never smoker Frequency of Alcohol Use: None Type of Drug Use: None Review of Systems 12 point system: reviewed and no additional remarkable complaints except as stated Exam - Vital Signs Vital signs: Period Temp Pulse Resp BP Sys/Veliz Pulse Ox Last 24 Hr 96.4 F-98.2 F 68-98 18-24 118-170/54-106 91-98 Exam: Gen.: Alert and oriented x3. ENT: Pupils equal round reactive to light. EOMs intact. Mucous membranes moist. Neck: Supple. No JVD or bruit. Cardiovascular: Regular rate and rhythm. No murmur rub or gallop Lungs: Bilateral rales Abdomen: Soft. Nontender. Positive bowel sounds. No organomegaly Extremities: 3+ edema Results - Labs CBC & BMP: 07/19/17 04:50 07/19/17 04:50 Assessment and Plan (1) Acute on chronic renal failure Status: Acute Assessment and plan: 67-year-old woman with: * CRF. This appears to have progressed to stage V. I have discussed the possibility of dialysis if she does not respond adequately to diuretics. * Volume overload. She has developed significant edema. Her weight is 18 kg higher than several weeks ago. Agree with IV diuretics. She appears to be responding with adequate urine output. EF 60% on echo last month. Grade 2 diastolic dysfunction * Anemia. Improved after transfusion * Diabetes mellitus * Gastroparesis. Status post gastric pacemaker * Seizure disorder * Debility Current Visit: No (2) Anemia Status: Acute Current Visit: Yes (3) Congestive heart failure Status: Acute Current Visit: Yes (4) Debility Status: Acute Current Visit: No (5) Seizure Status: Acute Current Visit: No (6) CKD (chronic kidney disease) stage 5, GFR less than 15 ml/min Problem details: No indication for renal replacement therapy at this time. Status: Chronic Current Visit: No (7) Diabetes mellitus Status: Chronic Current Visit: No Qualifiers: Diabetes mellitus type: type 2 Diabetes mellitus complication status: with kidney complications Diabetes mellitus complication detail: with chronic kidney disease Chronic kidney disease stage: stage 3 (moderate) (8) Gastroparesis Status: Chronic Current Visit: No
--- NOTE | 2017-07-19 11:30 | Hospitalist Progress Note ---
Assessment and Plan (1) Acute on chronic renal failure Status: Acute Assessment and plan: Impression: 1. Acute on chronic kidney disease 2. Pulmonary vascular congestion 3. Seizures 4. Pain Plan: She was taking some [place] at [facility] for pain. I will resume this. Continue diuretics, and consider dosage titration. We will see if she has had any evaluation done regarding the seizures. This note was completed using [employer] voice recognition software. There may be check examiner errors as a result. Current Visit: No Qualifiers: Acute renal failure type: with acute renal cortical necrosis Hospitalist: Subjective Interval history: Follow-up pulmonary vascular congestion, type II DM, chronic kidney disease. The patient complains of pain all over. It is located in both flanks. She says that she had CPR here about a month ago. She describes dyspnea and generalized edema. She is already receiving diuretics. She reports a prior history of seizures, and wonders what is being done to investigate those. Exam - Constitutional Vitals: Period Temp Pulse Resp BP Sys/Veliz Pulse Ox Last 24 Hr 96.4 F-98.2 F 68-98 18-24 118-170/54-106 91-98 Vital signs are noted above. Heart is regular with distant tones. She has rales audible over the end her chest. She has generalized anasarca. She is awake alert. Results - Labs CBC & BMP: 07/19/17 04:50 07/19/17 04:50 Lab Results: I have reviewed the past 24 hour labs Quality Measures - VTE Contraindication to Mechanical VTE Prophylaxis: Local Inflammation
[2017-07-19] MEDS: amLODIPine 10 MG TABLET PO SCH (16:15)
[2017-07-19] MEDS ORDERED: ATORVASTATIN 20 MG TABLET PO SCH (19:00)
[2017-07-19] MEDS ORDERED: RANOLAZINE 500 MG TABLET PO SCH (21:00)
[2017-07-19] MEDS: DULoxetine 30 MG CAPSULE PO SCH (22:06)
[2017-07-19] MEDS: RANOLAZINE 500 MG TABLET PO SCH (22:06)
[2017-07-19] MEDS: LABETALOL 100 MG TABLET PO SCH (22:06)
[2017-07-19] MEDS: levETIRAcetam 500 MG TABLET PO SCH (22:06)
[2017-07-19] MEDS: ENOXAPARIN 30 MG/0.3 ML SYRINGE SUBCUT SCH (22:08)
--- NOTE | 2017-07-20 03:28 | Event Note ---
Addendum entered and electronically signed by Ruba Ha NP 07/20/17 07: 05: Patient was assessed by me. Slight weakness of left side of mouth noted. However nurse states this is her baseline. Pupils equally round and reactive to light. EOMI. 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 BUE and BLE strength 5/5 and equal bilaterally. Addendum entered and electronically signed by Ruba Ha NP 07/20/17 06: 31: Nursing called to report CT head results which state "1. No acute intracranial hemorrhage. 2. Subtle changes in left frontal parietal lobe could represent possibly an early infarct. MRI is recommended for further evaluation. 3. Hyperostosis frontalis interna changes." MRI head/brain w/o contrast ordered for follow up. Will assess patient's neurological status. Original Note: <Ruba Ha - Last Filed: 07/20/17 03:24> Nursing called to report that patient was on the floor sitting on her bottom. Nurse reports that patient was out of bed and confused, thinking that she was at home getting someone off to work when she fell. After a short time, patient confusion subsided and patient was able state that she was at [facility]. Bruising was found by nursing on the patient's bottom. The patient is unsure of whether or not she hit her head during the event. A CT head w/o contrast and a pelvic xray was ordered. <Unruly Vann - Last Filed: 07/20/17 07:40> I saw and examined the patient in conjunction with nurse practitioner Louis Byrne. As above the patient was confused was trying to get up and fell. She is being treated for fluid overload and acute renal failure. She still has significant edema particularly right upper extremity. Both legs have 2-3+ pitting edema to the knee and dependent thigh. No labs are available from this morning and they were ordered. Renal will be seeing the patient. As above head CT showed possible ischemic area and MRI was suggested which has been ordered.
--- NOTE | 2017-07-20 06:01 | CT Report ---
Exam: CT scan of brain without contrast Date: 07/20/2017 Indication: Head injury status post fall headache Comparison: 06/23/2017 Patient's classification: Emergency department Technical: Images were obtained from the skull base to the vertex without the use of intravenous contrast. Dose reduction was performed with decreasing kv and mA and automated exposure Total DLP: 970.1 mGy*cm Findings: The study was initially reviewed by [facility]. The ventricles are slightly prominent. The brainstem and cerebellum are intact. There is slight decreased attenuation in the left frontal parietal lobe region. Hyperostosis frontalis interna changes are present. Paranasal sinuses globes and cell and mastoids are intact. Impression: 1. No acute intracranial hemorrhage 2. Subtle changes in the left frontal parietal lobe could represent possibly an early infarct. MRI is recommended for further evaluation. 3. Hyperostosis frontalis interna changes PROCEDURE INTERPRETED AT [facility] DEPARTMENT OF RADIOLOGY Final Report Signed by: Dr. Rian Taylor
[2017-07-20 08:09] LABS: Basophils % 0.1 % (0.0-0.8); Eosinophils # 0.2 10*3/uL (0.0-0.87); Eosinophils % 2.9 % (0.00-10.9); Hematocrit 27.2 VOL% (35.7-47.0); Immature Granulocytes % 0.6 %; Immature Granulocytes Absolute 0.04 #; Lymphocytes # 0.8 10*3/uL (1.4-4.0); Lymphocytes % 10.5 % (21.3-54.2); Mean Corpuscular HGB Conc 33.1 GM/DL (32-36); Mean Corpuscular Hemoglobin 31 PG (27-34); Mean Corpuscular Volume 94.1 FL (87-102); Mean Platelet Volume 10.9 FL (9.6-12.0); Monocytes # 1.3 10*3/uL (0.11-0.8); Monocytes % 17.5 % (1.7-12.7); Neutrophils # 4.9 10*3/uL (1.4-7.4); Neutrophils % 68.4 % (38.7-73.9); Platelet Count 152 T/CUMM (130-400); Red Blood Count 2.89 MC/CUMM (3.8-5.5); Red Cell Distribution Width 16.2 % (9.3-17.3); White Blood Count 7.1 T/CUMM (4-12)
[2017-07-20 08:31] LABS: Eosinophils 5 % (0-10); Giant Platelets Few; Hypochromasia 1+; Lymphocytes 9 % (20-55); Ovalocytes Slight; Platelet Estimate Normal; Segmented Neutrophils 71 % (50-85); Total Cells Counted 100
[2017-07-20] MEDS: INSULIN LISPRO 100 UNIT/ML SUBCUT SCH ×2 (08:49→16:36)
[2017-07-20 08:58] LABS: Albumin 2.3 G/DL (3.4-5.0); Bilirubin,Total 0.6 MG/DL (0.2-1.0); Calcium 7.9 MG/DL (8.5-10.1); Total Protein 5.2 G/DL (6.4-8.3)
[2017-07-20 08:59] LABS: Osmolality,Calculated 302.8 MOS/KG (273-304); Potassium 4.7 MMOL/L (3.5-5.1)
[2017-07-20] MEDS: FUROSEMIDE 100 MG/10 ML VIAL IV SCH (09:43)
[2017-07-20] MEDS: NITROGLYCERIN 0.4 MG/HR PATCH TRANSDERM SCH (09:48)
[2017-07-20] MEDS: amLODIPine 10 MG TABLET PO SCH (10:57)
[2017-07-20] MEDS: RANOLAZINE 500 MG TABLET PO SCH ×2 (10:57→22:24)
[2017-07-20] MEDS: LORATADINE 10 MG TABLET PO SCH (10:57)
[2017-07-20] MEDS: PANTOPRAZOLE 40 MG TABLET PO SCH (10:57)
[2017-07-20] MEDS: LABETALOL 100 MG TABLET PO SCH ×2 (10:58→22:23)
[2017-07-20] MEDS: levETIRAcetam 500 MG TABLET PO SCH ×2 (10:58→22:24)
--- NOTE | 2017-07-20 11:22 | Hospitalist Progress Note ---
Assessment and Plan (1) Acute on chronic renal failure Status: Acute Assessment and plan: Impression: 1. Acute on chronic kidney disease 2. Pulmonary vascular congestion 3. Seizures 4. Pain Plan: She was taking some [place] at [facility] for pain. I will resume this. Continue diuretics, and consider dosage titration. We cannot evaluate the seizures further due to the inability to obtain an MRI. This note was completed using [employer] voice recognition software. There may be router machine operator errors as a result. Current Visit: No Qualifiers: Acute renal failure type: with acute renal cortical necrosis Hospitalist: Subjective Interval history: Follow-up pulmonary vascular congestion. The patient says that she was trying to get out of bed last night, and apparently fell to the floor. She does not recall any details of what happened. She was apparently taken down the CT emergently, and found to have a possible subacute infarct in the left parietal lobe. She denies any neurologic changes at this time. She says that she hurts all over, but this is not new. An MRI was ordered, but she has gastric pacemaker, so this test cannot be performed. Exam - Constitutional Vitals: Period Temp Pulse Resp BP Sys/Veliz Pulse Ox Last 24 Hr 97.8 F-99.1 F 81-94 18-24 124-196/73-81 92-95 Vital signs are noted above. Heart is regular with distant tones. She has rales all over the chest. There is no unilateral weakness in the arms or legs. Plantar is withdrawal bilaterally. She is awake and conversant. Results - Labs CBC & BMP: 07/20/17 07:48 07/20/17 07:49 Lab Results: I have reviewed the past 24 hour labs Quality Measures - VTE Contraindication to Mechanical VTE Prophylaxis: Local Inflammation
--- NOTE | 2017-07-20 13:22 | Nephrology Progress Note ---
Nephrology - PN: Subj Interval history: She fell earlier today. This is documented in prior progress notes. She is currently awake. Mental status is at her baseline. She denies headache. Her shortness of breath is slightly better. Exam (PN)-Nephrology - Vital Signs Vital signs: Period Temp Pulse Resp BP Sys/Veliz Pulse Ox Last 24 Hr 96.9 F-99.1 F 81-94 18-24 124-196/73-82 92-95 Exam: Gen.: Alert ENT: Pupils equal round reactive to light. EOMs intact. Mucous membranes moist. Neck: Supple. No JVD or bruit. Cardiovascular: Regular rate and rhythm. No murmur rub or gallop Lungs: Bilateral rales Abdomen: Soft. Nontender. Positive bowel sounds. No organomegaly Extremities: 3+ edema - Lab 07/20/17 07:48 07/20/17 07:49 Most recent lab results ABG pH 7.382 (7.35-7.45) 07/18/17 18:45 ABG pCO2 28.7 MM HG (35-48) L 07/18/17 18:45 ABG pO2 80.9 MM HG (80-95) 07/18/17 18:45 ABG HCO3 18.5 MMOL/L (20-26) L 07/18/17 18:45 ABG O2 Saturation 95.6 % (95-100) 07/18/17 18:45 Calcium 7.9 MG/DL (8.5-10.1) L 07/20/17 07:49 Magnesium 2.2 MG/DL (1.8-2.4) 07/19/17 04:50 Assessment and Plan (1) Acute on chronic renal failure Status: Acute Assessment and plan: 67-year-old woman with: * CRF. This appears to have progressed to stage V. I have discussed the possibility of dialysis if she does not respond adequately to diuretics. * Volume overload. Fluid balance has been negative. However weight has changed very little. Diuretic will be increased significantly. * Anemia. Improved after transfusion * Diabetes mellitus * Gastroparesis. Status post gastric pacemaker * Seizure disorder * Debility Current Visit: No Qualifiers: Acute renal failure type: with acute renal cortical necrosis (2) Anemia Status: Acute Current Visit: Yes (3) Congestive heart failure Status: Acute Current Visit: Yes (4) Debility Status: Acute Current Visit: No (5) Seizure Status: Acute Current Visit: No (6) CKD (chronic kidney disease) stage 5, GFR less than 15 ml/min Problem details: No indication for renal replacement therapy at this time. Status: Chronic Current Visit: No (7) Diabetes mellitus Status: Chronic Current Visit: No Qualifiers: Diabetes mellitus type: type 2 Diabetes mellitus complication status: with kidney complications Diabetes mellitus complication detail: with chronic kidney disease Chronic kidney disease stage: stage 3 (moderate) (8) Gastroparesis Status: Chronic Current Visit: No
[2017-07-20] MEDS: metOLazone 5 MG TABLET PO SCH (14:16)
--- NOTE | 2017-07-20 14:48 | Physician Query Form ---
CLICK EDIT DOCUMENT TO SELECT QUERY ANSWER --> OK --> SIGN Ana Garcia RN Clinical [facility]er W) [phone] (f) [phone] [email or web address] PROVIDERS: Make your selection(s) from the choices in EACH section by typing an "x" and enter comments in the comment section. Please use your independent medical judgment in providing your response. This request does not imply that any particular answer is desired or expected. CLINICAL INDICATORS: (Providers should not edit this section) Based on documentation of "Nurse reports that patient was out of bed and confused" "After a short time, patient confusion subsided and patient was able state that she was at [facility]" "Mental status is at her baseline" "CT head results which state "No acute intracranial hemorrhage. Subtle changes in left frontal parietal lobe could represent possibly an early infarct" ACUITY: ( x) Acute ( ) Acute on Chronic ( ) Chronic ( ) Clinically unable to determine NATURE: ( x) Delirium due to general medical condition ( ) Dementia ( ) Encephalopathy ( ) Unconscious ( ) Transient level of awareness ( ) Comatose ( ) Locked-in State ( ) Persistent Vegetative State ( ) Other, please specify: ( ) Clinically unable to determine Please indicate the underlying cause of the altered mental status (CHECK ALL THAT APPLY): ( ) Baseline dementia ( ) Alzheimer's disease ( ) Parkinson's disease ( ) Lewy body dementia ( ) Acute stroke ( ) Late effect of stroke ( ) Reactive (from emotional stress, psychological trauma) ( ) Due to narcotics/other drugs ( ) Post procedural delirium ( ) Transient ischemic attack ( ) Generalized cerebral edema ( ) Normal pressure hydrocephalus ( ) Psychiatric illness ( ) Other, please specify: ( x) Clinically unable to determine Please indicate if there is an infection, sepsis, dehydration or specific organ failure that is causing the dementia. Be specific with clarifying the relationship between that process and the mental status change. COMMENTS: PLEASE ALSO DOCUMENT RESPONSE IN PROGRESS NOTES AND/OR DISCHARGE SUMMARY Use of terms such as suspected, likely, or probable (associated with a specific diagnosis that is being evaluated, monitored, or treated as if it exists) are acceptable and can be restated in the discharge summary if not ruled out. MTDD
[2017-07-20] MEDS: FUROSEMIDE 40 MG/4 ML VIAL IV SCH (16:33)
[2017-07-20] MEDS: ENOXAPARIN 30 MG/0.3 ML SYRINGE SUBCUT SCH (22:23)
[2017-07-20] MEDS: ATORVASTATIN 20 MG TABLET PO SCH (22:24)
[2017-07-20] MEDS: DULoxetine 30 MG CAPSULE PO SCH (22:24)
[2017-07-21] MEDS: metOLazone 5 MG TABLET PO SCH (08:32)
[2017-07-21] MEDS: PANTOPRAZOLE 40 MG TABLET PO SCH (08:32)
[2017-07-21] MEDS: RANOLAZINE 500 MG TABLET PO SCH ×2 (08:32→20:33)
[2017-07-21] MEDS: NITROGLYCERIN 0.4 MG/HR PATCH TRANSDERM SCH (08:32)
[2017-07-21] MEDS: amLODIPine 10 MG TABLET PO SCH (08:32)
[2017-07-21] MEDS: LABETALOL 100 MG TABLET PO SCH ×2 (08:32→20:33)
[2017-07-21] MEDS: LORATADINE 10 MG TABLET PO SCH (08:32)
[2017-07-21] MEDS: levETIRAcetam 500 MG TABLET PO SCH ×2 (08:32→20:34)
[2017-07-21] MEDS: FUROSEMIDE 40 MG/4 ML VIAL IV SCH ×3 (08:33→16:35)
[2017-07-21] MEDS: INSULIN LISPRO 100 UNIT/ML SUBCUT SCH ×2 (08:40→16:34)
[2017-07-21 10:24] LABS: Albumin 2.3 G/DL (3.4-5.0); Calcium 8.2 MG/DL (8.5-10.1); Osmolality,Calculated 308.7 MOS/KG (273-304); Phosphorous 6.4 MG/DL (2.5-4.9); Potassium 4.3 MMOL/L (3.5-5.1)
--- NOTE | 2017-07-21 13:17 | Hospitalist Progress Note ---
Assessment and Plan (1) Acute on chronic renal failure Status: Acute Assessment and plan: Impression: 1. Acute on chronic kidney disease 2. Pulmonary vascular congestion 3. Seizures 4. Pain Plan: Continue current care. She may be about ready for transfer to [facility]. This note was completed using [employer] voice recognition software. There may be drill press hand errors as a result. Current Visit: No Qualifiers: Acute renal failure type: with acute renal cortical necrosis Hospitalist: Subjective Interval history: Follow-up acute on chronic kidney disease, recent fall, deconditioning, chest pain. The patient's mobility status is slowly improving. Family members think that she is improving as well. Nephrology thinks that the patient may be approaching end-stage. Family is going to discuss dialysis. The son thinks that the patient will agree. She reports that her chest wall pain is improving slowly. She may be about ready for transfer back to [facility], depending on how soon nephrology wants to institute dialysis. She has been up with a walker with physical therapy. Exam - Constitutional Vitals: Period Temp Pulse Resp BP Sys/Veliz Pulse Ox Last 24 Hr 97.5 F-98.8 F 75-87 18-22 123-174/64-87 92-97 Vital signs are noted above. Heart is regular with a soft systolic murmur. There are rales over the entire chest. She is awake and alert. There is again no evidence of any cerebral infarction by examination. Results - Labs CBC & BMP: 07/20/17 07:48 07/21/17 09:38 Lab Results: I have reviewed the past 24 hour labs Quality Measures - VTE Contraindication to Mechanical VTE Prophylaxis: Local Inflammation
[2017-07-21] MEDS ORDERED: CLINDAMYCIN INJ 900 MG in PREMIX 1 EACH IV ONE (13:30)
--- NOTE | 2017-07-21 13:32 | Event Note ---
I spoke with Dr. Jean-Baptiste earlier. He has requested a tunneled hemodialysis catheter. The procedure and risks have been discussed in detail with the patient including infection, bleeding, injury to great vessels, blood clots, pneumothorax, etc. She understands these risks and wishes to proceed
[2017-07-21 14:04] LABS: Hepatitis A Ab IgM Quant 0.07 Index; Hepatitis A Ab IgM Result Negative (Negative); Hepatitis B Core IgM Quant 0.11 Index; Hepatitis B Core IgM Result Negative (Negative); Hepatitis B Surface Ag Quant < 0.10 Index; Hepatitis B Surface Ag Result Negative (Negative); Hepatitis C Virus Ab Quant 0.02 Index; Hepatitis C Virus Ab Result Negative (Negative)
--- NOTE | 2017-07-21 14:37 | Nephrology Progress Note ---
Nephrology - PN: Subj Interval history: She states her shortness of breath has improved. She denies chest pain. She remains weak Exam (PN)-Nephrology - Vital Signs Vital signs: Period Temp Pulse Resp BP Sys/Veliz Pulse Ox Last 24 Hr 97.5 F-98.8 F 75-87 18-22 123-174/64-87 92-97 Exam: Gen.: Alert ENT: Pupils equal round reactive to light. EOMs intact. Mucous membranes moist. Neck: Supple. No JVD or bruit. Cardiovascular: Regular rate and rhythm. No murmur rub or gallop Lungs: Bilateral rales Abdomen: Soft. Nontender. Positive bowel sounds. No organomegaly Extremities: 3+ edema - Lab 07/20/17 07:48 07/21/17 09:38 Most recent lab results ABG pH 7.382 (7.35-7.45) 07/18/17 18:45 ABG pCO2 28.7 MM HG (35-48) L 07/18/17 18:45 ABG pO2 80.9 MM HG (80-95) 07/18/17 18:45 ABG HCO3 18.5 MMOL/L (20-26) L 07/18/17 18:45 ABG O2 Saturation 95.6 % (95-100) 07/18/17 18:45 Calcium 8.2 MG/DL (8.5-10.1) L 07/21/17 09:38 Phosphorus 6.4 MG/DL (2.5-4.9) H 07/21/17 09:38 Magnesium 2.2 MG/DL (1.8-2.4) 07/19/17 04:50 Assessment and Plan (1) Acute on chronic renal failure Status: Acute Assessment and plan: 67-year-old woman with: * CRF stage V. Fluid balance has been negative. However BUN and creatinine are rising. I discussed the need to begin dialysis with her and her family. They are in agreement. Surgery has been consulted for tunneled catheter placement. * Volume overload. * Anemia. Improved after transfusion * Diabetes mellitus * Gastroparesis. Status post gastric pacemaker * Seizure disorder * Debility Current Visit: No Qualifiers: Acute renal failure type: with acute renal cortical necrosis (2) Anemia Status: Acute Current Visit: Yes (3) Congestive heart failure Status: Acute Current Visit: Yes (4) Debility Status: Acute Current Visit: No (5) Seizure Status: Acute Current Visit: No (6) CKD (chronic kidney disease) stage 5, GFR less than 15 ml/min Problem details: No indication for renal replacement therapy at this time. Status: Chronic Current Visit: No (7) Diabetes mellitus Status: Chronic Current Visit: No Qualifiers: Diabetes mellitus type: type 2 Diabetes mellitus complication status: with kidney complications Diabetes mellitus complication detail: with chronic kidney disease Chronic kidney disease stage: stage 3 (moderate) (8) Gastroparesis Status: Chronic Current Visit: No
[2017-07-21 17:55] LABS: Basophils % 0.2 % (0.0-0.8); Eosinophils # 0.3 10*3/uL (0.0-0.87); Eosinophils % 4.8 % (0.00-10.9); Hematocrit 27.7 VOL% (35.7-47.0); Hemoglobin 9.1 GM/DL (12.0-16.0); Immature Granulocytes % 0.8 %; Immature Granulocytes Absolute 0.04 #; Lymphocytes # 0.6 10*3/uL (1.4-4.0); Lymphocytes % 10.6 % (21.3-54.2); Mean Corpuscular HGB Conc 32.9 GM/DL (32-36); Mean Corpuscular Hemoglobin 31 PG (27-34); Mean Corpuscular Volume 94.9 FL (87-102); Mean Platelet Volume 10.7 FL (9.6-12.0); Monocytes # 0.9 10*3/uL (0.11-0.8); Monocytes % 16.7 % (1.7-12.7); Neutrophils # 3.5 10*3/uL (1.4-7.4); Neutrophils % 66.9 % (38.7-73.9); Platelet Count 160 T/CUMM (130-400); Red Blood Count 2.92 MC/CUMM (3.8-5.5); Red Cell Distribution Width 15.6 % (9.3-17.3); White Blood Count 5.3 T/CUMM (4-12)
[2017-07-21] MEDS: ATORVASTATIN 20 MG TABLET PO SCH (20:32)
[2017-07-21] MEDS: DULoxetine 30 MG CAPSULE PO SCH (20:33)
[2017-07-21 21:17] LABS: Eosinophils 2 % (0-10); Lymphocytes 18 % (20-55); Metamyelocytes 1 %; Segmented Neutrophils 67 % (50-85); Total Cells Counted 100
[2017-07-21] MEDS: ENOXAPARIN 30 MG/0.3 ML SYRINGE SUBCUT SCH (21:17)
[2017-07-21 21:18] LABS: Platelet Estimate Adequate; Polychromasia Few
[2017-07-21] MEDS: ACETAMINOPHEN 325 MG TABLET PO PRN (21:25)
[2017-07-22] MEDS ORDERED: CLINDAMYCIN INJ 900 MG in PREMIX 1 EACH IV ONE (08:00)
[2017-07-22] MEDS ORDERED: BUPIVACAINE MPF 0.25% /EPI 30 ML VIAL ONE (08:51)
[2017-07-22] MEDS ORDERED: HEPARIN 5,000 UNIT/1 ML VIAL ONE (08:51)
[2017-07-22] MEDS ORDERED: LIDOCAINE 1%/EPI INJ 20 ML VIAL ONE (08:51)
[2017-07-22] MEDS: SODIUM CHLORIDE 0.9% 250 ML IV SCH (08:58)
[2017-07-22] MEDS: RANOLAZINE 500 MG TABLET PO SCH ×2 (09:35→21:16)
--- NOTE | 2017-07-22 09:39 | Operative Note ---
Date of procedure: 07/22/17 Pre-op diagnosis: Chronic renal failure Post-op diagnosis: same Procedure: Tunneled hemodialysis catheter right external jugular vein under ultrasound and fluoroscopic guidance Findings and technique: After informed consent was obtained patient was brought the operating room and placed in supine position. After IV sedation was administered the patient's neck and chest was prepped and draped in usual sterile fashion. Local anesthesia was infiltrated and a sterile ultrasound probe placed on the right neck where the largest vein was noted to be probably external jugular vein lateral in the neck. This was easily accessed with a single stick and a guidewire advanced into the superior vena cava without resistance under fluoroscopy. A separate stab incision was made beneath the right clavicle and the catheter tunnel between the 2 incisions. The dilator was passed over the guidewire without resistance and the catheter then introduced through the introducer after the guidewire and inner cannula was removed. Care was taken not to allow for any aspiration of air or embolism of air. The catheter was introduced and the sheath removed. Fluoroscopy was used to check good positioning. There was no evidence of pneumothorax and the tip was well positioned in the distal superior vena cava. Incision the neck was closed with interrupted 3-0 nylon suture and the catheter sutured to the skin. The catheter was easily accessed aspirated and flushed. Anesthesia: MAC, local Surgeon / Physician: Geovanni Guerra III. Estimated blood loss: minimal Specimens: none sent Condition: stable Disposition: PACU Results - Labs CBC & BMP: 07/21/17 17:47 07/21/17 09:38 Discharge Plan - Discharge Medications No Action Ranolazine [Ranexa] 500 mg PO BID Ondansetron HCl 4 mg PO QID PRN PRN Reason: Nausea Nitroglycerin 0.4 mg/Hr Patch [Nitro-Dur 0.4 mg/hr Patch] 1 patch TRANSDERM DAILY Atorvastatin [Lipitor] 20 mg PO QPM Aspirin Tab 325 mg PO QAM Cholecalciferol (Vitamin D3) [Vitamin D3] 5,000 unit PO QPM Erythromycin Base [Erythromycin DR Cap] 250 mg PO TID Pantoprazole Tab [Protonix Tab] 40 mg PO DAILY tablet HYDROcodone/ACETAMIN 7.5-325 [[place] 7.5-325] 1 tablet PO Q4H PRN #20 tablet PRN Reason: Pain Moderate (4-7) Labetalol Tab [Trandate Tab] 200 mg PO BID tablet levETIRAcetam TAB [Keppra Tab] 500 mg PO BID tablet Montelukast Tab [Singulair Tab] 10 mg PO DAILY tablet Phenol 1.4% Throat [place] [Chloraseptic [place]] 5 spray PO Q2H PRN bottle PRN Reason: Sore Throat predniSONE TAB [PredniSONE] 20 mg PO DAILY tablet Ranolazine [Ranexa] 500 mg PO BID Duloxetine HCl [Cymbalta] 60 mg PO BEDTIME Metoprolol Succinate 50 mg PO QPM Loratadine Tab [Claritin Tab] 10 mg PO DAILY Meloxicam [Mobic] 7.5 mg PO MOWEFR Colchicine [Colcrys] 0.6 mg PO DAILY Omeprazole [Prilosec] 20 mg PO DAILY buPROPion HCl [Bupropion Xl] 300 mg PO BID Benzonatate 200 mg PO TID PRN PRN Reason: Cough Acetaminophen Tab [Tylenol Tab] 325 mg PO Q4H PRN tablet PRN Reason: fever, headache/body aches amLODIPine [Norvasc] 10 mg PO DAILY tablet hydrALAZINE TAB [Apresoline Tab] 100 mg PO TID tablet Metoprolol Succinate 100 mg PO QAM - Follow Up or Referral - Forms/Instructions
--- NOTE | 2017-07-22 09:50 | Anesthesia Post-Op ---
Anesthesia Post OP - Post Ansesthetic Evaluation Patient seen in post op: Yes Resp: within normal limits CV: within normal limits Mental: within normal limits Temp: within normal limits [id number]: within normal limits Nausea and Vomiting: within normal limits Pain: within normal limits
--- NOTE | 2017-07-22 10:25 | Interventional Radiology Rpt ---
Exam: IR fluoro guide cv cath Date: 07/22/2017 Indication: Dialysis catheter Comparison: None routine chest only Findings: A right-sided dialysis catheter has been placed with the distal tip in the proximal right atrium. 4.5 seconds fluoroscopy time provided to Dr. Guerra. 2 fluoroscopic images were obtained. Impression: Satisfactory placement dialysis catheter without obvious pneumothorax present. PROCEDURE INTERPRETED AT [facility] DEPARTMENT OF RADIOLOGY Final Report Signed by: Dr. Rian Taylor
--- NOTE | 2017-07-22 10:26 | XRay Report ---
Exam: XR chest 1V portable Date: 07/22/2017 9:59 AM Indication: Post dialysis catheter placement Comparison: 07/19/2017 Technical: AP portable Findings: A right-sided IJ catheter is present with distal tip is in the superior vena cava. Shunt vascularity is present without pneumothorax. Low volume effusions are present with cardiac enlargement. Oxygen tubing is present. Mediastinum is intact. Lateral marginal osteophytes are noted. Impression: 1. Cardiomegaly with underlying component of volume overload CHF pleural effusions 2. Interval placement of the right-sided dialysis catheter without pneumothorax PROCEDURE INTERPRETED AT [facility] DEPARTMENT OF RADIOLOGY Final Report Signed by: Dr. Rian Taylor
[2017-07-22] MEDS: FUROSEMIDE 40 MG/4 ML VIAL IV SCH ×3 (12:00→17:29)
[2017-07-22] MEDS ORDERED: SODIUM CHLORIDE 0.9% 250 ML IV ONE (12:17)
[2017-07-22] MEDS ORDERED: PROPOFOL 200 MG/20 ML VIAL IV ONE (12:17)
[2017-07-22] MEDS ORDERED: MIDAZOLAM 2 MG/2 ML VIAL ONE (12:17)
[2017-07-22] MEDS ORDERED: KETAMINE 500 MG/10 ML VIAL ONE (12:17)
--- NOTE | 2017-07-22 14:25 | Nephrology Progress Note ---
Nephrology - PN: Subj Interval history: She is seen during dialysis. Shortness of breath has improved since yesterday. No nausea or vomiting. Exam (PN)-Nephrology - Vital Signs Vital signs: Period Temp Pulse Resp BP Sys/Veliz Pulse Ox Last 24 Hr 96.8 F-99.0 F 67-76 18-20 128-153/59-88 90-100 Exam: Gen.: Alert ENT: Pupils equal round reactive to light. EOMs intact. Mucous membranes moist. Neck: Supple. No JVD or bruit. Cardiovascular: Regular rate and rhythm. No murmur rub or gallop Lungs: Bilateral rales Abdomen: Soft. Nontender. Positive bowel sounds. No organomegaly Extremities: 3+ edema - Lab 07/21/17 17:47 07/21/17 09:38 Most recent lab results ABG pH 7.382 (7.35-7.45) 07/18/17 18:45 ABG pCO2 28.7 MM HG (35-48) L 07/18/17 18:45 ABG pO2 80.9 MM HG (80-95) 07/18/17 18:45 ABG HCO3 18.5 MMOL/L (20-26) L 07/18/17 18:45 ABG O2 Saturation 95.6 % (95-100) 07/18/17 18:45 Calcium 8.2 MG/DL (8.5-10.1) L 07/21/17 09:38 Phosphorus 6.4 MG/DL (2.5-4.9) H 07/21/17 09:38 Magnesium 2.2 MG/DL (1.8-2.4) 07/19/17 04:50 Assessment and Plan (1) Acute on chronic renal failure Status: Acute Assessment and plan: 67-year-old woman with: * CRF stage V. She has diuresed overnight. She is tolerating her first dialysis without complications. Dialysis will be repeated tomorrow. * Volume overload. * Anemia. Improved after transfusion * Diabetes mellitus * Gastroparesis. Status post gastric pacemaker * Seizure disorder * Debility Current Visit: No Qualifiers: Acute renal failure type: with acute renal cortical necrosis (2) Anemia Status: Acute Current Visit: Yes (3) Congestive heart failure Status: Acute Current Visit: Yes (4) Debility Status: Acute Current Visit: No (5) Seizure Status: Acute Current Visit: No (6) CKD (chronic kidney disease) stage 5, GFR less than 15 ml/min Problem details: No indication for renal replacement therapy at this time. Status: Chronic Current Visit: No (7) Diabetes mellitus Status: Chronic Current Visit: No Qualifiers: Diabetes mellitus type: type 2 Diabetes mellitus complication status: with kidney complications Diabetes mellitus complication detail: with chronic kidney disease Chronic kidney disease stage: stage 3 (moderate) (8) Gastroparesis Status: Chronic Current Visit: No
--- NOTE | 2017-07-22 16:27 | Hospitalist Progress Note ---
Assessment and Plan (1) Acute on chronic renal failure Status: Acute Assessment and plan: Impression: 1. Acute on chronic kidney disease 2. Pulmonary vascular congestion 3. Seizures 4. Pain Plan: Dialysis is been instituted. We should be able to consider transfer back to [facility] or home in the near future. This note was completed using [employer] voice recognition software. There may be sales promotion officer errors as a result. Current Visit: No Qualifiers: Acute renal failure type: with acute renal cortical necrosis Hospitalist: Subjective Interval history: Follow-up chronic kidney disease with recent worsening, recent fall, and chest pain. The patient has undergone placement of a dialysis catheter, and received her first dialysis treatment today. She thinks that she might feel a bit better, but she is not sure yet. Her pain is about the same. She denies any other new complaints. Exam - Constitutional Vitals: Period Temp Pulse Resp BP Sys/Veliz Pulse Ox Last 24 Hr 96.8 F-99.0 F 67-76 18-20 128-153/59-88 90-100 Vital signs are noted above. Heart is regular with distant tones and a soft systolic murmur. She has rales all over the chest. She is awake and alert. Results - Labs CBC & BMP: 07/21/17 17:47 07/21/17 09:38 Lab Results: I have reviewed the past 24 hour labs Quality Measures - VTE Contraindication to Mechanical VTE Prophylaxis: Local Inflammation
[2017-07-22] MEDS: INSULIN LISPRO 100 UNIT/ML SUBCUT SCH ×2 (16:33→17:29)
[2017-07-22] MEDS: LABETALOL 100 MG TABLET PO SCH ×2 (17:23→21:13)
[2017-07-22] MEDS: metOLazone 5 MG TABLET PO SCH (17:24)
[2017-07-22] MEDS: LORATADINE 10 MG TABLET PO SCH (17:25)
[2017-07-22] MEDS: PANTOPRAZOLE 40 MG TABLET PO SCH (17:25)
[2017-07-22] MEDS: amLODIPine 10 MG TABLET PO SCH (17:25)
[2017-07-22] MEDS: levETIRAcetam 500 MG TABLET PO SCH ×2 (17:26→21:16)
[2017-07-22] MEDS: NITROGLYCERIN 0.4 MG/HR PATCH TRANSDERM SCH (17:27)
[2017-07-22] MEDS: DULoxetine 30 MG CAPSULE PO SCH (21:15)
[2017-07-22] MEDS: ATORVASTATIN 20 MG TABLET PO SCH (21:15)
[2017-07-22] MEDS: guaiFENesin/DM ER 600-30 MG TABLET PO PRN (21:15)
[2017-07-22] MEDS: ENOXAPARIN 30 MG/0.3 ML SYRINGE SUBCUT SCH (21:16)
[2017-07-23] MEDS: SODIUM CHLORIDE 0.9% 250 ML IV SCH ×2 (01:52→11:57)
[2017-07-23] MEDS: diphenhydrAMINE CAP 25 MG CAPSULE PO PRN (04:30)
--- NOTE | 2017-07-23 07:28 | Hospitalist Progress Note ---
Assessment and Plan (1) Diabetes mellitus Status: Chronic Assessment and plan: Associated renal insufficiency and gastroparesis with gastric stimulator placed May 2017. Deteriorating renal function with episodes of hypoglycemia. Current Visit: No Qualifiers: Diabetes mellitus type: type 2 Diabetes mellitus complication status: with kidney complications Diabetes mellitus complication detail: with chronic kidney disease Chronic kidney disease stage: stage 3 (moderate) (2) CKD (chronic kidney disease) stage 5, GFR less than 15 ml/min Problem details: No indication for renal replacement therapy at this time. Status: Chronic Assessment and plan: Initiation of hemodialysis secondary to refractory volume overload July 22, 2017 Current Visit: No Hospitalist: Subjective Interval history: 67-year-old hypertensive diabetic with history of gastroparesis with gastric stimulator placed in May. She has had known renal insufficiency and presented in June with a generalized seizure complicated by hypoventilation and bradycardia with possible aspiration. She was released for rehab care (where she had been prior to that admission) and was readmitted on this occasion due to dyspnea associated with anemia and radiographic evidence of pulmonary edema. Generalized volume overload was identified on physical examination and the patient was initiated on hemodialysis July 22. The patient states that she is breathing much better following dialysis. Her vital signs were stable overnight. Her chest x-ray with placement of the access catheter shows persistent increased interstitial fluid. She had been admitted separately last month with increased insulin sensativity associated with deteriorating renal function. Her creatinine did improve with medical interventions; it is unclear whether the subsequent seizure may have been reflective of hypoglycemia. Exam - Constitutional Vitals: Period Temp Pulse Resp BP Sys/Veliz Pulse Ox Last 24 Hr 96.8 F-98.2 F 67-79 18-20 128-199/65-88 90-100 General appearance: over weight - Respiratory Respiratory exam: Present: rales (Both bases). Absent: rhonchi, wheezes - Cardiovascular Cardiovascular exam: Present: regular rate and rhythm, systolic murmur (2/6 best heard in the precordium with radiation to both the base and apex) - GI/Abdominal GI/Abdominal exam: Present: normal bowel sounds. Absent: mass, tenderness - Extremities Exam Extremities exam: Present: edema (Trace dependent) - Neurological Exam Neurological exam: Present: alert, oriented X3 Results - Labs CBC & BMP: 07/21/17 17:47 07/21/17 09:38 Quality Measures - VTE Contraindication to Mechanical VTE Prophylaxis: Local Inflammation
[2017-07-23] MEDS: amLODIPine 10 MG TABLET PO SCH ×2 (07:37→10:32)
[2017-07-23] MEDS: LORATADINE 10 MG TABLET PO SCH ×2 (07:38→10:30)
[2017-07-23] MEDS: levETIRAcetam 500 MG TABLET PO SCH ×3 (07:38→22:00)
[2017-07-23] MEDS: metOLazone 5 MG TABLET PO SCH ×2 (07:38→10:33)
[2017-07-23] MEDS: PANTOPRAZOLE 40 MG TABLET PO SCH ×2 (07:39→10:32)
[2017-07-23] MEDS: RANOLAZINE 500 MG TABLET PO SCH ×3 (07:39→22:00)
[2017-07-23] MEDS: NITROGLYCERIN 0.4 MG/HR PATCH TRANSDERM SCH ×2 (07:39→10:31)
[2017-07-23] MEDS: FUROSEMIDE 40 MG/4 ML VIAL IV SCH ×3 (07:41→16:06)
--- NOTE | 2017-07-23 08:39 | Dialysis Note ---
Dialysis Note - Dialysis Note Patient is seen on dialysis. Tolerating the procedure. Voices no complaints. Blood pressure 160/66. Cardiovascular is regular rate. Lungs clear to auscultation. Abdomen is soft.
[2017-07-23] MEDS: INSULIN LISPRO 100 UNIT/ML SUBCUT SCH ×2 (10:30→16:19)
[2017-07-23] MEDS: LABETALOL 100 MG TABLET PO SCH ×2 (10:33→22:00)
[2017-07-23] MEDS ORDERED: HEPARIN 10,000 UNIT/10 ML VIAL IV PRN (10:46)
[2017-07-23] MEDS ORDERED: GLUCAGON 1 MG VIAL IM PRN (20:12)
[2017-07-23] MEDS ORDERED: DEXTROSE 50% 25 GM/50 ML SYRINGE IV PRN (20:12)
[2017-07-23] MEDS: ENOXAPARIN 30 MG/0.3 ML SYRINGE SUBCUT SCH (21:59)
[2017-07-23] MEDS: DULoxetine 30 MG CAPSULE PO SCH (22:00)
[2017-07-23] MEDS: ATORVASTATIN 20 MG TABLET PO SCH (22:01)
[2017-07-24] MEDS: INSULIN LISPRO 100 UNIT/ML SUBCUT SCH ×4 (06:00→18:40)
--- NOTE | 2017-07-24 07:08 | Hospitalist Progress Note ---
Assessment and Plan (1) Diabetes mellitus Status: Chronic Assessment and plan: Associated renal insufficiency and gastroparesis with gastric stimulator placed May 2017. Deteriorating renal function with episodes of hypoglycemia in the past Current Visit: No Qualifiers: Diabetes mellitus type: type 2 Diabetes mellitus complication status: with kidney complications Diabetes mellitus complication detail: with chronic kidney disease Chronic kidney disease stage: stage 3 (moderate) (2) CKD (chronic kidney disease) stage 5, GFR less than 15 ml/min Problem details: No indication for renal replacement therapy at this time. Status: Chronic Assessment and plan: Initiation of hemodialysis secondary to refractory volume overload July 22, 2017 Current Visit: No Hospitalist: Subjective Interval history: 67-year-old female with history of hypertension and diabetes with gastroparesis and chronic renal insufficiency was initiated on hemodialysis for volume overload on recurrent basis on 22 July. She has in place a gastric stimulator since May which seems to have helped her nausea. She was admitted in June with a generalized seizure complicated by hypoventilation bradycardia and possible aspiration. She subsequently has had hypoglycemic episode it is unclear whether the seizure activity was related to poor renal clearance of her insulin and hypoglycemic episodes. She was dialyzed again yesterday she feels continued improvement with her breathing. Her vital signs are stable she is afebrile. She was placed on admission and high-dose IV Lasix and Zaroxolyn we will go ahead and discontinue this relying on dialysis to control volume at least in the short run. Exam - Constitutional Vitals: Period Temp Pulse Resp BP Sys/Veliz Pulse Ox Last 24 Hr 96.3 F-98.7 F 72-83 16-20 140-162/67-74 92-98 General appearance: over weight - Respiratory Respiratory exam: Present: other (Vesicular breath sounds at the bases). Absent : rales, rhonchi, wheezes - Cardiovascular Cardiovascular exam: Present: regular rate and rhythm, systolic murmur (2/6 at the mid precordium radiating both to the base and apex) - GI/Abdominal GI/Abdominal exam: Present: normal bowel sounds. Absent: organomegaly, tenderness - Extremities Exam Extremities exam: Absent: edema - Neurological Exam Neurological exam: Present: alert, oriented X3 Results - Labs CBC & BMP: 07/21/17 17:47 07/21/17 09:38 Quality Measures - VTE Contraindication to Mechanical VTE Prophylaxis: Local Inflammation
[2017-07-24] MEDS: levETIRAcetam 500 MG TABLET PO SCH ×2 (09:51→21:44)
[2017-07-24] MEDS: LORATADINE 10 MG TABLET PO SCH (09:51)
[2017-07-24] MEDS: PANTOPRAZOLE 40 MG TABLET PO SCH (09:52)
[2017-07-24] MEDS: amLODIPine 10 MG TABLET PO SCH (09:53)
[2017-07-24] MEDS: NITROGLYCERIN 0.4 MG/HR PATCH TRANSDERM SCH (09:53)
[2017-07-24] MEDS: RANOLAZINE 500 MG TABLET PO SCH ×2 (09:53→21:44)
[2017-07-24] MEDS: LABETALOL 100 MG TABLET PO SCH ×2 (10:06→21:42)
--- NOTE | 2017-07-24 11:53 | Nephrology Progress Note ---
Nephrology - PN: Subj Interval history: Patient is resting comfortably visiting with her family. She states no complaints today. No shortness of breath or chest pain. Exam (PN)-Nephrology - Vital Signs Vital signs: Period Temp Pulse Resp BP Sys/Veliz Pulse Ox Last 24 Hr 96.3 F-98.7 F 74-83 16-20 140-159/67-74 92-97 - General Appearance General appearance: well-developed, well-nourished EENT: ATNC Neck: supple Respiratory: clear Cardiology: no edema, regular rate, regular rhythm Gastrointestinal: normoactive bowel sounds, no tenderness Neurologic: alert and oriented x3 Musculoskeletal: no clubbing - Lab 07/21/17 17:47 07/21/17 09:38 Most recent lab results ABG pH 7.382 (7.35-7.45) 07/18/17 18:45 ABG pCO2 28.7 MM HG (35-48) L 07/18/17 18:45 ABG pO2 80.9 MM HG (80-95) 07/18/17 18:45 ABG HCO3 18.5 MMOL/L (20-26) L 07/18/17 18:45 ABG O2 Saturation 95.6 % (95-100) 07/18/17 18:45 Calcium 8.2 MG/DL (8.5-10.1) L 07/21/17 09:38 Phosphorus 6.4 MG/DL (2.5-4.9) H 07/21/17 09:38 Magnesium 2.2 MG/DL (1.8-2.4) 07/19/17 04:50 Assessment and Plan (1) Diabetes mellitus Status: Chronic Current Visit: No Qualifiers: Diabetes mellitus type: type 2 Diabetes mellitus complication status: with kidney complications Diabetes mellitus complication detail: with chronic kidney disease Chronic kidney disease stage: stage 3 (moderate) (2) Hypertension Status: Chronic Current Visit: No Qualifiers: Hypertension type: essential hypertension Qualified Code(s): I10 - Essential (primary) hypertension (3) CKD (chronic kidney disease) stage 5, GFR less than 15 ml/min Problem details: No indication for renal replacement therapy at this time. Status: Chronic Assessment and plan: Patient tolerated dialysis on yesterday. Current Visit: No
[2017-07-24] MEDS: guaiFENesin/DM ER 600-30 MG TABLET PO PRN (15:37)
[2017-07-24] MEDS: ENOXAPARIN 30 MG/0.3 ML SYRINGE SUBCUT SCH (21:41)
[2017-07-24] MEDS: ATORVASTATIN 20 MG TABLET PO SCH (21:42)
[2017-07-24] MEDS: DULoxetine 30 MG CAPSULE PO SCH (21:42)
[2017-07-24] MEDS: diphenhydrAMINE CAP 25 MG CAPSULE PO PRN (21:42)
[2017-07-25] MEDS: INSULIN LISPRO 100 UNIT/ML SUBCUT SCH ×2 (00:45→06:41)
[2017-07-25] MEDS: PANTOPRAZOLE 40 MG TABLET PO SCH (09:34)
[2017-07-25] MEDS: LABETALOL 100 MG TABLET PO SCH (09:34)
[2017-07-25] MEDS: LORATADINE 10 MG TABLET PO SCH (09:35)
[2017-07-25] MEDS: NITROGLYCERIN 0.4 MG/HR PATCH TRANSDERM SCH (09:35)
[2017-07-25] MEDS: amLODIPine 10 MG TABLET PO SCH (09:36)
[2017-07-25] MEDS: RANOLAZINE 500 MG TABLET PO SCH (09:36)
[2017-07-25] MEDS: levETIRAcetam 500 MG TABLET PO SCH (09:36)
--- NOTE | 2017-07-25 10:35 | Discharge Summary ---
Discharge Plan - Discharge Data Disposition: Disch/Xfer-Ip Rehab Fac Condition at Discharge: Stable Discharge Diet: diabetic diet Activity: resume usual activities as tolerated Hygiene: no restrictions Weight Bearing at Discharge: full weight bearing - Discharge Medications No Action Ranolazine [Ranexa] 500 mg PO BID Ondansetron HCl 4 mg PO QID PRN PRN Reason: Nausea Nitroglycerin 0.4 mg/Hr Patch [Nitro-Dur 0.4 mg/hr Patch] 1 patch TRANSDERM DAILY Atorvastatin [Lipitor] 20 mg PO QPM Aspirin Tab 325 mg PO QAM Cholecalciferol (Vitamin D3) [Vitamin D3] 5,000 unit PO QPM Erythromycin Base [Erythromycin DR Cap] 250 mg PO TID Pantoprazole Tab [Protonix Tab] 40 mg PO DAILY tablet HYDROcodone/ACETAMIN 7.5-325 [[place] 7.5-325] 1 tablet PO Q4H PRN #20 tablet PRN Reason: Pain Moderate (4-7) Labetalol Tab [Trandate Tab] 200 mg PO BID tablet levETIRAcetam TAB [Keppra Tab] 500 mg PO BID tablet Montelukast Tab [Singulair Tab] 10 mg PO DAILY tablet Phenol 1.4% Throat [place] [Chloraseptic [place]] 5 spray PO Q2H PRN bottle PRN Reason: Sore Throat predniSONE TAB [PredniSONE] 20 mg PO DAILY tablet Ranolazine [Ranexa] 500 mg PO BID Duloxetine HCl [Cymbalta] 60 mg PO BEDTIME Metoprolol Succinate 50 mg PO QPM Loratadine Tab [Claritin Tab] 10 mg PO DAILY Meloxicam [Mobic] 7.5 mg PO MOWEFR Colchicine [Colcrys] 0.6 mg PO DAILY Omeprazole [Prilosec] 20 mg PO DAILY buPROPion HCl [Bupropion Xl] 300 mg PO BID Benzonatate 200 mg PO TID PRN PRN Reason: Cough Acetaminophen Tab [Tylenol Tab] 325 mg PO Q4H PRN tablet PRN Reason: fever, headache/body aches amLODIPine [Norvasc] 10 mg PO DAILY tablet hydrALAZINE TAB [Apresoline Tab] 100 mg PO TID tablet Metoprolol Succinate 100 mg PO QAM - Follow Up or Referral - Forms/Instructions Exam - Constitutional Vitals: Period Temp Pulse Resp BP Sys/Veliz Pulse Ox Last 24 Hr 96.1 F-98.1 F 69-77 16-20 133-158/62-81 93-98 Discharge Results Procedures and tests throughout hospitalization: Pending Orders 07/26/17 04:00 CBC [Comp Blood Count Auto Diff] IN AM Labs on day of discharge: Labs from last 24 hours 07/25/17 07/25/17 07/24/17 06:19 00:37 18:34 POC Glucose 106 229 H 196 H 07/24/17 11:41 POC Glucose 336 H DS: Provider Date of admission: 07/18/17 16:24 Primary care physician: Juan Brennan DO Attending physician on admission: Kimberley Perez MD Consults: 07/18/17 16:24 Consult to Physician [CONS] Routine Comment: pt of yours, ARF, fluid overload Consulting Provider: Michael Lau When should Consulting Provider be notified: Now Consult to Specialist Group: Nephrology Person Notified: [place] Date Notified: 07/19/17 Time Notified: 08:55 07/20/17 10:08 Consult to Speech Therapy [CONS] Routine Reason for Speech Therapy: Bedside Swallow Eval 07/20/17 14:32 Consult to Occupational Therapy [CONS] Routine Reason for Occupational Therapy: Evaluate and Treat Consult to Physical Therapy [CONS] Routine Reason for Physical Therapy: Evaluate and Treat 07/21/17 10:54 Consult to Physician [CONS] Routine Comment: PLACEMENT OF DIALYSIS CATH ON 07-22-2017 Consulting Provider: Geovanni Guerra III. When should Consulting Provider be notified: Now Person Notified: DR. MC TORRES Date Notified: 07/21/17 Time Notified: 10:55 Consult Notification Comment: NOTIFED PER DR. LAU. WILL NOTIFY OFFICE ATTEMPTED TO CALL OFFICE. NO ANSWER. MESSAGE LEFT. Discharging clinician: Nicci Arita MD
--- NOTE | 2017-07-25 10:50 | Discharge Summary ---
<Rhina Magallon - Last Filed: 07/25/17 10:27> Hospital Course - Hospital Course Hospital Course: Ms Pedersen 67 y/o w/PMHx of HTN, Depression, Migraine, Seizures, Diabetes, Dyslipidemia, Renal Failure, GERD, anemia, Uterine cancer, and chronic back pain presented to the ED 07/18/17 from [facility] for further evaluation of 2 day worsening shortness of breath. IN ED: LABS significant for H&H 7.5 & 23.2, Na 134, K 5.8, Anion Gap 16.8, BUN 91, Creatinine 6.0, Glucose 263, BNP 178. CXR: development of diffuse central airspace. EKG: sinus rhythm. Hospital Services consulted for admission and further evaluation. She was admitted to and received 2 units PRBCs, diuretics, consulted renal (Dr Lau) . Dr Lau consult as follow: chronic renal failure stage V with fluid overload without significant response to increased diuretics use, surgery was consulted for initiation of access for dialysis. 07/22/17 Tunneled hemodialysis catheter to right External jugular vein placed per Dr Guerra III. Dialysis started with improvement of patient's shortness of breath. Today 07/25/17 patient is stable and continues to show improvement. She denies any shortness of breath and feel she has met proper criteria to be discharged. She will need to follow up with Primary Care Physician. She will need to follow up with Nephrology (Dr Lau) and continue Hemo-Dialysis as planned. Patient will return to [facility] today after finished with dialysis for further rehab and strengthening. Her blood pressure is well controlled. Patient has severe gastroparesis and already has a gastric pacemaker placed in May 2017 will restart her erythromycin and Zofran. Her blood sugars are elevated and will need to be started on a low dose of Lantus 10 units. Patient seen and examined and hospital course reviewed and edited. Discharge Plan - Discharge Data Disposition: Disch/Xfer-Ip Rehab Fac - Discharge Medications New Docusate Sodium Cap [Colace Cap] 100 mg PO BID PRN capsule PRN Reason: Constipation Glucagon 1 mg IM PRN PRN vial PRN Reason: Hypoglycemia w/o IV access guaiFENesin/DM ER 600-30 [Mucinex Dm 600-30 MG] 1 tablet PO BID PRN tablet PRN Reason: Congestion Heparin Inj 2,000 unit IV WITH DIALYSIS PRN vial PRN Reason: HEP LOCK Acetaminophen Tab [Tylenol Tab] 650 mg PO Q4H PRN tablet PRN Reason: Fever, Headache, Mild Pain Dextrose 50% [D50] 25 gm IV PRN PRN syringe PRN Reason: Hypoglycemia with IV access Insulin Lispro [HumaLOG] See Protocol SUBCUT ACHS unit Insulin Glargine [Lantus] 20 unit SUBCUT DAILY #10 ml Continue Ranolazine [Ranexa] 500 mg PO BID Ondansetron HCl 4 mg PO QID PRN PRN Reason: Nausea Nitroglycerin 0.4 mg/Hr Patch [Nitro-Dur 0.4 mg/hr Patch] 1 patch TRANSDERM DAILY Atorvastatin [Lipitor] 20 mg PO QPM Cholecalciferol (Vitamin D3) [Vitamin D3] 5,000 unit PO QPM Erythromycin Base [Erythromycin DR Cap] 250 mg PO TID Pantoprazole Tab [Protonix Tab] 40 mg PO DAILY tablet Labetalol Tab [Trandate Tab] 200 mg PO BID tablet levETIRAcetam TAB [Keppra Tab] 500 mg PO BID tablet Phenol 1.4% Throat [place] [Chloraseptic [place]] 5 spray PO Q2H PRN bottle PRN Reason: Sore Throat Ranolazine [Ranexa] 500 mg PO BID Duloxetine HCl [Cymbalta] 60 mg PO BEDTIME Loratadine Tab [Claritin Tab] 10 mg PO DAILY Colchicine [Colcrys] 0.6 mg PO DAILY HYDROcodone/ACETAMIN 7.5-325 [[place] 7.5-325] 1 tablet PO Q4H PRN #20 tablet PRN Reason: Pain Moderate (4-7) buPROPion HCl [Bupropion Xl] 300 mg PO BID amLODIPine [Norvasc] 10 mg PO DAILY tablet hydrALAZINE TAB [Apresoline Tab] 100 mg PO TID tablet Discontinued Aspirin Tab 325 mg PO QAM Montelukast Tab [Singulair Tab] 10 mg PO DAILY tablet predniSONE TAB [PredniSONE] 20 mg PO DAILY tablet Metoprolol Succinate 50 mg PO QPM Meloxicam [Mobic] 7.5 mg PO MOWEFR Omeprazole [Prilosec] 20 mg PO DAILY Benzonatate 200 mg PO TID PRN PRN Reason: Cough Acetaminophen Tab [Tylenol Tab] 325 mg PO Q4H PRN tablet PRN Reason: fever, headache/body aches Metoprolol Succinate 100 mg PO QAM - Follow Up or Referral - Forms/Instructions Exam - Constitutional Vitals: Period Temp Pulse Resp BP Sys/Veliz Pulse Ox Last 24 Hr 96.1 F-98.1 F 69-77 16-20 133-158/62-81 93-98 Discharge Results Procedures and tests throughout hospitalization: Pending Orders 07/26/17 04:00 CBC [Comp Blood Count Auto Diff] IN AM Labs on day of discharge: Labs from last 24 hours 07/25/17 07/25/17 07/25/17 11:27 06:19 00:37 POC Glucose 305 H 106 229 H 07/24/17 07/24/17 18:34 11:41 POC Glucose 196 H 336 H DS: Provider Date of admission: 07/18/17 16:24 Primary care physician: Juan Brennan DO Attending physician on admission: Kimberley Perez MD Consults: 07/18/17 16:24 Consult to Physician [CONS] Routine Comment: pt of yours, ARF, fluid overload Consulting Provider: Michael Lau When should Consulting Provider be notified: Now Consult to Specialist Group: Nephrology Person Notified: [place] Date Notified: 07/19/17 Time Notified: 08:55 07/20/17 10:08 Consult to Speech Therapy [CONS] Routine Reason for Speech Therapy: Bedside Swallow Eval 07/20/17 14:32 Consult to Occupational Therapy [CONS] Routine Reason for Occupational Therapy: Evaluate and Treat Consult to Physical Therapy [CONS] Routine Reason for Physical Therapy: Evaluate and Treat 07/21/17 10:54 Consult to Physician [CONS] Routine Comment: PLACEMENT OF DIALYSIS CATH ON 07-22-2017 Consulting Provider: Geovanni Guerra III. When should Consulting Provider be notified: Now Person Notified: DR. MC TORRES Date Notified: 07/21/17 Time Notified: 10:55 Consult Notification Comment: NOTIFED PER DR. LAU. WILL NOTIFY OFFICE ATTEMPTED TO CALL OFFICE. NO ANSWER. MESSAGE LEFT. Discharging clinician: Rhina Magallon NP <Nicci Arita - Last Filed: 07/25/17 12:04> Hospital Course - Time spent with patient Time with patient DS: Greater than 30 minutes (45 min) Discharge Plan - Discharge Data Discharge Diet: diabetic diet, low salt diet, other (renal diet ) Activity: resume usual activities as tolerated, as per physical therapy Hygiene: no restrictions Weight Bearing at Discharge: full weight bearing Exam - Constitutional General appearance: normal weight, no acute distress - Respiratory Respiratory exam: Present: clear to auscultation bilaterally. Absent: rhonchi, wheezes - Cardiovascular Cardiovascular exam: Present: regular rate and rhythm. Absent: systolic murmur - GI/Abdominal GI/Abdominal exam: Present: normal bowel sounds, soft. Absent: tenderness - Neurological Exam Neurological exam: Present: alert, oriented X3 - Psychiatric Psychiatric exam: Present: normal affect, normal mood
[2017-07-25] MEDS ORDERED: INSULIN LISPRO 100 UNIT/ML SUBCUT SCH (11:30)
[2017-07-25 16:00] VITALS: BP 136/60
--- NOTE | 2017-07-25 23:21 | Nephrology Progress Note ---
Nephrology - PN: Subj Interval history: She is seen during dialysis No shortness of breath today. Exam (PN)-Nephrology - Vital Signs Vital signs: Period Temp Pulse Resp BP Sys/Veliz Pulse Ox Last 24 Hr 96.1 F-97.6 F 62-76 16-18 136-148/60-81 93-98 Exam: ENT: Normal Cardiovascular: Regular rate and rhythm. No murmur rub or gallop Lungs: Clear Extremities: 1-2+ edema - Lab 07/21/17 17:47 07/21/17 09:38 Most recent lab results ABG pH 7.382 (7.35-7.45) 07/18/17 18:45 ABG pCO2 28.7 MM HG (35-48) L 07/18/17 18:45 ABG pO2 80.9 MM HG (80-95) 07/18/17 18:45 ABG HCO3 18.5 MMOL/L (20-26) L 07/18/17 18:45 ABG O2 Saturation 95.6 % (95-100) 07/18/17 18:45 Calcium 8.2 MG/DL (8.5-10.1) L 07/21/17 09:38 Phosphorus 6.4 MG/DL (2.5-4.9) H 07/21/17 09:38 Magnesium 2.2 MG/DL (1.8-2.4) 07/19/17 04:50 Assessment and Plan (1) Acute on chronic renal failure Status: Acute Assessment and plan: 67-year-old woman with: * CRF stage V. Stable during dialysis * Volume overload. Edema has improved. Shortness of breath resolved * Anemia. Improved after transfusion * Diabetes mellitus * Gastroparesis. Status post gastric pacemaker * Seizure disorder * Debility Qualifiers: Acute renal failure type: with acute renal cortical necrosis (2) Anemia Status: Acute (3) Congestive heart failure Status: Acute (4) Debility Status: Acute (5) Seizure Status: Acute (6) CKD (chronic kidney disease) stage 5, GFR less than 15 ml/min Problem details: No indication for renal replacement therapy at this time. Status: Chronic (7) Diabetes mellitus Status: Chronic Qualifiers: Diabetes mellitus type: type 2 Diabetes mellitus complication status: with kidney complications Diabetes mellitus complication detail: with chronic kidney disease Chronic kidney disease stage: stage 3 (moderate) (8) Gastroparesis Status: Chronic
--- NOTE | 2017-07-29 14:07 | Physician Query Form ---
CLICK EDIT DOCUMENT TO SELECT QUERY ANSWER --> OK --> SIGN Ana Garcia RN [employer] W) [phone] (f) [phone] [email or web address]: Make your selection(s) from the choices in EACH section by typing an "x" and enter comments in the comment section. Please use your independent medical judgment in providing your response. This request does not imply that any particular answer is desired or expected. CLINICAL INDICATORS: (Providers should not edit this section) Based on documentation of "Acute CHF" BNP of 283. Treated with IV Lasix. Echo done on 06/23/2017 showed EF of 60%. Grade 2 diastolic dysfunction. Please provide further specificity regarding CHF. ACUITY: ( x) Acute ( ) Chronic ( ) Acute on Chronic ( ) Clinically unable to determine TYPE: ( ) Systolic (HFrEF - heart failure with reduced systolic function/EF) (x ) Diastolic (HFpEF - heart failure with preserved systolic function/EF) ( ) Combined Systolic/Diastolic ( ) Other, please specify: ( ) Clinically unable to determine ( ) Past Medical History of Systolic CHF ( ) Past Medical History of Diastolic CHF ( x) Clinically unable to determine COMMENTS: PLEASE ALSO DOCUMENT RESPONSE IN PROGRESS NOTES AND/OR DISCHARGE SUMMARY Use of terms such as suspected, likely, or probable (associated with a specific diagnosis that is being evaluated, monitored, or treated as if it exists) are acceptable and can be restated in the discharge summary if not ruled out. MTDD
== END 2017-07-25 16:00 | DRG 682 ==
LOC: EDUNIT# → EDBD → N.ED 13:40 → N.TELEN 16:24 → SUATTDRO 16:24 → N.TELEN 18:15
PROVIDERS: ADMIT Internal Medicine; ATTEND Internal Medicine

== ENCOUNTER 2017-08-15 02:53 | Inpatient (IN) ==
--- NOTE | 2017-08-15 03:32 | Emergency Department Note ---
Arrival - Arrival Chief Complaint: Seizure ED Nursing Triage Note: Pt arrives via ems from home. Initially ems was called for low blood sugar. Pt was found altered and with a CBG of 49mg/dl. PT was given amp of D 50 and up to 188 mg/dl at time of triage. Pt per ems had seizure activity while entering ED. Pt has known seizure disorder. Mode of Arrival: Stretcher Time Seen by Provider: 08/15/17 03:10 - History of Present Illness HPI Narrative: This is a 67-year-old white female with a history of chronic kidney disease on hemodialysis Tuesday, type 2 diabetes, hypertension, anemia, diabetic gastroparesis, seizure disorder, anemia who was found by the family to have altered mental status with a blood sugar of 42 after which the patient was given intravenous dextrose with mental status improvement. Allergies/Adverse Reactions: Allergies Allergy/AdvReac Type Severity Reaction Status Date / Time Penicillins Allergy Intermediate RASH Verified 07/18/17 13:56 sulfamethoxazole Allergy Mild RASH Verified 07/18/17 13:56 [From Bactrim] trimethoprim [From Bactrim] Allergy Mild RASH Verified 07/18/17 13:56 Home Medications: Home Medications Medication Instructions Recorded Confirmed Type Atorvastatin [Lipitor] 20 mg PO QPM 05/13/17 08/15/17 History Nitroglycerin 0.4 mg/Hr Patch 1 patch TRANSDERM DAILY 05/13/17 08/15/17 History [Nitro-Dur 0.4 mg/hr Patch] Ondansetron HCl 4 mg PO QID PRN 05/13/17 08/15/17 History buPROPion HCl [Bupropion Xl] 300 mg PO BID 05/13/17 08/15/17 History Cholecalciferol (Vitamin D3) 5,000 unit PO QPM 06/16/17 08/15/17 History [Vitamin D3] Pantoprazole Tab [Protonix Tab] 40 mg PO DAILY tablet 06/22/17 08/15/17 Rx Labetalol Tab [Trandate Tab] 200 mg PO BID tablet 06/29/17 08/15/17 Rx Phenol 1.4% Throat [place] 5 spray PO Q2H PRN bottle 06/29/17 08/15/17 Rx [Chloraseptic [place]] amLODIPine [Norvasc] 10 mg PO DAILY tablet 06/29/17 08/15/17 Rx hydrALAZINE TAB [Apresoline Tab] 100 mg PO TID tablet 06/29/17 08/15/17 Rx levETIRAcetam TAB [Keppra Tab] 500 mg PO BID tablet 06/29/17 08/15/17 Rx Colchicine [Colcrys] 0.6 mg PO DAILY 07/19/17 08/15/17 History Duloxetine HCl [Cymbalta] 60 mg PO BEDTIME 07/19/17 08/15/17 History Loratadine Tab [Claritin Tab] 10 mg PO DAILY 07/19/17 08/15/17 History Ranolazine [Ranexa] 500 mg PO BID 07/19/17 08/15/17 History Acetaminophen Tab [Tylenol Tab] 650 mg PO Q4H PRN tablet 07/25/17 08/15/17 Rx Docusate Sodium Cap [Colace Cap] 100 mg PO BID PRN capsule 07/25/17 08/15/17 Rx HYDROcodone/ACETAMIN 7.5-325 1 tablet PO Q4H PRN 07/25/17 08/15/17 History [[place] 7.5-325] Heparin Inj 2,000 unit IV WITH DIALYSIS PRN 07/25/17 08/15/17 Rx vial Insulin Glargine [Lantus] 20 unit SUBCUT DAILY #10 ml 07/25/17 08/15/17 Rx guaiFENesin/DM ER 600-30 [Mucinex 1 tablet PO BID PRN tablet 07/25/17 08/15/17 Rx Dm 600-30 MG] Levofloxacin Tab [Levaquin Tab] 500 mg PO DAILY #5 tablet 08/04/17 08/15/17 Rx Review of System - Review of System Constitutional: Absent: fever, night sweats, weakness Eyes: Absent: redness, vision change Head/Ears/Nose/Throat: Absent: epistaxis, nasal drainage Respiratory: Absent: respiratory distress Cardiovascular: Absent: dyspnea on exertion, orthopnea Gastrointestinal: Absent: diarrhea, constipation, hematemesis Genitourinary female: Absent: frequency, genital lesions Musculoskeletal: Absent: arm pain, joint swelling, leg pain Skin: Absent: change in hair/nails, pruritus Neurological: Absent: numbness, paresthesias Psychiatric: Absent: anxiety, depression Endocrine: Absent: heat intolerance, polydipsia, polyuria Hematological/Lymphatic: Absent: easy bruising, lymphadenopathy Allergic/Immunologic: Absent: urticaria, itchy eyes Medical,Surgical,& Family Hx - Medical History Cardio: History of: Congenital Heart Disease, Hypertension, Cardiovascular Problems (cardiomegaly) No history of: CAD, [place] Psychological: History of: Depression Neurology: History of: Migraine (PAST HX.), Seizures (jun 2017) HEENT: History of: Eye Problem (GLASSES) Endocrine: History of: Diabetes Mellitus (IDDM), Dyslipidemia Respiratory: History of: Bronchitis (PAST HX.) No history of: Respiratory Problems (FLU VAC-YES; PNEU VAC- YES.) Renal: History of: Dialysis (Right chest Dialysis catheter.), Renal Failure (DR LAU) Genitourinary: History of: Kidney Stones Gastrointestinal: History of: GERD, GI Problems (NAUSEA AND VOMITING. GASTROINTERITIS) Musculoskeletal: History of: Back/Neck Problems (LOWER BACK PAIN AND SHOULDERS) No history of: Amputation Hematology: History of: Anemia Reproductive: History of: Reproductive Problems (UTERINE CANCER) Other: History of: Anesthesia Reactions (VOMITING WITH ANESTHESIA), Cancer ( UTERINE CANCER.), MRSA (RT SHOULDER 2006) - Surgical History Cardiac Surgeries: Sugical HX of: Cardiac Surgery (temporary pacemaker placed.) Neurologic Surgeries: Patient denies: Neurologic Surgery Abdominal Surgeries: Surgical HX of: Abdominal Surgery (gastric stimulator), Cholecystectomy, Colonoscopy, EGD Reproductive Surgeries: Surgical HX of;: Breast Surgery (RT BREAST LUMPECTOMY), Gynecologic Surgery, Hysterectomy Orthopedic Surgeries: Patient denies;: Implanted Devices, Orthopedic Surgery, Spinal Surgery, Total Hip Replacement, Total Knee Replacement - Family History Family History: Reports;: Family Diabetes (Mother and 2 sisters), Family Hypertension - Social History Smoking Status: Never smoker Frequency of Alcohol Use: None Type of Drug Use: None Exam Vital Signs: Vital Signs Temperature 98.7 F 08/15/17 02:53 Pulse Rate 64 08/15/17 04:31 Respiratory Rate 12 08/15/17 04:31 Blood Pressure 214/62 08/15/17 04:31 O2 Sat by Pulse Oximetry 99 08/15/17 04:31 - General General appearance: alert - Eye Eye exam: Present: PERRL, EOMI - ENT ENT exam: Present: normal exam, normal oropharynx - Neck Neck exam: Present: normal inspection, full ROM - Chest Chest inspection: Present: normal inspection - Respiratory Respiratory exam: Present: normal lung sounds bilaterally - Cardiovascular Cardiovascular exam: Present: regular rate, normal rhythm - Abdominal Exam Abdominal exam: Present: soft, normal bowel sounds - Extremities Exam Extremities exam: Present: normal inspection, full ROM - Back Exam Back exam: Present: normal inspection, full ROM - Neurological Exam Neurological exam: Present: alert, oriented X3, CN II-XII intact - Psychiatric Psychiatric exam: Present: normal affect, normal mood - Skin Skin exam: Present: warm, dry Course Course Narrative: Laboratory tests are either normal or at their baseline. The CT scan of the brain did not show any acute intracranial acute process. However since the patient's mental status has not returned to baseline it seems reasonable that she should be admitted to the hospital until her mental status has improved. The case was discussed with the hospitalist who agreed to admit the patient. Results - Labs CBC & BMP: 08/15/17 03:06 08/15/17 03:06 Disposition Clinical Impression: Altered mental status Disposition: Still a Patient
[2017-08-15 03:35] LABS: Basophils # 0.1 10*3/uL (0.0-0.2); Basophils % 0.6 % (0.0-0.8); Eosinophils # 0.3 10*3/uL (0.0-0.87); Eosinophils % 2.5 % (0.00-10.9); Hematocrit 30.4 VOL% (35.7-47.0); Hemoglobin 10.2 GM/DL (12.0-16.0); Immature Granulocytes % 0.7 %; Immature Granulocytes Absolute 0.08 #; Lymphocytes # 3.4 10*3/uL (1.4-4.0); Lymphocytes % 30.8 % (21.3-54.2); Mean Corpuscular HGB Conc 33.6 GM/DL (32-36); Mean Corpuscular Hemoglobin 32 PG (27-34); Mean Corpuscular Volume 95.9 FL (87-102); Mean Platelet Volume 11.2 FL (9.6-12.0); Monocytes # 1.4 10*3/uL (0.11-0.8); Monocytes % 12.3 % (1.7-12.7); Neutrophils # 5.8 10*3/uL (1.4-7.4); Neutrophils % 53.1 % (38.7-73.9); Platelet Count 242 T/CUMM (130-400); Red Blood Count 3.17 MC/CUMM (3.8-5.5); Red Cell Distribution Width 14.2 % (9.3-17.3)
[2017-08-15 03:48] LABS: Alanine Aminotransferase 21 U/L (13-56); Albumin 2.9 G/DL (3.4-5.0); Alkaline Phosphatase 145 U/L (45-117); Aspartate Amino Transferase 16 U/L (0-37); Bilirubin,Total < 0.39 MG/DL (0.2-1.0); Blood Urea Nitrogen 49 MG/DL (7-18); Calcium 7.8 MG/DL (8.5-10.1); Glucose 161 MG/DL (74-106); Potassium 2.9 MMOL/L (3.5-5.1); Sodium 143 MMOL/L (136-145); Total Protein 5.7 G/DL (6.4-8.3)
[2017-08-15 03:58] LABS: VBG Base Excess 2.2 MEQ/L (0-4); VBG HCO3 26.2 MEQ/L (24-28); VBG Oxygen Saturation 97.8 %; VBG PCO2 38.8 MMHG (41-51); VBG PH 7.448; VBG PO2 110.1 MMHG (17-40)
--- NOTE | 2017-08-15 05:13 | Hospitalist History & Physical ---
Assessment and Plan - Time spent with patient Time spent with patient: Greater than 30 minutes (1) Altered mental status Status: Acute Assessment and plan: Admit to hospitalist services. Admit to ICU for close monitoring. BG was 42 when checked by EMS and increased to 188 after getting an amp of D50. EMS reported that mental status improved following increased BG, but the patient had seizure activity upon arrival to ED. Severely hypertensive in ED. CT head was negative for any acute process. Consult Neurology. Obtain EEG. Check Keppra level. Neuro checks Q4 Seizure and Fall precautions. Restart home medications. CBC and CMP in a.m. Current Visit: Yes (2) Seizure Status: Acute Assessment and plan: Consult Neurology. Obtain EEG. Continue Keppra. Check Keppra level. Current Visit: No (3) Hypokalemia Status: Acute Assessment and plan: Give Potassium 20 meq PO x 1 dose. Recheck potassium in 4 hours. Recheck CMP in a.m. Current Visit: Yes (4) Hypocalcemia Status: Acute Assessment and plan: Ca was 7.8. Corrected Ca was 8.7 Recheck CMP in a.m. Current Visit: Yes (5) End-stage renal disease on hemodialysis Status: Acute Assessment and plan: Consult Nephrology. Continue home medicines. Current Visit: No (6) Anemia Status: Acute Assessment and plan: Secondary to ESRD. Stable; at baseline. Recheck CBC in a.m. Current Visit: No (7) Diabetes mellitus Status: Chronic Assessment and plan: Continue home dose of Lantus. ADA diet. Accuchecks and SSI ACHS. Current Visit: No Qualifiers: Diabetes mellitus type: type 2 Diabetes mellitus complication status: with kidney complications Diabetes mellitus complication detail: with chronic kidney disease Chronic kidney disease stage: stage 3 (moderate) (8) Hypertension Status: Chronic Assessment and plan: Continue home medications. Cardene drip; titrate. Monitor. Current Visit: No Qualifiers: Hypertension type: essential hypertension Qualified Code(s): I10 - Essential (primary) hypertension (9) DVT prophylaxis Status: Acute Assessment and plan: Bilateral TEDs due to ESRD. Current Visit: Yes History of Present Illness Chief complaint: AMS; seizure History of present illness: Ms. Pedersen is a 67 year old female with a past medical history of recent, new onset seizures, IDDM, HTN, ESRD on hemodialysis, anemia, GERD, and uterine cancer who was brought to the ED today by EMS after family found her to have altered mental status. Her blood glucose was 42 when checked by EMS. They gave her an amp of D50 which elevated her blood glucose to 188, and they reported that she had improved mental status at that time. According to EMS, the patient had seizure activity at the time of arrival to the ED. In the ED, she had significantly elevated blood pressure at 214/62. Labs were significant for H/H 10.2/30.4, potassium 2.9, Anion Gap 15.9, BUN 49, creatinine 3.5, Blood glucose 161, Calcium 7.8, Alkaline phosphatase 145, and albumin 5.7. CT head showed only microvascular changes; no acute process. Hospitalist services were consulted, and the patient will be admitted to ICU for further treatment and evaluation. Home medications were reviewed and reconciled. This patient is a full code. Home Medications Medication Instructions Recorded Confirmed Type Atorvastatin [Lipitor] 20 mg PO QPM 05/13/17 08/15/17 History Nitroglycerin 0.4 mg/Hr Patch 1 patch TRANSDERM DAILY 05/13/17 08/15/17 History [Nitro-Dur 0.4 mg/hr Patch] Ondansetron HCl 4 mg PO QID PRN 05/13/17 08/15/17 History buPROPion HCl [Bupropion Xl] 300 mg PO BID 05/13/17 08/15/17 History Cholecalciferol (Vitamin D3) 5,000 unit PO QPM 06/16/17 08/15/17 History [Vitamin D3] Pantoprazole Tab [Protonix Tab] 40 mg PO DAILY tablet 06/22/17 08/15/17 Rx Labetalol Tab [Trandate Tab] 200 mg PO BID tablet 06/29/17 08/15/17 Rx Phenol 1.4% Throat [place] 5 spray PO Q2H PRN bottle 06/29/17 08/15/17 Rx [Chloraseptic [place]] amLODIPine [Norvasc] 10 mg PO DAILY tablet 06/29/17 08/15/17 Rx hydrALAZINE TAB [Apresoline Tab] 100 mg PO TID tablet 06/29/17 08/15/17 Rx levETIRAcetam TAB [Keppra Tab] 500 mg PO BID tablet 06/29/17 08/15/17 Rx Colchicine [Colcrys] 0.6 mg PO DAILY 07/19/17 08/15/17 History Duloxetine HCl [Cymbalta] 60 mg PO BEDTIME 07/19/17 08/15/17 History Loratadine Tab [Claritin Tab] 10 mg PO DAILY 07/19/17 08/15/17 History Ranolazine [Ranexa] 500 mg PO BID 07/19/17 08/15/17 History Acetaminophen Tab [Tylenol Tab] 650 mg PO Q4H PRN tablet 07/25/17 08/15/17 Rx Docusate Sodium Cap [Colace Cap] 100 mg PO BID PRN capsule 07/25/17 08/15/17 Rx HYDROcodone/ACETAMIN 7.5-325 1 tablet PO Q4H PRN 07/25/17 08/15/17 History [[place] 7.5-325] Heparin Inj 2,000 unit IV WITH DIALYSIS PRN 07/25/17 08/15/17 Rx vial Insulin Glargine [Lantus] 20 unit SUBCUT DAILY #10 ml 07/25/17 08/15/17 Rx guaiFENesin/DM ER 600-30 [Mucinex 1 tablet PO BID PRN tablet 07/25/17 08/15/17 Rx Dm 600-30 MG] Levofloxacin Tab [Levaquin Tab] 500 mg PO DAILY #5 tablet 08/04/17 08/15/17 Rx Allergies Allergy/AdvReac Type Severity Reaction Status Date / Time Penicillins Allergy Intermediate RASH Verified 07/18/17 13:56 sulfamethoxazole Allergy Mild RASH Verified 07/18/17 13:56 [From Bactrim] trimethoprim [From Bactrim] Allergy Mild RASH Verified 07/18/17 13:56 Medical,Surgical,& Family Hx - Medical History Cardio: History of: Congenital Heart Disease, Hypertension, Cardiovascular Problems (cardiomegaly) Psychological: History of: Depression Neurology: History of: Migraine (PAST HX.), Seizures (jun 2017) HEENT: History of: Eye Problem (GLASSES) Endocrine: History of: Diabetes Mellitus (IDDM), Dyslipidemia Respiratory: History of: Bronchitis (PAST HX.) Renal: History of: Dialysis (Right chest Dialysis catheter.), Renal Failure (DR LAU) Genitourinary: History of: Kidney Stones Gastrointestinal: History of: GERD, GI Problems (NAUSEA AND VOMITING. GASTROINTERITIS) Musculoskeletal: History of: Back/Neck Problems (LOWER BACK PAIN AND SHOULDERS) Hematology: History of: Anemia Reproductive: History of: Reproductive Problems (UTERINE CANCER) Other: History of: Anesthesia Reactions (VOMITING WITH ANESTHESIA), Cancer ( UTERINE CANCER.), MRSA (RT SHOULDER 2007) - Surgical History Cardiac Surgeries: Sugical HX of: Cardiac Surgery (temporary pacemaker placed.) Abdominal Surgeries: Surgical HX of: Abdominal Surgery (gastric stimulator), Cholecystectomy, Colonoscopy, EGD Reproductive Surgeries: Surgical HX of;: Breast Surgery (RT BREAST LUMPECTOMY), Gynecologic Surgery, Hysterectomy - Family History Family History: Reports;: Family Diabetes (Mother and 2 sisters), Family Hypertension - Social History Smoking Status: Never smoker Have you smoked in the last 12 months: No Frequency of Alcohol Use: None Type of Drug Use: None Marital Status: Legally Lives With:: Alone Functional capacity: independent ambulation ROS unobtainable: due to mental status Exam - Constitutional Vitals: Period Temp Pulse Resp BP Sys/Veliz Pulse Ox Last 24 Hr 98.5 F-98.7 F 64-86 12-20 201-218/62-98 98-100 Exam: Constitutional System: Afebrile. Awake, drowsy/lethargic. Oriented x 2. [No] distress. [No] tremulousness. Head: Normocephalic, Bruising noted over right confucianist. Ears, Nose and Throat System: Dried blood noted around mouth. No pain or tenderness. No epistaxis or discharge Eyes System: Pupils equal, round, and reactive. Nystagmus noted. Extraocular muscles intact; however she can not continuously track movement, she has to look away and close her eyes and restart. Neck: Supple, without adenopathy, [No] jugular venous distention. No thyromegaly , neck mass, or prior surgery apparent. Respiratory System: Chest [clear] to auscultation. Cardiovascular System: Heart with [regular] rate and rhythm. [Systolic] murmur. GI System: Abdomen [soft], [non]tender. [Normo]active bowel sounds present. Musculoskeletal System: Limbs with [no] pedal edema. [Full] distal pulses. Normal capillary refill. Bruising noted over BLEs. Neurological System: Impaired memory. Confused. Psychiatric System: Impaired memory. Confused. Results - Labs CBC & BMP: 08/15/17 03:06 08/15/17 03:06 Lab Results: I have reviewed the past 24 hour labs Labs: WBC 11.0 RBC 3.17 Hgb 10.2 Hct 30.4 MCV 95.9 VBG pH 7.448 VBG pCO2 38.8 VBG pO2 110.1 VBG HCO3 26.2 VBG Total CO2 27.4 VBG O2 Saturation 97.8 VBG Base Excess 2.2 Na 143 K 2.9 Cl 105 Anion Gap 15.9 BUN 49 Creatinine 3.5 GFR 15 Glucose 161 Ca 7.8 AST 16 ALT 21 Alkaline Phosphatase 145 Troponin 0.028 Total Protein 5.7 Albumin 2.9 Globulin 2.8 Albumin/Globulin Ration 1.0 - Diagnostic Findings Procedure: CT: report reviewed by me
[2017-08-15] MEDS ORDERED: DEXTROSE 50% 25 GM/50 ML SYRINGE IV PRN (05:16)
[2017-08-15] MEDS ORDERED: GLUCAGON 1 MG VIAL IM PRN (05:16)
[2017-08-15] MEDS ORDERED: POTASSIUM CHLORIDE 20 MEQ TABLET PO ONE (06:17)
[2017-08-15] MEDS ORDERED: niCARdipine 25 MG/10 ML VIAL IV ONE (06:38)
[2017-08-15] MEDS: niCARdipine INJ 25 MG in SODIUM CHLORIDE 0.9% 240 ML IV SCH (06:46)
[2017-08-15] MEDS ORDERED: POTASSIUM CHLORIDE 20 MEQ PACK ONE (06:48)
--- NOTE | 2017-08-15 07:05 | CT Report ---
CT brain Indication: Altered mental status Comparison: 20 July 2017 Technique: Axial CT imaging of the brain is performed without contrast with 3 mm increments. Findings: No evidence of hemorrhage, mass mass effect midline shift or acute infarct seen. The brain parenchyma attenuation and differentiation appears within normal limits. The ventricles and cisterns are normal in caliber. No cranial or skull base abnormality is identified. Impression: No evidence of abnormality demonstrated. This CT exam was performed using one or more the following dose reduction techniques: Automated exposure control, adjustment of the MA and/or KV according to patient size, or use of iterative reconstruction technique. PROCEDURE INTERPRETED AT [facility] DEPARTMENT OF RADIOLOGY Final Report Signed by: Dr. Guanakito Sidhu
--- NOTE | 2017-08-15 07:14 | XRay Report ---
XR chest 1V portable Indication: Altered mental status Comparison: 22 July 2017 Findings: The heart and mediastinum are stable in size and configuration. Right internal jugular catheter is unchanged in position. The pulmonary vascularity is normal in caliber. No lung infiltrates, effusions, pneumothorax or other abnormality is demonstrated. Impression: No acute cardiopulmonary disease. PROCEDURE INTERPRETED AT [facility] DEPARTMENT OF RADIOLOGY Final Report Signed by: Dr. Guanakito Sidhu
[2017-08-15] MEDS: INSULIN LISPRO 100 UNIT/ML SUBCUT SCH ×4 (08:17→20:38)
[2017-08-15] MEDS ORDERED: INFLUENZA VIRUS VACCINE 0.5 ML SYRINGE IM ONE (08:28)
[2017-08-15] MEDS ORDERED: levETIRAcetam 500 MG TABLET PO SCH ×2 (09:00→14:53)
[2017-08-15] MEDS: LABETALOL 200 MG TABLET PO SCH ×2 (09:20→20:55)
[2017-08-15] MEDS: PANTOPRAZOLE 40 MG TABLET PO SCH (09:20)
[2017-08-15] MEDS: RANOLAZINE 500 MG TABLET PO SCH ×2 (09:20→20:55)
[2017-08-15] MEDS: amLODIPine 10 MG TABLET PO SCH (09:20)
[2017-08-15] MEDS: COLCHICINE 0.6 MG TABLET PO SCH (09:21)
[2017-08-15] MEDS ORDERED: LORazepam 2 MG/1 ML VIAL IV PRN (09:36)
[2017-08-15 11:31] LABS: Apearance,Urine Slightly Hazy (Clear); Bacteria,Urine Occasional /HPF (Few); Bilirubin,Urine Negative (Negative); Blood, Urine Negative (Negative); Glucose,Urine (UA) 150 mg/dL (Negative); Ketones,Urine Negative (Negative); Nitrite,Urine Negative (Negative); Protein,Urine 30 MG/DL; RBC,Urine 7 /HPF (0-4); Squamous Epithelial Cell,Urine Occasional /HPF (0-10); Urine Color Yellow (Yellow); Urine Urobilinogen < 2.0 EU/DL (0.2-1.0); WBC,Urine 53 /HPF (0-6)
--- NOTE | 2017-08-15 13:12 | Nephrology Progress Note ---
Nephrology - PN: Subj Interval history: She is a 67-year-old woman with ESRD secondary to diabetes. She recently started dialysis. She had a hypoglycemic episode at home. She had a seizure after that. She has a known seizure disorder. She is currently awake but confused. She denies shortness of breath or pain. Exam (PN)-Nephrology - Vital Signs Vital signs: Period Temp Pulse Resp BP Sys/Veliz Pulse Ox Last 24 Hr 98.1 F-98.7 F 64-86 12-20 103-225/34-98 97-100 Exam: Gen.: Awake but confused ENT: Pupils equal round reactive to light. Neck: Supple. No JVD or bruit. Cardiovascular: Regular rate and rhythm. No murmur rub or gallop Lungs: Clear Abdomen: Soft. Nontender. Positive bowel sounds. No organomegaly Extremities: Trace edema - Lab 08/15/17 03:06 08/15/17 12:15 Most recent lab results Calcium 7.8 MG/DL (8.5-10.1) L 08/15/17 03:06 Magnesium 2.0 MG/DL (1.8-2.4) 08/15/17 03:06 Assessment and Plan (1) End-stage renal disease on hemodialysis Status: Acute Assessment and plan: 67-year-old woman with: * Diabetes mellitus * Hypoglycemia. She has known gastroparesis and may have had inconsistent intake * Seizure disorder. She is on Keppra. Agree with neurology evaluation * ESRD. Volume status acceptable. Dialysis tomorrow * Hypertension Current Visit: No (2) Altered mental status Status: Acute Current Visit: Yes (3) Hypoglycemia Status: Acute Current Visit: No (4) Seizure Status: Acute Current Visit: No (5) Diabetes mellitus Status: Chronic Current Visit: No Qualifiers: Diabetes mellitus type: type 2 Diabetes mellitus complication status: with kidney complications Diabetes mellitus complication detail: with chronic kidney disease Chronic kidney disease stage: stage 3 (moderate) (6) Hypertension Status: Chronic Current Visit: No Qualifiers: Hypertension type: essential hypertension Qualified Code(s): I10 - Essential (primary) hypertension
[2017-08-15] MEDS: ZINC OXIDE PASTE 113 GM TUBE TOP PRN (15:04)
[2017-08-15] MEDS: ACETAMINOPHEN 325 MG TABLET PO PRN (15:06)
--- NOTE | 2017-08-15 15:44 | Neurology Consult Note ---
History of Present Illness History of present illness: Ms. Pedersen is a 67 year old right-handed white lady with a past medical history of recent, new onset seizures, IDDM, HTN, ESRD on hemodialysis, anemia, GERD, and uterine cancer who was brought to the ED yesterday by EMS after family found her to have altered mental status. Her blood glucose was 42 when checked by EMS. They gave her an amp of D50 which elevated her blood glucose to 188, and they reported that she had improved mental status at that time. According to EMS, the patient had seizure activity at the time of arrival to the ED. In the ED, she had significantly elevated blood pressure at 214/62. She also has hypopotassemia. CT head showed only microvascular changes; no acute process. Home Medications Medication Instructions Recorded Confirmed Type Atorvastatin [Lipitor] 20 mg PO QPM 05/13/17 08/15/17 History Nitroglycerin 0.4 mg/Hr Patch 1 patch TRANSDERM DAILY 05/13/17 08/15/17 History [Nitro-Dur 0.4 mg/hr Patch] Ondansetron HCl 4 mg PO QID PRN 05/13/17 08/15/17 History buPROPion HCl [Bupropion Xl] 300 mg PO BID 05/13/17 08/15/17 History Cholecalciferol (Vitamin D3) 5,000 unit PO QPM 06/16/17 08/15/17 History [Vitamin D3] Pantoprazole Tab [Protonix Tab] 40 mg PO DAILY tablet 06/22/17 08/15/17 Rx Labetalol Tab [Trandate Tab] 200 mg PO BID tablet 06/29/17 08/15/17 Rx Phenol 1.4% Throat [place] 5 spray PO Q2H PRN bottle 06/29/17 08/15/17 Rx [Chloraseptic [place]] amLODIPine [Norvasc] 10 mg PO DAILY tablet 06/29/17 08/15/17 Rx hydrALAZINE TAB [Apresoline Tab] 100 mg PO TID tablet 06/29/17 08/15/17 Rx levETIRAcetam TAB [Keppra Tab] 500 mg PO BID tablet 06/29/17 08/15/17 Rx Colchicine [Colcrys] 0.6 mg PO DAILY 07/19/17 08/15/17 History Duloxetine HCl [Cymbalta] 60 mg PO BEDTIME 07/19/17 08/15/17 History Loratadine Tab [Claritin Tab] 10 mg PO DAILY 07/19/17 08/15/17 History Ranolazine [Ranexa] 500 mg PO BID 07/19/17 08/15/17 History Acetaminophen Tab [Tylenol Tab] 650 mg PO Q4H PRN tablet 07/25/17 08/15/17 Rx Docusate Sodium Cap [Colace Cap] 100 mg PO BID PRN capsule 07/25/17 08/15/17 Rx HYDROcodone/ACETAMIN 7.5-325 1 tablet PO Q4H PRN 07/25/17 08/15/17 History [[place] 7.5-325] Heparin Inj 2,000 unit IV WITH DIALYSIS PRN 07/25/17 08/15/17 Rx vial Insulin Glargine [Lantus] 20 unit SUBCUT DAILY #10 ml 07/25/17 08/15/17 Rx guaiFENesin/DM ER 600-30 [Mucinex 1 tablet PO BID PRN tablet 07/25/17 08/15/17 Rx Dm 600-30 MG] Levofloxacin Tab [Levaquin Tab] 500 mg PO DAILY #5 tablet 08/04/17 08/15/17 Rx Allergies Allergy/AdvReac Type Severity Reaction Status Date / Time Penicillins Allergy Intermediate RASH Verified 07/18/17 13:56 sulfamethoxazole Allergy Mild RASH Verified 07/18/17 13:56 [From Bactrim] trimethoprim [From Bactrim] Allergy Mild RASH Verified 07/18/17 13:56 12 point system: reviewed and no additional remarkable complaints except as stated Medical,Surgical,& Family Hx - Medical History Cardio: History of: Congenital Heart Disease, Hypertension, Cardiovascular Problems (cardiomegaly) No history of: CAD, [place] Psychological: History of: Depression Neurology: History of: Migraine (PAST HX.), Seizures (jun 2017) HEENT: History of: Eye Problem (GLASSES) Endocrine: History of: Diabetes Mellitus (IDDM), Dyslipidemia Respiratory: History of: Bronchitis (PAST HX.) No history of: Respiratory Problems (FLU VAC-YES; PNEU VAC- YES.) Renal: History of: Dialysis (Right chest Dialysis catheter.), Renal Failure (DR LAU) Genitourinary: History of: Kidney Stones Gastrointestinal: History of: GERD, GI Problems (NAUSEA AND VOMITING. GASTROINTERITIS) Musculoskeletal: History of: Back/Neck Problems (LOWER BACK PAIN AND SHOULDERS) No history of: Amputation Hematology: History of: Anemia Reproductive: History of: Reproductive Problems (UTERINE CANCER) Other: History of: Anesthesia Reactions (VOMITING WITH ANESTHESIA), Cancer ( UTERINE CANCER.), MRSA (RT SHOULDER 2007) - Surgical History Cardiac Surgeries: Sugical HX of: Cardiac Surgery (temporary pacemaker placed.) Neurologic Surgeries: Patient denies: Neurologic Surgery Abdominal Surgeries: Surgical HX of: Abdominal Surgery (gastric stimulator), Cholecystectomy, Colonoscopy, EGD Reproductive Surgeries: Surgical HX of;: Breast Surgery (RT BREAST LUMPECTOMY), Gynecologic Surgery, Hysterectomy Orthopedic Surgeries: Patient denies;: Implanted Devices, Orthopedic Surgery, Spinal Surgery, Total Hip Replacement, Total Knee Replacement - Family History Family History: Reports;: Family Diabetes (Mother and 2 sisters), Family Hypertension - Social History Smoking Status: Never smoker Frequency of Alcohol Use: None Type of Drug Use: None Exam - Constitutional Vitals: Period Temp Pulse Resp BP Sys/Veliz Pulse Ox Last 24 Hr 96.6 F-98.7 F 62-86 12-20 103-225/34-98 97-100 Exam: GENERAL: Patient is in no acute distress. NECK: Neck is supple. There is no JVD. No carotid bruits present. No thyroid masses. CVS: First and second heart sounds are normal. There is no S3 present. Regular rate and rhythm. RESPIRATORY: Lungs are clear to auscultation without any rales or rhonchi. ABDOMEN: Soft and non-tender. Bowel sounds are present. There is no hepatosplenomegaly. EXT: There is no palpable edema. Peripheral pulses are present. Skin: No rashes Central Nervous system: General: Alert, awake and following simple command Speech: Fluent Comprehension: Fair Facial expressions: Normal Cranial Nerves: CN1/Olfactory: Normal CN II/ Optic: Normal, Visual Wagner unreliable CN III, and : JOSH & EOMI CN V: Normal & intact CN VII: face is symmetric CNVIII: Normal CN XI/X/XI/XII: Intact and Normal Motor: Bulk and Tone is normal. Strength is symmetric Sensory: Unreliable Reflexes: 1+ and symmetrical Cerebellar function: Not tested Toes: Equivocal Gait: Not tested at this time Results - Labs CBC & BMP: 10/02/17 03:06 08/15/17 12:15 Assessment and Plan (1) Seizure disorder Status: Acute Assessment and plan: Change Keppra to 750 mg p.o. twice daily EEG Okay to go to the floor when okay with PCP Thanks for the consult Current Visit: Yes
[2017-08-15] MEDS: ATORVASTATIN 20 MG TABLET PO SCH (18:12)
[2017-08-15] MEDS: INSULIN GLARGINE 100 UNIT/ML SUBCUT SCH (20:54)
[2017-08-15] MEDS: levETIRAcetam 500 MG TABLET PO SCH (20:54)
[2017-08-15] MEDS: CHOLECALCIFEROL 1,000 UNIT TABLET PO SCH (20:54)
[2017-08-15] MEDS: DULoxetine 30 MG CAPSULE PO SCH (20:56)
--- NOTE | 2017-08-16 04:42 | Order Completion Report ---
See report scanned to EMR
[2017-08-16 06:41] LABS: Basophils # 0.1 10*3/uL (0.0-0.2); Basophils % 0.5 % (0.0-0.8); Eosinophils # 0.1 10*3/uL (0.0-0.87); Eosinophils % 1.3 % (0.00-10.9); Hematocrit 27.4 VOL% (35.7-47.0); Hemoglobin 9.3 GM/DL (12.0-16.0); Immature Granulocytes % 0.3 %; Immature Granulocytes Absolute 0.03 #; Lymphocytes # 2.5 10*3/uL (1.4-4.0); Lymphocytes % 26.4 % (21.3-54.2); Mean Corpuscular HGB Conc 33.9 GM/DL (32-36); Mean Corpuscular Hemoglobin 32 PG (27-34); Mean Corpuscular Volume 94.2 FL (87-102); Mean Platelet Volume 11.1 FL (9.6-12.0); Monocytes # 1.2 10*3/uL (0.11-0.8); Monocytes % 12.6 % (1.7-12.7); Neutrophils # 5.7 10*3/uL (1.4-7.4); Neutrophils % 58.9 % (38.7-73.9); Platelet Count 208 T/CUMM (130-400); Red Blood Count 2.91 MC/CUMM (3.8-5.5); Red Cell Distribution Width 14.6 % (9.3-17.3); White Blood Count 9.6 T/CUMM (4-12)
[2017-08-16 07:14] LABS: Albumin 2.9 G/DL (3.4-5.0); Bilirubin,Total 0.6 MG/DL (0.2-1.0); Osmolality,Calculated 299.1 MOS/KG (273-304); Potassium 3.6 MMOL/L (3.5-5.1); Total Protein 5.7 G/DL (6.4-8.3)
[2017-08-16] MEDS: niCARdipine INJ 25 MG in SODIUM CHLORIDE 0.9% 240 ML IV SCH (08:05)
[2017-08-16] MEDS: INSULIN LISPRO 100 UNIT/ML SUBCUT SCH ×4 (08:05→20:19)
[2017-08-16] MEDS: LABETALOL 200 MG TABLET PO SCH ×2 (09:39→21:44)
[2017-08-16] MEDS: RANOLAZINE 500 MG TABLET PO SCH ×2 (09:40→21:44)
[2017-08-16] MEDS: PANTOPRAZOLE 40 MG TABLET PO SCH (09:40)
[2017-08-16] MEDS: amLODIPine 10 MG TABLET PO SCH (09:40)
[2017-08-16] MEDS: COLCHICINE 0.6 MG TABLET PO SCH (09:41)
[2017-08-16] MEDS: levETIRAcetam 500 MG TABLET PO SCH ×2 (09:41→21:44)
--- NOTE | 2017-08-16 11:15 | Hospitalist Progress Note ---
Assessment and Plan (1) Altered mental status Status: Acute Assessment and plan: 1)altered mental status- probably secondary to seizures prior to admission. Dr Pierce took care of her at [facility] a coupld of weeks ago and he and Dr Jean-Baptiste know her baseline. CT without acute change. EEG pending. on oral Keppra. She pulled out her IV last night. 2)debility- falling frequently at home- needs swing bed placement. 3)hypokalemia-corrected 4)hypoglycemia- corrected, tolerating lantus and SSI. eating diabetic diet. 5) ESRD on HD- TTHSAT 6)seizure disorder- known, so far controlled in hospital on Keppra. 7)dispo- to floor Current Visit: Yes (2) Diabetes mellitus Status: Chronic Current Visit: No Qualifiers: Diabetes mellitus type: type 2 Diabetes mellitus complication status: with kidney complications Diabetes mellitus complication detail: with chronic kidney disease Chronic kidney disease stage: stage 3 (moderate) (3) Hypertension Status: Chronic Current Visit: No Qualifiers: Hypertension type: essential hypertension Qualified Code(s): I10 - Essential (primary) hypertension (4) Unsteady gait Status: Acute Current Visit: No (5) Debility Status: Acute Current Visit: No (6) End-stage renal disease on hemodialysis Status: Acute Current Visit: No (7) Hypokalemia Status: Acute Current Visit: Yes (8) Hypocalcemia Status: Acute Current Visit: Yes (9) DVT prophylaxis Status: Acute Current Visit: Yes (10) Seizure disorder Status: Acute Current Visit: Yes Hospitalist: Subjective Interval history: Mrs Barcenas has no complaints this morning. She does not know where she is and could not tell thenurse her last name. The SW talked to her son who reports that when arabella was discharged from [facility] on 08/04, arabella did ok at home for a few days then started falling again. She requires a lot of help in the home and I don't have a solid idea about what her baseline mental acuity is. She denies pain and says she ate breakfast this morning. Exam - Constitutional Vitals: Period Temp Pulse Resp BP Sys/Veliz Pulse Ox Last 24 Hr 96.7 F-98.4 F 62-72 12-22 96-161/40-83 97-100 General appearance: normal weight, no acute distress - Eye Eye exam: Present: EOMI. Absent: scleral icterus - Respiratory Respiratory exam: Present: clear to auscultation bilaterally - Cardiovascular Cardiovascular exam: Present: regular rate and rhythm - GI/Abdominal GI/Abdominal exam: Present: normal bowel sounds, soft. Absent: tenderness - Extremities Exam Extremities exam: Absent: edema - Neurological Exam Neurological exam: Present: alert. Absent: oriented X3 (slow responses to questions, vague, comfortable under covers, calm. 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
--- NOTE | 2017-08-16 15:04 | Neurology Progress Note ---
Neurology - PN : Subjective Interval history: Is still somewhat confused and disoriented. Not talking much. EEG revealed bihemispheric independent epileptiform discharges. Exam (Progress Note) - Constitutional Vitals: Period Temp Pulse Resp BP Sys/Veliz Pulse Ox Last 24 Hr 97.6 F-98.4 F 64-72 12-24 91-141/40-83 96-100 Exam: GENERAL: Patient is in no acute distress. NECK: Neck is supple. There is no JVD. No carotid bruits present. No thyroid masses. CVS: First and second heart sounds are normal. There is no S3 present. Regular rate and rhythm. RESPIRATORY: Lungs are clear to auscultation without any rales or rhonchi. ABDOMEN: Soft and non-tender. Bowel sounds are present. There is no hepatosplenomegaly. EXT: There is no palpable edema. Peripheral pulses are present. Skin: No rashes Central Nervous system: General: Alert, awake and following simple command Speech: Fluent Comprehension: Fair Facial expressions: Normal Cranial Nerves: CN1/Olfactory: Normal CN II/ Optic: Normal, Visual Wagner unreliable CN III, and : JOSH & EOMI CN V: Normal & intact CN VII: face is symmetric CNVIII: Normal CN XI/X/XI/XII: Intact and Normal Motor: Bulk and Tone is normal. Strength is symmetric Sensory: Unreliable Reflexes: 1+ and symmetrical Cerebellar function: Not tested Toes: Equivocal Gait: Not tested at this time Results - Labs CBC & BMP: 08/16/17 06:09 08/16/17 06:09 Assessment and Plan (1) Seizure disorder Status: Acute Assessment and plan: Change Keppra to 1000 mg p.o. twice daily Repeat EEG in the morning Continue current rest of the management Current Visit: Yes Quality Measures - VTE Contraindication to Pharmacological VTE Prophylaxis: High Risk of Bleeding
[2017-08-16] MEDS: ATORVASTATIN 20 MG TABLET PO SCH (18:34)
[2017-08-16] MEDS: DULoxetine 30 MG CAPSULE PO SCH (21:44)
[2017-08-16] MEDS: CHOLECALCIFEROL 1,000 UNIT TABLET PO SCH (21:44)
[2017-08-16] MEDS: INSULIN GLARGINE 100 UNIT/ML SUBCUT SCH (21:44)
--- NOTE | 2017-08-16 22:27 | Nephrology Progress Note ---
Nephrology - PN: Subj Interval history: Awake,answers questions. Slow responses Exam (PN)-Nephrology - Vital Signs Vital signs: Period Temp Pulse Resp BP Sys/Veliz Pulse Ox Last 24 Hr 97.7 F-98.5 F 63-75 12-26 83-137/40-83 96-99 Exam: ENT: Pupils equal round reactive to light. EOMs intact. Mucous membranes moist. Neck: Supple. No JVD or bruit. Cardiovascular: Regular rate and rhythm. No murmur rub or gallop Lungs: Clear Abdomen: Soft. Nontender. Positive bowel sounds. No organomegaly Extremities: No edema - Lab 08/16/17 06:09 08/16/17 06:09 Most recent lab results Calcium 9.0 MG/DL (8.5-10.1) 08/16/17 06:09 Magnesium 2.0 MG/DL (1.8-2.4) 08/15/17 03:06 Assessment and Plan (1) End-stage renal disease on hemodialysis Status: Acute Assessment and plan: 67-year-old woman with: * Diabetes mellitus * Hypoglycemia. Resolved * Gastroparesis * Seizure disorder. She is on Keppra. Management neurology * ESRD. Dialysis today * Hypertension Current Visit: No (2) Altered mental status Status: Acute Current Visit: Yes (3) Hypoglycemia Status: Acute Current Visit: No (4) Seizure Status: Acute Current Visit: No (5) Diabetes mellitus Status: Chronic Current Visit: No Qualifiers: Diabetes mellitus type: type 2 Diabetes mellitus complication status: with kidney complications Diabetes mellitus complication detail: with chronic kidney disease Chronic kidney disease stage: stage 3 (moderate) (6) Hypertension Status: Chronic Current Visit: No Qualifiers: Hypertension type: essential hypertension Qualified Code(s): I10 - Essential (primary) hypertension
[2017-08-17] MEDS: INSULIN LISPRO 100 UNIT/ML SUBCUT SCH ×4 (09:11→21:58)
[2017-08-17] MEDS: LABETALOL 200 MG TABLET PO SCH ×2 (09:33→21:59)
[2017-08-17] MEDS: RANOLAZINE 500 MG TABLET PO SCH ×2 (09:33→21:59)
[2017-08-17] MEDS: levETIRAcetam 500 MG TABLET PO SCH ×2 (09:33→21:58)
[2017-08-17] MEDS: PANTOPRAZOLE 40 MG TABLET PO SCH (09:33)
[2017-08-17] MEDS: amLODIPine 10 MG TABLET PO SCH (09:33)
[2017-08-17] MEDS: COLCHICINE 0.6 MG TABLET PO SCH (09:33)
[2017-08-17] MEDS ORDERED: VANCOMYCIN INJ 1,000 MG in SODIUM CHLORIDE 0.9% 250 ML IV ONE (11:00)
--- NOTE | 2017-08-17 12:23 | Hospitalist Progress Note ---
Assessment and Plan (1) Altered mental status Status: Acute Assessment and plan: 1)altered mental status- probably secondary to seizures- better after increase in Keppra. Dr Pierce took care of her at [facility] a couple of weeks ago and he and Dr Jean-Baptiste know her baseline. CT without acute change. EEG showed epileptiform discharges. on Keppra. She pulled out her IV last night. 2)debility- falling frequently at home- needs swing bed placement. 3)hypokalemia-corrected 4)hypoglycemia- corrected, tolerating lantus and SSI. eating diabetic diet. 5) ESRD on HD- [facility] 6)seizure disorder- known since the summer. 7)dispo- to floor when bed available- she is still in unit because there was not a floor bed available. Current Visit: Yes (2) Diabetes mellitus Status: Chronic Current Visit: No Qualifiers: Diabetes mellitus type: type 2 Diabetes mellitus complication status: with kidney complications Diabetes mellitus complication detail: with chronic kidney disease Chronic kidney disease stage: stage 3 (moderate) (3) Hypertension Status: Chronic Current Visit: No Qualifiers: Hypertension type: essential hypertension Qualified Code(s): I10 - Essential (primary) hypertension (4) Unsteady gait Status: Acute Current Visit: No (5) Debility Status: Acute Current Visit: No (6) End-stage renal disease on hemodialysis Status: Acute Current Visit: No (7) Hypokalemia Status: Acute Current Visit: Yes (8) Hypocalcemia Status: Acute Current Visit: Yes (9) DVT prophylaxis Status: Acute Current Visit: Yes (10) Seizure disorder Status: Acute Current Visit: Yes Hospitalist: Subjective Interval history: Mrs Pedersen is more alert and responsive this morning but she does not knwo where she is or why. She has epileptiform discharges on her EEG and Dr Pierce increased her Keppra yesterday. She began to have seizures and have dementia problems this summer per her granddaughter with [facility] who spoke by phone with her nurse. Exam - Constitutional Vitals: Period Temp Pulse Resp BP Sys/Veliz Pulse Ox Last 24 Hr 97.4 F-98.9 F 63-79 12-26 83-135/43-65 96-100 General appearance: normal weight, no acute distress - Eye Eye exam: Present: EOMI. Absent: scleral icterus - Respiratory Respiratory exam: Present: clear to auscultation bilaterally - Cardiovascular Cardiovascular exam: Present: regular rate and rhythm - GI/Abdominal GI/Abdominal exam: Present: normal bowel sounds, soft. Absent: tenderness - Extremities Exam Extremities exam: Absent: edema - Neurological Exam Neurological exam: Present: alert, CN II-XII intact. Absent: oriented X3, motor sensory deficit - Skin Skin exam: Present: warm, dry Results - Labs CBC & BMP: 08/16/17 06:09 08/16/17 06:09 Lab Results: I have reviewed the past 24 hour labs Quality Measures - VTE Contraindication to Pharmacological VTE Prophylaxis: High Risk of Bleeding
[2017-08-17] MEDS ORDERED: DEXTROSE 50% 25 GM/50 ML VIAL IV PRN (13:00)
[2017-08-17] MEDS ORDERED: VANCOMYCIN INJ 1,000 MG in SODIUM CHLORIDE 0.9% 250 ML IV PRN (13:17)
[2017-08-17] MEDS ORDERED: VANCOMYCIN INJ 500 MG in SODIUM CHLORIDE 0.9% 100 ML IV PRN (13:30)
--- NOTE | 2017-08-17 15:11 | Neurology Progress Note ---
Neurology - PN : Subjective Interval history: Patient seems to be doing much better. She is more alert and awake and more to herself. No new problems reported. No more seizures reported. Exam (Progress Note) - Constitutional Vitals: Period Temp Pulse Resp BP Sys/Veliz Pulse Ox Last 24 Hr 96.6 F-98.9 F 66-80 13-26 97-135/47-69 97-100 Exam: GENERAL: Patient is in no acute distress. NECK: Neck is supple. There is no JVD. No carotid bruits present. No thyroid masses. CVS: First and second heart sounds are normal. There is no S3 present. Regular rate and rhythm. RESPIRATORY: Lungs are clear to auscultation without any rales or rhonchi. ABDOMEN: Soft and non-tender. Bowel sounds are present. There is no hepatosplenomegaly. EXT: There is no palpable edema. Peripheral pulses are present. Skin: No rashes Central Nervous system: General: Alert, awake and following simple command Speech: Fluent Comprehension: Fair Facial expressions: Normal Cranial Nerves: CN1/Olfactory: Normal CN II/ Optic: Normal, Visual Wagner unreliable CN III, and : JOSH & EOMI CN V: Normal & intact CN VII: face is symmetric CNVIII: Normal CN XI/X/XI/XII: Intact and Normal Motor: Bulk and Tone is normal. Strength is symmetric Sensory: Unreliable Reflexes: 1+ and symmetrical Cerebellar function: Not tested Toes: Equivocal Gait: Not tested at this time Results - Labs CBC & BMP: 08/16/17 06:09 08/16/17 06:09 Assessment and Plan (1) Seizure disorder Status: Acute Assessment and plan: Continue Keppra to 1000 mg p.o. twice daily Current Visit: Yes Quality Measures - VTE Contraindication to Pharmacological VTE Prophylaxis: High Risk of Bleeding
--- NOTE | 2017-08-17 15:14 | Physician Query Form ---
CLICK EDIT DOCUMENT TO SELECT QUERY ANSWER --> OK --> SIGN Velia Denney RN [employer] W) [phone] (f) [phone] [email or web address] PROVIDERS: Make your selection(s) from the choices in EACH section by typing an "x" and enter comments in the comment section. Please use your independent medical judgment in providing your response. This request does not imply that any particular answer is desired or expected. CLINICAL INDICATORS: (Providers should not edit this section) Based on lab results of urinalysis showed large leukocytes. Urine culture showed gram positive cocci. Pt. treated with IV antibiotic. Based on the above, could you clarify the appropriate diagnosis, if significant , that supports the above abnormalities and additional evaluation, monitoring, and/or treatment rendered: (x ) Pt. treated for UTI ( ) Pt. not treated for UTI ( ) Other, please specify: ( ) Clinically unable to determine COMMENTS: PLEASE ALSO DOCUMENT RESPONSE IN PROGRESS NOTES AND/OR DISCHARGE SUMMARY Use of terms such as suspected, likely, or probable (associated with a specific diagnosis that is being evaluated, monitored, or treated as if it exists) are acceptable and can be restated in the discharge summary if not ruled out. [facility]
--- NOTE | 2017-08-17 17:48 | Nephrology Progress Note ---
Nephrology - PN: Subj Interval history: She is more alert today. She appears comfortable. She denies shortness of breath Exam (PN)-Nephrology - Vital Signs Vital signs: Period Temp Pulse Resp BP Sys/Veliz Pulse Ox Last 24 Hr 96.6 F-98.9 F 71-88 14-26 98-135/47-83 97-100 Exam: ENT: Normal Cardiovascular: Regular rate and rhythm. No murmur rub or gallop Lungs: Clear Extremities: No edema - Lab 08/16/17 06:09 08/16/17 06:09 Most recent lab results Calcium 9.0 MG/DL (8.5-10.1) 08/16/17 06:09 Magnesium 2.0 MG/DL (1.8-2.4) 08/15/17 03:06 Assessment and Plan (1) End-stage renal disease on hemodialysis Status: Acute Assessment and plan: 67-year-old woman with: * Diabetes mellitus * Hypoglycemia. Resolved * Gastroparesis * Seizure disorder. Improved with increase in Keppra * ESRD. Dialysis tomorrow * Hypertension. Controlled Current Visit: No (2) Altered mental status Status: Acute Current Visit: Yes (3) Hypoglycemia Status: Acute Current Visit: No (4) Seizure Status: Acute Current Visit: No (5) Diabetes mellitus Status: Chronic Current Visit: No Qualifiers: Diabetes mellitus type: type 2 Diabetes mellitus complication status: with kidney complications Diabetes mellitus complication detail: with chronic kidney disease Chronic kidney disease stage: stage 3 (moderate) (6) Hypertension Status: Chronic Current Visit: No Qualifiers: Hypertension type: essential hypertension Qualified Code(s): I10 - Essential (primary) hypertension
[2017-08-17] MEDS: ATORVASTATIN 20 MG TABLET PO SCH (18:20)
[2017-08-17] MEDS: INSULIN GLARGINE 100 UNIT/ML SUBCUT SCH (21:58)
[2017-08-17] MEDS: DULoxetine 30 MG CAPSULE PO SCH (21:58)
[2017-08-17] MEDS: CHOLECALCIFEROL 1,000 UNIT TABLET PO SCH (21:59)
[2017-08-18] MEDS: PANTOPRAZOLE 40 MG TABLET PO SCH (08:50)
[2017-08-18] MEDS: RANOLAZINE 500 MG TABLET PO SCH ×2 (08:50→20:56)
[2017-08-18] MEDS: levETIRAcetam 500 MG TABLET PO SCH ×2 (08:50→20:56)
[2017-08-18] MEDS: COLCHICINE 0.6 MG TABLET PO SCH (08:50)
[2017-08-18] MEDS: LABETALOL 200 MG TABLET PO SCH ×2 (08:50→20:55)
[2017-08-18] MEDS: INSULIN LISPRO 100 UNIT/ML SUBCUT SCH ×4 (08:50→20:02)
[2017-08-18] MEDS: amLODIPine 10 MG TABLET PO SCH (08:51)
[2017-08-18] MEDS ORDERED: HEPARIN 10,000 UNIT/10 ML VIAL IV SCH (10:30)
--- NOTE | 2017-08-18 13:30 | Hospitalist Progress Note ---
Assessment and Plan (1) Altered mental status Status: Acute Assessment and plan: 1)altered mental status- probably secondary to seizures- better after increase in Keppra. Dr Pierce took care of her at [facility] a couple of weeks ago and he and Dr Jean-Baptiste know her baseline. CT without acute change. EEG showed epileptiform discharges. on Keppra- dose increased a couple of days ago. She is back to acting like she did prior to increase in Keppra. Ask nursing to let Dr Pierce know. Stop cymbalta as it interacts with zyvox and also might be causing altered level of alertness. It is not recommended in ESRD. 2)debility- falling frequently at home- needs swing bed placement. 3)hypokalemia-corrected 4)hypoglycemia- corrected, tolerating lantus and SSI. eating diabetic diet. 5) ESRD on HD- [facility] 6)seizure disorder- known since the summer. 7)VRE UTI- start zyvox. Current Visit: Yes (2) Diabetes mellitus Status: Chronic Current Visit: No Qualifiers: Diabetes mellitus type: type 2 Diabetes mellitus complication status: with kidney complications Diabetes mellitus complication detail: with chronic kidney disease Chronic kidney disease stage: stage 3 (moderate) (3) Hypertension Status: Chronic Current Visit: No Qualifiers: Hypertension type: essential hypertension Qualified Code(s): I10 - Essential (primary) hypertension (4) Unsteady gait Status: Acute Current Visit: No (5) Debility Status: Acute Current Visit: No (6) End-stage renal disease on hemodialysis Status: Acute Current Visit: No (7) Hypokalemia Status: Acute Current Visit: Yes (8) Hypocalcemia Status: Acute Current Visit: Yes (9) DVT prophylaxis Status: Acute Current Visit: Yes (10) Seizure disorder Status: Acute Current Visit: Yes Hospitalist: Subjective Interval history: Mrs Pedersen was seen on dialysis. During the session her dialysis nurse reports that she became less responsive. No events reported by nursing. No seizure activity noted. At my exam she told me her name but not where she is or why. Her eyes are open and she looks around. Her right hand had rhythmic tapping that stopped when I pointed it out to her. Her Ucx grew VRE. Keppra increased yesterday. also on cymbalta. Exam - Constitutional Vitals: Period Temp Pulse Resp BP Sys/Veliz Pulse Ox Last 24 Hr 98.3 F-99.3 F 74-94 18-23 98-130/51-83 95-100 General appearance: normal weight, no acute distress - Eye Eye exam: Present: EOMI. Absent: scleral icterus - Respiratory Respiratory exam: Present: clear to auscultation bilaterally - Cardiovascular Cardiovascular exam: Present: regular rate and rhythm - GI/Abdominal GI/Abdominal exam: Present: normal bowel sounds, soft. Absent: tenderness - Extremities Exam Extremities exam: Absent: edema - Neurological Exam Neurological exam: Present: altered, CN II-XII intact, motor sensory deficit ( moves all 4, cooperative. ) - Skin Skin exam: Present: warm, dry Results - Labs CBC & BMP: 08/16/17 06:09 08/16/17 06:09 Lab Results: I have reviewed the past 24 hour labs Quality Measures - VTE Contraindication to Pharmacological VTE Prophylaxis: High Risk of Bleeding
[2017-08-18] MEDS ORDERED: VANCOMYCIN INJ 500 MG in SODIUM CHLORIDE 0.9% 100 ML IV ONE (14:00)
[2017-08-18 14:26] LABS: Calcium 8.4 MG/DL (8.5-10.1); Potassium 3.8 MMOL/L (3.5-5.1)
[2017-08-18 14:28] LABS: Basophils % 0.5 % (0.0-0.8); Eosinophils # 0.3 10*3/uL (0.0-0.87); Hematocrit 26.7 VOL% (35.7-47.0); Hemoglobin 9.1 GM/DL (12.0-16.0); Immature Granulocytes % 0.5 %; Immature Granulocytes Absolute 0.04 #; Lymphocytes # 2.4 10*3/uL (1.4-4.0); Lymphocytes % 28.7 % (21.3-54.2); Mean Corpuscular HGB Conc 34.1 GM/DL (32-36); Mean Corpuscular Hemoglobin 32 PG (27-34); Mean Platelet Volume 11.5 FL (9.6-12.0); Monocytes # 1.2 10*3/uL (0.11-0.8); Monocytes % 13.9 % (1.7-12.7); Neutrophils # 4.5 10*3/uL (1.4-7.4); Neutrophils % 53.4 % (38.7-73.9); Platelet Count 178 T/CUMM (130-400); Red Blood Count 2.84 MC/CUMM (3.8-5.5); Red Cell Distribution Width 14.5 % (9.3-17.3); White Blood Count 8.4 T/CUMM (4-12)
--- NOTE | 2017-08-18 15:37 | Nephrology Progress Note ---
Nephrology - PN: Subj Interval history: Seen during dialysis. She answers questions but her responses are slow Exam (PN)-Nephrology - Vital Signs Vital signs: Period Temp Pulse Resp BP Sys/Veliz Pulse Ox Last 24 Hr 98.3 F-99.3 F 74-94 18-23 98-128/51-74 95-100 Exam: ENT: Normal Cardiovascular: Regular rate and rhythm. No murmur rub or gallop Lungs: Clear Extremities: No edema - Lab 08/18/17 13:52 08/18/17 13:52 Most recent lab results Calcium 8.4 MG/DL (8.5-10.1) L 08/18/17 13:52 Magnesium 2.0 MG/DL (1.8-2.4) 08/15/17 03:06 Assessment and Plan (1) End-stage renal disease on hemodialysis Status: Acute Assessment and plan: 67-year-old woman with: * Diabetes mellitus * Hypoglycemia. Resolved * Gastroparesis * Seizure disorder. Improved with increase in Keppra * ESRD. Stable during dialysis * Hypertension. Controlled Current Visit: No (2) Altered mental status Status: Acute Current Visit: Yes (3) Hypoglycemia Status: Acute Current Visit: No (4) Seizure Status: Acute Current Visit: No (5) Diabetes mellitus Status: Chronic Current Visit: No Qualifiers: Diabetes mellitus type: type 2 Diabetes mellitus complication status: with kidney complications Diabetes mellitus complication detail: with chronic kidney disease Chronic kidney disease stage: stage 3 (moderate) (6) Hypertension Status: Chronic Current Visit: No Qualifiers: Hypertension type: essential hypertension Qualified Code(s): I10 - Essential (primary) hypertension
[2017-08-18] MEDS: LINEZOLID 600 MG TABLET PO SCH ×2 (17:21→20:56)
[2017-08-18] MEDS: ATORVASTATIN 20 MG TABLET PO SCH (18:38)
[2017-08-18] MEDS: ONDANSETRON 4 MG/2 ML VIAL IV PRN (19:25)
[2017-08-18] MEDS: CHOLECALCIFEROL 1,000 UNIT TABLET PO SCH (20:55)
[2017-08-18] MEDS: INSULIN GLARGINE 100 UNIT/ML SUBCUT SCH (20:58)
[2017-08-19 04:44] LABS: Basophils # 0.1 10*3/uL (0.0-0.2); Basophils % 0.6 % (0.0-0.8); Eosinophils # 0.3 10*3/uL (0.0-0.87); Eosinophils % 3.2 % (0.00-10.9); Hematocrit 26.4 VOL% (35.7-47.0); Hemoglobin 8.8 GM/DL (12.0-16.0); Immature Granulocytes % 0.6 %; Immature Granulocytes Absolute 0.05 #; Lymphocytes # 2.4 10*3/uL (1.4-4.0); Lymphocytes % 31.1 % (21.3-54.2); Mean Corpuscular HGB Conc 33.3 GM/DL (32-36); Mean Corpuscular Hemoglobin 32 PG (27-34); Mean Corpuscular Volume 95.3 FL (87-102); Mean Platelet Volume 11.3 FL (9.6-12.0); Monocytes # 1.3 10*3/uL (0.11-0.8); Monocytes % 16.6 % (1.7-12.7); Neutrophils # 3.7 10*3/uL (1.4-7.4); Neutrophils % 47.9 % (38.7-73.9); Platelet Count 166 T/CUMM (130-400); Red Blood Count 2.77 MC/CUMM (3.8-5.5); Red Cell Distribution Width 14.4 % (9.3-17.3); White Blood Count 7.8 T/CUMM (4-12)
[2017-08-19 05:17] LABS: Calcium 8.4 MG/DL (8.5-10.1); Osmolality,Calculated 282.7 MOS/KG (273-304); Potassium 4.3 MMOL/L (3.5-5.1)
[2017-08-19 05:26] LABS: Eosinophils 5 % (0-10); Giant Platelets Few; Hypochromasia 1+; Lymphocytes 28 % (20-55); Ovalocytes Slight; Platelet Estimate Normal; Segmented Neutrophils 50 % (50-85); Total Cells Counted 100
[2017-08-19] MEDS: levETIRAcetam 500 MG TABLET PO SCH ×2 (09:34→23:05)
[2017-08-19] MEDS: LABETALOL 200 MG TABLET PO SCH ×2 (09:35→23:04)
[2017-08-19] MEDS: LINEZOLID 600 MG TABLET PO SCH ×2 (09:35→23:06)
[2017-08-19] MEDS: COLCHICINE 0.6 MG TABLET PO SCH (09:35)
[2017-08-19] MEDS: RANOLAZINE 500 MG TABLET PO SCH ×2 (09:35→23:06)
[2017-08-19] MEDS: amLODIPine 10 MG TABLET PO SCH (09:35)
[2017-08-19] MEDS: PANTOPRAZOLE 40 MG TABLET PO SCH (09:36)
[2017-08-19] MEDS: INSULIN LISPRO 100 UNIT/ML SUBCUT SCH ×4 (09:36→23:11)
--- NOTE | 2017-08-19 13:15 | Nephrology Progress Note ---
Nephrology - PN: Subj Interval history: She states she feels okay today. She denies shortness of breath Exam (PN)-Nephrology - Vital Signs Vital signs: Period Temp Pulse Resp BP Sys/Veliz Pulse Ox Last 24 Hr 96.1 F-99.2 F 72-87 18-20 106-145/50-69 96-100 Exam: Gen.: Alert and oriented x3. ENT: Pupils equal round reactive to light. EOMs intact. Mucous membranes moist. Neck: Supple. No JVD or bruit. Cardiovascular: Regular rate and rhythm. No murmur rub or gallop Lungs: Clear Abdomen: Soft. Nontender. Positive bowel sounds. No organomegaly Extremities: Trace edema - Lab 08/19/17 04:27 08/19/17 04:27 Most recent lab results Calcium 8.4 MG/DL (8.5-10.1) L 08/19/17 04:27 Magnesium 2.0 MG/DL (1.8-2.4) 08/15/17 03:06 Assessment and Plan (1) End-stage renal disease on hemodialysis Status: Acute Assessment and plan: 67-year-old woman with: * Diabetes mellitus * Hypoglycemia. Resolved * Gastroparesis * Seizure disorder. Improved with increase in Keppra * ESRD. Dialysis TTS * Hypertension. Controlled Current Visit: No (2) Altered mental status Status: Acute Current Visit: Yes (3) Hypoglycemia Status: Acute Current Visit: No (4) Seizure Status: Acute Current Visit: No (5) Diabetes mellitus Status: Chronic Current Visit: No Qualifiers: Diabetes mellitus type: type 2 Diabetes mellitus complication status: with kidney complications Diabetes mellitus complication detail: with chronic kidney disease Chronic kidney disease stage: stage 3 (moderate) (6) Hypertension Status: Chronic Current Visit: No Qualifiers: Hypertension type: essential hypertension Qualified Code(s): I10 - Essential (primary) hypertension
--- NOTE | 2017-08-19 17:41 | Hospitalist Progress Note ---
Hospitalist: Subjective Interval history: Patient is awake and comfortable. Mental status is improving. Exam - Constitutional Vitals: Period Temp Pulse Resp BP Sys/Veliz Pulse Ox Last 24 Hr 96.1 F-98.4 F 73-87 18-20 106-152/50-69 95-100 Exam: General: No Acute Distress HEENT: Normocephalic, atraumatic, Extra ocular movements intact Neck: Supple, No JVD Chest: Clear to auscultation B/L CV: S1 + S2 audible without murmur, gallop or rub Abd: soft, NT, Non-distended, BS + Ext: No edema Skin: No purpura, bruising or rash Rheumatologic: No Joint deformities Neurologic: Awake and alert Results - Labs CBC & BMP: 08/19/17 04:27 08/19/17 04:27 - Impressions Assessment and Plan: Altered mental status Status: Acute Assessment and plan: Multifactorial due to UTI and seizures, mental status has improved Current Visit: Yes ESRD on HD Status: Chronic Assessment and plan: Continue hemodialysis Current Visit: No Seizure disorder Status: Acute Current Visit: Yes Stable on Keppra VRE UTI Status: Acute Current Visit: Yes Continue Zyvox Diabetes mellitus-II Status: Chronic Current Visit: No Controlled on Lantus and SSI Ess Hypertension Status: Chronic Current Visit: No Quality Measures - VTE Contraindication to Pharmacological VTE Prophylaxis: High Risk of Bleeding
[2017-08-19] MEDS: ATORVASTATIN 20 MG TABLET PO SCH (18:33)
[2017-08-19] MEDS: CHOLECALCIFEROL 1,000 UNIT TABLET PO SCH (23:04)
[2017-08-19] MEDS: INSULIN GLARGINE 100 UNIT/ML SUBCUT SCH (23:07)
--- NOTE | 2017-08-20 08:18 | Hospitalist Progress Note ---
Assessment and Plan (1) Altered mental status Status: Acute Assessment and plan: The patient's mental status has greatly improved since admission. The patient is alert and her speech is appropriate she is very slow to speak. The source of the patient's mental status could have been attributed to multiple factors such as urinary tract infection and seizure disorder. We will continue antibiotics and anticonvulsants as previously ordered. Current Visit: Yes (2) Seizure disorder Status: Acute Assessment and plan: No further seizure activity noted. We will continue Keppra as previously ordered. Current Visit: Yes (3) End-stage renal disease on hemodialysis Status: Acute Current Visit: No (4) Diabetes mellitus Status: Chronic Assessment and plan: Continue Accu-Cheks with sliding scale coverage as previously ordered. Current Visit: No Qualifiers: Diabetes mellitus type: type 2 Diabetes mellitus complication status: with kidney complications Diabetes mellitus complication detail: with chronic kidney disease Chronic kidney disease stage: stage 3 (moderate) (5) Urinary tract infection Status: Resolved Assessment and plan: Urine culture significant for enterococcus faecium VRE. We will continue Zyvox as previously ordered. Current Visit: No Exam - Constitutional Vitals: Period Temp Pulse Resp BP Sys/Veliz Pulse Ox Last 24 Hr 97.5 F-98.4 F 72-76 18-20 116-152/53-76 95-98 General appearance: normal weight, no acute distress - Head Head exam: Present: normal inspection, normocephalic, atraumatic - Eye Eye exam: Present: EOMI. Absent: conjunctival injection Pupils: Present: JOSH, normal accommodation - ENT ENT exam: Present: normal exam, normal external ear exam, normal oropharynx - Neck Neck exam: Present: normal inspection. Absent: lymphadenopathy, meningismus, thyromegaly - Cardiovascular Cardiovascular exam: Present: regular rate and rhythm. Absent: carotid bruit, diastolic murmur, gallop, tachycardia - GI/Abdominal GI/Abdominal exam: Present: normal bowel sounds, soft - Extremities Exam Extremities exam: Present: normal inspection, normal capillary refill, full ROM - Back Exam Back exam: Present: normal inspection - Neurological Exam Neurological exam: Present: alert - Psychiatric Psychiatric exam: Present: flat affect - Skin Skin exam: Present: normal color, warm, dry Results - Labs CBC & BMP: 08/19/17 04:27 08/19/17 04:27 Lab Results: I have reviewed the past 24 hour labs Quality Measures - VTE Contraindication to Pharmacological VTE Prophylaxis: High Risk of Bleeding
[2017-08-20] MEDS: RANOLAZINE 500 MG TABLET PO SCH ×2 (09:17→21:40)
[2017-08-20] MEDS: LINEZOLID 600 MG TABLET PO SCH ×2 (09:17→21:42)
[2017-08-20] MEDS: LABETALOL 200 MG TABLET PO SCH ×2 (09:17→21:43)
[2017-08-20] MEDS: PANTOPRAZOLE 40 MG TABLET PO SCH (09:18)
[2017-08-20] MEDS: amLODIPine 10 MG TABLET PO SCH (09:18)
[2017-08-20] MEDS: levETIRAcetam 500 MG TABLET PO SCH ×2 (09:18→21:41)
[2017-08-20] MEDS: COLCHICINE 0.6 MG TABLET PO SCH (09:18)
[2017-08-20] MEDS ORDERED: HEPARIN 10,000 UNIT/10 ML VIAL IV SCH (09:30)
[2017-08-20] MEDS: INSULIN LISPRO 100 UNIT/ML SUBCUT SCH ×4 (09:32→21:46)
--- NOTE | 2017-08-20 10:26 | Nephrology Progress Note ---
Nephrology - PN: Subj Interval history: She is seen during dialysis. She is awake and oriented. Blood pressure is stable Exam (PN)-Nephrology - Vital Signs Vital signs: Period Temp Pulse Resp BP Sys/Veliz Pulse Ox Last 24 Hr 97.5 F-98.4 F 72-76 18-20 116-152/53-76 95-98 Exam: ENT: Normal Cardiovascular: Regular rate and rhythm. No murmur rub or gallop Lungs: Clear Extremities: No edema - Lab 08/19/17 04:27 08/19/17 04:27 Most recent lab results Calcium 8.4 MG/DL (8.5-10.1) L 08/19/17 04:27 Magnesium 2.0 MG/DL (1.8-2.4) 08/15/17 03:06 Assessment and Plan (1) End-stage renal disease on hemodialysis Status: Acute Assessment and plan: 67-year-old woman with: * Diabetes mellitus * Gastroparesis * Seizure disorder. Improved with increase in Keppra * ESRD. Stable during dialysis * Hypertension. Controlled Current Visit: No (2) Altered mental status Status: Acute Current Visit: Yes (3) Hypoglycemia Status: Acute Current Visit: No (4) Seizure Status: Acute Current Visit: No (5) Diabetes mellitus Status: Chronic Current Visit: No Qualifiers: Diabetes mellitus type: type 2 Diabetes mellitus complication status: with kidney complications Diabetes mellitus complication detail: with chronic kidney disease Chronic kidney disease stage: stage 3 (moderate) (6) Hypertension Status: Chronic Current Visit: No Qualifiers: Hypertension type: essential hypertension Qualified Code(s): I10 - Essential (primary) hypertension
[2017-08-20] MEDS: ATORVASTATIN 20 MG TABLET PO SCH (18:15)
[2017-08-20] MEDS: CHOLECALCIFEROL 1,000 UNIT TABLET PO SCH (21:41)
[2017-08-20] MEDS: INSULIN GLARGINE 100 UNIT/ML SUBCUT SCH (21:48)
[2017-08-20] MEDS: ONDANSETRON 4 MG/2 ML VIAL IV PRN (22:29)
[2017-08-21] MEDS: INSULIN LISPRO 100 UNIT/ML SUBCUT SCH ×4 (08:25→22:11)
[2017-08-21] MEDS: PANTOPRAZOLE 40 MG TABLET PO SCH (09:33)
[2017-08-21] MEDS: LINEZOLID 600 MG TABLET PO SCH ×2 (09:33→22:10)
[2017-08-21] MEDS: RANOLAZINE 500 MG TABLET PO SCH ×2 (09:33→22:09)
[2017-08-21] MEDS: levETIRAcetam 500 MG TABLET PO SCH ×2 (09:33→22:09)
[2017-08-21] MEDS: COLCHICINE 0.6 MG TABLET PO SCH (09:34)
[2017-08-21] MEDS: amLODIPine 10 MG TABLET PO SCH (09:34)
--- NOTE | 2017-08-21 09:51 | Hospitalist Progress Note ---
Assessment and Plan (1) Altered mental status Status: Acute Assessment and plan: The patient's mental status has greatly improved since admission. The patient is alert and her speech is appropriate she is very slow to speak. The source of the patient's mental status could have been attributed to multiple factors such as urinary tract infection and seizure disorder. We will continue antibiotics and anticonvulsants as previously ordered. 08/21-the patient remains pleasantly confused. Sitter remains at bedside. No readily identifiable source of the patient's altered mental status is known. We will continue antibiotics and anticonvulsants as previously ordered. We will provide supportive care and safety measures. Current Visit: Yes (2) Seizure disorder Status: Acute Assessment and plan: No further seizure activity noted. We will continue Keppra as previously ordered. 08/21-no seizure activity noted thus far; we will continue Keppra as previously ordered. Current Visit: Yes (3) End-stage renal disease on hemodialysis Status: Acute Current Visit: No (4) Diabetes mellitus Status: Chronic Assessment and plan: Continue Accu-Cheks with sliding scale coverage as previously ordered. Current Visit: No Qualifiers: Diabetes mellitus type: type 2 Diabetes mellitus complication status: with kidney complications Diabetes mellitus complication detail: with chronic kidney disease Chronic kidney disease stage: stage 3 (moderate) (5) Urinary tract infection Status: Resolved Assessment and plan: Urine culture significant for enterococcus faecium VRE. We will continue Zyvox as previously ordered. Current Visit: No Hospitalist: Subjective Interval history: Patient seen and examined; chart reviewed. No significant overnight events reported per staff. One-to-one observation remains for safety. Hemodialysis on yesterday. Exam - Constitutional Vitals: Period Temp Pulse Resp BP Sys/Veliz Pulse Ox Last 24 Hr 96.8 F-98.8 F 20-90 18-20 105-147/55-64 97-100 General appearance: normal weight, no acute distress - Head Head exam: Present: normal inspection, normocephalic, atraumatic - Eye Eye exam: Present: EOMI. Absent: conjunctival injection Pupils: Present: JOSH, normal accommodation - ENT ENT exam: Present: normal exam, normal external ear exam, normal oropharynx - Neck Neck exam: Present: normal inspection, lymphadenopathy, meningismus. Absent: thyromegaly - Respiratory Respiratory exam: Present: clear to auscultation bilaterally. Absent: rales, rhonchi, stridor, wheezes - Cardiovascular Cardiovascular exam: Present: regular rate and rhythm. Absent: carotid bruit, diastolic murmur, gallop, JVD, rubs, systolic murmur - GI/Abdominal GI/Abdominal exam: Present: normal bowel sounds, soft - Extremities Exam Extremities exam: Present: normal inspection, normal capillary refill, full ROM. Absent: edema - Neurological Exam Neurological exam: Present: alert, altered, CN II-XII intact - Psychiatric Psychiatric exam: Present: flat affect - Skin Skin exam: Present: normal color, warm, dry Results - Labs CBC & BMP: 08/19/17 04:27 08/19/17 04:27 Lab Results: I have reviewed the past 24 hour labs Quality Measures - VTE Contraindication to Pharmacological VTE Prophylaxis: High Risk of Bleeding
[2017-08-21] MEDS: LABETALOL 200 MG TABLET PO SCH ×2 (10:47→22:09)
--- NOTE | 2017-08-21 12:22 | Nephrology Progress Note ---
Nephrology - PN: Subj Interval history: She is alert today. She is reading the newspaper. Exam (PN)-Nephrology - Vital Signs Vital signs: Period Temp Pulse Resp BP Sys/Veliz Pulse Ox Last 24 Hr 96.8 F-98.2 F 20-90 18-20 105-147/55-64 98-100 Exam: ENT: Normal Cardiovascular: Regular rate and rhythm. No murmur rub or gallop Lungs: Clear Extremities: Trace edema - Lab 08/19/17 04:27 08/19/17 04:27 Most recent lab results Calcium 8.4 MG/DL (8.5-10.1) L 08/19/17 04:27 Magnesium 2.0 MG/DL (1.8-2.4) 08/15/17 03:06 Assessment and Plan (1) End-stage renal disease on hemodialysis Status: Acute Assessment and plan: 67-year-old woman with: * Diabetes mellitus * Gastroparesis * Seizure disorder. Improved with increase in Keppra * ESRD. Dialysis MWF * Hypertension. Controlled Current Visit: No (2) Altered mental status Status: Acute Current Visit: Yes (3) Hypoglycemia Status: Acute Current Visit: No (4) Seizure Status: Acute Current Visit: No (5) Diabetes mellitus Status: Chronic Current Visit: No Qualifiers: Diabetes mellitus type: type 2 Diabetes mellitus complication status: with kidney complications Diabetes mellitus complication detail: with chronic kidney disease Chronic kidney disease stage: stage 3 (moderate) (6) Hypertension Status: Chronic Current Visit: No Qualifiers: Hypertension type: essential hypertension Qualified Code(s): I10 - Essential (primary) hypertension
[2017-08-21] MEDS: ACETAMINOPHEN 325 MG TABLET PO PRN (14:27)
[2017-08-21] MEDS: ATORVASTATIN 20 MG TABLET PO SCH (18:11)
[2017-08-21 21:38] LABS: Apearance,Urine CLOUDY (Clear); Bilirubin,Urine Negative (Negative); Blood, Urine Negative (Negative); Glucose,Urine (UA) Negative (Negative); Ketones,Urine Negative (Negative); Nitrite,Urine Negative (Negative); Protein,Urine 100 MG/DL; Squamous Epithelial Cell,Urine Many /HPF (0-10); Urine Color Yellow (Yellow); Urine Specific Gravity 1.008 (1.001-1.035); Urine Urobilinogen < 2.0 EU/DL (0.2-1.0); WBC,Urine 1281 /HPF (0-6)
[2017-08-21] MEDS: CHOLECALCIFEROL 1,000 UNIT TABLET PO SCH (22:08)
[2017-08-21] MEDS: INSULIN GLARGINE 100 UNIT/ML SUBCUT SCH (22:11)
[2017-08-22] MEDS: INSULIN LISPRO 100 UNIT/ML SUBCUT SCH ×4 (07:27→20:56)
[2017-08-22] MEDS: PANTOPRAZOLE 40 MG TABLET PO SCH (08:09)
[2017-08-22] MEDS: LINEZOLID 600 MG TABLET PO SCH (08:09)
[2017-08-22] MEDS: LABETALOL 200 MG TABLET PO SCH ×2 (08:09→20:57)
[2017-08-22] MEDS: levETIRAcetam 500 MG TABLET PO SCH ×2 (08:09→20:57)
[2017-08-22] MEDS: RANOLAZINE 500 MG TABLET PO SCH ×2 (08:09→20:57)
[2017-08-22] MEDS: COLCHICINE 0.6 MG TABLET PO SCH (08:09)
[2017-08-22] MEDS: amLODIPine 10 MG TABLET PO SCH (08:09)
--- NOTE | 2017-08-22 09:11 | Neurology Progress Note ---
Neurology - PN : Subjective Interval history: Neurologically patient seems to be doing better. No more seizures reported. Complaining of some feet pain though Exam (Progress Note) - Constitutional Vitals: Period Temp Pulse Resp BP Sys/Veliz Pulse Ox Last 24 Hr 97.0 F-99.2 F 69-95 16-20 122-153/56-98 94-100 Exam: GENERAL: Patient is in no acute distress. NECK: Neck is supple. There is no JVD. No carotid bruits present. No thyroid masses. CVS: First and second heart sounds are normal. There is no S3 present. Regular rate and rhythm. RESPIRATORY: Lungs are clear to auscultation without any rales or rhonchi. ABDOMEN: Soft and non-tender. Bowel sounds are present. There is no hepatosplenomegaly. EXT: There is no palpable edema. Peripheral pulses are present. Skin: No rashes Central Nervous system: General: Alert, awake and following simple command Speech: Fluent Comprehension: Good Facial expressions: Normal Cranial Nerves: CN1/Olfactory: Normal CN II/ Optic: Normal, Visual Wagner unreliable CN III, and : JOSH & EOMI CN V: Normal & intact CN VII: face is symmetric CNVIII: Normal CN XI/X/XI/XII: Intact and Normal Motor: Bulk and Tone is normal. Strength is symmetric and his strength is 3/5 Sensory: Unreliable Reflexes: 1+ and symmetrical Cerebellar function: Not tested Toes: Equivocal Gait: Not tested at this time Results - Labs CBC & BMP: 08/19/17 04:27 08/19/17 04:27 Assessment and Plan (1) Seizure disorder Status: Acute Assessment and plan: Continue Keppra 1000 mg p.o. twice daily No further intervention from neuro standpoint at this time We will continue watchful observation Current Visit: Yes Quality Measures - VTE Contraindication to Pharmacological VTE Prophylaxis: High Risk of Bleeding
[2017-08-22] MEDS ORDERED: GENTAMICIN INJ 100 MG in PREMIX 1 EACH IV PRN (10:30)
--- NOTE | 2017-08-22 10:40 | Hospitalist Progress Note ---
Assessment and Plan (1) VRE (vancomycin-resistant Enterococci) infection Status: Acute Assessment and plan: Start gentamicin with each dialysis treatment. Stop Zyvox. Current Visit: Yes (2) Diabetes mellitus Status: Chronic Current Visit: Yes Qualifiers: Diabetes mellitus type: type 2 Diabetes mellitus complication status: with kidney complications Diabetes mellitus complication detail: with chronic kidney disease Chronic kidney disease stage: on chronic dialysis (3) Hypertension Status: Chronic Current Visit: Yes Qualifiers: Hypertension type: essential hypertension Qualified Code(s): I10 - Essential (primary) hypertension (4) Unsteady gait Status: Chronic Current Visit: Yes (5) New onset seizure Status: Acute Assessment and plan: Stable on Keppra Current Visit: Yes (6) End-stage renal disease on hemodialysis Status: Acute Current Visit: No (7) Altered mental status Status: Resolved Current Visit: Yes Hospitalist: Subjective Interval history: 67-year-old female being treated for seizure disorder and urinary tract infection in the setting of end-stage renal disease on dialysis. The patient was initially admitted to the hospital with altered mental status but this is improved. Neurology has signed off of her case and she is ready for discharge home. Her mental status has returned to normal however her urinary tract infection has not improved. Her cultures grew VRE. She is being switched to gentamicin 100 mg IV with each dialysis treatment on Tuesday and Tuesday. This was discussed with her court manager Dr. Jean-Baptiste by phone. First dose will be today. Case management and social media director working on her discharge plan. A TB skin test has been placed. Exam - Constitutional Vitals: Period Temp Pulse Resp BP Sys/Veliz Pulse Ox Last 24 Hr 97.0 F-99.2 F 69-95 16-20 122-153/56-98 94-100 Exam: Constitutional System: No distress. No tremulousness. Head: Normocephalic, atraumatic. Ears, Nose and Throat System: No pain or tenderness. No epistaxis or discharge Eyes System: Pupils equal, round, and reactive. Extraocular muscles intact. Neck: Supple, without adenopathy, No jugular venous distention. No thyromegaly, neck mass, or prior surgery apparent. Respiratory System: Chest clear to auscultation. Cardiovascular System: Heart with regular rate and rhythm. No murmur. GI System: Abdomen soft, nontender. Normo active bowel sounds present. Musculoskeletal System: limbs with no pedal edema. Full distal pulses. Normal capillary refill. Neurological System: No discernable sensory deficit. No aphasia Psychiatric System: Conversation is rational Results - Labs CBC & BMP: 08/19/17 04:27 08/19/17 04:27 Lab Results: I have reviewed the past 24 hour labs Quality Measures - VTE Contraindication to Pharmacological VTE Prophylaxis: High Risk of Bleeding
--- NOTE | 2017-08-22 11:12 | Nephrology Progress Note ---
Nephrology - PN: Subj Interval history: She is easily arousable. She states she feels okay. Exam (PN)-Nephrology - Vital Signs Vital signs: Period Temp Pulse Resp BP Sys/Veliz Pulse Ox Last 24 Hr 97.0 F-99.2 F 69-95 16-20 122-153/56-98 94-100 Exam: ENT: Normal Cardiovascular: Regular rate and rhythm. No murmur rub or gallop Lungs: Clear Extremities: Trace edema - Lab 08/19/17 04:27 08/19/17 04:27 Most recent lab results Calcium 8.4 MG/DL (8.5-10.1) L 08/19/17 04:27 Magnesium 2.0 MG/DL (1.8-2.4) 08/15/17 03:06 Assessment and Plan (1) End-stage renal disease on hemodialysis Status: Acute Assessment and plan: 67-year-old woman with: * Diabetes mellitus * Gastroparesis * Seizure disorder. Improved with increase in Keppra * ESRD. Dialysis tomorrow * Hypertension. Controlled * UTI. VRE. Gentamicin added Current Visit: No (2) Altered mental status Status: Resolved Current Visit: Yes (3) Hypoglycemia Status: Acute Current Visit: No (4) Seizure Status: Acute Current Visit: No (5) Diabetes mellitus Status: Chronic Current Visit: Yes Qualifiers: Diabetes mellitus type: type 2 Diabetes mellitus complication status: with kidney complications Diabetes mellitus complication detail: with chronic kidney disease Chronic kidney disease stage: on chronic dialysis (6) Hypertension Status: Chronic Current Visit: Yes Qualifiers: Hypertension type: essential hypertension Qualified Code(s): I10 - Essential (primary) hypertension
[2017-08-22] MEDS ORDERED: GENTAMICIN INJ 100 MG in PREMIX 1 EACH IV ONE (12:30)
--- NOTE | 2017-08-22 13:11 | Case Mgmt Physician Query Form ---
TB Signs and Symptoms Screening ([place]) INSTRUCTIONS: To be completed annually on residents/staff with a significant Tuberculin Skin Test (TST) upon admission/hire or a prior significant TST. To be completed on all staff at hire. Please respond to each listed symptom with an (X) in either the "YES" or "NO" box. Do you currently have any of the following symptoms: YES NO ( ) (x ) A cough If yes, is it: ( ) Productive ( ) Non- productive ( ) (x ) Hemoptysis (spitting up blood) ( ) (x ) Chest pains ( ) (x ) Weight Loss ( ) (x ) Fever ( ) (x ) Night Sweats ( ) (x ) Weakness ( ) (x ) Loss of Appetite ( ) (x ) Difficulty Breathing If you answered YES" to any of the above questions, how long have symptoms been present? Comments: SOPHIE
[2017-08-22] MEDS: ATORVASTATIN 20 MG TABLET PO SCH (18:00)
[2017-08-22] MEDS: CHOLECALCIFEROL 1,000 UNIT TABLET PO SCH (20:56)
[2017-08-22] MEDS: INSULIN GLARGINE 100 UNIT/ML SUBCUT SCH (20:57)
[2017-08-23] MEDS: INSULIN LISPRO 100 UNIT/ML SUBCUT SCH ×4 (09:05→20:14)
[2017-08-23] MEDS: amLODIPine 10 MG TABLET PO SCH (09:06)
[2017-08-23] MEDS: COLCHICINE 0.6 MG TABLET PO SCH (09:06)
[2017-08-23] MEDS: levETIRAcetam 500 MG TABLET PO SCH ×2 (09:06→20:59)
[2017-08-23] MEDS: LABETALOL 200 MG TABLET PO SCH ×2 (09:07→20:59)
[2017-08-23] MEDS: PANTOPRAZOLE 40 MG TABLET PO SCH (09:07)
[2017-08-23] MEDS: RANOLAZINE 500 MG TABLET PO SCH ×2 (09:07→20:59)
[2017-08-23] MEDS ORDERED: GENTAMICIN INJ 100 MG in PREMIX 1 EACH IV ONE (10:00)
--- NOTE | 2017-08-23 11:41 | Nephrology Progress Note ---
Nephrology - PN: Subj Interval history: Seen during dialysis. Blood pressure stable. No further seizures Exam (PN)-Nephrology - Vital Signs Vital signs: Period Temp Pulse Resp BP Sys/Veliz Pulse Ox Last 24 Hr 97.4 F-98.2 F 72-79 16-20 117-158/63-74 95-100 Exam: ENT: Normal Cardiovascular: Regular rate and rhythm. No murmur rub or gallop Lungs: Clear Extremities: No edema - Lab 08/19/17 04:27 08/19/17 04:27 Most recent lab results Calcium 8.4 MG/DL (8.5-10.1) L 08/19/17 04:27 Magnesium 2.0 MG/DL (1.8-2.4) 08/15/17 03:06 Assessment and Plan (1) End-stage renal disease on hemodialysis Status: Acute Assessment and plan: 67-year-old woman with: * Diabetes mellitus * Gastroparesis * Seizure disorder. Improved with increase in Keppra * ESRD. Stable during dialysis * Hypertension. Controlled * UTI. VRE. Gentamicin added Current Visit: No (2) Altered mental status Status: Resolved Current Visit: Yes (3) Hypoglycemia Status: Acute Current Visit: No (4) Seizure Status: Acute Current Visit: No (5) Diabetes mellitus Status: Chronic Current Visit: Yes Qualifiers: Diabetes mellitus type: type 2 Diabetes mellitus complication status: with kidney complications Diabetes mellitus complication detail: with chronic kidney disease Chronic kidney disease stage: on chronic dialysis (6) Hypertension Status: Chronic Current Visit: Yes Qualifiers: Hypertension type: essential hypertension Qualified Code(s): I10 - Essential (primary) hypertension
[2017-08-23] MEDS ORDERED: TUBERCULIN SKIN TEST 0.1 ML SYRINGE INTRADERM ONE (13:00)
--- NOTE | 2017-08-23 13:22 | Hospitalist Progress Note ---
Assessment and Plan (1) VRE (vancomycin-resistant Enterococci) infection Status: Acute Assessment and plan: Start gentamicin with each dialysis treatment. Stop Zyvox. Current Visit: Yes (2) Diabetes mellitus Status: Chronic Current Visit: Yes Qualifiers: Diabetes mellitus type: type 2 Diabetes mellitus complication status: with kidney complications Diabetes mellitus complication detail: with chronic kidney disease Chronic kidney disease stage: on chronic dialysis (3) Hypertension Status: Chronic Current Visit: Yes Qualifiers: Hypertension type: essential hypertension Qualified Code(s): I10 - Essential (primary) hypertension (4) Unsteady gait Status: Chronic Current Visit: Yes (5) New onset seizure Status: Acute Assessment and plan: Stable on Keppra Current Visit: Yes (6) End-stage renal disease on hemodialysis Status: Acute Current Visit: No (7) Altered mental status Status: Resolved Current Visit: Yes (8) Enterococcus UTI Status: Acute Assessment and plan: Sensitive to gentamicin. Current Visit: Yes Hospitalist: Subjective Interval history: Patient seen and examined. No acute events overnight. Case discussed with nursing staff. Labs reviewed. Repeat urine cultures reviewed. Enterococcus sensitive to gentamicin. Continue gentamicin with dialysis. Patient is awaiting placement with [facility] in [place]. Exam - Constitutional Vitals: Period Temp Pulse Resp BP Sys/Veliz Pulse Ox Last 24 Hr 97.4 F-98.2 F 72-79 16-20 117-158/63-74 95-100 Exam: Constitutional System: No distress. No tremulousness. Head: Normocephalic, atraumatic. Ears, Nose and Throat System: No pain or tenderness. No epistaxis or discharge Eyes System: Pupils equal, round, and reactive. Extraocular muscles intact. Neck: Supple, without adenopathy, No jugular venous distention. Respiratory System: Chest clear to auscultation. Cardiovascular System: Heart with regular rate and rhythm. No murmur. GI System: Abdomen soft, nontender. Normo active bowel sounds present. Musculoskeletal System: limbs with no pedal edema. Full distal pulses. Normal capillary refill. Neurological System: No discernable sensory deficit. No aphasia Psychiatric System: Conversation is rational Results - Labs CBC & BMP: 08/19/17 04:27 08/19/17 04:27 Lab Results: I have reviewed the past 24 hour labs Quality Measures - VTE Contraindication to Pharmacological VTE Prophylaxis: High Risk of Bleeding
[2017-08-23] MEDS: INSULIN GLARGINE 100 UNIT/ML SUBCUT SCH (20:58)
[2017-08-23] MEDS: CHOLECALCIFEROL 1,000 UNIT TABLET PO SCH (20:59)
[2017-08-23] MEDS: ATORVASTATIN 20 MG TABLET PO SCH (20:59)
[2017-08-23] MEDS: ACETAMINOPHEN 325 MG TABLET PO PRN (21:02)
[2017-08-24] MEDS: INSULIN LISPRO 100 UNIT/ML SUBCUT SCH ×2 (07:30→12:41)
--- NOTE | 2017-08-24 08:51 | Discharge Summary ---
Hospital Course - Hospital Course Hospital Course: 67-year-old female admitted to the hospital with altered mental status. She was found to have seizures and was treated with Keppra-increased from 500 mg twice a day to 1000 mg twice a day. She was also found to have urinary tract infection & was treated with antibiotics including Zyvox for VRE. Her repeat urine cultures show enterococcus non-VRE and she has been started on gentamicin with her dialysis treatments 3 times a week. She is followed by Dr. Jean-Baptiste. She is instructed to follow-up with him with her regular schedule dialysis treatments. Her mental status has improved dramatically since hospitalization. She is back to baseline. Her medications were reviewed and reconciled. Her Keppra dose was increased. Gentamicin is continued. All other home medications were resumed. - Time spent with patient Time with patient DS: Greater than 30 minutes (Total discharge time for this patient, including [id number] time, clinical documentation, medication reconciliation, and discharge planning was 40 minutes.) Diagnosis - Discharge Diagnosis (1) VRE (vancomycin-resistant Enterococci) infection Status: Acute (2) Diabetes mellitus Status: Chronic (3) Hypertension Status: Chronic (4) Unsteady gait Status: Chronic (5) New onset seizure Status: Acute (6) End-stage renal disease on hemodialysis Status: Acute (7) Altered mental status Status: Resolved (8) Enterococcus UTI Status: Acute Discharge Plan - Discharge Data Disposition: Disch/Xfer to Snf Condition at Discharge: Stable Discharge Diet: advance to your usual diet Activity: resume usual activities as tolerated Hygiene: no restrictions Weight Bearing at Discharge: full weight bearing Contact your physician if you experience:: fever over 101, Nausea/Vomiting, Bleeding - Discharge Medications New Gentamicin Inj [Garamycin Inj] 100 mg IV PRN PRN PRN Reason: PHARMACY MONITORING Zinc Oxide Paste [Desitin Paste] 1 applic TOP PRN PRN applic PRN Reason: Diaper Rash levETIRAcetam TAB [Keppra Tab] 1,000 mg PO BID tablet Continue Ondansetron HCl 4 mg PO QID PRN PRN Reason: Nausea Nitroglycerin 0.4 mg/Hr Patch [Nitro-Dur 0.4 mg/hr Patch] 1 patch TRANSDERM DAILY Atorvastatin [Lipitor] 20 mg PO QPM Cholecalciferol (Vitamin D3) [Vitamin D3] 5,000 unit PO QPM Pantoprazole Tab [Protonix Tab] 40 mg PO DAILY tablet Labetalol Tab [Trandate Tab] 200 mg PO BID tablet Phenol 1.4% Throat Hancock [Chloraseptic [place]ancock] 5 spray PO Q2H PRN bottle PRN Reason: Sore Throat Ranolazine [Ranexa] 500 mg PO BID Duloxetine HCl [Cymbalta] 60 mg PO BEDTIME Loratadine Tab [Claritin Tab] 10 mg PO DAILY Colchicine [Colcrys] 0.6 mg PO DAILY Docusate Sodium Cap [Colace Cap] 100 mg PO BID PRN capsule PRN Reason: Constipation Heparin Inj 2,000 unit IV WITH DIALYSIS PRN vial PRN Reason: HEP LOCK HYDROcodone/ACETAMIN 7.5-325 [[place] 7.5-325] 1 tablet PO Q4H PRN #30 PRN Reason: Pain Moderate To Severe (4-10) buPROPion HCl [Bupropion Xl] 300 mg PO BID amLODIPine [Norvasc] 10 mg PO DAILY tablet hydrALAZINE TAB [Apresoline Tab] 100 mg PO TID tablet Insulin Glargine [Lantus] 20 unit SUBCUT DAILY #10 ml Discontinued levETIRAcetam TAB [Keppra Tab] 500 mg PO BID tablet guaiFENesin/DM ER 600-30 [Mucinex Dm 600-30 MG] 1 tablet PO BID PRN tablet PRN Reason: Congestion Acetaminophen Tab [Tylenol Tab] 650 mg PO Q4H PRN tablet PRN Reason: Fever, Headache, Mild Pain Levofloxacin Tab [Levaquin Tab] 500 mg PO DAILY #5 tablet - Follow Up or Referral - Forms/Instructions Additional Discharge Instructions: Continue outpatient dialysis with gentamicin as scheduled Exam - Constitutional Vitals: Period Temp Pulse Resp BP Sys/Veliz Pulse Ox Last 24 Hr 96.9 F-98.7 F 83-98 18-20 106-156/48-82 92-98 Discharge Results Labs on day of discharge: Labs from last 24 hours 08/23/17 08/23/17 08/23/17 19:24 15:46 13:22 POC Glucose 167 H 231 H 136 H 08/23/17 08:06 POC Glucose 172 H DS: Provider Date of admission: 08/15/17 05:15 Primary care physician: Juan Brennan DO Attending physician on admission: Dmitri Rosenberg MD Consults: 08/15/17 05:16 Consult to Physician [CONS] Routine Comment: AMS; seizure Consulting Provider: Pavel Pierce Person Notified: [email or web address] Date Notified: 08/15/17 Time Notified: 08:44 08/15/17 08:03 Consult to Physician [CONS] Routine Comment: dialysis patient Consulting Provider: Michael Jean-Baptiste Consult to Specialist Group: Nephrology When should Consulting Provider be notified: In am Person Notified: [place] Date Notified: 08/15/17 Time Notified: 08:40 08/15/17 08:48 Consult to [facility], Educator [CONS] Routine Reason for Undercollar Maker: Diabetes Education Consult to Dietitian [CONS] Routine Reason for Dietitian: Dietary Consult 08/22/17 14:24 Consult to Physical Therapy [CONS] Routine Reason for Physical Therapy: Evaluate and Treat Discharging clinician: Alesia Morales MD Expected date of discharge: 08/24/17
[2017-08-24] MEDS: amLODIPine 10 MG TABLET PO SCH ×2 (09:08→10:25)
[2017-08-24] MEDS: ACETAMINOPHEN 325 MG TABLET PO PRN (09:12)
[2017-08-24] MEDS: PANTOPRAZOLE 40 MG TABLET PO SCH (09:14)
[2017-08-24] MEDS: levETIRAcetam 500 MG TABLET PO SCH (09:14)
[2017-08-24] MEDS: COLCHICINE 0.6 MG TABLET PO SCH (09:14)
[2017-08-24] MEDS: RANOLAZINE 500 MG TABLET PO SCH (09:15)
[2017-08-24] MEDS: LABETALOL 200 MG TABLET PO SCH (09:15)
[2017-08-24] MEDS: ZINC OXIDE PASTE 113 GM TUBE TOP PRN (09:20)
[2017-08-24 11:52] VITALS: BP 123/58
--- NOTE | 2017-08-24 18:50 | Nephrology Progress Note ---
Nephrology - PN: Subj Interval history: She denies shortness of breath. No further seizures Exam (PN)-Nephrology - Vital Signs Vital signs: Period Temp Pulse Resp BP Sys/Veliz Pulse Ox Last 24 Hr 96.9 F-98.4 F 72-89 18-20 106-156/54-82 92-97 Exam: ENT: Normal Cardiovascular: Regular rate and rhythm. No murmur rub or gallop Lungs: Clear Extremities: No edema - Lab 08/19/17 04:27 08/19/17 04:27 Most recent lab results Calcium 8.4 MG/DL (8.5-10.1) L 08/19/17 04:27 Magnesium 2.0 MG/DL (1.8-2.4) 08/15/17 03:06 Assessment and Plan (1) End-stage renal disease on hemodialysis Status: Acute Assessment and plan: 67-year-old woman with: * Diabetes mellitus * Gastroparesis * Seizure disorder. Improved with increase in Keppra * ESRD. Outpatient dialysis center * Hypertension. Controlled * UTI. VRE. Gentamicin (2) Altered mental status Status: Resolved (3) Hypoglycemia Status: Acute (4) Seizure Status: Acute (5) Diabetes mellitus Status: Chronic Qualifiers: Diabetes mellitus type: type 2 Diabetes mellitus complication status: with kidney complications Diabetes mellitus complication detail: with chronic kidney disease Chronic kidney disease stage: on chronic dialysis (6) Hypertension Status: Chronic Qualifiers: Hypertension type: essential hypertension Qualified Code(s): I10 - Essential (primary) hypertension
== END 2017-08-24 15:00 | DRG 100 ==
LOC: EDBD → EDUNIT# → N.ED 02:53 → SUATTDRO 05:15 → N.CC 05:15 → N.2E 08-18 00:29
PROVIDERS: ADMIT Internal Medicine; ATTEND Family Medicine

== ENCOUNTER 2019-05-17 21:34 | Inpatient (IN) ==
[2019-05-17] MEDS ORDERED: VANCOMYCIN INJ 1,500 MG in SODIUM CHLORIDE 0.9% 250 ML IV STA (22:08)
[2019-05-17] MEDS ORDERED: CEFEPIME 2,000 MG in SODIUM CHLORIDE 0.9% 100 ML IV STA ×2 (22:09→22:11)
[2019-05-17] MEDS ORDERED: VANCOMYCIN INJ 1,500 MG in SODIUM CHLORIDE 0.9% 500 ML IV STA (22:12)
[2019-05-17 22:31] LABS: Basophils % 0.4 % (0.0-0.8); Eosinophils # 0.1 10*3/uL (0.0-0.87); Eosinophils % 2.7 % (0.00-10.9); Hemoglobin 6.9 GM/DL (12.0-16.0); Immature Granulocytes % 0.4 %; Immature Granulocytes Absolute 0.02 #; Lymphocytes # 0.9 10*3/uL (1.4-4.0); Lymphocytes % 16.9 % (21.3-54.2); Mean Corpuscular HGB Conc 31.4 GM/DL (32-36); Mean Corpuscular Volume 107.3 FL (87-102); Mean Platelet Volume 11.1 FL (9.6-12.0); Monocytes % 19.8 % (1.7-12.7); Neutrophils % 59.8 % (38.7-73.9); Platelet Count 155 T/CUMM (130-400); Red Blood Count 2.05 MC/CUMM (3.8-5.5); White Blood Count 5.2 T/CUMM (4-12)
[2019-05-17] MEDS ORDERED: SODIUM CHLORIDE 0.9% 1,000 ML IV PRN (22:47)
[2019-05-17 22:57] LABS: Albumin 2.9 G/DL (3.4-5.0); Bilirubin,Total 0.4 MG/DL (0.2-1.0); Calcium 8.6 MG/DL (8.5-10.1); Osmolality,Calculated 286.8 MOS/KG (273-304); Total Protein 6.2 G/DL (6.4-8.3)
[2019-05-17 23:34] LABS: Eosinophils 1 % (0-10); Lymphocytes 12 % (20-55); Segmented Neutrophils 70 % (50-85); Total Cells Counted 100
[2019-05-17 23:35] LABS: Anisocytosis Slight; Macrocytosis Slight
[2019-05-17 23:37] LABS: Polychromasia Slight
[2019-05-17 23:38] LABS: Platelet Estimate Normal
[2019-05-17 23:39] LABS: Ovalocytes Slight
[2019-05-17] MEDS ORDERED: GLUCAGON 1 MG VIAL IM PRN (23:55)
[2019-05-17] MEDS ORDERED: DEXTROSE 50% 25 GM/50 ML VIAL IV PRN (23:55)
[2019-05-18 00:32] LABS: Apearance,Urine CLEAR (Clear); Bacteria,Urine Occasional /HPF (Few); Bilirubin,Urine Negative (Negative); Blood, Urine Negative (Negative); Glucose,Urine (UA) Negative (Negative); Hyaline Casts,Urine 1 /LPF (0-3); Ketones,Urine Negative (Negative); Nitrite,Urine Negative (Negative); Protein,Urine 100 MG/DL; RBC,Urine 2 /HPF (0-4); Renal Epithelial Cells,Urine Occasional /HPF (<1); Squamous Epithelial Cell,Urine Occasional /HPF (0-10); Urine Color Yellow (Yellow); Urine Specific Gravity 1.012 (1.001-1.035); Urine Urobilinogen < 2.0 EU/DL (0.2-1.0); WBC,Urine 31 /HPF (0-6)
[2019-05-18] MEDS: INSULIN REGULAR 100 UNIT/ML SUBCUT SCH ×5 (02:51→22:31)
[2019-05-18] MEDS ORDERED: ALBUTEROL/IPRATROPIUM 3 ML NEB RESP TX ONE (03:07)
[2019-05-18] MEDS: ACETAMINOPHEN 325 MG TABLET PO PRN (03:45)
[2019-05-18 06:55] LABS: Basophils % 0.3 % (0.0-0.8); Eosinophils # 0.1 10*3/uL (0.0-0.87); Hematocrit 22.3 VOL% (35.7-47.0); Hemoglobin 7.1 GM/DL (12.0-16.0); Immature Granulocytes % 0.4 %; Immature Granulocytes Absolute 0.03 #; Lymphocytes # 0.7 10*3/uL (1.4-4.0); Lymphocytes % 9.4 % (21.3-54.2); Mean Corpuscular HGB Conc 31.8 GM/DL (32-36); Mean Corpuscular Volume 106.7 FL (87-102); Mean Platelet Volume 11.1 FL (9.6-12.0); Monocytes % 18.3 % (1.7-12.7); Neutrophils % 69.6 % (38.7-73.9); Platelet Count 163 T/CUMM (130-400); Red Blood Count 2.09 MC/CUMM (3.8-5.5); Red Cell Distribution Width 12.9 % (9.3-17.3); White Blood Count 7.1 T/CUMM (4-12)
[2019-05-18] MEDS: ALBUTEROL/IPRATROPIUM 3 ML NEB RESP TX SCH ×3 (07:12→19:02)
[2019-05-18 07:24] LABS: Albumin 3.2 G/DL (3.4-5.0); Bilirubin,Total 0.9 MG/DL (0.2-1.0); Calcium 9.1 MG/DL (8.5-10.1); Osmolality,Calculated 288.7 MOS/KG (273-304); Total Protein 6.5 G/DL (6.4-8.3)
[2019-05-18 08:30] LABS: Lymphocytes 9 % (20-55); Segmented Neutrophils 79 % (50-85); Total Cells Counted 100
[2019-05-18 08:32] LABS: Ovalocytes Few; Polychromasia Slight
[2019-05-18 08:33] LABS: Schistocytes Slight
[2019-05-18 08:34] LABS: Platelet Estimate Adequate
[2019-05-18 08:35] LABS: Microcytosis 1+
[2019-05-18 08:51] LABS: Giant Platelets Few
[2019-05-18] MEDS: LEVOFLOXACIN INJ 250 MG in PREMIX 1 EACH IV SCH (16:15)
[2019-05-18] MEDS: ONDANSETRON 4 MG/2 ML VIAL IV PRN (16:50)
[2019-05-18] MEDS: hydrALAZINE 20 MG/1 ML VIAL IV PRN ×2 (16:52→23:16)
[2019-05-18] MEDS ORDERED: ALUM/MAG/SIMETH/LIDO VISC 1:1 30 ML BOTTLE PO ONE (17:35)
[2019-05-18] MEDS: CEFEPIME 1,000 MG in SODIUM CHLORIDE 0.9% 100 ML IV SCH (17:43)
[2019-05-18] MEDS ORDERED: LABETALOL 200 MG TABLET PO SCH (21:30)
[2019-05-18] MEDS: ZALEPLON 5 MG CAPSULE PO PRN (23:19)
[2019-05-19] MEDS: ALBUTEROL/IPRATROPIUM 3 ML NEB RESP TX SCH ×6 (01:08→23:41)
[2019-05-19] MEDS ORDERED: CLORAZEPATE 3.75 MG TABLET PO ONE (08:05)
[2019-05-19] MEDS: INSULIN REGULAR 100 UNIT/ML SUBCUT SCH ×4 (08:43→21:12)
[2019-05-19] MEDS: amLODIPine 2.5 MG TABLET PO SCH (08:44)
[2019-05-19] MEDS: amLODIPine 5 MG TABLET PO SCH (08:44)
[2019-05-19] MEDS ORDERED: DOCUSATE SODIUM 100 MG CAPSULE PO PRN (08:50)
[2019-05-19] MEDS ORDERED: NITROGLYCERIN SL 0.4 MG TABLET SL PRN (08:50)
[2019-05-19 08:56] LABS: Basophils % 0.3 % (0.0-0.8); Eosinophils # 0.2 10*3/uL (0.0-0.87); Eosinophils % 1.6 % (0.00-10.9); Hematocrit 32.9 VOL% (35.7-47.0); Immature Granulocytes % 0.6 %; Immature Granulocytes Absolute 0.06 #; Lymphocytes # 0.6 10*3/uL (1.4-4.0); Lymphocytes % 5.5 % (21.3-54.2); Mean Corpuscular HGB Conc 31.3 GM/DL (32-36); Mean Corpuscular Volume 102.2 FL (87-102); Mean Platelet Volume 10.9 FL (9.6-12.0); Monocytes % 12.7 % (1.7-12.7); Neutrophils % 79.3 % (38.7-73.9); Platelet Count 167 T/CUMM (130-400); Red Blood Count 3.22 MC/CUMM (3.8-5.5); Red Cell Distribution Width 15.1 % (9.3-17.3)
[2019-05-19] MEDS ORDERED: LIDOCAINE/PRILOCAINE CREAM 5 GM TUBE TOP SCH (09:00)
[2019-05-19 09:04] LABS: Hemoglobin 10.3 GM/DL (12.0-16.0)
[2019-05-19] MEDS: LABETALOL 100 MG TABLET PO SCH ×2 (10:40→20:59)
[2019-05-19] MEDS: levETIRAcetam 250 MG TABLET PO SCH (10:40)
[2019-05-19] MEDS: LACTULOSE 20 GM/30 ML UDCUP PO SCH ×3 (10:40→21:20)
[2019-05-19] MEDS: RANOLAZINE 500 MG TABLET PO SCH ×2 (10:40→21:01)
[2019-05-19] MEDS: NITROGLYCERIN 0.4 MG/HR PATCH TRANSDERM SCH (10:40)
[2019-05-19] MEDS: guaiFENesin 200 MG/10 ML UDCUP PO SCH ×4 (10:40→21:00)
[2019-05-19] MEDS: buPROPion XL 150 MG TABLET PO SCH (10:40)
[2019-05-19] MEDS: PANTOPRAZOLE 40 MG TABLET PO SCH (10:40)
[2019-05-19] MEDS: FERROUS SULFATE 325 MG TABLET PO SCH (10:40)
[2019-05-19] MEDS: CALCIUM CARBONATE CHEW 500 MG TABLET PO SCH ×2 (10:40→21:02)
[2019-05-19] MEDS: MULTIVITAMIN (CENTRUM) TABLET PO SCH (10:40)
[2019-05-19] MEDS: METOCLOPRAMIDE 10 MG/10 ML UDCUP PO SCH ×2 (12:49→16:10)
[2019-05-19] MEDS: CEFEPIME 1,000 MG in SODIUM CHLORIDE 0.9% 100 ML IV SCH (16:10)
[2019-05-19] MEDS: ARFORMOTEROL 15 MCG/2 ML NEB RESP TX SCH (19:04)
[2019-05-19] MEDS: FAMOTIDINE 20 MG TABLET PO SCH (20:58)
[2019-05-19] MEDS: traZODone 50 MG TABLET PO SCH (21:00)
[2019-05-19] MEDS: CHOLECALCIFEROL 5,000 UNIT TABLET PO SCH (21:01)
[2019-05-19] MEDS: levETIRAcetam 500 MG TABLET PO SCH (21:10)
[2019-05-19] MEDS: INSULIN GLARGINE 100 UNIT/ML SUBCUT SCH ×2 (21:11→21:14)
[2019-05-20] MEDS: guaiFENesin 200 MG/10 ML UDCUP PO SCH ×6 (02:54→20:15)
[2019-05-20] MEDS: ALBUTEROL/IPRATROPIUM 3 ML NEB RESP TX SCH ×5 (03:06→19:14)
[2019-05-20 04:59] LABS: Basophils % 0.3 % (0.0-0.8); Eosinophils # 0.3 10*3/uL (0.0-0.87); Eosinophils % 4.2 % (0.00-10.9); Hematocrit 27.7 VOL% (35.7-47.0); Immature Granulocytes % 0.4 %; Immature Granulocytes Absolute 0.03 #; Lymphocytes # 0.8 10*3/uL (1.4-4.0); Lymphocytes % 10.4 % (21.3-54.2); Mean Corpuscular HGB Conc 32.5 GM/DL (32-36); Mean Corpuscular Volume 101.5 FL (87-102); Mean Platelet Volume 11.1 FL (9.6-12.0); Monocytes % 16.1 % (1.7-12.7); Neutrophils % 68.6 % (38.7-73.9); Platelet Count 149 T/CUMM (130-400); Red Blood Count 2.73 MC/CUMM (3.8-5.5); Red Cell Distribution Width 14.4 % (9.3-17.3); White Blood Count 7.4 T/CUMM (4-12)
[2019-05-20 05:57] LABS: Band Neutrophils 1 % (0-10); Eosinophils 6 % (0-10); Hypochromasia 2+; Lymphocytes 9 % (20-55); Platelet Estimate Adequate; Segmented Neutrophils 68 % (50-85); Total Cells Counted 100
[2019-05-20] MEDS: ARFORMOTEROL 15 MCG/2 ML NEB RESP TX SCH ×2 (07:15→19:15)
[2019-05-20] MEDS: INSULIN REGULAR 100 UNIT/ML SUBCUT SCH ×4 (07:59→20:19)
[2019-05-20] MEDS: LACTULOSE 20 GM/30 ML UDCUP PO SCH ×2 (09:11→20:20)
[2019-05-20] MEDS: CALCIUM CARBONATE CHEW 500 MG TABLET PO SCH ×2 (09:12→20:15)
[2019-05-20] MEDS: NITROGLYCERIN 0.4 MG/HR PATCH TRANSDERM SCH (09:12)
[2019-05-20] MEDS: LABETALOL 100 MG TABLET PO SCH ×2 (09:13→20:17)
[2019-05-20] MEDS: RANOLAZINE 500 MG TABLET PO SCH ×2 (09:13→20:17)
[2019-05-20] MEDS: amLODIPine 5 MG TABLET PO SCH (09:14)
[2019-05-20] MEDS: FERROUS SULFATE 325 MG TABLET PO SCH (09:14)
[2019-05-20] MEDS: buPROPion XL 150 MG TABLET PO SCH (09:14)
[2019-05-20] MEDS: MULTIVITAMIN (CENTRUM) TABLET PO SCH (09:14)
[2019-05-20] MEDS: amLODIPine 2.5 MG TABLET PO SCH (09:14)
[2019-05-20] MEDS: levETIRAcetam 250 MG TABLET PO SCH (09:14)
[2019-05-20] MEDS: PANTOPRAZOLE 40 MG TABLET PO SCH (09:15)
[2019-05-20] MEDS: METOCLOPRAMIDE 10 MG/10 ML UDCUP PO SCH ×3 (09:28→16:15)
[2019-05-20] MEDS: LEVOFLOXACIN INJ 250 MG in PREMIX 1 EACH IV SCH (12:10)
[2019-05-20 15:29] LABS: Allen Test Positive; Pt O2 Delivery Device Venturi Mask
[2019-05-20 15:30] LABS: ABG Base Excess 1.8 MMOL/L (-2.5-2.5); ABG Oxygen Saturation 96.5 % (95-100); ABG PCO2 35.8 MM HG (35-48); ABG PH 7.461 (7.35-7.45); ABG PO2 79.8 MM HG (80-95); ABG TCO2 23.2 MMOL/L (23-27)
[2019-05-20] MEDS ORDERED: FUROSEMIDE 40 MG/4 ML VIAL IV ONE (15:47)
[2019-05-20] MEDS ORDERED: CLORAZEPATE 3.75 MG TABLET PO ONE (15:51)
[2019-05-20] MEDS: CEFEPIME 1,000 MG in SODIUM CHLORIDE 0.9% 100 ML IV SCH (16:16)
[2019-05-20] MEDS: CHOLECALCIFEROL 5,000 UNIT TABLET PO SCH (20:16)
[2019-05-20] MEDS: FAMOTIDINE 20 MG TABLET PO SCH (20:16)
[2019-05-20] MEDS: traZODone 50 MG TABLET PO SCH (20:16)
[2019-05-20] MEDS: levETIRAcetam 500 MG TABLET PO SCH (20:16)
[2019-05-20] MEDS: INSULIN GLARGINE 100 UNIT/ML SUBCUT SCH (20:18)
[2019-05-20] MEDS: ZALEPLON 5 MG CAPSULE PO PRN (22:02)
[2019-05-21] MEDS: ALBUTEROL/IPRATROPIUM 3 ML NEB RESP TX SCH ×6 (00:02→19:51)
[2019-05-21] MEDS: guaiFENesin 200 MG/10 ML UDCUP PO SCH ×6 (01:59→20:44)
[2019-05-21] MEDS: ARFORMOTEROL 15 MCG/2 ML NEB RESP TX SCH ×2 (07:11→19:51)
[2019-05-21] MEDS ORDERED: LIDOCAINE/PRILOCAINE CREAM 5 GM TUBE TOP SCH (08:00)
[2019-05-21] MEDS: INSULIN REGULAR 100 UNIT/ML SUBCUT SCH ×4 (08:01→20:51)
[2019-05-21] MEDS: LACTULOSE 20 GM/30 ML UDCUP PO SCH ×2 (08:15→20:51)
[2019-05-21] MEDS: LABETALOL 100 MG TABLET PO SCH ×2 (08:15→20:44)
[2019-05-21] MEDS: METOCLOPRAMIDE 10 MG/10 ML UDCUP PO SCH ×3 (08:15→16:27)
[2019-05-21] MEDS: levETIRAcetam 250 MG TABLET PO SCH (08:16)
[2019-05-21] MEDS: amLODIPine 2.5 MG TABLET PO SCH (08:16)
[2019-05-21] MEDS: RANOLAZINE 500 MG TABLET PO SCH ×2 (08:16→20:44)
[2019-05-21] MEDS: PANTOPRAZOLE 40 MG TABLET PO SCH (08:17)
[2019-05-21] MEDS: buPROPion XL 150 MG TABLET PO SCH (08:17)
[2019-05-21] MEDS: CALCIUM CARBONATE CHEW 500 MG TABLET PO SCH ×2 (08:17→20:44)
[2019-05-21] MEDS: amLODIPine 5 MG TABLET PO SCH (08:17)
[2019-05-21] MEDS: MULTIVITAMIN (CENTRUM) TABLET PO SCH (08:18)
[2019-05-21] MEDS: NITROGLYCERIN 0.4 MG/HR PATCH TRANSDERM SCH (08:22)
[2019-05-21] MEDS: FERROUS SULFATE 325 MG TABLET PO SCH (08:56)
[2019-05-21] MEDS: ONDANSETRON 4 MG/2 ML VIAL IV PRN (13:42)
[2019-05-21] MEDS: CEFEPIME 1,000 MG in SODIUM CHLORIDE 0.9% 100 ML IV SCH (16:28)
[2019-05-21] MEDS: FAMOTIDINE 20 MG TABLET PO SCH (20:44)
[2019-05-21] MEDS: CHOLECALCIFEROL 5,000 UNIT TABLET PO SCH (20:44)
[2019-05-21] MEDS: levETIRAcetam 500 MG TABLET PO SCH (20:44)
[2019-05-21] MEDS: INSULIN GLARGINE 100 UNIT/ML SUBCUT SCH (20:44)
[2019-05-21] MEDS: traZODone 50 MG TABLET PO SCH (20:44)
[2019-05-21] MEDS: ACETAMINOPHEN 325 MG TABLET PO PRN (20:45)
[2019-05-22] MEDS: ALBUTEROL/IPRATROPIUM 3 ML NEB RESP TX SCH ×4 (00:14→11:00)
[2019-05-22] MEDS: guaiFENesin 200 MG/10 ML UDCUP PO SCH ×4 (01:26→12:22)
[2019-05-22] MEDS: ARFORMOTEROL 15 MCG/2 ML NEB RESP TX SCH (07:26)
[2019-05-22] MEDS: INSULIN REGULAR 100 UNIT/ML SUBCUT SCH ×2 (07:29→11:50)
[2019-05-22 08:08] VITALS: BP 170/71
[2019-05-22] MEDS: MULTIVITAMIN (CENTRUM) TABLET PO SCH (08:44)
[2019-05-22] MEDS: LABETALOL 100 MG TABLET PO SCH (08:44)
[2019-05-22] MEDS: METOCLOPRAMIDE 10 MG/10 ML UDCUP PO SCH ×2 (08:44→11:42)
[2019-05-22] MEDS: LACTULOSE 20 GM/30 ML UDCUP PO SCH (08:44)
[2019-05-22] MEDS: RANOLAZINE 500 MG TABLET PO SCH (08:45)
[2019-05-22] MEDS: FERROUS SULFATE 325 MG TABLET PO SCH (08:45)
[2019-05-22] MEDS: CALCIUM CARBONATE CHEW 500 MG TABLET PO SCH (08:45)
[2019-05-22] MEDS: amLODIPine 5 MG TABLET PO SCH (08:45)
[2019-05-22] MEDS: amLODIPine 2.5 MG TABLET PO SCH (08:46)
[2019-05-22] MEDS: PANTOPRAZOLE 40 MG TABLET PO SCH (08:46)
[2019-05-22] MEDS: levETIRAcetam 250 MG TABLET PO SCH (08:46)
[2019-05-22] MEDS: NITROGLYCERIN 0.4 MG/HR PATCH TRANSDERM SCH (08:49)
[2019-05-22] MEDS: buPROPion XL 150 MG TABLET PO SCH (08:49)
[2019-05-22] MEDS ORDERED: COLCHICINE 0.6 MG CAPSULE PO SCH (09:00)
[2019-05-22] MEDS: LEVOFLOXACIN INJ 250 MG in PREMIX 1 EACH IV SCH (11:41)
== END 2019-05-22 13:42 | DRG 193 ==
LOC: EDUNIT# → EDBD → N.ED 21:34 → N.EDINP 23:54 → N.2E 05-18 00:32
PROVIDERS: ADMIT Internal Medicine; ATTEND Internal Medicine

== ENCOUNTER 2019-08-15 11:11 | Observation (INO) ==
[2019-08-15] MEDS ORDERED: SODIUM CHLORIDE 0.9% 500 ML IV STA (11:31)
[2019-08-15 12:08] LABS: Apearance,Urine CLOUDY (Clear); Bilirubin,Urine Negative (Negative); Blood, Urine Small mg/dL (Negative); Glucose,Urine (UA) Negative (Negative); Ketones,Urine Negative (Negative); Nitrite,Urine Negative (Negative); Protein,Urine >=500 MG/DL; RBC,Urine 32 /HPF (0-4); Squamous Epithelial Cell,Urine Occasional /HPF (0-10); Urine Color Yellow (Yellow); Urine Specific Gravity 1.011 (1.001-1.035); Urine Urobilinogen < 2.0 EU/DL (0.2-1.0); WBC,Urine 377 /HPF (0-6)
[2019-08-15 12:11] LABS: Barbiturates Screen,Urine Negative (Negative); Benzodiazepines Screen,Urine Negative (Negative); Cannabinoid Screen,Urine Negative (Negative); Opiate Screen,Urine Positive (Negative); Phencyclidine Screen,Urine Negative (Negative)
[2019-08-15 12:13] LABS: PT Patient Result 10.8 SECS (9.6-12.2)
[2019-08-15 12:15] LABS: Basophils % 0.7 % (0.0-0.8); Eosinophils # 0.2 10*3/uL (0.0-0.87); Eosinophils % 3.5 % (0.00-10.9); Hematocrit 35.3 VOL% (35.7-47.0); Hemoglobin 11.5 GM/DL (12.0-16.0); Immature Granulocytes % 1.1 %; Immature Granulocytes Absolute 0.06 #; Lymphocytes # 0.9 10*3/uL (1.4-4.0); Lymphocytes % 16.6 % (21.3-54.2); Mean Corpuscular HGB Conc 32.6 GM/DL (32-36); Mean Corpuscular Volume 98.9 FL (87-102); Mean Platelet Volume 10.5 FL (9.6-12.0); Monocytes % 14.2 % (1.7-12.7); Neutrophils % 63.9 % (38.7-73.9); Platelet Count 138 T/CUMM (130-400); Red Blood Count 3.57 MC/CUMM (3.8-5.5); Red Cell Distribution Width 14.6 % (9.3-17.3); White Blood Count 5.4 T/CUMM (4-12)
[2019-08-15 12:26] LABS: Alanine Aminotransferase 16 U/L (13-56); Albumin 3.1 G/DL (3.4-5.0); Alkaline Phosphatase 155 U/L (45-117); Aspartate Amino Transferase 13 U/L (0-37); Blood Urea Nitrogen 40 MG/DL (7-18); Calcium 8.8 MG/DL (8.5-10.1); Estimated Glom Filtration Rate 10 ML/MIN; Glucose 119 MG/DL (74-106); Osmolality,Calculated 285.7 MOS/KG (273-304); Total Protein 6.4 G/DL (6.4-8.3); Troponin I < 0.015 NG/ML (0.00-0.045)
[2019-08-15] MEDS ORDERED: hydrALAZINE 20 MG/1 ML VIAL ONE (12:43)
[2019-08-15 12:58] LABS: Sedimentation Rate-Westergren 15 MM/HR (0-30)
[2019-08-15] MEDS ORDERED: DOXYCYCLINE HYCLATE INJ 100 MG in SODIUM CHLORIDE 0.9% 100 ML IV STA (13:58)
[2019-08-15] MEDS ORDERED: GLUCAGON 1 MG VIAL IM PRN ×2 (15:22→15:24)
[2019-08-15] MEDS ORDERED: PHENOL 1.4% THROAT SPRAY 177 ML BOTTLE PO PRN (15:22)
[2019-08-15] MEDS ORDERED: ALBUTEROL/IPRATROPIUM 3 ML NEB RESP TX PRN (15:22)
[2019-08-15] MEDS ORDERED: ONDANSETRON ODT 4 MG TABLET PO PRN (15:22)
[2019-08-15] MEDS ORDERED: DEXTROSE 50% 25 GM/50 ML VIAL IV PRN (15:24)
[2019-08-15] MEDS ORDERED: LIDOCAINE/PRILOCAINE CREAM 5 GM TUBE TOP SCH (15:30)
[2019-08-15] MEDS ORDERED: hydrALAZINE 20 MG/1 ML VIAL IV PRN (15:41)
[2019-08-15] MEDS: MECLIZINE 25 MG TABLET PO SCH (18:06)
[2019-08-15] MEDS: INSULIN REGULAR 100 UNIT/ML SUBCUT SCH ×2 (19:26→21:13)
[2019-08-15] MEDS ORDERED: levETIRAcetam 500 MG TABLET PO SCH (21:00)
[2019-08-15] MEDS ORDERED: CALCIUM CARBONATE CHEW 500 MG TABLET PO SCH (21:00)
[2019-08-15] MEDS ORDERED: MEROPENEM 500 MG in SODIUM CHLORIDE 0.9% 100 ML IV SCH (21:00)
[2019-08-15] MEDS: LABETALOL 200 MG TABLET PO SCH (21:03)
[2019-08-15] MEDS: METOCLOPRAMIDE 5 MG TABLET PO SCH (21:05)
[2019-08-15] MEDS: CHOLECALCIFEROL 5,000 UNIT TABLET PO SCH (21:06)
[2019-08-15] MEDS: HEPARIN 5,000 UNIT/1 ML VIAL SUBCUT SCH ×2 (21:11→21:17)
[2019-08-15] MEDS: LACTULOSE 20 GM/30 ML UDCUP PO SCH (21:13)
[2019-08-15] MEDS: ATORVASTATIN 20 MG TABLET PO SCH (21:14)
[2019-08-15] MEDS: NYSTATIN POWDER 15 GM BOTTLE TOP SCH (21:40)
[2019-08-16 05:26] LABS: Basophils % 0.5 % (0.0-0.8); Eosinophils # 0.2 10*3/uL (0.0-0.87); Eosinophils % 2.6 % (0.00-10.9); Hematocrit 32.6 VOL% (35.7-47.0); Hemoglobin 10.3 GM/DL (12.0-16.0); Immature Granulocytes % 0.5 %; Immature Granulocytes Absolute 0.03 #; Lymphocytes # 1.1 10*3/uL (1.4-4.0); Lymphocytes % 19.5 % (21.3-54.2); Mean Corpuscular HGB Conc 31.6 GM/DL (32-36); Mean Corpuscular Volume 100.9 FL (87-102); Mean Platelet Volume 10.7 FL (9.6-12.0); Neutrophils % 59.9 % (38.7-73.9); Platelet Count 128 T/CUMM (130-400); Red Blood Count 3.23 MC/CUMM (3.8-5.5); Red Cell Distribution Width 14.6 % (9.3-17.3); White Blood Count 5.7 T/CUMM (4-12)
[2019-08-16 05:52] LABS: Risk Ratio 3.76; VLDL CHOLESTEROL 15.2 MG/DL
[2019-08-16 06:06] LABS: Albumin 2.9 G/DL (3.4-5.0); Bilirubin,Total 0.8 MG/DL (0.2-1.0); Calcium 9.1 MG/DL (8.5-10.1); Osmolality,Calculated 296.8 MOS/KG (273-304); Total Protein 5.7 G/DL (6.4-8.3)
[2019-08-16 06:53] LABS: Eosinophils 1 % (0-10); Hypochromasia 1+; Lymphocytes 24 % (20-55); Platelet Estimate Normal; Segmented Neutrophils 65 % (50-85); Total Cells Counted 100
[2019-08-16] MEDS ORDERED: COLCRYS PO SCH (09:00)
[2019-08-16] MEDS: amLODIPine 5 MG TABLET PO SCH (09:51)
[2019-08-16] MEDS: buPROPion XL 150 MG TABLET PO SCH (09:51)
[2019-08-16] MEDS: METOCLOPRAMIDE 5 MG TABLET PO SCH ×2 (09:51→20:41)
[2019-08-16] MEDS: LABETALOL 200 MG TABLET PO SCH ×2 (09:54→20:40)
[2019-08-16] MEDS: MULTIVITAMIN (CENTRUM) TABLET PO SCH (09:54)
[2019-08-16] MEDS: PANTOPRAZOLE 40 MG TABLET PO SCH (09:55)
[2019-08-16] MEDS: predniSONE 5 MG TABLET PO SCH (09:55)
[2019-08-16] MEDS: FERROUS SULFATE 325 MG TABLET PO SCH (09:55)
[2019-08-16] MEDS: NITROGLYCERIN 0.4 MG/HR PATCH TRANSDERM SCH (09:56)
[2019-08-16] MEDS: LACTULOSE 20 GM/30 ML UDCUP PO SCH ×2 (09:56→20:41)
[2019-08-16] MEDS: INSULIN REGULAR 100 UNIT/ML SUBCUT SCH ×4 (09:57→20:59)
[2019-08-16] MEDS: CALCIUM CARBONATE CHEW 500 MG TABLET PO SCH ×2 (10:03→20:41)
[2019-08-16] MEDS: MECLIZINE 25 MG TABLET PO SCH ×2 (10:04→20:41)
[2019-08-16] MEDS ORDERED: POTASSIUM CHLORIDE 20 MEQ TABLET PO ONE (12:39)
[2019-08-16 14:31] LABS: Folate 6.3 NG/ML (5.4-24.0)
[2019-08-16] MEDS: cefTRIAXone 1,000 MG in SYRINGE 1 EACH IV SCH (14:35)
[2019-08-16] MEDS ORDERED: POTASSIUM CHLORIDE 10 MEQ TABLET PO ONE (18:00)
[2019-08-16] MEDS: CHOLECALCIFEROL 5,000 UNIT TABLET PO SCH (20:40)
[2019-08-16] MEDS: ATORVASTATIN 20 MG TABLET PO SCH (20:41)
[2019-08-16] MEDS: HEPARIN 5,000 UNIT/1 ML VIAL SUBCUT SCH (20:41)
[2019-08-16] MEDS: NYSTATIN POWDER 15 GM BOTTLE TOP SCH (20:59)
[2019-08-17 06:55] LABS: Basophils # 0.1 10*3/uL (0.0-0.2); Basophils % 0.8 % (0.0-0.8); Eosinophils # 0.2 10*3/uL (0.0-0.87); Eosinophils % 3.8 % (0.00-10.9); Hematocrit 33.8 VOL% (35.7-47.0); Hemoglobin 10.7 GM/DL (12.0-16.0); Immature Granulocytes % 0.5 %; Immature Granulocytes Absolute 0.03 #; Lymphocytes % 16.5 % (21.3-54.2); Mean Corpuscular HGB Conc 31.7 GM/DL (32-36); Mean Corpuscular Volume 100.6 FL (87-102); Mean Platelet Volume 10.9 FL (9.6-12.0); Monocytes % 18.3 % (1.7-12.7); Neutrophils % 60.1 % (38.7-73.9); Platelet Count 132 T/CUMM (130-400); Red Blood Count 3.36 MC/CUMM (3.8-5.5); Red Cell Distribution Width 14.4 % (9.3-17.3); White Blood Count 6.3 T/CUMM (4-12)
[2019-08-17 07:22] LABS: Eosinophils 4 % (0-10); Hypochromasia 1+; Lymphocytes 14 % (20-55); Ovalocytes Slight; Platelet Estimate Normal; Segmented Neutrophils 68 % (50-85); Total Cells Counted 100
[2019-08-17 07:28] LABS: Bilirubin,Total 0.7 MG/DL (0.2-1.0); Calcium 8.7 MG/DL (8.5-10.1); Osmolality,Calculated 285.3 MOS/KG (273-304); Total Protein 5.9 G/DL (6.4-8.3)
[2019-08-17] MEDS: INSULIN REGULAR 100 UNIT/ML SUBCUT SCH ×2 (08:25→13:35)
[2019-08-17 13:31] VITALS: BP 159/108
[2019-08-17] MEDS: LABETALOL 200 MG TABLET PO SCH (13:31)
[2019-08-17] MEDS: METOCLOPRAMIDE 5 MG TABLET PO SCH (13:31)
[2019-08-17] MEDS: amLODIPine 5 MG TABLET PO SCH (13:31)
[2019-08-17] MEDS: CALCIUM CARBONATE CHEW 500 MG TABLET PO SCH (13:32)
[2019-08-17] MEDS: MECLIZINE 25 MG TABLET PO SCH (13:32)
[2019-08-17] MEDS: FERROUS SULFATE 325 MG TABLET PO SCH (13:32)
[2019-08-17] MEDS: MULTIVITAMIN (CENTRUM) TABLET PO SCH (13:32)
[2019-08-17] MEDS: predniSONE 5 MG TABLET PO SCH (13:32)
[2019-08-17] MEDS: LACTULOSE 20 GM/30 ML UDCUP PO SCH (13:33)
[2019-08-17] MEDS: cefTRIAXone 1,000 MG in SYRINGE 1 EACH IV SCH (13:33)
[2019-08-17] MEDS: NITROGLYCERIN 0.4 MG/HR PATCH TRANSDERM SCH (13:33)
[2019-08-17] MEDS: PANTOPRAZOLE 40 MG TABLET PO SCH (13:33)
[2019-08-17] MEDS: buPROPion XL 150 MG TABLET PO SCH (13:35)
[2019-08-17] MEDS: HEPARIN 5,000 UNIT/1 ML VIAL SUBCUT SCH (13:35)
[2019-08-17] MEDS ORDERED: levETIRAcetam 500 MG TABLET PO SCH (21:00)
== END 2019-08-17 15:43 ==
LOC: EDBD → EDUNIT# → N.EDINP 11:11 → N.ED 11:11 → N.2E 17:15
PROVIDERS: ADMIT Internal Medicine; ATTEND Internal Medicine

== ENCOUNTER 2019-08-28 12:36 | Inpatient (IN) ==
[2019-08-28 13:14] LABS: Basophils # 0.1 10*3/uL (0.0-0.2); Basophils % 0.6 % (0.0-0.8); Eosinophils # 0.2 10*3/uL (0.0-0.87); Eosinophils % 1.4 % (0.00-10.9); Hematocrit 37.9 VOL% (35.7-47.0); Hemoglobin 11.8 GM/DL (12.0-16.0); Immature Granulocytes % 0.5 %; Immature Granulocytes Absolute 0.05 #; Mean Corpuscular HGB Conc 31.1 GM/DL (32-36); Mean Corpuscular Volume 103.6 FL (87-102); Monocytes % 14.4 % (1.7-12.7); Neutrophils % 64.1 % (38.7-73.9); Platelet Count 203 T/CUMM (130-400); Red Blood Count 3.66 MC/CUMM (3.8-5.5); Red Cell Distribution Width 15.3 % (9.3-17.3); White Blood Count 10.5 T/CUMM (4-12)
[2019-08-28] MEDS ORDERED: SODIUM CHLORIDE 0.9% 1,000 ML IV STA (13:28)
[2019-08-28 13:39] LABS: Alanine Aminotransferase 12 U/L (13-56); Albumin 3.4 G/DL (3.4-5.0); Alkaline Phosphatase 137 U/L (45-117); Aspartate Amino Transferase 9 U/L (0-37); Blood Urea Nitrogen 52 MG/DL (7-18); Calcium 8.9 MG/DL (8.5-10.1); Estimated Glom Filtration Rate 6 ML/MIN; Glucose 104 MG/DL (74-106); Total Protein 6.5 G/DL (6.4-8.3)
[2019-08-28] MEDS ORDERED: LEVOFLOXACIN INJ 500 MG in PREMIX 1 EACH IV STA (14:06)
[2019-08-28] MEDS ORDERED: ONDANSETRON 4 MG/2 ML VIAL IV PRN (14:48)
[2019-08-28] MEDS ORDERED: ACETAMINOPHEN 325 MG TABLET PO PRN (14:48)
[2019-08-28] MEDS ORDERED: PROMETHAZINE 25 MG/1 ML VIAL IM PRN (14:48)
[2019-08-28] MEDS ORDERED: PHENYTOIN 100 MG/2 ML VIAL IV STA (14:50)
[2019-08-28] MEDS ORDERED: hydrALAZINE 20 MG/1 ML VIAL ONE (15:16)
[2019-08-28] MEDS ORDERED: SODIUM CHLORIDE 0.9% 500 ML IV STA (15:21)
[2019-08-28] MEDS ORDERED: DEXTROSE 50% 25 GM/50 ML VIAL IV PRN (15:33)
[2019-08-28] MEDS ORDERED: GLUCAGON 1 MG VIAL IM PRN (15:33)
[2019-08-28] MEDS ORDERED: hydrALAZINE 20 MG/1 ML VIAL IV STA ×2 (15:46→21:34)
[2019-08-28] MEDS: PHENYTOIN 100 MG/2 ML VIAL IV SCH ×2 (15:48→23:50)
[2019-08-28] MEDS: INSULIN REGULAR 100 UNIT/ML SUBCUT SCH ×2 (18:24→22:05)
[2019-08-28] MEDS: hydrALAZINE 20 MG/1 ML VIAL IV PRN (18:25)
[2019-08-28] MEDS ORDERED: ACETAMINOPHEN 650 MG SUPP RECTAL PRN (21:30)
[2019-08-28] MEDS ORDERED: GLUCAGON 1 MG VIAL IM STA (21:35)
[2019-08-29 05:49] LABS: Basophils # 0.1 10*3/uL (0.0-0.2); Basophils % 0.6 % (0.0-0.8); Eosinophils # 0.4 10*3/uL (0.0-0.87); Eosinophils % 4.4 % (0.00-10.9); Hematocrit 36.2 VOL% (35.7-47.0); Hemoglobin 11.4 GM/DL (12.0-16.0); Immature Granulocytes % 0.5 %; Immature Granulocytes Absolute 0.04 #; Lymphocytes # 1.5 10*3/uL (1.4-4.0); Lymphocytes % 18.9 % (21.3-54.2); Mean Corpuscular HGB Conc 31.5 GM/DL (32-36); Mean Corpuscular Volume 101.4 FL (87-102); Mean Platelet Volume 10.9 FL (9.6-12.0); Monocytes % 14.2 % (1.7-12.7); Neutrophils % 61.4 % (38.7-73.9); Platelet Count 175 T/CUMM (130-400); Red Blood Count 3.57 MC/CUMM (3.8-5.5); Red Cell Distribution Width 15.5 % (9.3-17.3); White Blood Count 8.1 T/CUMM (4-12)
[2019-08-29 06:07] LABS: Albumin 2.8 G/DL (3.4-5.0); Bilirubin,Total 0.6 MG/DL (0.2-1.0); Calcium 8.2 MG/DL (8.5-10.1); Total Protein 5.9 G/DL (6.4-8.3)
[2019-08-29] MEDS: hydrALAZINE 20 MG/1 ML VIAL IV PRN (08:12)
[2019-08-29] MEDS: PHENYTOIN 100 MG/2 ML VIAL IV SCH (08:14)
[2019-08-29] MEDS ORDERED: PANTOPRAZOLE 40 MG TABLET PO SCH ×2 (09:00→09:30)
[2019-08-29] MEDS ORDERED: MAGNESIUM HYDROXIDE PO PRN (09:09)
[2019-08-29] MEDS ORDERED: SIMETHICONE PO PRN (09:09)
[2019-08-29] MEDS ORDERED: SODIUM CHLORIDE 0.65% NASAL SPRAY 45 ML BOTTLE BOTH NARES PRN (09:09)
[2019-08-29] MEDS ORDERED: guaiFENesin 200 MG/10 ML UDCUP PO PRN (09:09)
[2019-08-29] MEDS ORDERED: DOCUSATE SODIUM 100 MG CAPSULE PO PRN (09:09)
[2019-08-29] MEDS ORDERED: PHENOL 1.4% THROAT SPRAY 177 ML BOTTLE PO PRN (09:09)
[2019-08-29] MEDS ORDERED: ALUMINUM HYDROXIDE PO PRN (09:09)
[2019-08-29] MEDS ORDERED: ONDANSETRON 4 MG TABLET PO PRN (09:09)
[2019-08-29] MEDS ORDERED: NON-FORMULARY MEDICATION (Ondansetron Hcl 8 MG) IM PRN (09:09)
[2019-08-29] MEDS ORDERED: NITROGLYCERIN SL 0.4 MG TABLET SL PRN (09:09)
[2019-08-29] MEDS: INSULIN REGULAR 100 UNIT/ML SUBCUT SCH ×4 (09:33→20:28)
[2019-08-29] MEDS ORDERED: MULTIVITAMIN (CENTRUM) TABLET PO SCH (10:30)
[2019-08-29] MEDS ORDERED: VENLAFAXINE XR 37.5 MG CAPSULE PO SCH (10:30)
[2019-08-29] MEDS ORDERED: FERROUS SULFATE 325 MG TABLET PO SCH (10:30)
[2019-08-29] MEDS ORDERED: levETIRAcetam LIQUID 100 MG/ML 30 ML/BOTTLE PO SCH (10:30)
[2019-08-29] MEDS: RANOLAZINE 500 MG TABLET PO SCH ×2 (10:34→20:26)
[2019-08-29] MEDS: MECLIZINE 25 MG TABLET PO SCH ×2 (10:34→20:27)
[2019-08-29] MEDS: amLODIPine 5 MG TABLET PO SCH (10:34)
[2019-08-29] MEDS: buPROPion XL 150 MG TABLET PO SCH (10:34)
[2019-08-29] MEDS: predniSONE 5 MG TABLET PO SCH (10:34)
[2019-08-29] MEDS: LABETALOL 200 MG TABLET PO SCH ×2 (10:35→20:27)
[2019-08-29] MEDS: busPIRone 5 MG TABLET PO SCH ×2 (10:36→20:26)
[2019-08-29 11:13] LABS: Amorphous Crystals,Urine Occasional /HPF (Few); Apearance,Urine CLEAR (Clear); Bacteria,Urine Occasional /HPF (Few); Bilirubin,Urine Negative (Negative); Blood, Urine Negative (Negative); Glucose,Urine (UA) 50 mg/dL (Negative); Ketones,Urine 5 mg/dL (Negative); Mucus,Urine Occasional /LPF (Occasional); Nitrite,Urine Negative (Negative); Protein,Urine >=500 MG/DL; RBC,Urine 9 /HPF (0-4); Squamous Epithelial Cell,Urine Occasional /HPF (0-10); Urine Color Amber (Yellow); Urine Specific Gravity 1.018 (1.001-1.035); Urine Urobilinogen < 2.0 EU/DL (0.2-1.0); WBC,Urine 14 /HPF (0-6)
[2019-08-29] MEDS ORDERED: cloNIDine 0.1 MG/24 HR PATCH TRANSDERM SCH (15:40)
[2019-08-29] MEDS: NITROGLYCERIN 0.4 MG/HR PATCH TRANSDERM SCH (16:01)
[2019-08-29] MEDS: CALCIUM (CARBONATE) 600 MG TABLET PO SCH (18:29)
[2019-08-29] MEDS: traZODone 50 MG TABLET PO SCH (20:27)
[2019-08-29] MEDS: ATORVASTATIN 20 MG TABLET PO SCH (20:27)
[2019-08-29] MEDS: NYSTATIN POWDER 15 GM BOTTLE TOP SCH (20:29)
[2019-08-30 05:57] LABS: Calcium 8.7 MG/DL (8.5-10.1); Osmolality,Calculated 289.3 MOS/KG (273-304); Prealbumin 19.1 MG/DL (20-40)
[2019-08-30] MEDS: INSULIN REGULAR 100 UNIT/ML SUBCUT SCH ×4 (07:22→22:37)
[2019-08-30 07:49] LABS: Basophils # 0.1 10*3/uL (0.0-0.2); Basophils % 0.9 % (0.0-0.8); Eosinophils # 0.6 10*3/uL (0.0-0.87); Eosinophils % 6.2 % (0.00-10.9); Hematocrit 38.4 VOL% (35.7-47.0); Immature Granulocytes % 0.4 %; Immature Granulocytes Absolute 0.04 #; Lymphocytes % 20.2 % (21.3-54.2); Mean Corpuscular HGB Conc 31.3 GM/DL (32-36); Mean Corpuscular Volume 103.5 FL (87-102); Mean Platelet Volume 11.7 FL (9.6-12.0); Monocytes % 19.4 % (1.7-12.7); Neutrophils % 52.9 % (38.7-73.9); Platelet Count 187 T/CUMM (130-400); Red Blood Count 3.71 MC/CUMM (3.8-5.5); Red Cell Distribution Width 15.3 % (9.3-17.3); White Blood Count 9.7 T/CUMM (4-12)
[2019-08-30 08:07] LABS: Eosinophils 3 % (0-10); Lymphocytes 22 % (20-55); Segmented Neutrophils 66 % (50-85); Total Cells Counted 100
[2019-08-30 08:08] LABS: Hypochromasia 1+; Platelet Estimate Adequate
[2019-08-30] MEDS: amLODIPine 5 MG TABLET PO SCH (08:22)
[2019-08-30] MEDS: RANOLAZINE 500 MG TABLET PO SCH ×2 (08:22→20:58)
[2019-08-30] MEDS: MECLIZINE 25 MG TABLET PO SCH ×2 (08:22→20:59)
[2019-08-30] MEDS: CALCIUM (CARBONATE) 600 MG TABLET PO SCH ×2 (08:22→17:44)
[2019-08-30] MEDS: predniSONE 5 MG TABLET PO SCH (08:22)
[2019-08-30] MEDS: busPIRone 5 MG TABLET PO SCH ×2 (08:22→20:58)
[2019-08-30] MEDS: LANSOPRAZOLE ODT 30 MG TABLET PO SCH (08:22)
[2019-08-30] MEDS: LABETALOL 200 MG TABLET PO SCH ×2 (08:22→20:58)
[2019-08-30] MEDS: NITROGLYCERIN 0.4 MG/HR PATCH TRANSDERM SCH (08:23)
[2019-08-30] MEDS: FERROUS SULFATE 300 MG/5 ML UDCUP NG SCH (08:23)
[2019-08-30] MEDS ORDERED: COLCHICINE 0.6 MG CAPSULE PO SCH (09:00)
[2019-08-30] MEDS ORDERED: POTASSIUM CHLORIDE 20 MEQ/15 ML UDCUP PO ONE (09:00)
[2019-08-30] MEDS: MULTIVITAMIN LIQUID (CENTRUM) 60 ML BOTTLE PO SCH (09:58)
[2019-08-30] MEDS ORDERED: hydrALAZINE 20 MG/1 ML VIAL IV ONE (13:00)
[2019-08-30] MEDS: traZODone 50 MG TABLET PO SCH (20:58)
[2019-08-30] MEDS: NYSTATIN POWDER 15 GM BOTTLE TOP SCH (20:59)
[2019-08-30] MEDS: ATORVASTATIN 20 MG TABLET PO SCH (20:59)
[2019-08-31 05:57] LABS: Basophils # 0.1 10*3/uL (0.0-0.2); Basophils % 0.6 % (0.0-0.8); Eosinophils # 0.5 10*3/uL (0.0-0.87); Eosinophils % 5.4 % (0.00-10.9); Hematocrit 36.9 VOL% (35.7-47.0); Hemoglobin 11.5 GM/DL (12.0-16.0); Immature Granulocytes % 0.4 %; Immature Granulocytes Absolute 0.04 #; Lymphocytes # 1.2 10*3/uL (1.4-4.0); Lymphocytes % 12.1 % (21.3-54.2); Mean Corpuscular HGB Conc 31.2 GM/DL (32-36); Mean Corpuscular Volume 101.9 FL (87-102); Mean Platelet Volume 11.1 FL (9.6-12.0); Monocytes % 13.4 % (1.7-12.7); Neutrophils % 68.1 % (38.7-73.9); Platelet Count 157 T/CUMM (130-400); Red Blood Count 3.62 MC/CUMM (3.8-5.5); Red Cell Distribution Width 15.1 % (9.3-17.3)
[2019-08-31 06:05] LABS: PT Patient Result 10.9 SECS (9.6-12.2)
[2019-08-31 06:24] LABS: Calcium 9.2 MG/DL (8.5-10.1); Osmolality,Calculated 294.1 MOS/KG (273-304)
[2019-08-31] MEDS: INSULIN REGULAR 100 UNIT/ML SUBCUT SCH ×4 (07:53→23:17)
[2019-08-31] MEDS ORDERED: LACTATED RINGERS 1,000 ML IV SCH (08:00)
[2019-08-31] MEDS ORDERED: LEVOFLOXACIN INJ 500 MG in PREMIX 1 EACH IV ONE (08:00)
[2019-08-31] MEDS ORDERED: SODIUM CHLORIDE 0.9% 1,000 ML IV SCH (08:30)
[2019-08-31] MEDS ORDERED: ETOMIDATE 20 MG/10 ML VIAL IV ONE (09:00)
[2019-08-31] MEDS ORDERED: LIDOCAINE 100 MG/5 ML SYRINGE ONE (09:00)
[2019-08-31 13:19] LABS: Hepatitis B Core IgM Quant 0.07 Index; Hepatitis B Surface Ag Quant < 0.10 Index; Hepatitis B Surface Ag Result Negative (Negative); Hepatitis C Virus Ab Quant < 0.02 Index; Hepatitis C Virus Ab Result Negative (Negative)
[2019-08-31] MEDS: CALCIUM (CARBONATE) 600 MG TABLET PO SCH ×2 (13:22→17:49)
[2019-08-31] MEDS: LABETALOL 200 MG TABLET PO SCH ×2 (16:03→21:48)
[2019-08-31] MEDS: MECLIZINE 25 MG TABLET PO SCH ×2 (16:03→21:49)
[2019-08-31] MEDS: busPIRone 5 MG TABLET PO SCH ×2 (16:04→21:50)
[2019-08-31] MEDS: RANOLAZINE 500 MG TABLET PO SCH ×2 (17:49→21:49)
[2019-08-31] MEDS: FERROUS SULFATE 300 MG/5 ML UDCUP NG SCH (17:49)
[2019-08-31] MEDS: predniSONE 5 MG TABLET PO SCH (17:50)
[2019-08-31] MEDS: amLODIPine 5 MG TABLET PO SCH (17:50)
[2019-08-31] MEDS: NITROGLYCERIN 0.4 MG/HR PATCH TRANSDERM SCH (17:50)
[2019-08-31] MEDS: LANSOPRAZOLE ODT 30 MG TABLET PO SCH (17:50)
[2019-08-31] MEDS: buPROPion XL 150 MG TABLET PO SCH (17:51)
[2019-08-31] MEDS: MULTIVITAMIN LIQUID (CENTRUM) 60 ML BOTTLE PO SCH (18:39)
[2019-08-31] MEDS: ERTAPENEM 500 MG in SODIUM CHLORIDE 0.9% 100 ML IV SCH (18:48)
[2019-08-31] MEDS: ATORVASTATIN 20 MG TABLET PO SCH (21:48)
[2019-08-31] MEDS: traZODone 50 MG TABLET PO SCH (21:48)
[2019-08-31] MEDS: VENLAFAXINE 37.5 MG TABLET PEG SCH (21:49)
[2019-08-31] MEDS: NYSTATIN POWDER 15 GM BOTTLE TOP SCH (21:55)
[2019-09-01 05:34] LABS: Basophils # 0.1 10*3/uL (0.0-0.2); Basophils % 0.8 % (0.0-0.8); Eosinophils # 0.4 10*3/uL (0.0-0.87); Eosinophils % 5.4 % (0.00-10.9); Hematocrit 35.4 VOL% (35.7-47.0); Hemoglobin 11.2 GM/DL (12.0-16.0); Immature Granulocytes % 0.4 %; Immature Granulocytes Absolute 0.03 #; Lymphocytes # 1.6 10*3/uL (1.4-4.0); Lymphocytes % 22.2 % (21.3-54.2); Mean Corpuscular HGB Conc 31.6 GM/DL (32-36); Mean Corpuscular Volume 102.3 FL (87-102); Monocytes % 17.2 % (1.7-12.7); Platelet Count 139 T/CUMM (130-400); Red Blood Count 3.46 MC/CUMM (3.8-5.5); White Blood Count 7.1 T/CUMM (4-12)
[2019-09-01 05:45] LABS: Calcium 8.8 MG/DL (8.5-10.1); Osmolality,Calculated 276.7 MOS/KG (273-304)
[2019-09-01 06:02] LABS: Eosinophils 8 % (0-10); Lymphocytes 22 % (20-55); Segmented Neutrophils 56 % (50-85); Total Cells Counted 100
[2019-09-01 06:03] LABS: Hypochromasia Slight; Platelet Estimate Normal
[2019-09-01 06:04] LABS: Anisocytosis 1+; Macrocytosis 1+
[2019-09-01] MEDS: CALCIUM (CARBONATE) 600 MG TABLET PO SCH ×2 (08:49→16:47)
[2019-09-01] MEDS: buPROPion XL 150 MG TABLET PO SCH (08:49)
[2019-09-01] MEDS: LABETALOL 200 MG TABLET PO SCH ×2 (08:50→21:03)
[2019-09-01] MEDS: LANSOPRAZOLE ODT 30 MG TABLET PO SCH (08:50)
[2019-09-01] MEDS: amLODIPine 5 MG TABLET PO SCH (08:51)
[2019-09-01] MEDS: RANOLAZINE 500 MG TABLET PO SCH ×2 (08:52→21:04)
[2019-09-01] MEDS: predniSONE 5 MG TABLET PO SCH (08:53)
[2019-09-01] MEDS: busPIRone 5 MG TABLET PO SCH ×2 (08:53→21:03)
[2019-09-01] MEDS: NITROGLYCERIN 0.4 MG/HR PATCH TRANSDERM SCH (08:55)
[2019-09-01] MEDS: MULTIVITAMIN LIQUID (CENTRUM) 60 ML BOTTLE PO SCH (08:56)
[2019-09-01] MEDS: FERROUS SULFATE 300 MG/5 ML UDCUP NG SCH (08:56)
[2019-09-01] MEDS: INSULIN REGULAR 100 UNIT/ML SUBCUT SCH ×4 (09:10→21:05)
[2019-09-01] MEDS: MECLIZINE 25 MG TABLET PO SCH ×2 (15:10→21:04)
[2019-09-01] MEDS: ERTAPENEM 500 MG in SODIUM CHLORIDE 0.9% 100 ML IV SCH (17:33)
[2019-09-01] MEDS: traZODone 50 MG TABLET PO SCH (21:02)
[2019-09-01] MEDS: VENLAFAXINE 37.5 MG TABLET PEG SCH (21:03)
[2019-09-01] MEDS: ATORVASTATIN 20 MG TABLET PO SCH (21:04)
[2019-09-01] MEDS: NYSTATIN POWDER 15 GM BOTTLE TOP SCH (21:05)
[2019-09-02 04:47] LABS: Basophils # 0.1 10*3/uL (0.0-0.2); Eosinophils # 0.5 10*3/uL (0.0-0.87); Eosinophils % 7.8 % (0.00-10.9); Hematocrit 33.6 VOL% (35.7-47.0); Hemoglobin 10.8 GM/DL (12.0-16.0); Immature Granulocytes % 0.4 %; Immature Granulocytes Absolute 0.03 #; Lymphocytes # 1.7 10*3/uL (1.4-4.0); Mean Corpuscular HGB Conc 32.1 GM/DL (32-36); Mean Corpuscular Volume 101.2 FL (87-102); Mean Platelet Volume 12.3 FL (9.6-12.0); Monocytes % 15.9 % (1.7-12.7); Neutrophils % 49.9 % (38.7-73.9); Platelet Count 132 T/CUMM (130-400); Red Blood Count 3.32 MC/CUMM (3.8-5.5); Red Cell Distribution Width 14.7 % (9.3-17.3); White Blood Count 6.8 T/CUMM (4-12)
[2019-09-02 04:55] LABS: Calcium 8.8 MG/DL (8.5-10.1); Osmolality,Calculated 288.3 MOS/KG (273-304)
[2019-09-02 05:17] LABS: Eosinophils 12 % (0-10); Lymphocytes 24 % (20-55); Platelet Estimate Decreased; Segmented Neutrophils 46 % (50-85); Total Cells Counted 100
[2019-09-02] MEDS: RANOLAZINE 500 MG TABLET PO SCH ×2 (10:07→20:21)
[2019-09-02] MEDS: busPIRone 5 MG TABLET PO SCH ×2 (10:07→20:19)
[2019-09-02] MEDS: NITROGLYCERIN 0.4 MG/HR PATCH TRANSDERM SCH (10:08)
[2019-09-02] MEDS: CALCIUM (CARBONATE) 600 MG TABLET PO SCH ×2 (10:08→17:20)
[2019-09-02] MEDS: amLODIPine 5 MG TABLET PO SCH (10:09)
[2019-09-02] MEDS: LABETALOL 200 MG TABLET PO SCH ×2 (10:09→20:19)
[2019-09-02] MEDS: predniSONE 5 MG TABLET PO SCH (10:09)
[2019-09-02] MEDS: MECLIZINE 25 MG TABLET PO SCH ×2 (10:09→20:21)
[2019-09-02] MEDS: buPROPion XL 150 MG TABLET PO SCH (10:09)
[2019-09-02] MEDS: LANSOPRAZOLE ODT 30 MG TABLET PO SCH (10:10)
[2019-09-02] MEDS: MULTIVITAMIN LIQUID (CENTRUM) 60 ML BOTTLE PO SCH (10:10)
[2019-09-02] MEDS: FERROUS SULFATE 300 MG/5 ML UDCUP NG SCH (13:55)
[2019-09-02] MEDS: INSULIN REGULAR 100 UNIT/ML SUBCUT SCH ×3 (13:55→21:49)
[2019-09-02] MEDS: ERTAPENEM 500 MG in SODIUM CHLORIDE 0.9% 100 ML IV SCH (17:19)
[2019-09-02] MEDS: levETIRAcetam 250 MG TABLET PO SCH (17:20)
[2019-09-02] MEDS: ATORVASTATIN 20 MG TABLET PO SCH (20:19)
[2019-09-02] MEDS: VENLAFAXINE 37.5 MG TABLET PEG SCH (20:20)
[2019-09-02] MEDS: traZODone 50 MG TABLET PO SCH (20:21)
[2019-09-02] MEDS: NYSTATIN POWDER 15 GM BOTTLE TOP SCH (20:21)
[2019-09-03] MEDS: levETIRAcetam 250 MG TABLET PO SCH ×2 (02:52→09:31)
[2019-09-03 05:43] LABS: Basophils # 0.1 10*3/uL (0.0-0.2); Basophils % 0.7 % (0.0-0.8); Eosinophils # 0.5 10*3/uL (0.0-0.87); Hematocrit 34.4 VOL% (35.7-47.0); Hemoglobin 10.9 GM/DL (12.0-16.0); Immature Granulocytes % 0.4 %; Immature Granulocytes Absolute 0.03 #; Lymphocytes # 1.6 10*3/uL (1.4-4.0); Lymphocytes % 24.3 % (21.3-54.2); Mean Corpuscular HGB Conc 31.7 GM/DL (32-36); Mean Corpuscular Volume 101.8 FL (87-102); Mean Platelet Volume 11.9 FL (9.6-12.0); Monocytes % 13.7 % (1.7-12.7); Neutrophils % 52.9 % (38.7-73.9); Platelet Count 139 T/CUMM (130-400); Red Blood Count 3.38 MC/CUMM (3.8-5.5); Red Cell Distribution Width 14.7 % (9.3-17.3); White Blood Count 6.7 T/CUMM (4-12)
[2019-09-03 06:02] LABS: Calcium 9.3 MG/DL (8.5-10.1); Osmolality,Calculated 288.4 MOS/KG (273-304)
[2019-09-03] MEDS: INSULIN REGULAR 100 UNIT/ML SUBCUT SCH ×3 (08:10→16:43)
[2019-09-03] MEDS: amLODIPine 5 MG TABLET PO SCH (09:30)
[2019-09-03] MEDS: busPIRone 5 MG TABLET PO SCH (09:31)
[2019-09-03] MEDS: CALCIUM (CARBONATE) 600 MG TABLET PO SCH ×2 (09:31→17:14)
[2019-09-03] MEDS: predniSONE 5 MG TABLET PO SCH (09:31)
[2019-09-03] MEDS: LABETALOL 200 MG TABLET PO SCH (09:31)
[2019-09-03] MEDS: buPROPion XL 150 MG TABLET PO SCH (09:32)
[2019-09-03] MEDS: LANSOPRAZOLE ODT 30 MG TABLET PO SCH (09:32)
[2019-09-03] MEDS: RANOLAZINE 500 MG TABLET PO SCH (09:32)
[2019-09-03] MEDS: MULTIVITAMIN LIQUID (CENTRUM) 60 ML BOTTLE PO SCH (09:32)
[2019-09-03] MEDS: MECLIZINE 25 MG TABLET PO SCH (09:32)
[2019-09-03] MEDS: FERROUS SULFATE 300 MG/5 ML UDCUP NG SCH (09:33)
[2019-09-03] MEDS: NITROGLYCERIN 0.4 MG/HR PATCH TRANSDERM SCH (09:33)
[2019-09-03 11:13] VITALS: BP 152/61
[2019-09-03] MEDS ORDERED: levETIRAcetam LIQUID 100 MG/ML 30 ML/BOTTLE PO SCH (21:00)
== END 2019-09-03 17:24 | DRG 100 ==
LOC: EDBD → EDUNIT# → N.EDINP 12:36 → N.ED 12:36 → N.EDINP 17:24 → N.2E 17:35
PROVIDERS: ADMIT Internal Medicine; ATTEND Internal Medicine

== ENCOUNTER 2019-11-02 11:27 | Observation (INO) ==
[2019-11-02] MEDS ORDERED: SODIUM CHLORIDE 0.9% 500 ML IV STA (11:53)
[2019-11-02 12:57] LABS: Basophils # 0.1 10*3/uL (0.0-0.2); Basophils % 0.7 % (0.0-0.8); Eosinophils # 0.1 10*3/uL (0.0-0.87); Eosinophils % 1.2 % (0.00-10.9); Hematocrit 31.5 VOL% (35.7-47.0); Immature Granulocytes % 1.2 %; Immature Granulocytes Absolute 0.08 #; Lymphocytes % 14.5 % (21.3-54.2); Mean Corpuscular HGB Conc 31.7 GM/DL (32-36); Mean Corpuscular Volume 108.2 FL (87-102); Mean Platelet Volume 11.3 FL (9.6-12.0); Neutrophils % 65.4 % (38.7-73.9); Platelet Count 202 T/CUMM (130-400); Red Blood Count 2.91 MC/CUMM (3.8-5.5); Red Cell Distribution Width 14.6 % (9.3-17.3); White Blood Count 6.9 T/CUMM (4-12)
[2019-11-02 13:18] LABS: Albumin 2.6 G/DL (3.4-5.0); Bilirubin,Total 0.4 MG/DL (0.2-1.0); Calcium 8.6 MG/DL (8.5-10.1); Osmolality,Calculated 288.1 MOS/KG (273-304); Total Protein 5.9 G/DL (6.4-8.3)
[2019-11-02 13:33] LABS: Eosinophils 2 % (0-10); Lymphocytes 6 % (20-55); Metamyelocytes 1 %; Polychromasia Slight; Segmented Neutrophils 71 % (50-85); Total Cells Counted 100
[2019-11-02 13:34] LABS: Hypochromasia Slight; Ovalocytes Few; Platelet Estimate Normal; Stomatocytes Few
[2019-11-02 14:54] LABS: Sedimentation Rate-Westergren 41 MM/HR (0-30)
[2019-11-02] MEDS ORDERED: ACETAMINOPHEN 325 MG TABLET PO PRN (16:04)
[2019-11-02] MEDS ORDERED: GLUCAGON 1 MG VIAL IM PRN (18:32)
[2019-11-02] MEDS ORDERED: ALBUTEROL/IPRATROPIUM 3 ML NEB RESP TX PRN (18:32)
[2019-11-02] MEDS ORDERED: NITROGLYCERIN SL 0.4 MG TABLET SL PRN (18:32)
[2019-11-02] MEDS ORDERED: LORazepam 2 MG/1 ML VIAL IV PRN (18:32)
[2019-11-02] MEDS ORDERED: LIDOCAINE/PRILOCAINE CREAM 5 GM TUBE TOP SCH (18:32)
[2019-11-02] MEDS ORDERED: guaiFENesin 200 MG/10 ML UDCUP PO PRN (18:32)
[2019-11-02] MEDS ORDERED: DOCUSATE SODIUM 100 MG CAPSULE PO PRN (18:32)
[2019-11-02] MEDS ORDERED: ALUMINUM/MAGNES/SIMETH MAX STR 30 ML UDCUP PO PRN (18:32)
[2019-11-02] MEDS ORDERED: DEXTROSE 50% 25 GM/50 ML VIAL IV PRN (18:32)
[2019-11-02] MEDS: levETIRAcetam LIQUID 100 MG/ML 30 ML/BOTTLE PO SCH (20:33)
[2019-11-02] MEDS: LACTULOSE 20 GM/30 ML UDCUP PO SCH (20:33)
[2019-11-02] MEDS: ENOXAPARIN 30 MG/0.3 ML SYRINGE SUBCUT SCH (20:33)
[2019-11-02] MEDS: METOCLOPRAMIDE 5 MG TABLET PO SCH (20:33)
[2019-11-02] MEDS: LABETALOL 200 MG TABLET PO SCH (20:34)
[2019-11-02] MEDS: RANOLAZINE 500 MG TABLET PO SCH (20:34)
[2019-11-02] MEDS: traZODone 50 MG TABLET PO SCH (20:34)
[2019-11-02] MEDS: CHOLECALCIFEROL 5,000 UNIT TABLET PO SCH (20:34)
[2019-11-02] MEDS: CALCIUM CARBONATE CHEW 500 MG TABLET PO SCH (20:35)
[2019-11-02] MEDS: RANITIDINE 150 MG TABLET PO SCH (20:35)
[2019-11-02] MEDS: MECLIZINE 25 MG TABLET PO SCH (20:35)
[2019-11-02] MEDS: ATORVASTATIN 20 MG TABLET PO SCH (20:35)
[2019-11-02] MEDS: busPIRone 5 MG TABLET PO SCH (20:35)
[2019-11-02] MEDS: INSULIN REGULAR 100 UNIT/ML SUBCUT SCH (20:36)
[2019-11-03 07:02] LABS: Basophils % 0.4 % (0.0-0.8); Eosinophils # 0.2 10*3/uL (0.0-0.87); Eosinophils % 2.5 % (0.00-10.9); Hematocrit 29.7 VOL% (35.7-47.0); Hemoglobin 9.5 GM/DL (12.0-16.0); Immature Granulocytes % 0.7 %; Immature Granulocytes Absolute 0.05 #; Mean Corpuscular Volume 108.4 FL (87-102); Mean Platelet Volume 11.1 FL (9.6-12.0); Monocytes % 15.8 % (1.7-12.7); Neutrophils % 66.6 % (38.7-73.9); Platelet Count 184 T/CUMM (130-400); Red Blood Count 2.74 MC/CUMM (3.8-5.5); Red Cell Distribution Width 14.6 % (9.3-17.3); White Blood Count 7.1 T/CUMM (4-12)
[2019-11-03 07:08] LABS: Albumin 2.5 G/DL (3.4-5.0); Bilirubin,Total 0.5 MG/DL (0.2-1.0); Calcium 8.5 MG/DL (8.5-10.1); Osmolality,Calculated 287.1 MOS/KG (273-304); Total Protein 5.5 G/DL (6.4-8.3)
[2019-11-03 08:06] LABS: Band Neutrophils 6 % (0-10); Eosinophils 3 % (0-10); Lymphocytes 9 % (20-55); Platelet Estimate Normal; Segmented Neutrophils 64 % (50-85); Total Cells Counted 100
[2019-11-03 08:07] LABS: Anisocytosis 1+; Macrocytosis 1+; Polychromasia Slight
[2019-11-03] MEDS: LABETALOL 200 MG TABLET PO SCH ×3 (09:53→21:06)
[2019-11-03] MEDS: VENLAFAXINE XR 37.5 MG CAPSULE PO SCH ×2 (09:53→10:30)
[2019-11-03] MEDS: RANOLAZINE 500 MG TABLET PO SCH ×3 (09:54→21:07)
[2019-11-03] MEDS: MECLIZINE 25 MG TABLET PO SCH ×3 (09:54→21:07)
[2019-11-03] MEDS: METOCLOPRAMIDE 5 MG TABLET PO SCH ×3 (09:54→21:07)
[2019-11-03] MEDS: PANTOPRAZOLE 40 MG TABLET PO SCH ×2 (09:54→10:31)
[2019-11-03] MEDS: amLODIPine 5 MG TABLET PO SCH ×2 (09:54→10:30)
[2019-11-03] MEDS: FERROUS SULFATE 325 MG TABLET PO SCH ×2 (09:54→10:30)
[2019-11-03] MEDS: CALCIUM CARBONATE CHEW 500 MG TABLET PO SCH ×3 (09:54→21:06)
[2019-11-03] MEDS: buPROPion XL 150 MG TABLET PO SCH ×2 (09:54→10:31)
[2019-11-03] MEDS: MULTIVITAMIN (CENTRUM) TABLET PO SCH ×2 (09:54→10:30)
[2019-11-03] MEDS: busPIRone 5 MG TABLET PO SCH ×3 (09:54→21:07)
[2019-11-03] MEDS: predniSONE 5 MG TABLET PO SCH ×2 (09:55→10:30)
[2019-11-03] MEDS: levETIRAcetam LIQUID 100 MG/ML 30 ML/BOTTLE PO SCH ×3 (10:27→21:15)
[2019-11-03] MEDS: LACTULOSE 20 GM/30 ML UDCUP PO SCH ×2 (10:27→21:07)
[2019-11-03] MEDS: INSULIN REGULAR 100 UNIT/ML SUBCUT SCH ×4 (10:29→21:08)
[2019-11-03] MEDS ORDERED: POTASSIUM BICARB EFFERVESCENT 25 MEQ TABLET PO ONE (13:00)
[2019-11-03] MEDS: NITROGLYCERIN 0.4 MG/HR PATCH TRANSDERM SCH (18:22)
[2019-11-03] MEDS: ENOXAPARIN 30 MG/0.3 ML SYRINGE SUBCUT SCH (21:05)
[2019-11-03] MEDS: CHOLECALCIFEROL 5,000 UNIT TABLET PO SCH (21:07)
[2019-11-03] MEDS: traZODone 50 MG TABLET PO SCH (21:07)
[2019-11-03] MEDS: RANITIDINE 150 MG TABLET PO SCH (21:07)
[2019-11-03] MEDS: ATORVASTATIN 20 MG TABLET PO SCH (21:07)
[2019-11-04 06:17] LABS: Basophils % 0.5 % (0.0-0.8); Eosinophils # 0.3 10*3/uL (0.0-0.87); Eosinophils % 4.7 % (0.00-10.9); Hematocrit 28.7 VOL% (35.7-47.0); Hemoglobin 9.1 GM/DL (12.0-16.0); Immature Granulocytes % 0.9 %; Immature Granulocytes Absolute 0.05 #; Lymphocytes # 1.3 10*3/uL (1.4-4.0); Lymphocytes % 23.3 % (21.3-54.2); Mean Corpuscular HGB Conc 31.7 GM/DL (32-36); Mean Corpuscular Volume 108.3 FL (87-102); Mean Platelet Volume 11.2 FL (9.6-12.0); Monocytes % 17.7 % (1.7-12.7); Neutrophils % 52.9 % (38.7-73.9); Platelet Count 177 T/CUMM (130-400); Red Blood Count 2.65 MC/CUMM (3.8-5.5); Red Cell Distribution Width 14.4 % (9.3-17.3); White Blood Count 5.8 T/CUMM (4-12)
[2019-11-04 06:36] LABS: % Iron Saturation 50.4 % (18-50); Ferritin 1657.9 ng/ml (8-252)
[2019-11-04 06:47] LABS: Anisocytosis 2+; Band Neutrophils 4 % (0-10); Eosinophils 7 % (0-10); Lymphocytes 17 % (20-55); Macrocytosis 2+; Segmented Neutrophils 58 % (50-85); Total Cells Counted 100
[2019-11-04 06:48] LABS: Basophilic Stippling Slight
[2019-11-04 06:49] LABS: Platelet Estimate Normal
[2019-11-04 06:51] LABS: Folate 7.8 NG/ML (5.4-24.0); Vitamin B12 1565 PG/ML (211-911)
[2019-11-04 07:26] LABS: Sedimentation Rate-Westergren 32 MM/HR (0-30)
[2019-11-04 08:13] LABS: Parathyroid Hormone Intact 138.4 PG/ML (18.4-80.1)
[2019-11-04] MEDS: INSULIN REGULAR 100 UNIT/ML SUBCUT SCH ×4 (08:32→21:44)
[2019-11-04] MEDS: NITROGLYCERIN 0.4 MG/HR PATCH TRANSDERM SCH (08:40)
[2019-11-04] MEDS: amLODIPine 5 MG TABLET PO SCH (08:41)
[2019-11-04] MEDS: MECLIZINE 25 MG TABLET PO SCH ×2 (08:42→21:27)
[2019-11-04] MEDS: RANOLAZINE 500 MG TABLET PO SCH ×2 (08:43→21:27)
[2019-11-04] MEDS: busPIRone 5 MG TABLET PO SCH ×2 (09:09→21:28)
[2019-11-04] MEDS: MULTIVITAMIN (CENTRUM) TABLET PO SCH (09:09)
[2019-11-04] MEDS: LACTULOSE 20 GM/30 ML UDCUP PO SCH ×2 (09:10→21:29)
[2019-11-04] MEDS: FERROUS SULFATE 325 MG TABLET PO SCH (09:10)
[2019-11-04] MEDS: PANTOPRAZOLE 40 MG TABLET PO SCH (09:10)
[2019-11-04] MEDS: predniSONE 5 MG TABLET PO SCH (09:10)
[2019-11-04] MEDS: VENLAFAXINE XR 37.5 MG CAPSULE PO SCH (09:10)
[2019-11-04] MEDS: buPROPion XL 150 MG TABLET PO SCH (09:10)
[2019-11-04] MEDS: levETIRAcetam LIQUID 100 MG/ML 30 ML/BOTTLE PO SCH (09:10)
[2019-11-04] MEDS: METOCLOPRAMIDE 5 MG TABLET PO SCH ×2 (09:11→21:27)
[2019-11-04] MEDS: CALCIUM CARBONATE CHEW 500 MG TABLET PO SCH ×2 (09:11→21:27)
[2019-11-04] MEDS: LABETALOL 200 MG TABLET PO SCH ×2 (09:11→21:28)
[2019-11-04] MEDS: ENOXAPARIN 30 MG/0.3 ML SYRINGE SUBCUT SCH (21:27)
[2019-11-04] MEDS: traZODone 50 MG TABLET PO SCH (21:27)
[2019-11-04] MEDS: RANITIDINE 150 MG TABLET PO SCH (21:28)
[2019-11-04] MEDS: CHOLECALCIFEROL 5,000 UNIT TABLET PO SCH (21:28)
[2019-11-04] MEDS: ATORVASTATIN 20 MG TABLET PO SCH (21:28)
[2019-11-05 05:59] LABS: Calcium 8.6 MG/DL (8.5-10.1); Osmolality,Calculated 282.1 MOS/KG (273-304)
[2019-11-05] MEDS: INSULIN REGULAR 100 UNIT/ML SUBCUT SCH ×2 (07:36→13:41)
[2019-11-05] MEDS: NITROGLYCERIN 0.4 MG/HR PATCH TRANSDERM SCH (08:30)
[2019-11-05] MEDS: amLODIPine 5 MG TABLET PO SCH (08:30)
[2019-11-05] MEDS: RANOLAZINE 500 MG TABLET PO SCH (08:30)
[2019-11-05] MEDS: busPIRone 5 MG TABLET PO SCH (08:36)
[2019-11-05] MEDS: MULTIVITAMIN (CENTRUM) TABLET PO SCH (08:36)
[2019-11-05] MEDS: VENLAFAXINE XR 37.5 MG CAPSULE PO SCH (08:36)
[2019-11-05] MEDS: LACTULOSE 20 GM/30 ML UDCUP PO SCH (08:37)
[2019-11-05] MEDS: predniSONE 5 MG TABLET PO SCH (08:37)
[2019-11-05] MEDS: METOCLOPRAMIDE 5 MG TABLET PO SCH (08:37)
[2019-11-05] MEDS: CALCIUM CARBONATE CHEW 500 MG TABLET PO SCH (08:37)
[2019-11-05] MEDS: FERROUS SULFATE 325 MG TABLET PO SCH (08:37)
[2019-11-05] MEDS: PANTOPRAZOLE 40 MG TABLET PO SCH (08:37)
[2019-11-05] MEDS: buPROPion XL 150 MG TABLET PO SCH (08:37)
[2019-11-05] MEDS: LABETALOL 200 MG TABLET PO SCH (08:37)
[2019-11-05] MEDS: MECLIZINE 25 MG TABLET PO SCH (08:38)
[2019-11-05 09:44] LABS: Hemoglobin A1 (Alkaline) 97.1 % (96.5-98.5); Hemoglobin A2 (Alkaline) 2.9 % (1.5-3.5)
[2019-11-05 11:09] VITALS: BP 136/55
[2019-11-05] MEDS ORDERED: POTASSIUM CHLORIDE 20 MEQ TABLET PO ONE (12:59)
[2019-11-06] MEDS ORDERED: COLCRYS 0.6 MG TABLET PO SCH (16:10)
== END 2019-11-05 15:00 ==
LOC: EDUNIT# → EDBD → N.EDINP 11:27 → N.ED 11:27 → N.5E 17:25
PROVIDERS: ADMIT Hospitalist; ATTEND Hospitalist

== ENCOUNTER 2019-12-26 11:34 | Inpatient (IN) ==
[2019-12-26] MEDS ORDERED: GENTAMICIN INJ 160 MG in SODIUM CHLORIDE 0.9% 100 ML IV STA (11:47)
[2019-12-26] MEDS ORDERED: SODIUM CHLORIDE 0.9% 1,800 ML IV ONE (11:47)
[2019-12-26] MEDS ORDERED: GENTAMICIN 80 MG/2 ML VIAL ONE (12:14)
[2019-12-26 12:37] LABS: Apearance,Urine Turbid (Clear); Urine Color Amber (Yellow); Urine Specific Gravity 1.005 (1.001-1.035)
[2019-12-26 12:38] LABS: Basophils % 0.8 % (0.0-0.8); Bilirubin,Urine Negative (Negative); Blood, Urine Trace mg/dL (Negative); Eosinophils # 0.1 10*3/uL (0.0-0.87); Eosinophils % 2.7 % (0.00-10.9); Glucose,Urine (UA) Negative (Negative); Hematocrit 31.4 VOL% (35.7-47.0); Immature Granulocytes % 1.1 %; Immature Granulocytes Absolute 0.05 #; Ketones,Urine Negative (Negative); Lymphocytes # 0.8 10*3/uL (1.4-4.0); Lymphocytes % 16.9 % (21.3-54.2); Mean Corpuscular HGB Conc 31.8 GM/DL (32-36); Mean Corpuscular Volume 102.3 FL (87-102); Mean Platelet Volume 11.6 FL (9.6-12.0); Monocytes % 13.7 % (1.7-12.7); Neutrophils % 64.8 % (38.7-73.9); Nitrite,Urine Negative (Negative); Platelet Count 163 T/CUMM (130-400); Protein,Urine 3+ MG/DL; RBC,Urine Rare /HPF (0-4); Red Blood Count 3.07 MC/CUMM (3.8-5.5); Red Cell Distribution Width 14.1 % (9.3-17.3); Urine Urobilinogen < 2.0 EU/DL (0.2-1.0); WBC,Urine TNTC /HPF (0-6); White Blood Count 4.7 T/CUMM (4-12)
[2019-12-26 12:39] LABS: Amorphous Crystals,Urine Moderate /HPF (Few); Bacteria,Urine 4+ /HPF (Few); Squamous Epithelial Cell,Urine Many /HPF (0-10)
[2019-12-26 12:56] LABS: Alanine Aminotransferase 14 U/L (13-56); Albumin 2.2 G/DL (3.4-5.0); Alkaline Phosphatase 99 U/L (45-117); Aspartate Amino Transferase 19 U/L (0-37); Blood Urea Nitrogen 22 MG/DL (7-18); Calcium 8.6 MG/DL (8.5-10.1); Estimated Glom Filtration Rate 12 ML/MIN; Glucose 117 MG/DL (74-106); Osmolality,Calculated 282.4 MOS/KG (273-304); Total Protein 5.5 G/DL (6.4-8.3)
[2019-12-26 13:07] LABS: Partial Thromboplastin Time 28.1 SECS (20.8-36.0)
[2019-12-26] MEDS ORDERED: ACETAMINOPHEN 325 MG TABLET PO PRN (13:37)
[2019-12-26] MEDS ORDERED: ONDANSETRON 4 MG/2 ML VIAL IV PRN (13:37)
[2019-12-26] MEDS ORDERED: GLUCAGON 1 MG VIAL IM PRN (13:41)
[2019-12-26 14:04] LABS: Thyroid Stimulating Hormone 3.79 uIU/ml (0.358-3.74)
[2019-12-26 14:35] LABS: Folate 2.8 NG/ML (5.4-24.0)
[2019-12-26] MEDS ORDERED: ALBUTEROL/IPRATROPIUM 3 ML NEB RESP TX PRN (15:59)
[2019-12-26] MEDS: INSULIN REGULAR 100 UNIT/ML SUBCUT SCH ×2 (16:54→22:16)
[2019-12-26] MEDS: HEPARIN 5,000 UNIT/1 ML VIAL SUBCUT SCH (17:22)
[2019-12-26] MEDS: MEROPENEM 500 MG in SODIUM CHLORIDE 0.9% 100 ML IV SCH (17:22)
[2019-12-26] MEDS: ASPIRIN EC 81 MG TABLET PO SCH (17:22)
[2019-12-26] MEDS: CHOLECALCIFEROL 5,000 UNIT TABLET PO SCH (18:03)
[2019-12-26] MEDS: POTASSIUM CHLORIDE RIDER 10 MEQ in PREMIX 1 EACH IV PRN ×3 (18:19→22:16)
[2019-12-26] MEDS: DEXTROSE 10% 250 ML BAG IV PRN (20:31)
[2019-12-26] MEDS ORDERED: VENLAFAXINE 37.5 MG TABLET PO SCH (21:00)
[2019-12-26] MEDS ORDERED: busPIRone 5 MG TABLET PO SCH (21:00)
[2019-12-26] MEDS: RANOLAZINE 500 MG TABLET PO SCH (22:16)
[2019-12-26] MEDS: levETIRAcetam LIQUID 100 MG/ML 30 ML/BOTTLE PO SCH (22:16)
[2019-12-26] MEDS: ATORVASTATIN 20 MG TABLET PO SCH (22:16)
[2019-12-26] MEDS: FOLIC ACID 1 MG TABLET PO SCH (22:17)
[2019-12-26] MEDS: CALCIUM (CARBONATE) 600 MG TABLET PO SCH (22:17)
[2019-12-27] MEDS: POTASSIUM CHLORIDE RIDER 10 MEQ in PREMIX 1 EACH IV PRN ×5 (00:08→21:44)
[2019-12-27] MEDS: HEPARIN 5,000 UNIT/1 ML VIAL SUBCUT SCH ×2 (02:38→13:30)
[2019-12-27 05:50] LABS: Basophils % 0.8 % (0.0-0.8); Eosinophils # 0.2 10*3/uL (0.0-0.87); Hematocrit 25.5 VOL% (35.7-47.0); Hemoglobin 8.2 GM/DL (12.0-16.0); Immature Granulocytes % 0.6 %; Immature Granulocytes Absolute 0.03 #; Lymphocytes # 1.6 10*3/uL (1.4-4.0); Lymphocytes % 31.5 % (21.3-54.2); Mean Corpuscular HGB Conc 32.2 GM/DL (32-36); Mean Corpuscular Volume 101.6 FL (87-102); Mean Platelet Volume 11.5 FL (9.6-12.0); Monocytes % 19.6 % (1.7-12.7); Neutrophils % 43.5 % (38.7-73.9); Platelet Count 157 T/CUMM (130-400); Red Blood Count 2.51 MC/CUMM (3.8-5.5); Red Cell Distribution Width 14.2 % (9.3-17.3)
[2019-12-27 06:23] LABS: Calcium 8.3 MG/DL (8.5-10.1); Osmolality,Calculated 280.4 MOS/KG (273-304)
[2019-12-27 06:27] LABS: Risk Ratio 3.54; VLDL CHOLESTEROL 23.4 MG/DL
[2019-12-27 06:47] LABS: Eosinophils 3 % (0-10); Lymphocytes 29 % (20-55); Macrocytosis Slight; Segmented Neutrophils 56 % (50-85); Total Cells Counted 100
[2019-12-27] MEDS: INSULIN REGULAR 100 UNIT/ML SUBCUT SCH ×4 (08:35→20:52)
[2019-12-27] MEDS ORDERED: buPROPion SR 150 MG TABLET PO SCH (09:00)
[2019-12-27] MEDS: RANOLAZINE 500 MG TABLET PO SCH ×3 (09:49→21:00)
[2019-12-27] MEDS: CALCIUM (CARBONATE) 600 MG TABLET PO SCH ×3 (09:49→20:59)
[2019-12-27] MEDS: ASPIRIN EC 81 MG TABLET PO SCH (09:49)
[2019-12-27] MEDS: levETIRAcetam LIQUID 100 MG/ML 30 ML/BOTTLE PO SCH ×2 (09:49→20:52)
[2019-12-27] MEDS: PANTOPRAZOLE 40 MG TABLET PO SCH (09:49)
[2019-12-27] MEDS: MULTIVITAMIN (CENTRUM) TABLET PO SCH (09:49)
[2019-12-27] MEDS: FERROUS SULFATE 325 MG TABLET PO SCH (09:49)
[2019-12-27] MEDS: predniSONE 5 MG TABLET PO SCH (09:49)
[2019-12-27] MEDS: DEXTROSE 10% 250 ML BAG IV PRN (12:36)
[2019-12-27] MEDS: MEROPENEM 500 MG in SODIUM CHLORIDE 0.9% 100 ML IV SCH (13:30)
[2019-12-27] MEDS ORDERED: COLCHICINE 0.6 MG CAPSULE PO SCH (15:15)
[2019-12-27] MEDS: DEXTROSE 5% NACL 0.45% 1,000 ML IV SCH (17:53)
[2019-12-27] MEDS: CHOLECALCIFEROL 5,000 UNIT TABLET PO SCH (18:36)
[2019-12-27] MEDS: FOLIC ACID 1 MG TABLET PO SCH ×2 (20:52→20:59)
[2019-12-27] MEDS: ATORVASTATIN 20 MG TABLET PO SCH ×2 (20:52→20:59)
[2019-12-28] MEDS: HEPARIN 5,000 UNIT/1 ML VIAL SUBCUT SCH ×2 (02:35→16:07)
[2019-12-28 05:40] LABS: Basophils % 0.8 % (0.0-0.8); Eosinophils # 0.1 10*3/uL (0.0-0.87); Eosinophils % 2.5 % (0.00-10.9); Hematocrit 25.4 VOL% (35.7-47.0); Hemoglobin 8.2 GM/DL (12.0-16.0); Immature Granulocytes % 0.4 %; Immature Granulocytes Absolute 0.02 #; Lymphocytes # 1.6 10*3/uL (1.4-4.0); Mean Corpuscular HGB Conc 32.3 GM/DL (32-36); Mean Corpuscular Volume 101.2 FL (87-102); Mean Platelet Volume 11.5 FL (9.6-12.0); Monocytes % 19.2 % (1.7-12.7); Neutrophils % 47.1 % (38.7-73.9); Platelet Count 164 T/CUMM (130-400); Red Blood Count 2.51 MC/CUMM (3.8-5.5); Red Cell Distribution Width 14.4 % (9.3-17.3); White Blood Count 5.3 T/CUMM (4-12)
[2019-12-28 06:14] LABS: Eosinophils 3 % (0-10); Lymphocytes 23 % (20-55); Platelet Estimate Normal; Segmented Neutrophils 60 % (50-85); Total Cells Counted 100
[2019-12-28 06:15] LABS: Ovalocytes Few
[2019-12-28 06:16] LABS: Stomatocytes Slight; Target Cells Slight
[2019-12-28 06:17] LABS: Polychromasia Slight
[2019-12-28 06:20] LABS: Calcium 8.1 MG/DL (8.5-10.1); Osmolality,Calculated 272.7 MOS/KG (273-304)
[2019-12-28] MEDS: INSULIN REGULAR 100 UNIT/ML SUBCUT SCH ×4 (07:58→21:11)
[2019-12-28] MEDS: BISACODYL 5 MG TABLET PO PRN (08:54)
[2019-12-28] MEDS: RANOLAZINE 500 MG TABLET PO SCH ×2 (08:54→21:05)
[2019-12-28] MEDS: FERROUS SULFATE 325 MG TABLET PO SCH (08:54)
[2019-12-28] MEDS: ASPIRIN EC 81 MG TABLET PO SCH (08:54)
[2019-12-28] MEDS: predniSONE 5 MG TABLET PO SCH (08:54)
[2019-12-28] MEDS: PANTOPRAZOLE 40 MG TABLET PO SCH (08:54)
[2019-12-28] MEDS: CALCIUM (CARBONATE) 600 MG TABLET PO SCH ×2 (08:54→21:05)
[2019-12-28] MEDS: MULTIVITAMIN (CENTRUM) TABLET PO SCH (08:54)
[2019-12-28] MEDS: levETIRAcetam LIQUID 100 MG/ML 30 ML/BOTTLE PO SCH ×2 (08:55→21:11)
[2019-12-28] MEDS: DEXTROSE 5% NACL 0.45% 1,000 ML IV SCH (09:26)
[2019-12-28] MEDS: MEROPENEM 500 MG in SODIUM CHLORIDE 0.9% 100 ML IV SCH (16:06)
[2019-12-28] MEDS: CHOLECALCIFEROL 5,000 UNIT TABLET PO SCH (18:07)
[2019-12-28] MEDS: FOLIC ACID 1 MG TABLET PO SCH (21:05)
[2019-12-28] MEDS: MEMANTINE 5 MG TABLET PO SCH (21:11)
[2019-12-28] MEDS: ATORVASTATIN 20 MG TABLET PO SCH (21:11)
[2019-12-29] MEDS: HEPARIN 5,000 UNIT/1 ML VIAL SUBCUT SCH (03:39)
[2019-12-29 04:51] LABS: Basophils % 0.5 % (0.0-0.8); Eosinophils # 0.1 10*3/uL (0.0-0.87); Eosinophils % 2.8 % (0.00-10.9); Hematocrit 26.1 VOL% (35.7-47.0); Hemoglobin 8.4 GM/DL (12.0-16.0); Immature Granulocytes % 0.2 %; Immature Granulocytes Absolute 0.01 #; Lymphocytes # 1.8 10*3/uL (1.4-4.0); Lymphocytes % 40.6 % (21.3-54.2); Mean Corpuscular HGB Conc 32.2 GM/DL (32-36); Mean Corpuscular Volume 101.6 FL (87-102); Mean Platelet Volume 11.3 FL (9.6-12.0); Monocytes % 21.8 % (1.7-12.7); Neutrophils % 34.1 % (38.7-73.9); Platelet Count 162 T/CUMM (130-400); Red Blood Count 2.57 MC/CUMM (3.8-5.5); Red Cell Distribution Width 14.6 % (9.3-17.3); White Blood Count 4.3 T/CUMM (4-12)
[2019-12-29 05:26] LABS: Calcium 7.9 MG/DL (8.5-10.1); Osmolality,Calculated 271.7 MOS/KG (273-304)
[2019-12-29] MEDS: POTASSIUM CHLORIDE RIDER 10 MEQ in PREMIX 1 EACH IV PRN ×2 (06:16→09:34)
[2019-12-29 07:21] LABS: Band Neutrophils 1 % (0-10); Eosinophils 6 % (0-10); Lymphocytes 42 % (20-55); Platelet Estimate Normal; Segmented Neutrophils 40 % (50-85); Total Cells Counted 100
[2019-12-29 07:23] LABS: Anisocytosis Slight
[2019-12-29 07:24] LABS: Atypical Lymphocytes Few; Macrocytosis 1+
[2019-12-29 08:05] VITALS: BP 137/69
[2019-12-29] MEDS: FERROUS SULFATE 325 MG TABLET PO SCH (09:26)
[2019-12-29] MEDS: ASPIRIN EC 81 MG TABLET PO SCH (09:26)
[2019-12-29] MEDS: CALCIUM (CARBONATE) 600 MG TABLET PO SCH (09:26)
[2019-12-29] MEDS: BISACODYL 5 MG TABLET PO PRN (09:26)
[2019-12-29] MEDS: RANOLAZINE 500 MG TABLET PO SCH (09:26)
[2019-12-29] MEDS: MEMANTINE 5 MG TABLET PO SCH (09:26)
[2019-12-29] MEDS: levETIRAcetam LIQUID 100 MG/ML 30 ML/BOTTLE PO SCH (09:27)
[2019-12-29] MEDS: PANTOPRAZOLE 40 MG TABLET PO SCH (09:27)
[2019-12-29] MEDS: MULTIVITAMIN (CENTRUM) TABLET PO SCH (09:27)
[2019-12-29] MEDS: predniSONE 5 MG TABLET PO SCH (09:27)
[2019-12-29] MEDS: INSULIN REGULAR 100 UNIT/ML SUBCUT SCH (09:39)
== END 2019-12-29 11:23 | DRG 689 ==
LOC: N.ED 11:34 → N.EDINP 13:37 → N.2E 14:34
PROVIDERS: ADMIT Internal Medicine; ATTEND Internal Medicine

== ENCOUNTER 2020-01-04 21:09 | Inpatient (IN) ==
[2020-01-04 22:04] LABS: Basophils % 0.8 % (0.0-0.8); Eosinophils % 0.6 % (0.00-10.9); Hematocrit 24.5 VOL% (35.7-47.0); Hemoglobin 7.9 GM/DL (12.0-16.0); Immature Granulocytes % 0.4 %; Immature Granulocytes Absolute 0.02 #; Lymphocytes # 0.6 10*3/uL (1.4-4.0); Lymphocytes % 11.6 % (21.3-54.2); Mean Corpuscular HGB Conc 32.2 GM/DL (32-36); Mean Corpuscular Volume 102.9 FL (87-102); Mean Platelet Volume 11.3 FL (9.6-12.0); Monocytes % 18.1 % (1.7-12.7); Neutrophils % 68.5 % (38.7-73.9); Platelet Count 122 T/CUMM (130-400); Red Blood Count 2.38 MC/CUMM (3.8-5.5); Red Cell Distribution Width 16.3 % (9.3-17.3)
[2020-01-04 22:27] LABS: Albumin 1.9 G/DL (3.4-5.0); Bilirubin,Total 0.4 MG/DL (0.2-1.0); Calcium 7.7 MG/DL (8.5-10.1); Osmolality,Calculated 273.5 MOS/KG (273-304); Total Protein 4.3 G/DL (6.4-8.3)
[2020-01-04 22:44] LABS: Band Neutrophils 1 % (0-10); Eosinophils 1 % (0-10); Lymphocytes 12 % (20-55); Segmented Neutrophils 72 % (50-85); Total Cells Counted 100
[2020-01-04 22:45] LABS: Hypochromasia 2+; Platelet Estimate Adequate; Reactive Lymphocytes Few
[2020-01-04] MEDS ORDERED: POTASSIUM CHLORIDE 20 MEQ PACK PO STA (22:53)
[2020-01-05] MEDS ORDERED: ONDANSETRON 4 MG/2 ML VIAL IV PRN (00:17)
[2020-01-05] MEDS ORDERED: guaiFENesin/DM ER 600-30 MG TABLET PO PRN (00:17)
[2020-01-05] MEDS ORDERED: ALBUTEROL 2.5 MG/3 ML NEB RESP TX PRN (00:17)
[2020-01-05] MEDS ORDERED: DOCUSATE SODIUM 100 MG CAPSULE PO PRN (00:17)
[2020-01-05] MEDS ORDERED: ACETAMINOPHEN 325 MG TABLET PO PRN (00:17)
[2020-01-05] MEDS ORDERED: MAGNESIUM SULF RIDER 2 GM in PREMIX 1 EACH IV PRN (06:21)
[2020-01-05] MEDS ORDERED: SODIUM CHLORIDE 0.9% 1,000 ML IV PRN (06:22)
[2020-01-05] MEDS ORDERED: DEXTROSE 50% 25 GM/50 ML VIAL IV PRN (06:28)
[2020-01-05] MEDS ORDERED: GLUCAGON 1 MG VIAL IM PRN (06:28)
[2020-01-05 07:01] LABS: Basophils % 0.7 % (0.0-0.8); Eosinophils % 0.5 % (0.00-10.9); Hematocrit 24.8 VOL% (35.7-47.0); Hemoglobin 7.6 GM/DL (12.0-16.0); Immature Granulocytes % 0.3 %; Immature Granulocytes Absolute 0.02 #; Lymphocytes # 0.8 10*3/uL (1.4-4.0); Lymphocytes % 13.6 % (21.3-54.2); Mean Corpuscular HGB Conc 30.6 GM/DL (32-36); Mean Corpuscular Volume 105.5 FL (87-102); Mean Platelet Volume 11.4 FL (9.6-12.0); Monocytes % 18.1 % (1.7-12.7); Neutrophils % 66.8 % (38.7-73.9); Platelet Count 128 T/CUMM (130-400); Red Blood Count 2.35 MC/CUMM (3.8-5.5); Red Cell Distribution Width 16.4 % (9.3-17.3); White Blood Count 5.8 T/CUMM (4-12)
[2020-01-05 07:28] LABS: Band Neutrophils 1 % (0-10); Eosinophils 2 % (0-10); Hypochromasia 1+; Lymphocytes 12 % (20-55); Macrocytosis 1+; Platelet Estimate Adequate; Segmented Neutrophils 72 % (50-85); Total Cells Counted 100
[2020-01-05 07:34] LABS: Albumin 1.9 G/DL (3.4-5.0); Bilirubin,Total 0.7 MG/DL (0.2-1.0); Calcium 8.2 MG/DL (8.5-10.1); Osmolality,Calculated 271.7 MOS/KG (273-304); Total Protein 4.6 G/DL (6.4-8.3)
[2020-01-05] MEDS: POTASSIUM CHLORIDE 20 MEQ TABLET PO SCH ×3 (10:07→20:56)
[2020-01-05] MEDS: PANTOPRAZOLE 40 MG TABLET PO SCH (10:07)
[2020-01-05] MEDS: INSULIN LISPRO 100 UNIT/ML SUBCUT SCH ×4 (10:08→20:56)
[2020-01-05 11:58] LABS: Amorphous Crystals,Urine Occasional /HPF (Few); Apearance,Urine Slightly Hazy (Clear); Bacteria,Urine Occasional /HPF (Few); Bilirubin,Urine Negative (Negative); Blood, Urine Negative (Negative); Glucose,Urine (UA) Negative (Negative); Ketones,Urine 5 mg/dL (Negative); Mucus,Urine Occasional /LPF (Occasional); Nitrite,Urine Negative (Negative); Protein,Urine 100 MG/DL; RBC,Urine 4 /HPF (0-4); Squamous Epithelial Cell,Urine Occasional /HPF (0-10); Urine Color Amber (Yellow); Urine Specific Gravity 1.029 (1.001-1.035); WBC,Urine 43 /HPF (0-6)
[2020-01-05] MEDS ORDERED: VANCOMYCIN INJ 1,000 MG in SODIUM CHLORIDE 0.9% 250 ML IV PRN (14:15)
[2020-01-05] MEDS ORDERED: VANCOMYCIN INJ 500 MG in SODIUM CHLORIDE 0.9% 100 ML IV PRN (14:30)
[2020-01-05] MEDS ORDERED: VANCOMYCIN INJ 1,000 MG in SODIUM CHLORIDE 0.9% 250 ML IV ONE (15:00)
[2020-01-05] MEDS: ERTAPENEM 500 MG in SODIUM CHLORIDE 0.9% 100 ML IV SCH (16:53)
[2020-01-06] MEDS: PANTOPRAZOLE 40 MG TABLET PO SCH (10:07)
[2020-01-06] MEDS: INSULIN LISPRO 100 UNIT/ML SUBCUT SCH ×4 (10:07→22:49)
[2020-01-06 12:26] LABS: Basophils % 0.6 % (0.0-0.8); Eosinophils % 0.4 % (0.00-10.9); Hematocrit 27.2 VOL% (35.7-47.0); Hemoglobin 8.3 GM/DL (12.0-16.0); Immature Granulocytes % 0.4 %; Immature Granulocytes Absolute 0.03 #; Lymphocytes # 0.7 10*3/uL (1.4-4.0); Lymphocytes % 9.8 % (21.3-54.2); Mean Corpuscular HGB Conc 30.5 GM/DL (32-36); Mean Corpuscular Volume 107.1 FL (87-102); Mean Platelet Volume 11.8 FL (9.6-12.0); Monocytes % 14.1 % (1.7-12.7); Neutrophils % 74.7 % (38.7-73.9); Platelet Count 125 T/CUMM (130-400); Red Blood Count 2.54 MC/CUMM (3.8-5.5); Red Cell Distribution Width 16.2 % (9.3-17.3); White Blood Count 7.1 T/CUMM (4-12)
[2020-01-06 12:39] LABS: Calcium 8.1 MG/DL (8.5-10.1); Osmolality,Calculated 278.4 MOS/KG (273-304)
[2020-01-06] MEDS: ERTAPENEM 500 MG in SODIUM CHLORIDE 0.9% 100 ML IV SCH (15:40)
[2020-01-06] MEDS: hydrALAZINE 20 MG/1 ML VIAL IV PRN (20:46)
[2020-01-07] MEDS: hydrALAZINE 20 MG/1 ML VIAL IV PRN (04:37)
[2020-01-07 07:38] LABS: Basophils % 0.4 % (0.0-0.8); Eosinophils % 0.1 % (0.00-10.9); Hematocrit 26.9 VOL% (35.7-47.0); Hemoglobin 8.5 GM/DL (12.0-16.0); Immature Granulocytes Absolute 0.08 #; Lymphocytes # 0.9 10*3/uL (1.4-4.0); Lymphocytes % 11.3 % (21.3-54.2); Mean Corpuscular HGB Conc 31.6 GM/DL (32-36); Mean Corpuscular Volume 106.3 FL (87-102); Mean Platelet Volume 11.8 FL (9.6-12.0); Monocytes % 12.7 % (1.7-12.7); Neutrophils % 74.5 % (38.7-73.9); Platelet Count 120 T/CUMM (130-400); Red Blood Count 2.53 MC/CUMM (3.8-5.5); Red Cell Distribution Width 16.2 % (9.3-17.3); White Blood Count 7.8 T/CUMM (4-12)
[2020-01-07 08:04] LABS: Calcium 8.4 MG/DL (8.5-10.1); Osmolality,Calculated 282.3 MOS/KG (273-304)
[2020-01-07] MEDS: INSULIN LISPRO 100 UNIT/ML SUBCUT SCH ×4 (08:40→22:32)
[2020-01-07] MEDS: PANTOPRAZOLE 40 MG TABLET PO SCH (09:18)
[2020-01-07] MEDS ORDERED: VANCOMYCIN INJ 500 MG in SODIUM CHLORIDE 0.9% 100 ML IV ONE (17:00)
[2020-01-07] MEDS: ERTAPENEM 500 MG in SODIUM CHLORIDE 0.9% 100 ML IV SCH (17:21)
[2020-01-08 03:03] LABS: Basophils % 0.3 % (0.0-0.8); Eosinophils % 0.1 % (0.00-10.9); Hematocrit 34.4 VOL% (35.7-47.0); Immature Granulocytes % 0.5 %; Immature Granulocytes Absolute 0.05 #; Lymphocytes # 0.9 10*3/uL (1.4-4.0); Lymphocytes % 8.7 % (21.3-54.2); Mean Corpuscular HGB Conc 33.1 GM/DL (32-36); Mean Corpuscular Volume 96.6 FL (87-102); Mean Platelet Volume 11.9 FL (9.6-12.0); Neutrophils % 77.4 % (38.7-73.9); Platelet Count 115 T/CUMM (130-400); Red Cell Distribution Width 18.9 % (9.3-17.3)
[2020-01-08 03:17] LABS: Calcium 8.4 MG/DL (8.5-10.1); Osmolality,Calculated 280.4 MOS/KG (273-304)
[2020-01-08 03:18] LABS: Hemoglobin 11.4 GM/DL (12.0-16.0); Red Blood Count 3.56 MC/CUMM (3.8-5.5)
[2020-01-08] MEDS: INSULIN LISPRO 100 UNIT/ML SUBCUT SCH ×4 (08:07→21:35)
[2020-01-08] MEDS: PANTOPRAZOLE 40 MG TABLET PO SCH (10:32)
[2020-01-08] MEDS: ERTAPENEM 500 MG in SODIUM CHLORIDE 0.9% 100 ML IV SCH (17:32)
[2020-01-09 05:11] LABS: Basophils % 0.3 % (0.0-0.8); Hematocrit 35.1 VOL% (35.7-47.0); Immature Granulocytes % 0.3 %; Immature Granulocytes Absolute 0.04 #; Lymphocytes # 1.1 10*3/uL (1.4-4.0); Lymphocytes % 8.9 % (21.3-54.2); Mean Corpuscular HGB Conc 31.3 GM/DL (32-36); Mean Corpuscular Volume 101.4 FL (87-102); Mean Platelet Volume 11.9 FL (9.6-12.0); Monocytes % 13.1 % (1.7-12.7); Neutrophils % 77.4 % (38.7-73.9); Platelet Count 143 T/CUMM (130-400); Red Blood Count 3.46 MC/CUMM (3.8-5.5); Red Cell Distribution Width 18.1 % (9.3-17.3); White Blood Count 12.3 T/CUMM (4-12)
[2020-01-09 05:28] LABS: Calcium 8.6 MG/DL (8.5-10.1); Osmolality,Calculated 288.1 MOS/KG (273-304)
[2020-01-09] MEDS: PANTOPRAZOLE 40 MG TABLET PO SCH ×2 (09:00→09:46)
[2020-01-09] MEDS: INSULIN LISPRO 100 UNIT/ML SUBCUT SCH ×4 (09:10→22:11)
[2020-01-09] MEDS: POTASSIUM CHLORIDE RIDER 10 MEQ in PREMIX 1 EACH IV PRN (14:34)
[2020-01-09] MEDS ORDERED: VANCOMYCIN INJ 500 MG in SODIUM CHLORIDE 0.9% 100 ML IV ONE (17:00)
[2020-01-09] MEDS: MENTHOL/ZINC OXIDE OINT 71 GM JAR TOP SCH (18:35)
[2020-01-09] MEDS: ERTAPENEM 500 MG in SODIUM CHLORIDE 0.9% 100 ML IV SCH (18:46)
[2020-01-10 06:21] LABS: Basophils % 0.3 % (0.0-0.8); Eosinophils # 0.1 10*3/uL (0.0-0.87); Eosinophils % 0.6 % (0.00-10.9); Hematocrit 31.1 VOL% (35.7-47.0); Immature Granulocytes % 0.5 %; Immature Granulocytes Absolute 0.05 #; Lymphocytes # 0.7 10*3/uL (1.4-4.0); Lymphocytes % 6.4 % (21.3-54.2); Mean Corpuscular HGB Conc 32.2 GM/DL (32-36); Mean Corpuscular Volume 99.4 FL (87-102); Mean Platelet Volume 11.8 FL (9.6-12.0); Monocytes % 12.2 % (1.7-12.7); Platelet Count 139 T/CUMM (130-400); Red Blood Count 3.13 MC/CUMM (3.8-5.5); Red Cell Distribution Width 17.2 % (9.3-17.3)
[2020-01-10 06:48] LABS: Calcium 8.6 MG/DL (8.5-10.1); Osmolality,Calculated 273.8 MOS/KG (273-304)
[2020-01-10 07:09] LABS: Hypochromasia 1+
[2020-01-10 07:10] LABS: Platelet Estimate Normal
[2020-01-10] MEDS: INSULIN LISPRO 100 UNIT/ML SUBCUT SCH ×4 (08:27→21:52)
[2020-01-10] MEDS ORDERED: DEXTROSE 10% 25 GM/250 ML BAG IV PRN (08:30)
[2020-01-10] MEDS ORDERED: DEXTROSE 10% 250 ML BAG IV PRN (08:48)
[2020-01-10] MEDS: PANTOPRAZOLE 40 MG TABLET PO SCH (10:44)
[2020-01-10] MEDS: MENTHOL/ZINC OXIDE OINT 71 GM JAR TOP SCH (11:39)
[2020-01-10] MEDS: hydrALAZINE 20 MG/1 ML VIAL IV PRN (11:43)
[2020-01-10 11:45] LABS: Appearance,CSF Clear; Lymphocytes,CSF 94 %; Monocytes,CSF 4 %; Neutrophils,CSF 2 %; Red Blood Cell,CSF 229 C/CUMM; White Blood Cell,CSF 42 C/CUMM
[2020-01-10 11:46] LABS: Glucose,CSF 48 MG/DL (40-70)
[2020-01-10] MEDS: POTASSIUM CHLORIDE RIDER 10 MEQ in PREMIX 1 EACH IV PRN ×2 (13:08→14:22)
[2020-01-10] MEDS: ERTAPENEM 500 MG in SODIUM CHLORIDE 0.9% 100 ML IV SCH (16:43)
[2020-01-11 07:35] LABS: Basophils % 0.2 % (0.0-0.8); Eosinophils % 0.4 % (0.00-10.9); Hematocrit 32.7 VOL% (35.7-47.0); Hemoglobin 10.1 GM/DL (12.0-16.0); Immature Granulocytes % 0.9 %; Lymphocytes # 0.5 10*3/uL (1.4-4.0); Mean Corpuscular HGB Conc 30.9 GM/DL (32-36); Mean Corpuscular Volume 102.5 FL (87-102); Mean Platelet Volume 11.3 FL (9.6-12.0); Monocytes % 10.9 % (1.7-12.7); Neutrophils % 82.6 % (38.7-73.9); Platelet Count 171 T/CUMM (130-400); Red Blood Count 3.19 MC/CUMM (3.8-5.5); Red Cell Distribution Width 16.7 % (9.3-17.3); White Blood Count 10.6 T/CUMM (4-12)
[2020-01-11] MEDS: INSULIN LISPRO 100 UNIT/ML SUBCUT SCH ×4 (07:54→20:16)
[2020-01-11 07:55] LABS: Calcium 8.5 MG/DL (8.5-10.1); Osmolality,Calculated 275.8 MOS/KG (273-304)
[2020-01-11] MEDS: PANTOPRAZOLE 40 MG TABLET PO SCH (09:00)
[2020-01-11] MEDS: MENTHOL/ZINC OXIDE OINT 71 GM JAR TOP SCH (09:00)
[2020-01-11] MEDS: ERTAPENEM 500 MG in SODIUM CHLORIDE 0.9% 100 ML IV SCH (16:47)
[2020-01-11] MEDS ORDERED: VANCOMYCIN INJ 500 MG in SODIUM CHLORIDE 0.9% 100 ML IV ONE (17:00)
[2020-01-12 06:51] LABS: Basophils % 0.3 % (0.0-0.8); Eosinophils # 0.1 10*3/uL (0.0-0.87); Eosinophils % 0.4 % (0.00-10.9); Hematocrit 33.6 VOL% (35.7-47.0); Hemoglobin 10.2 GM/DL (12.0-16.0); Immature Granulocytes % 0.6 %; Immature Granulocytes Absolute 0.07 #; Lymphocytes # 0.6 10*3/uL (1.4-4.0); Mean Corpuscular HGB Conc 30.4 GM/DL (32-36); Mean Corpuscular Volume 107.7 FL (87-102); Mean Platelet Volume 11.3 FL (9.6-12.0); Monocytes % 10.4 % (1.7-12.7); Neutrophils % 83.3 % (38.7-73.9); Platelet Count 202 T/CUMM (130-400); Red Blood Count 3.12 MC/CUMM (3.8-5.5); White Blood Count 11.7 T/CUMM (4-12)
[2020-01-12] MEDS: INSULIN LISPRO 100 UNIT/ML SUBCUT SCH ×2 (09:39→13:01)
[2020-01-12] MEDS: PANTOPRAZOLE 40 MG TABLET PO SCH (09:40)
[2020-01-12 09:44] LABS: Calcium 8.7 MG/DL (8.5-10.1); Osmolality,Calculated 282.8 MOS/KG (273-304)
[2020-01-12] MEDS ORDERED: POTASSIUM CHLORIDE 20 MEQ/15 ML UDCUP PER TUBE PRN (10:16)
[2020-01-12] MEDS: MENTHOL/ZINC OXIDE OINT 71 GM JAR TOP SCH (10:53)
[2020-01-12 11:07] LABS: Atypical Lymphocytes Few; Band Neutrophils 2 % (0-10); Eosinophils 2 % (0-10); Lymphocytes 8 % (20-55); Platelet Estimate Normal; Segmented Neutrophils 83 % (50-85); Total Cells Counted 100
[2020-01-12] MEDS: POTASSIUM CHLORIDE 20 MEQ TABLET PO PRN ×2 (13:01→15:02)
[2020-01-12 13:26] LABS: VDRL Spinal Fluid Negative (Negative)
[2020-01-12 13:35] VITALS: BP 150/66
[2020-01-14 07:51] LABS: M. Tuberculosis PCR Result Negative (Negative); M. Tuberculosis PCR Source CSF
[2020-01-14 12:26] LABS: West Nile Virus Ab, IgG, CSF Negative (Negative); West Nile Virus Ab, IgM, CSF Negative (Negative)
== END 2020-01-12 19:53 | disposition expired | DRG 70 ==
LOC: EDUNIT# → EDBD → N.ED 21:09 → SUATTDRO 01-05 00:17 → N.EDINP 01-05 00:17 → N.TELEN 01-05 00:39
PROVIDERS: ADMIT Internal Medicine; ATTEND Internal Medicine